=== PATIENT | female | born 1950 | race Caucasian/White ===

== ENCOUNTER 2017-03-13 20:10 | Inpatient (IN) | payer MEDICARE, MEDICAID ==
--- NOTE | 2017-03-13 21:19 | History and Physical ---
History of Present Illness - HPI Chief Complaint: transfered from [facility] icu HPI: trafered from [facility] Vital Signs: Last Vital Signs Temp Pulse 74 03/13/17 21:11 Resp BP Pulse Ox 96 03/13/17 21:11 Past Medical History Cardiovascular: Report: Hyperlipidemia Psych: Report: Anxiety, Addictions Musculoskeletal: Report: Osteoarthritis, Weakness, Other (s/pclavicular fx) Renal/: Report: Acute Renal Failure Endocrine: Report: Hypothyroidism Family Medical History - Family Member Mother History Unknown: Yes Social History Smoke: No Alcohol: Occassional Drugs: Crystal Meth Lives: Alone Domestic Violence: Negative - Medications Home Medications: Home Medication Medication Instructions Recorded Type Acetaminophen [Tylenol] 650 mg PO Q4HR PRN 03/13/17 History Albuterol Sulfate [Proair 90 mcg IH Q1H PRN 03/13/17 History Respiclick] Albuterol Sulfate [Proair 90 mcg IH Q4H 03/13/17 History Respiclick] Carvedilol [Coreg] 1 tab NG BID 03/13/17 History Epoetin John [Epogen] 10,000 units SUBQ MONFRI 03/13/17 History Ferrous Sulfate [Iron] 300 mg NG BID 03/13/17 History HYDROmorphone [Dilaudid] 1 mg IV Q3H PRN 03/13/17 History HYDROmorphone [Dilaudid] 2 mg IV Q3H PRN 03/13/17 History Heparin Sodium,Porcine [Heparin 5,000 unit SQ Q8HR 03/13/17 History Sodium] Hydralazine HCl 10 mg IV Q3H PRN 03/13/17 History Insulin Human Regular [NovoLIN R] 0 units SUBQ Q4H 03/13/17 History Ipratropium [place] [Atrovent Hfa] 6 puff INH QID 03/13/17 History Ondansetron HCl/Pf [Ondansetron 4 mg IVP Q6H PRN 03/13/17 History HCl 4 mg/2 ml Vial] Pantoprazole [Protonix] 40 mg IVP DAILY 03/13/17 History Phenytoin [Dilantin] 100 mg IV Q8H 03/13/17 History Hydralazine HCl 10 mg IVP Q3H PRN 03/14/17 History - Allergies Allergies/Adverse Reactions: Allergies Allergy/AdvReac Type Severity Reaction Status Date / Time No Known Allergies Allergy Verified 03/13/17 22:16 Review of Systems - Review of Systems Constitutional: Report: Chills Eyes: Report: No Significant Respiratory: Report: Other (intubated for resp failure) Cardiovascular: Report: No Significant Neurological: Report: Seizures (aloc) Physical Exam - Physical Exam HEENT: Report: Pharnyx within normal limits (pt intubated on ventiltor and sedated) Cardiovascular Systems: Report: Regular, Rate and Rhythm Respiratory: Report: Wheezing, Rhonchi Abdomen: Report: Non-tender to palpation Back: Report: Inspection of back is within normal limits. Extremities: Report: Non-tender to palpation. Skin: Report: Color of skin is within normal limits Other Systems Exam: on sedation - Lab Results All Lab Results last 24 hours: reviewed - Assessment Assessment: s/p intubation s/p resp failure s/p siezures on ventilator h/o drug depedence s/p prir rt clvilular fx obesity acute renal failure on hd drug withdrawal - Plan Plan: ventilatory support/wean when ready continue dialysis iv antibiotics pul/id/renal nuero /psych consults
[2017-03-13 22:16] VITALS: BP 105/70
[2017-03-13] MEDS ORDERED: INSULIN HUMAN REGULAR 100 UNITS/ML UNIT ONE (23:11)
[2017-03-14] MEDS ORDERED: Albuterol Nebulizer 2.5mg/3mL HHN PRN (00:21)
--- NOTE | 2017-03-14 00:21 | History & Physical ---
ADMIT DATE: 03/13/2017 HISTORY OF PRESENT ILLNESS: This is a 66-year-old female patient well known to me has a history of asthma, history of COPD, history of severe obesity, history of prior clavicular fractures, history of chronic drug dependence, on fentanyl patch, apparently went to [facility], was altered, patient was intubated, was in the ICU and I got a call from the ICU, a [facility] doctor saying that the patient is in a stable, able to be transferred to [facility] in the ICU. That is why I am seeing the patient now. The patient is intubated on a ventilator, unable to get much history. PHYSICAL EXAMINATION: HEAD: Normal. ENT: Normal. NECK: Supple, nontender. LUNGS: Clear. CARDIOVASCULAR SYSTEM: S1, S2 heard. ABDOMEN: Soft. Bowel sounds are heard. CENTRAL NERVOUS SYSTEM: Decreased sensorium. DIAGNOSES: Status post respiratory failure, status post intubation, ventilator-dependent respiratory failure, pneumonia, possible aspiration, history of prior clavicular fracture, history of obesity, history of depression, history of drug dependence. PLAN: The patient is going to be admitted and I will have Dr. Mike Alvarez, ID doctor see the patient and I will also have Dr. Trenton Alvarez, Pulmonary doctor see the patient and I will have Psych doctor, Dr. Mcnair see the patient and also I will have the Pain Management doctor, Dr. Monroy see the patient and I will follow the patient. JOB# [id number]
[2017-03-14] MEDS ORDERED: Dextrose 50% 50 mL Abboject IVP PRN (00:23)
[2017-03-14] MEDS ORDERED: GLUCAGON HCl 1 MG KIT IM PRN (00:23)
[2017-03-14] MEDS: HYDROmorphone 1 mg/mL 1mL Syr IVP PRN ×2 (04:25→16:14)
[2017-03-14] MEDS: Phenytoin 50 mg/mL 5 mL Vial IV SCH ×2 (04:45→13:00)
[2017-03-14 06:10] LABS: ANION GAP 8.8 (7.0-16.0); BUN/CREATININE RATIO 7.4; CALCIUM SERUM 8.5 mg/dL (8.6-10.3); CREATININE - SERUM 4.6 mg/dL (0.6-1.2); POTASSIUM SERUM 3.8 mEq/L (3.5-5.1)
[2017-03-14 06:11] LABS: ALB/GLOB RATIO 0.9 (1.0-1.8); HEMOGLOBIN 8.7 gm/dL (11.7-16.1); MEAN CELL VOLUME 81.9 fl (81-100); RED BLOOD COUNT 3.17 Mil/cmm (3.80-5.20); WHITE BLOOD COUNT 15.6 Th/cmm (4.8-10.8)
[2017-03-14 06:12] LABS: MEAN CORPUSCULAR HEMOGLOBIN 27.5 pg (27.0-31.0); MEAN CORPUSCULAR HGB CONC 33.6 pg (28.0-36.0); MEAN PLATELET VOLUME 8.1 fl; PLATELET COUNT 157 Th/cmm (150-400); RED CELL DISTRIBUTION WIDTH 16.2 % (11.5-20.0)
[2017-03-14] MEDS: INSULIN ASPART SLIDING SCALE 100 UNITS/ML UNIT SUBQ SCH ×3 (06:15→17:58)
[2017-03-14] MEDS: Chlorhexidine Gluconate 0.12% 15mL Mouthwash MM SCH (08:11)
--- NOTE | 2017-03-14 09:03 | Diagnostic Imaging Report ---
CHEST X-RAY: AP view INDICATION: Intubated COMPARISON: No priors available for comparison FINDINGS: Portable chest no priors available demonstrates ET tube with tip 2.6 cm above the sha. NG tube is visualized the stomach with distal tip not seen. Left-sided IJ central line is seen with tip in SVC. Right IJ central line is seen with tip in the cavoatrial junction. Patchy bilateral lower lung zone infiltrates are seen with minimal congestive changes. No significant effusion. Heart size normal. Right hip arthroplasty is noted. There is evidence of trauma to the left shoulder with deformity of the left humeral head. IMPRESSION: Support devices as detailed above. Bibasal infiltrates and mild congestive changes Evidence of trauma to the left shoulder with fracture deformity of left humeral head, correlate clinically.
[2017-03-14] MEDS: Ferrous Sulfate 300 MG/5 ML UDC NG SCH ×2 (09:48→17:30)
[2017-03-14 10:00] LABS: pH 7.49 (7.35-7.45)
[2017-03-14 10:02] LABS: ABG SOURCE Arterial; BE(B) 7.8 mEq/L (-3.0-3.0); HCO3 30.7 mEq/L (20.0-26.0)
[2017-03-14 10:03] LABS: ALLEN TEST Positive; CRITICAL VALUES REPORTED BY DM; FIO2 30; MECH RATE 16; MECH VT 450
[2017-03-14] MEDS ORDERED: Albuterol Nebulizer 2.5mg/3mL HHN SCH (11:00)
[2017-03-14] MEDS ORDERED: Ipratropium Neb 0.5 mg/2.5 mL UD HHN SCH (11:00)
--- NOTE | 2017-03-14 13:16 | Consultation ---
Consult Note - Consult Note Service Date: 03/14/17 Consult Note: PHYSICIAN Consultation Note: Date of Admission: 03/13/17 Purpose of Consultation: Chief Complaint: Patient REGINE FREGOSO was admitted to location Intensive Care Unit with ALOC. History of Present Illness: Patient is 66 year old female with history of morbid obesity, COPD, HTN, Cardiomyopathy, Polysubstance abuse, chronic pain syndrome, taken from home by EMS to the [facility] 03/09/2017 for altered mental status. She had fentanyl patces on the skin which were removed, Narcan was given by EMS. On initial evaluation, her temperature was not available, WBC Count 11,700. Patient was diagnosed with severe septic shock with multiorgan failure, involving respiratory failure, and renal failure and coagulase negative Staphylococcal sepsis. She had Right IJ and left HD catheter placed in and she is receiving HD on daily basis. She had intubation performed in the ER and put on ventilator support. She is still on ventilator support and HD on daily basis. Antibiotic whitaker, she had been receiving vancomycin IV and Zosyn. patient has worsening of the leukocytosis, and ID consult was called for antibiotic management. Crug screen was positive for Meth, codeine, methadone and fentanyl. Respiratory culture grew GNR and GPC. 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 She was transferred to this hospital for insurance purposes. Past Medical History: morbid obesity, COPD, HTN, Cardiomyopathy, Polysubstance abuse, chronic pain syndrome. Allergies Allergy/AdvReac Type Severity Reaction Status Date / Time No Known Allergies Allergy Verified 03/13/17 22:16 Vital Signs Temp 97.2 F 03/14/17 04:00 Pulse 75 03/14/17 11:00 Resp 20 03/14/17 11:00 BP 125/71 03/14/17 11:00 Pulse Ox 98 03/14/17 11:00 Intake & Output 03/13/17 03/14/17 03/14/17 18:59 06:59 18:59 Intake Total 100 Output Total 50 Balance 50 Weight (lbs) 120.202 kg Intake: Tube Feeding 50 Other 50 Output: Urine 50 Other: # Bowel Movements 1 Stool Characteristics Liquid Brown Laboratory Results - last 24 hr 03/13/17 03/14/17 03/14/17 22:07 04:40 04:40 WBC 15.6 H RBC 3.17 L Hgb 8.7 L Hct 26.0 L MCV 81.9 MCH 27.5 MCHC Differential 33.6 RDW 16.2 Plt Count 157 MPV 8.1 Specimen Source Sample Site pH pCO2 pO2 HCO3 Base Excess O2 Saturation Ruben Test Vent Rate Inspired O2 Tidal Volume PEEP Pressure (ins/psv/peep) Critical Value Sodium 135 L Potassium 3.8 Chloride 101 Carbon Dioxide 29.0 Anion Gap 8.8 BUN 34 H Creatinine 4.6 H* Est GFR ( Amer) 12.2 Est GFR (Non-Af Amer) 10.1 BUN/Creatinine Ratio 7.4 Glucose 134 H POC Glucose 120 H Calcium 8.5 L Total Bilirubin 1.0 AST 74 H ALT 66 H Alkaline Phosphatase 102 Total Protein 6.9 Albumin 3.2 L Globulin 3.7 Albumin/Globulin Ratio 0.9 L 03/14/17 03/14/17 06:13 09:48 WBC RBC Hgb Hct MCV MCH MCHC Differential RDW Plt Count MPV Specimen Source Arterial Sample Site Right Radial pH 7.49 H pCO2 42.0 pO2 47.0 L* HCO3 30.7 H Base Excess 7.8 H O2 Saturation 86.0 L Ruben Test Positive Vent Rate 16 Inspired O2 30 Tidal Volume 450 PEEP 5 Pressure (ins/psv/peep) N/A Critical Value DM Sodium Potassium Chloride Carbon Dioxide Anion Gap BUN Creatinine Est GFR ( Amer) Est GFR (Non-Af Amer) BUN/Creatinine Ratio Glucose POC Glucose 149 H Calcium Total Bilirubin AST ALT Alkaline Phosphatase Total Protein Albumin Globulin Albumin/Globulin Ratio Home Medication Medication Instructions Recorded Type Acetaminophen [Tylenol] 650 mg PO Q4HR PRN 03/13/17 History Albuterol Sulfate [Proair 90 mcg IH Q1H PRN 03/13/17 History Respiclick] Albuterol Sulfate [Proair 90 mcg IH Q4H 03/13/17 History Respiclick] Carvedilol [Coreg] 1 tab NG BID 03/13/17 History Epoetin John [Epogen] 10,000 units SUBQ MONFRI 03/13/17 History Ferrous Sulfate [Iron] 300 mg NG BID 03/13/17 History HYDROmorphone [Dilaudid] 1 mg IV Q3H PRN 03/13/17 History HYDROmorphone [Dilaudid] 2 mg IV Q3H PRN 03/13/17 History Heparin Sodium,Porcine [Heparin 5,000 unit SQ Q8HR 03/13/17 History Sodium] Hydralazine HCl 10 mg IV Q3H PRN 03/13/17 History Insulin Human Regular [NovoLIN R] 0 units SUBQ Q4H 03/13/17 History Ipratropium [place] [Atrovent Hfa] 6 puff INH QID 03/13/17 History Ondansetron HCl/Pf [Ondansetron 4 mg IVP Q6H PRN 03/13/17 History HCl 4 mg/2 ml Vial] Pantoprazole [Protonix] 40 mg IVP DAILY 03/13/17 History Phenytoin [Dilantin] 100 mg IV Q8H 03/13/17 History Hydralazine HCl 10 mg IVP Q3H PRN 03/14/17 History Current Medications Generic Name Dose Route Start Last Admin Trade Name Freq PRN Reason Stop Dose Admin Acetaminophen 650 mg 03/14/17 00:21 Tylenol PO 05/13/17 00:20 Q4HR PRN T 101F Albuterol Sulfate 2.5 mg 03/14/17 00:21 Albuterol 2.5mg/3ml Neb Ud HHN Q1H PRN Shortness of Breath or Wheeze Albuterol Sulfate 2.5 mg 03/14/17 11:00 Albuterol 2.5mg/3ml Neb Ud HHN 05/13/17 10:59 Q4HRT REPLACED BY [facility] Carvedilol 6.25 mg 03/14/17 09:00 03/14/17 09:48 Coreg NG 05/13/17 08:59 6.25 mg BID CELSA Administration Chlorhexidine Gluconate 15 ml 03/14/17 08:00 03/14/17 08:11 Peridex MM 05/13/17 07:59 15 ml 0800,1999 CELSA Administration Dextrose 50 ml 03/14/17 00:23 D50w IVP 05/13/17 00:22 PRN PRN Blood Glucose less than 70 Dextrose 18.75 gm 03/14/17 00:23 Glutose 40% PO 05/13/17 00:22 PRN PRN Blood Glucose less than 70 Epoetin John 10,000 units 03/14/17 15:00 Epogen SUBQ 05/13/17 14:59 MONFRI REPLACED BY [facility] Ferrous Sulfate 300 mg 03/14/17 09:00 03/14/17 09:48 Iron NG 05/13/17 08:59 300 mg BID CELSA Administration Glucagon 1 mg 03/14/17 00:23 Glucagen IM 05/13/17 00:22 PRN PRN Blood Glucose less than 70 Heparin Sodium (Porcine) 5,000 units 03/14/17 05:00 03/14/17 06:00 Heparin SUBQ 05/13/17 08:00 5,000 units Q8HR CELSA Administration Hydralazine HCl 10 mg 03/14/17 00:42 Apresoline 20 Mg/Ml IV 05/13/17 00:41 Q3H PRN FOR SBP ABOVE 150 Hydromorphone HCl 2 mg 03/14/17 00:47 Dilaudid IVP 05/13/17 00:46 Q3H PRN FOR MODERATE PAIN Hydromorphone HCl 1 mg 03/14/17 00:47 03/14/17 04:25 Dilaudid IVP 05/13/17 00:46 1 mg Q3H PRN Administration MILD PAIN Piperacillin Sod/Tazobactam 50 mls @ 100 mls/hr 03/14/17 09:00 03/14/17 08:07 Sod 2.25 gm/ Sodium Chloride IV 05/13/17 08:59 100 mls/hr Q8H CELSA Administration Insulin Aspart 0 units 03/14/17 06:00 03/14/17 06:15 Novolog Insulin Sliding Scale SUBQ 05/13/17 05:59 Not Given Q6HR REPLACED BY [facility] Protocol Ipratropium [place] 0.5 mg 03/14/17 11:00 Atrovent Neb 0.5mg/2.5ml HHN 05/13/17 10:59 QIDRT CELSA Ondansetron HCl 4 mg 03/14/17 00:47 Zofran IVP 05/13/17 00:46 Q6H PRN Nausea / Vomiting Pantoprazole Sodium 40 mg 03/14/17 09:00 03/14/17 09:48 Protonix IVP 05/13/17 08:59 40 mg DAILY CELSA Administration Phenytoin 100 mg 03/14/17 01:00 03/14/17 04:45 Dilantin IV 05/13/17 00:59 100 mg Q8H CELSA Administration Review of Systems: A 12 point ROS was reviewed with the pertinent positive and negatives noted in the HPI. Unable to provide any history. Social History Smoking Status Current every day smoker Drug Use Yes Family Medical History Unknown Physical Exam: General: Comfortable, obese, intubated orally, on the ventilator support. HEENT: Head is nromocephalic, atraumatic. Orall cavity is moist and pink tongue. Neck: Supple, no JVD, no carotid bruit. No use of accessory neck muscles. Cardio: S1 and S2 WNL. no murmur, no gallop. Respiratory: Vesicular breath sounds. No crackles. decreased sounds. Abdominal: Soft NT ND BS present. Genital/Urinary: deferred Extremities: NCCE. Neurological: Unresponsive. Assessment: 1. Sepsis with multiorgan failure. 2. Pneumonia ( CXR shoed bibasilar infiltrates). 3. Obesity. 4. Renal failure on HD. ? acute versus chronic, 5. acute on chronic respiratory failure versus acute respiratory failure on ventilator. 6. COPD. 7. HTN. Plan: Will change antibiotics to zyvox, rocephin and levaquin. Thank you, Dr Fried for involving me in taking care of this patient. Antonio Arango Devesh N., M.D. [id number]
[2017-03-14] MEDS ORDERED: Levofloxacin 500mg/100mL 500 MG/100 ML BAG IV ONE (13:37)
--- NOTE | 2017-03-14 14:32 | Diagnostic Imaging Report ---
Left shoulder 2 views Indication: Fall Comparison: Chest x-ray 03/14/2017 Findings: Exam is limited due to positioning. There is markedly displaced age-indeterminate fracture of the proximal left humerus. Additional subacute to chronic appearing of the mid to distal humeral shaft is also noted. There is deformity of the humeral head. Mild degenerative changes are noted. Partially visualized support devices are seen better seen on chest x-ray earlier the same day. Impression: Markedly displaced age indeterminate fracture of the proximal humerus possibly subacute to chronic. Please correlate with clinical findings. There is deformity of the left humeral head. The glenohumeral joint cannot be well evaluated on this exam. Subacute to chronic appearing left mid to distal humeral shaft fracture.. In the setting of trauma, if clinical symptoms persist and there is continued concern for an occult fracture, follow up exams in 5-7 days is suggested.
--- NOTE | 2017-03-14 14:36 | General Progress Note ---
Subjective - Review of Systems Events since last encounter: patient on ventilator Objective - Results Result Diagrams: 03/14/17 04:40 03/14/17 04:40 Recent Labs: Laboratory Last Values WBC 15.6 Th/cmm (4.8-10.8) H 03/14/17 04:40 RBC 3.17 Mil/cmm (3.80-5.20) L 03/14/17 04:40 Hgb 8.7 gm/dL (11.7-16.1) L 03/14/17 04:40 Hct 26.0 % (35.0-45.0) L 03/14/17 04:40 MCV 81.9 fl (81-100) 03/14/17 04:40 MCH 27.5 pg (27.0-31.0) 03/14/17 04:40 MCHC Differential 33.6 pg (28.0-36.0) 03/14/17 04:40 RDW 16.2 % (11.5-20.0) 03/14/17 04:40 Plt Count 157 Th/cmm (150-400) 03/14/17 04:40 MPV 8.1 fl 03/14/17 04:40 Specimen Source Arterial 03/14/17 09:48 Sample Site Right Radial 03/14/17 09:48 pH 7.49 (7.35-7.45) H 03/14/17 09:48 pCO2 42.0 mmHg (35.0-45.0) 03/14/17 09:48 pO2 47.0 mmHg (80.0-100.0) L* 03/14/17 09:48 HCO3 30.7 mEq/L (20.0-26.0) H 03/14/17 09:48 Base Excess 7.8 mEq/L (-3.0-3.0) H 03/14/17 09:48 O2 Saturation 86.0 % (92.0-100.0) L 03/14/17 09:48 Ruben Test Positive 03/14/17 09:48 Vent Rate 16 03/14/17 09:48 Inspired O2 30 03/14/17 09:48 Tidal Volume 450 03/14/17 09:48 PEEP 5 03/14/17 09:48 Pressure (ins/psv/peep) N/A 03/14/17 09:48 Critical Value DM 03/14/17 09:48 Sodium 135 mEq/L (136-145) L 03/14/17 04:40 Potassium 3.8 mEq/L (3.5-5.1) 03/14/17 04:40 Chloride 101 mEq/L (98-107) 03/14/17 04:40 Carbon Dioxide 29.0 mEq/L (21.0-31.0) 03/14/17 04:40 Anion Gap 8.8 (7.0-16.0) 03/14/17 04:40 BUN 34 mg/dL (7-25) H 03/14/17 04:40 Creatinine 4.6 mg/dL (0.6-1.2) H* 03/14/17 04:40 Est GFR ( Amer) 12.2 ml/min (>90) 03/14/17 04:40 Est GFR (Non-Af Amer) 10.1 ml/min 03/14/17 04:40 BUN/Creatinine Ratio 7.4 03/14/17 04:40 Glucose 134 mg/dL (70-105) H 03/14/17 04:40 POC Glucose 149 MG/DL (70 - 105) H 03/14/17 06:13 Calcium 8.5 mg/dL (8.6-10.3) L 03/14/17 04:40 Total Bilirubin 1.0 mg/dL (0.3-1.0) 03/14/17 04:40 AST 74 U/L (13-39) H 03/14/17 04:40 ALT 66 U/L (7-52) H 03/14/17 04:40 Alkaline Phosphatase 102 U/L (34-104) 03/14/17 04:40 Total Protein 6.9 gm/dL (6.0-8.3) 03/14/17 04:40 Albumin 3.2 gm/dL (3.7-5.3) L 03/14/17 04:40 Globulin 3.7 gm/dL 03/14/17 04:40 Albumin/Globulin Ratio 0.9 (1.0-1.8) L 03/14/17 04:40 - Physical Exam Vitals and I&O: Vital Signs Temp 97.2 F 03/14/17 04:00 Pulse 73 03/14/17 13:26 Resp 20 03/14/17 11:00 BP 125/71 03/14/17 11:00 Pulse Ox 99 03/14/17 13:26 Intake & Output 03/13/17 03/14/17 03/14/17 18:59 06:59 18:59 Intake Total 100 Output Total 50 Balance 50 Weight (lbs) 120.202 kg Intake: Tube Feeding 50 Other 50 Output: Urine 50 Other: # Bowel Movements 1 Stool Characteristics Liquid Brown Active Medications: Current Medications Acetaminophen (Tylenol) 650 mg PO Q4HR PRN PRN Reason: T 101F Stop: 05/13/17 00:20 Albuterol Sulfate (Albuterol 2.5mg/3ml Neb Ud) 2.5 mg HHN Q1H PRN PRN Reason: Shortness of Breath or Wheeze Albuterol Sulfate (Albuterol 2.5mg/3ml Neb Ud) 2.5 mg HHN Q4HRT [facility] Stop: 05/13/17 10:59 Carvedilol (Coreg) 6.25 mg NG BID [facility] Stop: 05/13/17 08:59 Last Admin: 03/14/17 09:48 Dose: 6.25 mg Chlorhexidine Gluconate (Peridex) 15 ml MM 08,1999 [facility] Stop: 05/13/17 07:59 Last Admin: 03/14/17 08:11 Dose: 15 ml Dextrose (D50w) 50 ml IVP PRN PRN PRN Reason: Blood Glucose less than 70 Stop: 05/13/17 00:22 Dextrose (Glutose 40%) 18.75 gm PO PRN PRN PRN Reason: Blood Glucose less than 70 Stop: 05/13/17 00:22 Epoetin John (Epogen) 10,000 units SUBQ MONFRI [facility]1983 Stop: 05/13/17 14:59 Ferrous Sulfate (Iron) 300 mg NG BID [facility] Stop: 05/13/17 08:59 Last Admin: 03/14/17 09:48 Dose: 300 mg Glucagon (Glucagen) 1 mg IM PRN PRN PRN Reason: Blood Glucose less than 70 Stop: 05/13/17 00:22 Heparin Sodium (Porcine) (Heparin) 5,000 units SUBQ Q8HR [facility] Stop: 05/13/17 08:00 Last Admin: 03/14/17 13:27 Dose: 5,000 units Hydralazine HCl (Apresoline 20 Mg/Ml) 10 mg IV Q3H PRN PRN Reason: FOR SBP ABOVE 150 Stop: 05/13/17 00:41 Hydromorphone HCl (Dilaudid) 2 mg IVP Q3H PRN PRN Reason: FOR MODERATE PAIN Stop: 05/13/17 00:46 Hydromorphone HCl (Dilaudid) 1 mg IVP Q3H PRN PRN Reason: MILD PAIN Stop: 05/13/17 00:46 Last Admin: 03/14/17 04:25 Dose: 1 mg Linezolid (Zyvox) 600 mg in 300 mls @ 300 mls/hr IV Q12H [facility] Stop: 05/13/17 15:59 Ceftriaxone Sodium 1 gm/ (Dextrose) 50 mls @ 100 mls/hr IV Q24H [facility] Stop: 05/13/17 13:59 Levofloxacin (Levaquin Pb) 500 mg in 100 mls @ 100 mls/hr IV ONCE ONE Stop: 03/14/17 14:36 Levofloxacin (Levaquin Pb) 250 mg in 50 mls @ 50 mls/hr IV Q48H [facility] Stop: 05/15/17 14:59 Insulin Aspart (Novolog Insulin Sliding Scale) 0 units SUBQ Q6HR CELSA PRN Reason: Protocol Stop: 05/13/17 05:59 Last Admin: 03/14/17 13:31 Dose: Not Given Ipratropium [place] (Atrovent Neb 0.5mg/2.5ml) 0.5 mg HHN QIDRT [facility] Stop: 05/13/17 10:59 Ondansetron HCl (Zofran) 4 mg IVP Q6H PRN PRN Reason: Nausea / Vomiting Stop: 05/13/17 00:46 Pantoprazole Sodium (Protonix) 40 mg IVP DAILY [facility] Stop: 05/13/17 08:59 Last Admin: 03/14/17 09:48 Dose: 40 mg Phenytoin (Dilantin) 100 mg IV Q8H [facility] Stop: 05/13/17 00:59 Last Admin: 03/14/17 04:45 Dose: 100 mg General: No acute distress Neck: Supple Cardiovascular: Regular rate, Normal S1, Normal S2 Abdomen: Bowel sounds Assessment/Plan - Problem List Patient Problems: All Active Problems H/O drug dependence (Acute) F19.21 H/O: depression (Acute) Z86.59 H/O: obesity (Acute) Z86.39 Respiratory failure (Acute) J96.90 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 h/o prior clavicular fracture (Acute) pneumonia (Acute) - Plan Plan: cpm
[2017-03-14] MEDS: Albuterol/Ipratropium Neb 3 ML AERS HHN SCH ×3 (15:50→23:07)
[2017-03-14] MEDS: methylPREDNISolone SS 40 mg Vial IVP SCH (16:14)
[2017-03-14] MEDS: Epoetin Alfa 20000 Units/mL Vial SUBQ SCH (16:15)
[2017-03-14] MEDS: Linezolid 600mg/300mL 600 MG/300 ML BAG IV SCH (16:26)
[2017-03-14] MEDS ORDERED: Probiotic Screen MC PRN (16:30)
[2017-03-14] MEDS: Budesonide 0.5 Mg/2 mL Ud HHN SCH (19:14)
--- NOTE | 2017-03-14 21:32 | Consultation ---
DATE OF CONSULTATION: 03/14/2017 NEUROLOGY CONSULT HISTORY OF PRESENT ILLNESS: The patient is a 66-year-old transferred from [place]. The patient admitted there with altered mentation and respiratory failure. The patient is intubated on the vent. She continues to be on the vent. She continues to be lethargic open eyes. PAST MEDICAL HISTORY: The patient with depression. The patient with chronic drug dependence. The patient with chronic pain syndrome. The patient with previous left ankle fracture. MEDICATIONS: As per reconciliation. Here, the patient is on Coreg, albuterol, hydralazine, hydromorphone, insulin, Dilantin 100 q.8 hours and piperacillin. REVIEW OF SYSTEMS: Not obtainable. The patient is intubated. PHYSICAL EXAMINATION: VITAL SIGNS: Temperature 98.6, blood pressure 150/60, and pulse is 76. NECK: Supple. No neck bruits. HEART: Sounds S1 and S2. LUNGS: Clear. NEUROLOGIC: The patient will open her eyes. She actually seems to follow some instructions. She cannot lift her arms. The patient's pupils are reactive to light. The patient's withdrawal of the lower extremity. She will move to instruction. Reflexes about -1 upper extremities, difficult to get the lower extremities . INVESTIGATIONS: [place] notes noted. CT scan abnormal with abnormalities in the basal ganglion. We will get an MRI done. Drug screen noted positive. ASSESSMENT: 1. Encephalopathy. 2. Respiratory failure. 3. Posterior drug screen. 4. History of seizure. 5. Depression. PLAN: We will get an MRI without contrast. The patient will continue present treatment. JOB# [id number]
--- NOTE | 2017-03-14 23:46 | Consultation ---
DATE OF CONSULTATION: 03/14/2017 ATTENDING: Dr. Loy Fried INSPECTOR TECHNICIAN: Praful Delgado M.D. REASON FOR CONSULTATION: Electrolyte imbalance and fluid management. HISTORY OF PRESENT ILLNESS: This is a 66-year-old female with past medical history of polysubstance abuse who was transferred from [place] to [facility] for further management. The patient was admitted at [place] last 03/09/2017 because of altered level of consciousness. She was found on the floor unresponsive by family and was brought to [place] [facility] Room. CT scan and MRI of the head revealed basal ganglia and thalamic CVA, more likely secondary to vasospasm. EEG showed metabolic encephalopathy. She did develop occasional seizure activities controlled by Ativan p.r.n. as well as Dilantin. Her blood culture grew coagulase negative staph and sputum showed gram-positive cocci and gram-negative rods. She was placed on vancomycin as well as Zosyn. The patient did develop impending respiratory failure and had required intubation with ventilator management. She gradually became more awake and started to follow simple commands. Urine output had started to decline and she became . Kidney function also worsened. Creatinine today initially was 6.3. Thus, she was initiated on dialysis because of her encephalopathy along with . She was on daily dialysis treatment. PAST MEDICAL HISTORY: 1. Obesity. 2. Chronic obstructive pulmonary disease. 3. Essential hypertension. 4. Cardiomyopathy. 5. Polysubstance abuse. 6. Chronic pain syndrome. CURRENT MEDICATIONS: She is currently on albuterol, carvedilol, Rocephin, ferrous sulfate, hydralazine, hydromorphone, ipratropium, levofloxacin, linezolid, Ondansetron, pantoprazole, Dilantin, and Zosyn. ALLERGIES: No known drug allergies. SOCIAL AND FAMILY HISTORY: I was not able to obtain directly from the patient because she is currently intubated. REVIEW OF SYSTEMS: Again, I was not able to decipher directly from the patient because of her current clinical status. PHYSICAL EXAMINATION: GENERAL: The patient is arousable on the ventilator, slightly agitated. VITAL SIGNS: Her blood pressure is 125/71, pulse 75, afebrile. SKIN: Poor turgor, warm. She has some ecchymosis, hematomas along the right lateral abdominal wall, also on the left antecubital area and left scapula/shoulder region. HEENT: Head is normocephalic and atraumatic. Eyes: Extraocular muscles intact. Pupils are equal, round, and reactive to light and accommodates. Anicteric sclerae. Pale conjunctivae. Nose: Midline nasal septum. Mouth: Moist mucosa with adequate dentition. NECK: Supple. No adenopathy. No thyromegaly. No bruits. Trachea palpated in the midline. CHEST AND CVS: Distant heart sounds, S1, S2. No rub, murmur, nor gallop appreciated. Point of maximal impulse, unable to assess due to the patient's size. LUNGS: Equal expansion. No use of accessory muscles. No supraclavicular retractions. Decreased breath sounds. A few rhonchi, but no rales nor wheezes appreciated. BREASTS: Pendulous. Symmetrical without any discharge. ABDOMEN: Obese. Soft. Positive for bowel sounds. No tenderness, no bruits either diastolic or systolic. RECTAL: Unable to perform due to the patient's current condition, size, and positioning. GENITOURINARY: Normal appearing female genitalia with indwelling Dick catheter. MUSCULOSKELETAL: No effusions present in her joints, but unable to assess her range of motion. EXTREMITIES: There is no evidence of edema, cyanosis, or clubbing with palpable femoral, but unable to fully appreciate popliteal and dorsalis pedis pulses. NEUROLOGIC: The patient opens eyes to name, however, unable to follow my neuro commands, so I was not able to pursue further my neuro exam. LABORATORY DATA: Did reveal white count of 10.6, hemoglobin 8.7, and hematocrit 26. Sodium 135, potassium 3.8, chloride 101, bicarb 29, BUN 34, and creatinine 4.6. Glucose is 149. Calcium is 8.5. AST is 74. ALT is 66. Albumin 3.2. IMPRESSION: 1. Acute kidney injury. The patient initially developed prerenal azotemia. She was found barely responsive on the floor. She probably was not able to eat nor drink and failed to replenish both sensible and insensible fluid losses. Her prerenal azotemia eventually progressed to acute tubular injury due to a decrease in effective circulating volume brought about by severe dehydration. She also has overwhelming sepsis which could eventually give rise to acute interstitial nephritis. 2. Altered level of consciousness secondary to polysubstance abuse, new onset cerebrovascular accident. 3. Acute respiratory failure, on the ventilator again, maybe possibly due to polysubstance abuse, possibly contributory factor from her chronic obstructive pulmonary disease. 4. Essential hypertension. 5. Morbid obesity. 6. Multiple ecchymosis secondary to trauma/fall. 7. Coagular negative staph septicemia. 8. Gram-positive cocci/gram-negative jyothi, community-acquired pneumonia. 9. Fracture of left humeral head secondary to fall/trauma. 10. Moderate malnutrition. 11. New seizure activities, possibly secondary to polysubstance abuse as well as her new onset cerebrovascular accident. 12. Chronic obstructive pulmonary disease. 13. Essential hypertension. 14. Cardiomyopathy. 15. Polysubstance abuse. 16. Chronic pain syndrome. 17. Anemia of chronic disease. PLAN: 1. Hemodialysis today. 2. Urinalysis. 3. Urine spot sodium, eosinophils, and creatinine. 4. Follow up electrolytes, CBC, ammonia level. 5. Followup renal ultrasound. Thank you Dr. Fried for this consult. I will follow the patient closely with you. JOB# [id number]
[2017-03-15] MEDS: methylPREDNISolone SS 40 mg Vial IVP SCH ×4 (01:39→12:44)
[2017-03-15] MEDS: Phenytoin 50 mg/mL 5 mL Vial IV SCH ×2 (01:40→09:21)
[2017-03-15] MEDS: Albuterol/Ipratropium Neb 3 ML AERS HHN SCH ×5 (02:31→22:21)
--- NOTE | 2017-03-15 03:26 | Progress Notes ---
DATE: 03/14/2017 REASON FOR CONSULTATION: Help the patient with respiratory failure. CONSULT NOTE: This is a 66-year-old female. [place], [place] [facility] [place]. Subsequently, the patient was intubated down there and subsequently the patient was stabilized, was transferred to [facility] because of PCP and insurance reason. The patient could not give me much of history, most of the information is obtained through reviewing the notes including Dr. Fried's notes. She has a history of chronic bronchial asthma, possibly CP. She has COPD as well as a history of possibly chronic pain syndrome and apparently one of the thoughts was that the patient may have overdosed pain medication though I am not too sure if it was intentional or unintentional. Unfortunately, meaningful detailed history from the patient is not available. PAST MEDICAL HISTORY: 1. History of hypertension. 2. History of chronic obstructive pulmonary disease and asthma. 3. History of chronic pain syndrome. 4. History of morbid obesity. 5. History, suspect of obstructive sleep apnea syndrome. Other history is very minimal to nil at this particular time. PHYSICAL EXAMINATION: GENERAL: This is an elderly looking female, opens eyes, not in any acute distress. Currently on a ventilator 50% of oxygen with assist control mode of ventilator. PHYSICAL EXAMINATION: VITAL SIGNS: Temperature is 97, heart rate is 70, blood pressure 125/80, saturation is 98% on 50% of oxygen. HEENT: Examination of the head is essentially unremarkable. Pupils appear to be equal and reactive to light. Conjunctivae are slightly pallor. Oral cavity appears to be intact teeth with endotracheal and orogastric tube. NECK: Very short. CHEST: Shows diminished air entry with occasional rhonchi. HEART: Regular. ABDOMEN: Quite distended. EXTREMITIES: Shows some chronic edematous changes. LABORATORY DATA: The patient's pertinent laboratory studies: White count is 15.6, hemoglobin 8.7, ABG initially on 30% of oxygen, pH of 7.0, ____with assist control of 16%. FIO2 is increased to 50%. The patient's chest x-ray shows ET tube in good position with right basilar infiltrate. There is some possibly airspace disease in the form of emphysematous changes. IMPRESSION: 1. Acute respiratory failure, exact precipitating factor is not clearcut, possibly drug overdose or it is possibly pneumonia. 2. Possibility of underlying severe obstructive sleep apnea syndrome complicating issue. PLANS AND SUGGESTIONS: We will go and get a garza culture, inhaled bronchodilator repeat chest x-ray including CT of the chest. Follow serial blood gases. Await until she gets more awake, alert before attempt to moving could be done and go from there. JOB# [id number]
[2017-03-15] MEDS: Linezolid 600mg/300mL 600 MG/300 ML BAG IV SCH ×2 (04:19→16:01)
[2017-03-15 05:24] LABS: HEMOGLOBIN 8.9 gm/dL (11.7-16.1); MEAN CELL VOLUME 83.4 fl (81-100); MEAN CORPUSCULAR HEMOGLOBIN 27.6 pg (27.0-31.0); MEAN PLATELET VOLUME 9.5 fl; PLATELET COUNT 268 Th/cmm (150-400); RED BLOOD COUNT 3.24 Mil/cmm (3.80-5.20); RED CELL DISTRIBUTION WIDTH 16.2 % (11.5-20.0)
[2017-03-15 05:39] LABS: WHITE BLOOD COUNT 19.1 Th/cmm (4.8-10.8)
[2017-03-15 06:03] LABS: EOSINOPHIL 2 % (0-5); NEUTROPHILS 85 % (40-80); TOTAL CELLS COUNTED 100
[2017-03-15] MEDS: HYDROmorphone 2 mg/mL 1mL Vial IVP PRN ×2 (06:25→16:05)
[2017-03-15 06:35] LABS: ALB/GLOB RATIO 0.9 (1.0-1.8); ANION GAP 11.2 (7.0-16.0); BILIRUBIN,TOTAL 0.7 mg/dL (0.3-1.0); BUN/CREATININE RATIO 7.5; CALCIUM SERUM 8.5 mg/dL (8.6-10.3); CARBON DIOXIDE 29.7 mEq/L (21.0-31.0); MAGNESIUM 2.1 mg/dL (1.9-2.7); POTASSIUM SERUM 3.9 mEq/L (3.5-5.1); URIC ACID 4.2 mg/dL (2.3-6.6)
[2017-03-15 06:39] LABS: CREATININE - SERUM 4.8 mg/dL (0.6-1.2)
[2017-03-15] MEDS: INSULIN ASPART SLIDING SCALE 100 UNITS/ML UNIT SUBQ SCH ×4 (07:40→18:01)
[2017-03-15] MEDS: Chlorhexidine Gluconate 0.12% 15mL Mouthwash MM SCH ×3 (07:47→21:28)
[2017-03-15] MEDS: Budesonide 0.5 Mg/2 mL Ud HHN SCH ×2 (07:47→18:55)
--- NOTE | 2017-03-15 08:32 | Diagnostic Imaging Report ---
CHEST X-RAY: AP view INDICATION: Pneumonia COMPARISON: 03/14/2017 FINDINGS: Support devices are stable. Resolving congestive changes are noted. Suboptimal lung volumes are seen with increased bibasilar markings. Mild cardiomegaly is noted. IMPRESSION: Suboptimal lung volumes with increased bibasilar lung markings which may be due to atelectasis. Underlying infiltrate is less likely Resolving congestive changes.
[2017-03-15] MEDS: Ferrous Sulfate 300 MG/5 ML UDC NG SCH ×2 (09:22→16:24)
[2017-03-15 09:52] LABS: ABG SOURCE Arterial; BE(B) 5.1 mEq/L (-3.0-3.0)
[2017-03-15 09:53] LABS: ALLEN TEST YES; FIO2 50; MECH RATE 16; MECH VT 450
--- NOTE | 2017-03-15 09:58 | General Progress Note ---
Subjective - Review of Systems Events since last encounter: patient on vent no acute distress Objective - Results Result Diagrams: 03/15/17 05:00 03/15/17 05:00 Recent Labs: Laboratory Last Values WBC 19.1 Th/cmm (4.8-10.8) H D 03/15/17 05:00 RBC 3.24 Mil/cmm (3.80-5.20) L 03/15/17 05:00 Hgb 8.9 gm/dL (11.7-16.1) L 03/15/17 05:00 Hct 27.0 % (35.0-45.0) L 03/15/17 05:00 MCV 83.4 fl (81-100) 03/15/17 05:00 MCH 27.6 pg (27.0-31.0) 03/15/17 05:00 MCHC Differential 33.0 pg (28.0-36.0) 03/15/17 05:00 RDW 16.2 % (11.5-20.0) 03/15/17 05:00 Plt Count 268 Th/cmm (150-400) D 03/15/17 05:00 MPV 9.5 fl 03/15/17 05:00 Neutrophils (Manual) 85 % (40-80) H 03/15/17 05:00 Lymphocytes 9 % (20-50) L 03/15/17 05:00 Monocytes 4 % (2-10) 03/15/17 05:00 Eosinophils 2 % (0-5) 03/15/17 05:00 Specimen Source Arterial 03/15/17 09:45 Sample Site Right Radial 03/15/17 09:45 pH 7.40 (7.35-7.45) 03/15/17 09:45 pCO2 50.0 mmHg (35.0-45.0) H 03/15/17 09:45 pO2 123.0 mmHg (80.0-100.0) H 03/15/17 09:45 HCO3 29.0 mEq/L (20.0-26.0) H 03/15/17 09:45 Base Excess 5.1 mEq/L (-3.0-3.0) H 03/15/17 09:45 O2 Saturation 99.0 % (92.0-100.0) 03/15/17 09:45 Ruben Test YES 03/15/17 09:45 Vent Rate 16 03/15/17 09:45 Inspired O2 50 03/15/17 09:45 Tidal Volume 450 03/15/17 09:45 PEEP 5 03/15/17 09:45 Pressure (ins/psv/peep) NA 03/15/17 09:45 Critical Value ISAKO 03/15/17 09:45 Sodium 139 mEq/L (136-145) 03/15/17 05:00 Potassium 3.9 mEq/L (3.5-5.1) 03/15/17 05:00 Chloride 102 mEq/L (98-107) 03/15/17 05:00 Carbon Dioxide 29.7 mEq/L (21.0-31.0) 03/15/17 05:00 Anion Gap 11.2 (7.0-16.0) 03/15/17 05:00 BUN 36 mg/dL (7-25) H 03/15/17 05:00 Creatinine 4.8 mg/dL (0.6-1.2) H* 03/15/17 05:00 Est GFR ( Amer) 11.6 ml/min (>90) 03/15/17 05:00 Est GFR (Non-Af Amer) 9.6 ml/min 03/15/17 05:00 BUN/Creatinine Ratio 7.5 03/15/17 05:00 Glucose 172 mg/dL (70-105) H 03/15/17 05:00 POC Glucose 149 MG/DL (70 - 105) H 03/14/17 06:13 Uric Acid 4.2 mg/dL (2.3-6.6) 03/15/17 05:00 Calcium 8.5 mg/dL (8.6-10.3) L 03/15/17 05:00 Phosphorus 3.0 mg/dL (2.5-5.0) 03/15/17 05:00 Magnesium 2.1 mg/dL (1.9-2.7) 03/15/17 05:00 Total Bilirubin 0.7 mg/dL (0.3-1.0) 03/15/17 05:00 AST 92 U/L (13-39) H 03/15/17 05:00 ALT 93 U/L (7-52) H 03/15/17 05:00 Alkaline Phosphatase 104 U/L (34-104) 03/15/17 05:00 Ammonia 59 umol/L (16-53) H 03/15/17 05:00 Creatine Kinase 64 U/L (30-223) 03/15/17 05:00 Total Protein 7.2 gm/dL (6.0-8.3) 03/15/17 05:00 Albumin 3.4 gm/dL (3.7-5.3) L 03/15/17 05:00 Globulin 3.8 gm/dL 03/15/17 05:00 Albumin/Globulin Ratio 0.9 (1.0-1.8) L 03/15/17 05:00 TSH 1.05 uIU/ml (0.34-5.60) 03/15/17 05:00 - Physical Exam Vitals and I&O: Vital Signs Temp 98.2 F 03/15/17 04:00 Pulse 93 03/15/17 09:22 Resp 18 03/15/17 06:00 BP 111/69 03/15/17 09:22 Pulse Ox 92 03/15/17 08:00 Intake & Output 03/14/17 03/15/17 03/15/17 18:59 06:59 18:59 Intake Total 540 680 80 Output Total 20 30 0 Balance 520 650 80 Weight (lbs) 120.202 kg 117.934 kg 117.843 kg Intake: Intake, IV Amount 300 300 50 Linezolid 600mg/300mL 600 300 300 mg In 300 ml @ 300 mls/ hr IV Q12H [facility] Rx#: [id number] cefTRIAXone 1 gm In 50 Dextrose 5% 50 ml @ 100 mls/hr IV Q24H [facility] Rx#: [id number] Oral 10 0 Tube Feeding 240 370 30 TPN/PPN 0 Blood Product 0 Lipid 0 Albumin 0 Other 0 Output: Gastric Drainage 0 Urine 20 30 0 Stool 0 Urine/Stool Mix 0 Emesis 0 Hemodialysis 0 Other 0 Other: # Voids 0 # Bowel Movements 2 0 Stool Characteristics Liquid Liquid Brown Brown Active Medications: Current Medications Acetaminophen (Tylenol) 650 mg PO Q4HR PRN PRN Reason: T 101F Stop: 05/13/17 00:20 Last Admin: 03/14/17 17:29 Dose: 650 mg Albuterol Sulfate (Albuterol 2.5mg/3ml Neb Ud) 2.5 mg HHN Q1H PRN PRN Reason: Shortness of Breath or Wheeze Albuterol/Ipratropium (Duoneb Neb) 3 ml HHN Q4HRT [facility] Stop: 05/13/17 14:59 Last Admin: 03/15/17 07:47 Dose: 3 ml Budesonide (Pulmicort) 0.5 mg HHN BIDRT [facility] Stop: 05/13/17 18:59 Last Admin: 03/15/17 07:47 Dose: 0.5 mg Carvedilol (Coreg) 6.25 mg NG BID [facility] Stop: 05/13/17 08:59 Last Admin: 03/15/17 09:22 Dose: 6.25 mg Chlorhexidine Gluconate (Peridex) 15 ml MM 08,1999 [facility] Stop: 05/13/17 07:59 Last Admin: 03/15/17 09:22 Dose: 15 ml Dextrose (D50w) 50 ml IVP PRN PRN PRN Reason: Blood Glucose less than 70 Stop: 05/13/17 00:22 Dextrose (Glutose 40%) 18.75 gm PO PRN PRN PRN Reason: Blood Glucose less than 70 Stop: 05/13/17 00:22 Epoetin John (Epogen) 10,000 units SUBQ MONFRI [facility] Stop: 05/13/17 14:59 Last Admin: 03/14/17 16:15 Dose: 10,000 units Ferrous Sulfate (Iron) 300 mg NG BID [facility] Stop: 05/13/17 08:59 Last Admin: 03/15/17 09:22 Dose: 300 mg Glucagon (Glucagen) 1 mg IM PRN PRN PRN Reason: Blood Glucose less than 70 Stop: 05/13/17 00:22 Heparin Sodium (Porcine) (Heparin) 5,000 units SUBQ Q8HR [facility] Stop: 05/13/17 08:00 Last Admin: 03/15/17 06:13 Dose: 5,000 units Hydralazine HCl (Apresoline 20 Mg/Ml) 10 mg IV Q3H PRN PRN Reason: FOR SBP ABOVE 150 Stop: 05/13/17 00:41 Hydromorphone HCl (Dilaudid) 2 mg IVP Q3H PRN PRN Reason: FOR MODERATE PAIN Stop: 05/13/17 00:46 Last Admin: 03/15/17 06:25 Dose: 2 mg Hydromorphone HCl (Dilaudid) 1 mg IVP Q3H PRN PRN Reason: MILD PAIN Stop: 05/13/17 00:46 Last Admin: 03/14/17 16:14 Dose: 1 mg Linezolid (Zyvox) 600 mg in 300 mls @ 300 mls/hr IV Q12H [facility] Stop: 05/13/17 15:59 Last Infusion: 03/15/17 05:19 Dose: Infused Ceftriaxone Sodium 1 gm/ (Dextrose) 50 mls @ 100 mls/hr IV Q24H [facility] Stop: 05/13/17 13:59 Last Infusion: 03/15/17 07:52 Dose: Infused Levofloxacin (Levaquin Pb) 250 mg in 50 mls @ 50 mls/hr IV Q48H [facility] Stop: 05/15/17 14:59 Insulin Aspart (Novolog Insulin Sliding Scale) 0 units SUBQ Q6HR [facility] PRN Reason: Protocol Stop: 05/13/17 05:59 Last Admin: 03/15/17 07:51 Dose: Not Given Lorazepam (Ativan) 2 mg IVP Q4H PRN; Protocol PRN Reason: Agitation Stop: 05/14/17 07:34 Last Admin: 03/15/17 07:46 Dose: 2 mg Methylprednisolone Sodium Succinate (Solu-Medrol) 40 mg IVP Q6HR [facility] Stop: 03/17/17 06:01 Last Admin: 03/15/17 07:42 Dose: 40 mg Miscellaneous (Probiotic Screen) 1 ea [facility] PRN PRN PRN Reason: PROTOCOL Stop: 05/13/17 16:29 Ondansetron HCl (Zofran) 4 mg IVP Q6H PRN PRN Reason: Nausea / Vomiting Stop: 05/13/17 00:46 Pantoprazole Sodium (Protonix) 40 mg IVP DAILY [facility] Stop: 05/13/17 08:59 Last Admin: 03/15/17 09:23 Dose: 40 mg Phenytoin (Dilantin) 100 mg IVP Q8H [facility] Stop: 05/14/17 16:59 General: No acute distress Neck: Supple Cardiovascular: Regular rate, Normal S1, Normal S2 Abdomen: Bowel sounds - Procedures Procedures: Procedures Procedure Code Date RESPIRATORY VENTILATION, 24-96 CONSECUTIVE HOURS [id number] 03/13/17 Assessment/Plan - Problem List Patient Problems: All Active Problems H/O drug dependence (Acute) F19.21 H/O: depression (Acute) Z86.59 H/O: obesity (Acute) Z86.39 Respiratory failure (Acute) J96.90 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 h/o prior clavicular fracture (Acute) pneumonia (Acute) - Plan Plan: cpm
[2017-03-15 11:15] LABS: HEP B CORE IGM Negative (Negative); HEP C ANTIBODY <0.1 s/co ratio (0.0-0.9)
--- NOTE | 2017-03-15 11:24 | Progress Notes ---
DATE: 03/15/2017 SUBJECTIVE: The patient is in ICU, intubated, vent, much more awake and alert. At times getting agitated, needed Ativan. Follows instructions. Will look to the right and left. Will squeeze with the right and left hand. OBJECTIVE: VITAL SIGNS: Temperature 98.9, blood pressure 140/68, pulse around about 80. NECK: Supple. NEUROLOGIC: The patient is awake, alert, now actually following instructions. She will move upper extremities. She still has abnormal movements for some occasional myoclonus. Lower extremity will withdraw. INVESTIGATIONS: CT scan from [place] noted. MRI from [place] noted. ASSESSMENT: 1. Encephalopathy. 2. Respiratory failure. 3. Positive drug screen. 4. History of seizures. 5. Depression. PLAN: Continue present treatment. Management of the vent. Continue seizure medications. JOB# [id number]
--- NOTE | 2017-03-15 15:35 | General Progress Note ---
Subjective - Review of Systems Service Date: 03/15/17 Subjective: awake, comfortable Objective - Results Result Diagrams: 03/15/17 05:00 03/15/17 05:00 Recent Labs: Laboratory Last Values WBC 19.1 Th/cmm (4.8-10.8) H D 03/15/17 05:00 RBC 3.24 Mil/cmm (3.80-5.20) L 03/15/17 05:00 Hgb 8.9 gm/dL (11.7-16.1) L 03/15/17 05:00 Hct 27.0 % (35.0-45.0) L 03/15/17 05:00 MCV 83.4 fl (81-100) 03/15/17 05:00 MCH 27.6 pg (27.0-31.0) 03/15/17 05:00 MCHC Differential 33.0 pg (28.0-36.0) 03/15/17 05:00 RDW 16.2 % (11.5-20.0) 03/15/17 05:00 Plt Count 268 Th/cmm (150-400) D 03/15/17 05:00 MPV 9.5 fl 03/15/17 05:00 Neutrophils (Manual) 85 % (40-80) H 03/15/17 05:00 Lymphocytes 9 % (20-50) L 03/15/17 05:00 Monocytes 4 % (2-10) 03/15/17 05:00 Eosinophils 2 % (0-5) 03/15/17 05:00 Specimen Source Arterial 03/15/17 09:45 Sample Site Right Radial 03/15/17 09:45 pH 7.40 (7.35-7.45) 03/15/17 09:45 pCO2 50.0 mmHg (35.0-45.0) H 03/15/17 09:45 pO2 123.0 mmHg (80.0-100.0) H 03/15/17 09:45 HCO3 29.0 mEq/L (20.0-26.0) H 03/15/17 09:45 Base Excess 5.1 mEq/L (-3.0-3.0) H 03/15/17 09:45 O2 Saturation 99.0 % (92.0-100.0) 03/15/17 09:45 Ruben Test YES 03/15/17 09:45 Vent Rate 16 03/15/17 09:45 Inspired O2 50 03/15/17 09:45 Tidal Volume 450 03/15/17 09:45 PEEP 5 03/15/17 09:45 Pressure (ins/psv/peep) NA 03/15/17 09:45 Critical Value E.DOTSON 03/15/17 09:45 Sodium 139 mEq/L (136-145) 03/15/17 05:00 Potassium 3.9 mEq/L (3.5-5.1) 03/15/17 05:00 Chloride 102 mEq/L (98-107) 03/15/17 05:00 Carbon Dioxide 29.7 mEq/L (21.0-31.0) 03/15/17 05:00 Anion Gap 11.2 (7.0-16.0) 03/15/17 05:00 BUN 36 mg/dL (7-25) H 03/15/17 05:00 Creatinine 4.8 mg/dL (0.6-1.2) H* 03/15/17 05:00 Est GFR ( Amer) 11.6 ml/min (>90) 03/15/17 05:00 Est GFR (Non-Af Amer) 9.6 ml/min 03/15/17 05:00 BUN/Creatinine Ratio 7.5 03/15/17 05:00 Glucose 172 mg/dL (70-105) H 03/15/17 05:00 POC Glucose 113 MG/DL (70 - 105) H 03/15/17 12:30 Uric Acid 4.2 mg/dL (2.3-6.6) 03/15/17 05:00 Calcium 8.5 mg/dL (8.6-10.3) L 03/15/17 05:00 Phosphorus 3.0 mg/dL (2.5-5.0) 03/15/17 05:00 Magnesium 2.1 mg/dL (1.9-2.7) 03/15/17 05:00 Total Bilirubin 0.7 mg/dL (0.3-1.0) 03/15/17 05:00 AST 92 U/L (13-39) H 03/15/17 05:00 ALT 93 U/L (7-52) H 03/15/17 05:00 Alkaline Phosphatase 104 U/L (34-104) 03/15/17 05:00 Ammonia 59 umol/L (16-53) H 03/15/17 05:00 Creatine Kinase 64 U/L (30-223) 03/15/17 05:00 Total Protein 7.2 gm/dL (6.0-8.3) 03/15/17 05:00 Albumin 3.4 gm/dL (3.7-5.3) L 03/15/17 05:00 Globulin 3.8 gm/dL 03/15/17 05:00 Albumin/Globulin Ratio 0.9 (1.0-1.8) L 03/15/17 05:00 TSH 1.05 uIU/ml (0.34-5.60) 03/15/17 05:00 Hepatitis A IgM Ab Negative (Negative) 03/14/17 21:23 Hep Bs Antigen Negative (Negative) 03/14/17 21:23 Hep B Core IgM Ab Negative (Negative) 03/14/17 21:23 Hepatitis C Antibody <0.1 s/co ratio (0.0-0.9) 03/14/17 21:23 - Physical Exam Vitals and I&O: Vital Signs Temp 98.5 F 03/15/17 12:00 Pulse 74 03/15/17 13:39 Resp 12 03/15/17 13:00 BP 102/69 03/15/17 13:00 Pulse Ox 98 03/15/17 13:39 Intake & Output 03/14/17 03/15/17 03/15/17 18:59 06:59 18:59 Intake Total 540 680 80 Output Total 20 30 0 Balance 520 650 80 Weight (lbs) 120.202 kg 117.934 kg 117.843 kg Intake: Intake, IV Amount 300 300 50 Linezolid 600mg/300mL 600 300 300 mg In 300 ml @ 300 mls/ hr IV Q12H [facility] Rx#: [id number] cefTRIAXone 1 gm In 50 Dextrose 5% 50 ml @ 100 mls/hr IV Q24H [facility] Rx#: [id number] Oral 10 0 Tube Feeding 240 370 30 TPN/PPN 0 Blood Product 0 Lipid 0 Albumin 0 Other 0 Output: Gastric Drainage 0 Urine 20 30 0 Stool 0 Urine/Stool Mix 0 Emesis 0 Hemodialysis 0 Other 0 Other: # Voids 0 # Bowel Movements 2 0 Stool Characteristics Liquid Liquid Brown Brown Active Medications: Current Medications Acetaminophen (Tylenol) 650 mg PO Q4HR PRN PRN Reason: T 101F Stop: 05/13/17 00:20 Last Admin: 03/14/17 17:29 Dose: 650 mg Albuterol Sulfate (Albuterol 2.5mg/3ml Neb Ud) 2.5 mg HHN Q1H PRN PRN Reason: Shortness of Breath or Wheeze Albuterol/Ipratropium (Duoneb Neb) 3 ml HHN Q4HRT [facility] Stop: 05/13/17 14:59 Last Admin: 03/15/17 13:39 Dose: 3 ml Budesonide (Pulmicort) 0.5 mg HHN BIDRT [facility] Stop: 05/13/17 18:59 Last Admin: 03/15/17 07:47 Dose: 0.5 mg Carvedilol (Coreg) 6.25 mg NG BID [facility] Stop: 05/13/17 08:59 Last Admin: 03/15/17 09:22 Dose: 6.25 mg Chlorhexidine Gluconate (Peridex) 15 ml MM 799,1999 [facility] Stop: 05/13/17 07:59 Last Admin: 03/15/17 09:22 Dose: 15 ml Dextrose (D50w) 50 ml IVP PRN PRN PRN Reason: Blood Glucose less than 70 Stop: 05/13/17 00:22 Dextrose (Glutose 40%) 18.75 gm PO PRN PRN PRN Reason: Blood Glucose less than 70 Stop: 05/13/17 00:22 Epoetin John (Epogen) 10,000 units SUBQ MONFRI [facility] Stop: 05/13/17 14:59 Last Admin: 03/14/17 16:15 Dose: 10,000 units Ferrous Sulfate (Iron) 300 mg NG BID [facility] Stop: 05/13/17 08:59 Last Admin: 03/15/17 09:22 Dose: 300 mg Glucagon (Glucagen) 1 mg IM PRN PRN PRN Reason: Blood Glucose less than 70 Stop: 05/13/17 00:22 Heparin Sodium (Porcine) (Heparin) 5,000 units SUBQ Q8HR [facility] Stop: 05/13/17 08:00 Last Admin: 03/15/17 12:42 Dose: 5,000 units Hydralazine HCl (Apresoline 20 Mg/Ml) 10 mg IV Q3H PRN PRN Reason: FOR SBP ABOVE 150 Stop: 05/13/17 00:41 Hydromorphone HCl (Dilaudid) 2 mg IVP Q3H PRN PRN Reason: FOR MODERATE PAIN Stop: 05/13/17 00:46 Last Admin: 03/15/17 06:25 Dose: 2 mg Hydromorphone HCl (Dilaudid) 1 mg IVP Q3H PRN PRN Reason: MILD PAIN Stop: 05/13/17 00:46 Last Admin: 03/14/17 16:14 Dose: 1 mg Linezolid (Zyvox) 600 mg in 300 mls @ 300 mls/hr IV Q12H [facility] Stop: 05/13/17 15:59 Last Infusion: 03/15/17 05:19 Dose: Infused Ceftriaxone Sodium 1 gm/ (Dextrose) 50 mls @ 100 mls/hr IV Q24H [facility] Stop: 05/13/17 13:59 Last Admin: 03/15/17 14:37 Dose: 100 mls/hr Levofloxacin (Levaquin Pb) 250 mg in 50 mls @ 50 mls/hr IV Q48H [facility] Stop: 05/15/17 14:59 Insulin Aspart (Novolog Insulin Sliding Scale) 0 units SUBQ Q6HR [facility] PRN Reason: Protocol Stop: 05/13/17 05:59 Last Admin: 03/15/17 12:32 Dose: Not Given Lorazepam (Ativan) 2 mg IVP Q4H PRN; Protocol PRN Reason: Agitation Stop: 05/14/17 07:34 Last Admin: 03/15/17 12:44 Dose: 2 mg Methylprednisolone Sodium Succinate (Solu-Medrol) 40 mg IVP Q6HR [facility] Stop: 03/17/17 06:01 Last Admin: 03/15/17 12:44 Dose: 40 mg Miscellaneous (Probiotic Screen) 1 ea MC PRN PRN PRN Reason: PROTOCOL Stop: 05/13/17 16:29 Ondansetron HCl (Zofran) 4 mg IVP Q6H PRN PRN Reason: Nausea / Vomiting Stop: 05/13/17 00:46 Pantoprazole Sodium (Protonix) 40 mg IVP DAILY [facility] Stop: 05/13/17 08:59 Last Admin: 03/15/17 09:23 Dose: 40 mg Phenytoin (Dilantin) 100 mg IVP Q8H [facility] Stop: 05/14/17 16:59 General: No acute distress HEENT: Atraumatic, EOMI Neck: Supple, +2 carotid pulse wo bruit Cardiovascular: Regular rate, Normal S1, Normal S2 Lungs: Other (few rhonchi) Abdomen: Bowel sounds, Soft Extremities: no Edema Neurological: Sensation intact Skin: no Rash Psych/Mental Status: Mood NL - Procedures Procedures: Procedures Procedure Code Date RESPIRATORY VENTILATION, 24-96 CONSECUTIVE HOURS [id number] 03/13/17 Assessment/Plan - Problem List Patient Problems: All Active Problems H/O drug dependence (Acute) F19.21 H/O: depression (Acute) Z86.59 H/O: obesity (Acute) Z86.39 Respiratory failure (Acute) J96.90 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 h/o prior clavicular fracture (Acute) pneumonia (Acute) - Assessment Assessment: ROSARIO on HD ALOC 2nd to sustance abuse Ess Htn Morbid Obesity CN Staph GPC/GNR CAP Left Femur head Fx 2nd to fall Polysubstance Abuse Resp Failure on Vent Chronic pain Sx - Plan Plan: Lab - Result Diagrams 03/15/17 05:00 03/15/17 05:00 Current Medications Acetaminophen (Tylenol) 650 mg PO Q4HR PRN PRN Reason: T 101F Stop: 05/13/17 00:20 Last Admin: 03/14/17 17:29 Dose: 650 mg Albuterol Sulfate (Albuterol 2.5mg/3ml Neb Ud) 2.5 mg HHN Q1H PRN PRN Reason: Shortness of Breath or Wheeze Albuterol/Ipratropium (Duoneb Neb) 3 ml HHN Q4HRT [facility] Stop: 05/13/17 14:59 Last Admin: 03/15/17 13:39 Dose: 3 ml Budesonide (Pulmicort) 0.5 mg HHN BIDRT [facility] Stop: 05/13/17 18:59 Last Admin: 03/15/17 07:47 Dose: 0.5 mg Carvedilol (Coreg) 6.25 mg NG BID [facility] Stop: 05/13/17 08:59 Last Admin: 03/15/17 09:22 Dose: 6.25 mg Chlorhexidine Gluconate (Peridex) 15 ml MM 08,1999 [facility] Stop: 05/13/17 07:59 Last Admin: 03/15/17 09:22 Dose: 15 ml Dextrose (D50w) 50 ml IVP PRN PRN PRN Reason: Blood Glucose less than 70 Stop: 05/13/17 00:22 Dextrose (Glutose 40%) 18.75 gm PO PRN PRN PRN Reason: Blood Glucose less than 70 Stop: 05/13/17 00:22 Epoetin John (Epogen) 10,000 units SUBQ MONFRI [facility] Stop: 05/13/17 14:59 Last Admin: 03/14/17 16:15 Dose: 10,000 units Ferrous Sulfate (Iron) 300 mg NG BID [facility] Stop: 05/13/17 08:59 Last Admin: 03/15/17 09:22 Dose: 300 mg Glucagon (Glucagen) 1 mg IM PRN PRN PRN Reason: Blood Glucose less than 70 Stop: 05/13/17 00:22 Heparin Sodium (Porcine) (Heparin) 5,000 units SUBQ Q8HR [facility] Stop: 05/13/17 08:00 Last Admin: 03/15/17 12:42 Dose: 5,000 units Hydralazine HCl (Apresoline 20 Mg/Ml) 10 mg IV Q3H PRN PRN Reason: FOR SBP ABOVE 150 Stop: 05/13/17 00:41 Hydromorphone HCl (Dilaudid) 2 mg IVP Q3H PRN PRN Reason: FOR MODERATE PAIN Stop: 05/13/17 00:46 Last Admin: 03/15/17 06:25 Dose: 2 mg Hydromorphone HCl (Dilaudid) 1 mg IVP Q3H PRN PRN Reason: MILD PAIN Stop: 05/13/17 00:46 Last Admin: 03/14/17 16:14 Dose: 1 mg Linezolid (Zyvox) 600 mg in 300 mls @ 300 mls/hr IV Q12H [facility] Stop: 05/13/17 15:59 Last Infusion: 03/15/17 05:19 Dose: Infused Ceftriaxone Sodium 1 gm/ (Dextrose) 50 mls @ 100 mls/hr IV Q24H [facility] Stop: 05/13/17 13:59 Last Admin: 03/15/17 14:37 Dose: 100 mls/hr Levofloxacin (Levaquin Pb) 250 mg in 50 mls @ 50 mls/hr IV Q48H [facility] Stop: 05/15/17 14:59 Insulin Aspart (Novolog Insulin Sliding Scale) 0 units SUBQ Q6HR [facility] PRN Reason: Protocol Stop: 05/13/17 05:59 Last Admin: 03/15/17 12:32 Dose: Not Given Lorazepam (Ativan) 2 mg IVP Q4H PRN; Protocol PRN Reason: Agitation Stop: 05/14/17 07:34 Last Admin: 03/15/17 12:44 Dose: 2 mg Methylprednisolone Sodium Succinate (Solu-Medrol) 40 mg IVP Q6HR [facility] Stop: 03/17/17 06:01 Last Admin: 03/15/17 12:44 Dose: 40 mg Miscellaneous (Probiotic Screen) 1 ea MC PRN PRN PRN Reason: PROTOCOL Stop: 05/13/17 16:29 Ondansetron HCl (Zofran) 4 mg IVP Q6H PRN PRN Reason: Nausea / Vomiting Stop: 05/13/17 00:46 Pantoprazole Sodium (Protonix) 40 mg IVP DAILY [facility] Stop: 05/13/17 08:59 Last Admin: 03/15/17 09:23 Dose: 40 mg Phenytoin (Dilantin) 100 mg IVP Q8H [facility] Stop: 05/14/17 16:59 schedule for HD in AM monitor electrolytes serial CXR Nutritional Asmnt/Malnutr-PDOC - Dietary Evaluation Malnutrition Findings (Please click <Entered> for more info): Nutritional Asmnt/Malnutrition Start: 03/15/17 12: 22 Text: Status: Complete Freq: Document 03/15/17 12:28 GSUN (Rec: 03/15/17 12:39 GSUN [email or web address]) Nutritional Asmnt/Malnutrition Patient General Information Nutritional Screening High Risk Screening Diagnosis ROSARIO, sepsis with multiorgan failure, intubated, penumonia, resp failure Pertinent Medical Hx/Surgical Hx Asthma, COPD, severe obesity, prior clavicular fractures, chronic drug dependence, depression, HTN, cardiomyopathy, chronic pain syndrome Subjective Information 66 year old female from home. Per MD reports, pt with hx polysubstance abuse, 03/09/17 severe septic shock with multiorgan failure, involving respiratory and renal failure, intubated on diaylisys. Observed pt on vent with tube feeding infusing at 30ml/hr during visit. Spoke to RN, RN stated BM yesterday, none today yet, no residuals, tolerating well. 03/14 HD. Current Diet Order/ Nutrition Support Novasource Renal 35ml/hr x 24hrs, providing 840ml, 1680kcal, 76g protein Pertinent Medications D50w, Glutose 40%, Epogen, Iron, Glucagen, Dilaudid, Novolog, Solu Medrol, Zofran, Protonix Pertinent Labs 03/15: BUN 36H, creatinine 4.8H , glucose 172H Nutritional Hx/Data Height 1.6 m Height (Calculated Centimeters) 160.0 Current Weight (lbs) 117.843 kg Weight (Calculated Kilograms) 117.8 Weight (Calculated Grams) 810608.3 [place] Body Weight 115 Weight Status Morbidly Obese GI Symptoms Skin Integrity/Comment: Jordon 10. Bruises. Estimated Nutritional Goals BEE in Kcals: Adj wt of IBW Calories/Kcals/Kg AdjBW 151.2lb/68.7kg Kcals Calculated 2061-2405kcal (30-35kcal/kg) Protein: Adj wt of IBW Protein Calculated 103-137g (1.5-2g/kg) Fluid: ml Per MD Nutritional Problem 2. Problem Problem Increased kcal and prot needs related to Etiology hypermetabolic state aeb Signs/Symptoms: sepsis with multiorgan failure , on HD, penumonia 1. Problem Problem Imapired nutrient utilization related to Etiology ROSARIO aeb Signs/Symptoms: 03/14 HD, BUN 36H radiology transporter 4.8H Intervention/Recommendation Comments 1. Recommend Novasource Renal at 50ml/hr x 24hrs, providing 1200ml, 2400kcal, 109g protein . Increase 10ml/hr q12hrs as tolerated until goal rate of 50ml/hr. Hypermetabolic state: sepsis multiorgan failure, HD, resp failure, pneumonia , with consideration of morbid obesity. 2. Unable to provide FDI education due to pt intubated on tube feeding. Expected Outcomes/Goals Expected Outcomes/Goals 1. Pt to meet 100% of estimated nutritional needs on tube feeding with tolerance.
[2017-03-15] MEDS: Epoetin Alfa 20000 Units/mL Vial SUBQ SCH (16:13)
[2017-03-15] MEDS: Phenytoin 50 mg/mL 2 mL Vial IVP SCH (16:25)
[2017-03-15] MEDS ORDERED: Levetiracetam 1000mg/100mL 1,000 MG/100 ML BAG IV ONE (21:20)
[2017-03-15] MEDS: Levetiracetam 1000mg/100mL 1,000 MG/100 ML BAG IV SCH (21:27)
[2017-03-16] MEDS: methylPREDNISolone SS 40 mg Vial IVP SCH ×5 (01:05→17:04)
[2017-03-16] MEDS: Phenytoin 50 mg/mL 2 mL Vial IVP SCH ×3 (01:05→17:00)
[2017-03-16] MEDS: INSULIN ASPART SLIDING SCALE 100 UNITS/ML UNIT SUBQ SCH ×5 (01:06→23:30)
[2017-03-16] MEDS: HYDROmorphone 2 mg/mL 1mL Vial IVP PRN ×2 (02:17→15:48)
[2017-03-16] MEDS: HYDROmorphone 1 mg/mL 1mL Syr IVP PRN (02:20)
[2017-03-16] MEDS: Albuterol/Ipratropium Neb 3 ML AERS HHN SCH ×6 (02:26→22:20)
--- NOTE | 2017-03-16 02:33 | Progress Notes ---
DATE: 03/15/2017 PROBLEM LIST: 1. Acute respiratory failure. 2. COPD/asthma. 3. Obstructive sleep apnea syndrome. 4. Chronic pain syndrome, required multiple medications. SYMPTOMS: The patient is arousable, but has lot of involuntary jugular movement of facial extremities. No respiratory distress. PHYSICAL EXAMINATION: VITAL SIGNS: The patient's temperature is 98.5, blood pressure 102/69, currently saturating okay on 40% of oxygen with assist of 16. LABORATORY DATA: White count is 19,000, hemoglobin 8.9. ABG, pO2 is 123 with pCO2 of 50 and that is well compensated. ASSESSMENT: The patient clinically status quo, not much changed. PLANS AND SUGGESTIONS: We will try to get a higher SMV mode with see how she does and we will follow through other studies tomorrow again and see how it is and go from there. JOB# [id number]
[2017-03-16] MEDS: Linezolid 600mg/300mL 600 MG/300 ML BAG IV SCH ×2 (04:15→16:10)
[2017-03-16 07:03] LABS: HEMATOCRIT 24.1 % (41.0-60); HEMOGLOBIN 8.2 gm/dL (12-16); MEAN CELL VOLUME 83.3 fl (81-100); MEAN CORPUSCULAR HEMOGLOBIN 28.5 pg (27.0-31.0); MEAN CORPUSCULAR HGB CONC 34.1 pg (28.0-36.0); MEAN PLATELET VOLUME 8.5 fl; PLATELET COUNT 378 Th/cmm (150-400); RED BLOOD COUNT 2.89 Mil/cmm (3.80-5.20)
[2017-03-16 07:12] LABS: WHITE BLOOD COUNT 16.4 Th/cmm (4.8-10.8)
[2017-03-16 07:19] LABS: ANION GAP 11.9 (7.0-16.0); BUN/CREATININE RATIO 7.8; CALCIUM SERUM 8.3 mg/dL (8.6-10.3); CARBON DIOXIDE 28.2 mEq/L (21.0-31.0); POTASSIUM SERUM 4.1 mEq/L (3.5-5.1)
[2017-03-16 07:50] LABS: NEUTROPHILS 86 % (40-80); TOTAL CELLS COUNTED 100
[2017-03-16] MEDS: Chlorhexidine Gluconate 0.12% 15mL Mouthwash MM SCH ×2 (08:03→20:28)
[2017-03-16] MEDS: Budesonide 0.5 Mg/2 mL Ud HHN SCH ×2 (08:08→19:00)
--- NOTE | 2017-03-16 08:16 | Diagnostic Imaging Report ---
Renal ultrasound HISTORY: Abnormal renal function test The right kidney measures 11.3 x 6.6 x 6.4 cm. A 4 mm echogenic density is seen in the mid cortical medullary junction region. This may be related to a calculus. No hydronephrosis. The left kidney is generous in size (12.5 x 6.2 x 5.9 cm). No focal lesions. No hydronephrosis. Urinary bladder cannot be well evaluated due to lack of distention and presence of a Dick catheter. IMPRESSION: 1. No hydronephrosis 2. 4 mm echogenic density within the midportion of the right kidney. This may represent a calculus. Again, no hydronephrosis 3. Somewhat generous size of the left kidney.
[2017-03-16] MEDS: Ferrous Sulfate 300 MG/5 ML UDC NG SCH ×2 (08:22→17:00)
[2017-03-16] MEDS: Levetiracetam 1000mg/100mL 1,000 MG/100 ML BAG IV SCH ×2 (08:42→20:28)
--- NOTE | 2017-03-16 08:46 | General Progress Note ---
Subjective - Review of Systems Events since last encounter: patient in no acute distress Objective - Results Result Diagrams: 03/16/17 06:52 03/16/17 06:52 Recent Labs: Laboratory Last Values WBC 16.4 Th/cmm (4.8-10.8) H 03/16/17 06:52 RBC 2.89 Mil/cmm (3.80-5.20) L 03/16/17 06:52 Hgb 8.2 gm/dL (12-16) L 03/16/17 06:52 Hct 24.1 % (41.0-60) L D 03/16/17 06:52 MCV 83.3 fl (81-100) 03/16/17 06:52 MCH 28.5 pg (27.0-31.0) 03/16/17 06:52 MCHC Differential 34.1 pg (28.0-36.0) 03/16/17 06:52 RDW 18.0 % (11.5-20.0) 03/16/17 06:52 Plt Count 378 Th/cmm (150-400) D 03/16/17 06:52 MPV 8.5 fl 03/16/17 06:52 Neutrophils (Manual) 86 % (40-80) H 03/16/17 06:52 Lymphocytes 10 % (20-50) L 03/16/17 06:52 Monocytes 4 % (2-10) 03/16/17 06:52 Eosinophils 2 % (0-5) 03/15/17 05:00 Specimen Source Arterial 03/15/17 09:45 Sample Site Right Radial 03/15/17 09:45 pH 7.40 (7.35-7.45) 03/15/17 09:45 pCO2 50.0 mmHg (35.0-45.0) H 03/15/17 09:45 pO2 123.0 mmHg (80.0-100.0) H 03/15/17 09:45 HCO3 29.0 mEq/L (20.0-26.0) H 03/15/17 09:45 Base Excess 5.1 mEq/L (-3.0-3.0) H 03/15/17 09:45 O2 Saturation 99.0 % (92.0-100.0) 03/15/17 09:45 Ruben Test YES 03/15/17 09:45 Vent Rate 16 03/15/17 09:45 Inspired O2 50 03/15/17 09:45 Tidal Volume 450 03/15/17 09:45 PEEP 5 03/15/17 09:45 Pressure (ins/psv/peep) NA 03/15/17 09:45 Critical Value E.DOTSON 03/15/17 09:45 Sodium 135 mEq/L (136-145) L 03/16/17 06:52 Potassium 4.1 mEq/L (3.5-5.1) 03/16/17 06:52 Chloride 99 mEq/L (98-107) 03/16/17 06:52 Carbon Dioxide 28.2 mEq/L (21.0-31.0) 03/16/17 06:52 Anion Gap 11.9 (7.0-16.0) 03/16/17 06:52 BUN 53 mg/dL (7-25) H 03/16/17 06:52 Creatinine 6.8 mg/dL (0.6-1.2) H* 03/16/17 06:52 Est GFR ( Amer) 7.8 ml/min (>90) 03/16/17 06:52 Est GFR (Non-Af Amer) 6.4 ml/min 03/16/17 06:52 BUN/Creatinine Ratio 7.8 03/16/17 06:52 Glucose 187 mg/dL (70-105) H 03/16/17 06:52 POC Glucose 113 MG/DL (70 - 105) H 03/15/17 12:30 Hemoglobin A1c % 5.5 % (4.0-6.0) 03/16/17 06:52 Uric Acid 4.2 mg/dL (2.3-6.6) 03/15/17 05:00 Calcium 8.3 mg/dL (8.6-10.3) L 03/16/17 06:52 Phosphorus 3.0 mg/dL (2.5-5.0) 03/15/17 05:00 Magnesium 2.1 mg/dL (1.9-2.7) 03/15/17 05:00 Total Bilirubin 0.7 mg/dL (0.3-1.0) 03/15/17 05:00 AST 92 U/L (13-39) H 03/15/17 05:00 ALT 93 U/L (7-52) H 03/15/17 05:00 Alkaline Phosphatase 104 U/L (34-104) 03/15/17 05:00 Ammonia 59 umol/L (16-53) H 03/15/17 05:00 Creatine Kinase 64 U/L (30-223) 03/15/17 05:00 Total Protein 7.2 gm/dL (6.0-8.3) 03/15/17 05:00 Albumin 3.4 gm/dL (3.7-5.3) L 03/15/17 05:00 Globulin 3.8 gm/dL 03/15/17 05:00 Albumin/Globulin Ratio 0.9 (1.0-1.8) L 03/15/17 05:00 TSH 1.05 uIU/ml (0.34-5.60) 03/15/17 05:00 Hepatitis A IgM Ab Negative (Negative) 03/14/17 21:23 Hep Bs Antigen Negative (Negative) 03/14/17 21:23 Hep B Core IgM Ab Negative (Negative) 03/14/17 21:23 Hepatitis C Antibody <0.1 s/co ratio (0.0-0.9) 03/14/17 21:23 - Physical Exam Vitals and I&O: Vital Signs Temp 98.9 F 03/16/17 04:00 Pulse 78 03/16/17 08:23 Resp 17 03/16/17 07:00 BP 124/64 03/16/17 08:23 Pulse Ox 97 03/16/17 08:15 Intake & Output 03/15/17 03/16/17 03/16/17 18:59 06:59 18:59 Intake Total 430 400 Output Total 0 Balance 430 400 Weight (lbs) 117.843 kg Intake: Intake, IV Amount 400 400 Levetiracetam 1000mg/ 100 100mL 1,000 mg In 100 ml @ 400 mls/hr IV Q12H [facility] Rx#:[id number] Linezolid 600mg/300mL 600 300 300 mg In 300 ml @ 300 mls/ hr IV Q12H [facility] Rx#: [id number] cefTRIAXone 1 gm In 100 Dextrose 5% 50 ml @ 100 mls/hr IV Q24H [facility] Rx#: [id number] Oral 0 Tube Feeding 30 TPN/PPN 0 Blood Product 0 Lipid 0 Albumin 0 Other 0 Output: Gastric Drainage 0 Urine 0 Stool 0 Urine/Stool Mix 0 Emesis 0 Hemodialysis 0 Other 0 Other: # Voids 0 # Bowel Movements 0 Active Medications: Current Medications Acetaminophen (Tylenol) 650 mg PO Q4HR PRN PRN Reason: T 101F Stop: 05/13/17 00:20 Last Admin: 03/14/17 17:29 Dose: 650 mg Albuterol Sulfate (Albuterol 2.5mg/3ml Neb Ud) 2.5 mg HHN Q1H PRN PRN Reason: Shortness of Breath or Wheeze Albuterol/Ipratropium (Duoneb Neb) 3 ml HHN Q4HRT [facility] Stop: 05/13/17 14:59 Last Admin: 03/16/17 08:08 Dose: 3 ml Budesonide (Pulmicort) 0.5 mg HHN BIDRT [facility] Stop: 05/13/17 18:59 Last Admin: 03/16/17 08:08 Dose: 0.5 mg Carvedilol (Coreg) 6.25 mg NG BID [facility] Stop: 05/13/17 08:59 Last Admin: 03/16/17 08:23 Dose: 6.25 mg Chlorhexidine Gluconate (Peridex) 15 ml MM 0800,1999 [facility] Stop: 05/13/17 07:59 Last Admin: 03/16/17 08:03 Dose: 15 ml Dextrose (D50w) 50 ml IVP PRN PRN PRN Reason: Blood Glucose less than 70 Stop: 05/13/17 00:22 Dextrose (Glutose 40%) 18.75 gm PO PRN PRN PRN Reason: Blood Glucose less than 70 Stop: 05/13/17 00:22 Epoetin John (Epogen) 10,000 units SUBQ MoFr@1500 [facility] Stop: 05/13/17 14:59 Ferrous Sulfate (Iron) 300 mg NG BID [facility] Stop: 05/13/17 08:59 Last Admin: 03/16/17 08:22 Dose: 300 mg Glucagon (Glucagen) 1 mg IM PRN PRN PRN Reason: Blood Glucose less than 70 Stop: 05/13/17 00:22 Heparin Sodium (Porcine) (Heparin) 5,000 units SUBQ Q8HR [facility] Stop: 05/13/17 08:00 Last Admin: 03/16/17 04:16 Dose: 5,000 units Hydralazine HCl (Apresoline 20 Mg/Ml) 10 mg IV Q3H PRN PRN Reason: FOR SBP ABOVE 150 Stop: 05/13/17 00:41 Hydromorphone HCl (Dilaudid) 2 mg IVP Q3H PRN PRN Reason: FOR MODERATE PAIN Stop: 05/13/17 00:46 Last Admin: 03/16/17 02:17 Dose: 2 mg Hydromorphone HCl (Dilaudid) 1 mg IVP Q3H PRN PRN Reason: MILD PAIN Stop: 05/13/17 00:46 Last Admin: 03/14/17 16:14 Dose: 1 mg Linezolid (Zyvox) 600 mg in 300 mls @ 300 mls/hr IV Q12H [facility] Stop: 05/13/17 15:59 Last Infusion: 03/16/17 06:53 Dose: Infused Ceftriaxone Sodium 1 gm/ (Dextrose) 50 mls @ 100 mls/hr IV Q24H [facility] Stop: 05/13/17 13:59 Last Infusion: 03/15/17 15:07 Dose: Infused Levofloxacin (Levaquin Pb) 250 mg in 50 mls @ 50 mls/hr IV Q48H [facility] Stop: 05/15/17 14:59 Levetiracetam (Keppra Pb) 1,000 mg in 100 mls @ 400 mls/hr IV Q12H [facility] Stop: 05/14/17 21:14 Last Admin: 03/16/17 08:42 Dose: 400 mls/hr Insulin Aspart (Novolog Insulin Sliding Scale) 0 units SUBQ Q6HR [facility] PRN Reason: Protocol Stop: 05/13/17 05:59 Last Admin: 03/16/17 06:25 Dose: Not Given Lorazepam (Ativan) 2 mg IVP Q4H PRN; Protocol PRN Reason: Agitation Stop: 05/14/17 07:34 Last Admin: 03/16/17 02:20 Dose: 2 mg Methylprednisolone Sodium Succinate (Solu-Medrol) 40 mg IVP Q6HR [facility] Stop: 03/17/17 06:01 Last Admin: 03/16/17 06:26 Dose: 40 mg Miscellaneous (Probiotic Screen) 1 ea MC PRN PRN PRN Reason: PROTOCOL Stop: 05/13/17 16:29 Ondansetron HCl (Zofran) 4 mg IVP Q6H PRN PRN Reason: Nausea / Vomiting Stop: 05/13/17 00:46 Pantoprazole Sodium (Protonix) 40 mg IVP DAILY [facility] Stop: 05/13/17 08:59 Last Admin: 03/16/17 08:22 Dose: 40 mg Phenytoin (Dilantin) 100 mg IVP Q8H [facility] Stop: 05/14/17 16:59 Last Admin: 03/16/17 08:45 Dose: 100 mg General: No acute distress HEENT: Atraumatic, EOMI Neck: Supple, +2 carotid pulse wo bruit Cardiovascular: Regular rate, Normal S1, Normal S2 Lungs: Other (few rhonchi) Abdomen: Bowel sounds, Soft Extremities: no Edema Neurological: Sensation intact Skin: no Rash Psych/Mental Status: Mood NL - Procedures Procedures: Procedures Procedure Code Date RESPIRATORY VENTILATION, 24-96 CONSECUTIVE HOURS [id number] 03/13/17 Assessment/Plan - Problem List Patient Problems: All Active Problems H/O drug dependence (Acute) F19.21 H/O: depression (Acute) Z86.59 H/O: obesity (Acute) Z86.39 Respiratory failure (Acute) J96.90 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 h/o prior clavicular fracture (Acute) pneumonia (Acute) - Plan Plan: cpm Nutritional Asmnt/Malnutr-PDOC - Dietary Evaluation Malnutrition Findings (Please click <Entered> for more info): Nutritional Asmnt/Malnutrition Start: 03/15/17 12: 22 Text: Status: Complete Freq: Document 03/15/17 12:28 GSUN (Rec: 03/15/17 12:39 GSUN [email or web address]) Nutritional Asmnt/Malnutrition Patient General Information Nutritional Screening High Risk Screening Diagnosis ROSARIO, sepsis with multiorgan failure, intubated, penumonia, resp failure Pertinent Medical Hx/Surgical Hx Asthma, COPD, severe obesity, prior clavicular fractures, chronic drug dependence, depression, HTN, cardiomyopathy, chronic pain syndrome Subjective Information 66 year old female from home. Per MD reports, pt with hx polysubstance abuse, 03/09/17 severe septic shock with multiorgan failure, involving respiratory and renal failure, intubated on diaylisys. Observed pt on vent with tube feeding infusing at 30ml/hr during visit. Spoke to RN, RN stated BM yesterday, none today yet, no residuals, tolerating well. 03/14 HD. Current Diet Order/ Nutrition Support Novasource Renal 35ml/hr x 24hrs, providing 840ml, 1680kcal, 76g protein Pertinent Medications D50w, Glutose 40%, Epogen, Iron, Glucagen, Dilaudid, Novolog, Solu Medrol, Zofran, Protonix Pertinent Labs 03/15: BUN 36H, creatinine 4.8H , glucose 172H Nutritional Hx/Data Height 1.6 m Height (Calculated Centimeters) 160.0 Current Weight (lbs) 117.843 kg Weight (Calculated Kilograms) 117.8 Weight (Calculated Grams) 542206.3 [place] Body Weight 115 Weight Status Morbidly Obese GI Symptoms Skin Integrity/Comment: Jordon 10. Bruises. Estimated Nutritional Goals BEE in Kcals: Adj wt of IBW Calories/Kcals/Kg AdjBW 151.2lb/68.7kg Kcals Calculated 2061-2405kcal (30-35kcal/kg) Protein: Adj wt of IBW Protein Calculated 103-137g (1.5-2g/kg) Fluid: ml Per MD Nutritional Problem 2. Problem Problem Increased kcal and prot needs related to Etiology hypermetabolic state aeb Signs/Symptoms: sepsis with multiorgan failure , on HD, penumonia 1. 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 Recommend Novasource Renal at 50ml/hr x 24hrs, providing 1200ml, 2400kcal, 109g protein . Increase 10ml/hr q12hrs as tolerated until goal rate of 50ml/hr. Hypermetabolic state: sepsis multiorgan failure, HD, resp failure, pneumonia , with consideration of morbid obesity. 2. Unable to provide FDI education due to pt intubated on tube feeding. Expected Outcomes/Goals Expected Outcomes/Goals 1. Pt to meet 100% of estimated nutritional needs on tube feeding with tolerance.
[2017-03-16 09:09] LABS: HCO3 28.3 mEq/L (20.0-26.0); pH 7.43 (7.35-7.45)
[2017-03-16 09:10] LABS: ABG SOURCE Arterial; ALLEN TEST Positive; FIO2 40; MECH RATE 10; MECH VT 450; PS 18
--- NOTE | 2017-03-16 11:41 | Infectious Disease Prog Note ---
Infectious Disease Subjective - Review of Systems Service Date: 03/16/17 Subjective: remains intubated orally, not in distress. Infectious Disease Objective - Results Result Diagrams: 03/16/17 06:52 03/16/17 06:52 Recent Labs: Laboratory Last Values WBC 16.4 Th/cmm (4.8-10.8) H 03/16/17 06:52 RBC 2.89 Mil/cmm (3.80-5.20) L 03/16/17 06:52 Hgb 8.2 gm/dL (12-16) L 03/16/17 06:52 Hct 24.1 % (41.0-60) L D 03/16/17 06:52 MCV 83.3 fl (81-100) 03/16/17 06:52 MCH 28.5 pg (27.0-31.0) 03/16/17 06:52 MCHC Differential 34.1 pg (28.0-36.0) 03/16/17 06:52 RDW 18.0 % (11.5-20.0) 03/16/17 06:52 Plt Count 378 Th/cmm (150-400) D 03/16/17 06:52 MPV 8.5 fl 03/16/17 06:52 Neutrophils (Manual) 86 % (40-80) H 03/16/17 06:52 Lymphocytes 10 % (20-50) L 03/16/17 06:52 Monocytes 4 % (2-10) 03/16/17 06:52 Eosinophils 2 % (0-5) 03/15/17 05:00 Specimen Source Arterial 03/16/17 08:55 Sample Site Right Radial 03/16/17 08:55 pH 7.43 (7.35-7.45) 03/16/17 08:55 pCO2 44.0 mmHg (35.0-45.0) 03/16/17 08:55 pO2 91.0 mmHg (80.0-100.0) 03/16/17 08:55 HCO3 28.3 mEq/L (20.0-26.0) H 03/16/17 08:55 Base Excess 4.3 mEq/L (-3.0-3.0) H 03/16/17 08:55 O2 Saturation 97.0 % (92.0-100.0) 03/16/17 08:55 Ruben Test Positive 03/16/17 08:55 Vent Rate 10 03/16/17 08:55 Inspired O2 40 03/16/17 08:55 Tidal Volume 450 03/16/17 08:55 PEEP 3 03/16/17 08:55 Pressure (ins/psv/peep) 18 03/16/17 08:55 Critical Value LZHANG 03/16/17 08:55 Sodium 135 mEq/L (136-145) L 03/16/17 06:52 Potassium 4.1 mEq/L (3.5-5.1) 03/16/17 06:52 Chloride 99 mEq/L (98-107) 03/16/17 06:52 Carbon Dioxide 28.2 mEq/L (21.0-31.0) 03/16/17 06:52 Anion Gap 11.9 (7.0-16.0) 03/16/17 06:52 BUN 53 mg/dL (7-25) H 03/16/17 06:52 Creatinine 6.8 mg/dL (0.6-1.2) H* 03/16/17 06:52 Est GFR ( Amer) 7.8 ml/min (>90) 03/16/17 06:52 Est GFR (Non-Af Amer) 6.4 ml/min 03/16/17 06:52 BUN/Creatinine Ratio 7.8 03/16/17 06:52 Glucose 187 mg/dL (70-105) H 03/16/17 06:52 POC Glucose 164 MG/DL (70 - 105) H 03/16/17 11:30 Hemoglobin A1c % 5.5 % (4.0-6.0) 03/16/17 06:52 Uric Acid 4.2 mg/dL (2.3-6.6) 03/15/17 05:00 Calcium 8.3 mg/dL (8.6-10.3) L 03/16/17 06:52 Phosphorus 3.0 mg/dL (2.5-5.0) 03/15/17 05:00 Magnesium 2.1 mg/dL (1.9-2.7) 03/15/17 05:00 Total Bilirubin 0.7 mg/dL (0.3-1.0) 03/15/17 05:00 AST 92 U/L (13-39) H 03/15/17 05:00 ALT 93 U/L (7-52) H 03/15/17 05:00 Alkaline Phosphatase 104 U/L (34-104) 03/15/17 05:00 Ammonia 59 umol/L (16-53) H 03/15/17 05:00 Creatine Kinase 64 U/L (30-223) 03/15/17 05:00 Total Protein 7.2 gm/dL (6.0-8.3) 03/15/17 05:00 Albumin 3.4 gm/dL (3.7-5.3) L 03/15/17 05:00 Globulin 3.8 gm/dL 03/15/17 05:00 Albumin/Globulin Ratio 0.9 (1.0-1.8) L 03/15/17 05:00 TSH 1.05 uIU/ml (0.34-5.60) 03/15/17 05:00 Hepatitis A IgM Ab Negative (Negative) 03/14/17 21:23 Hep Bs Antigen Negative (Negative) 03/14/17 21:23 Hep B Core IgM Ab Negative (Negative) 03/14/17 21:23 Hepatitis C Antibody <0.1 s/co ratio (0.0-0.9) 03/14/17 21:23 - Physical Exam Vitals and I&O: Vital Signs Temp 98.5 F 03/16/17 08:00 Pulse 75 03/16/17 11:00 Resp 16 03/16/17 11:00 BP 120/69 03/16/17 11:00 Pulse Ox 99 03/16/17 11:00 Intake & Output 03/15/17 03/16/17 03/16/17 18:59 06:59 18:59 Intake Total 430 400 100 Output Total 0 Balance 430 400 100 Weight (lbs) 117.843 kg Intake: Intake, IV Amount 400 400 100 Levetiracetam 1000mg/ 100 100 100mL 1,000 mg In 100 ml @ 400 mls/hr IV Q12H [facility] Rx#:[id number] Linezolid 600mg/300mL 600 300 300 mg In 300 ml @ 300 mls/ hr IV Q12H [facility] Rx#: [id number] cefTRIAXone 1 gm In 100 Dextrose 5% 50 ml @ 100 mls/hr IV Q24H [facility] Rx#: [id number] Oral 0 Tube Feeding 30 TPN/PPN 0 Blood Product 0 Lipid 0 Albumin 0 Other 0 Output: Gastric Drainage 0 Urine 0 Stool 0 Urine/Stool Mix 0 Emesis 0 Hemodialysis 0 Other 0 Other: # Voids 0 # Bowel Movements 0 Active Medications: Current Medications Acetaminophen (Tylenol) 650 mg PO Q4HR PRN PRN Reason: T 101F Stop: 05/13/17 00:20 Last Admin: 03/14/17 17:29 Dose: 650 mg Albuterol Sulfate (Albuterol 2.5mg/3ml Neb Ud) 2.5 mg HHN Q1H PRN PRN Reason: Shortness of Breath or Wheeze Albuterol/Ipratropium (Duoneb Neb) 3 ml HHN Q4HRT [facility] Stop: 05/13/17 14:59 Last Admin: 03/16/17 08:08 Dose: 3 ml Budesonide (Pulmicort) 0.5 mg HHN BIDRT [facility] Stop: 05/13/17 18:59 Last Admin: 03/16/17 08:08 Dose: 0.5 mg Carvedilol (Coreg) 6.25 mg NG BID [facility] Stop: 05/13/17 08:59 Last Admin: 03/16/17 08:23 Dose: 6.25 mg Chlorhexidine Gluconate (Peridex) 15 ml MM 08,1999 [facility] Stop: 05/13/17 07:59 Last Admin: 03/16/17 08:03 Dose: 15 ml Dextrose (D50w) 50 ml IVP PRN PRN PRN Reason: Blood Glucose less than 70 Stop: 05/13/17 00:22 Dextrose (Glutose 40%) 18.75 gm PO PRN PRN PRN Reason: Blood Glucose less than 70 Stop: 05/13/17 00:22 Epoetin John (Epogen) 10,000 units SUBQ MoFr@1500 [facility] Stop: 05/13/17 14:59 Ferrous Sulfate (Iron) 300 mg NG BID [facility] Stop: 05/13/17 08:59 Last Admin: 03/16/17 08:22 Dose: 300 mg Glucagon (Glucagen) 1 mg IM PRN PRN PRN Reason: Blood Glucose less than 70 Stop: 05/13/17 00:22 Heparin Sodium (Porcine) (Heparin) 5,000 units SUBQ Q8HR [facility] Stop: 05/13/17 08:00 Last Admin: 03/16/17 04:16 Dose: 5,000 units Hydralazine HCl (Apresoline 20 Mg/Ml) 10 mg IV Q3H PRN PRN Reason: FOR SBP ABOVE 150 Stop: 05/13/17 00:41 Hydromorphone HCl (Dilaudid) 2 mg IVP Q3H PRN PRN Reason: FOR MODERATE PAIN Stop: 05/13/17 00:46 Last Admin: 03/16/17 02:17 Dose: 2 mg Hydromorphone HCl (Dilaudid) 1 mg IVP Q3H PRN PRN Reason: MILD PAIN Stop: 05/13/17 00:46 Last Admin: 03/14/17 16:14 Dose: 1 mg Linezolid (Zyvox) 600 mg in 300 mls @ 300 mls/hr IV Q12H [facility] Stop: 05/13/17 15:59 Last Infusion: 03/16/17 06:53 Dose: Infused Ceftriaxone Sodium 1 gm/ (Dextrose) 50 mls @ 100 mls/hr IV Q24H [facility] Stop: 05/13/17 13:59 Last Infusion: 03/15/17 15:07 Dose: Infused Levofloxacin (Levaquin Pb) 250 mg in 50 mls @ 50 mls/hr IV Q48H [facility] Stop: 05/15/17 14:59 Levetiracetam (Keppra Pb) 1,000 mg in 100 mls @ 400 mls/hr IV Q12H [facility] Stop: 05/14/17 21:14 Last Infusion: 03/16/17 09:00 Dose: Infused Insulin Aspart (Novolog Insulin Sliding Scale) 0 units SUBQ Q6HR [facility] PRN Reason: Protocol Stop: 05/13/17 05:59 Last Admin: 03/16/17 06:25 Dose: Not Given Lorazepam (Ativan) 2 mg IVP Q4H PRN; Protocol PRN Reason: Agitation Stop: 05/14/17 07:34 Last Admin: 03/16/17 02:20 Dose: 2 mg Methylprednisolone Sodium Succinate (Solu-Medrol) 40 mg IVP Q6HR [facility] Stop: 03/17/17 06:01 Last Admin: 03/16/17 06:26 Dose: 40 mg Miscellaneous (Probiotic Screen) 1 ea MC PRN PRN PRN Reason: PROTOCOL Stop: 05/13/17 16:29 Ondansetron HCl (Zofran) 4 mg IVP Q6H PRN PRN Reason: Nausea / Vomiting Stop: 05/13/17 00:46 Pantoprazole Sodium (Protonix) 40 mg IVP DAILY [facility] Stop: 05/13/17 08:59 Last Admin: 03/16/17 08:22 Dose: 40 mg Phenytoin (Dilantin) 100 mg IVP Q8H [facility] Stop: 05/14/17 16:59 Last Admin: 03/16/17 08:45 Dose: 100 mg General: no acute distress, other (obese) HEENT: atraumatic, normocephalic, EOMI Neck: supple Cardiovascular: S1S2, regular Lungs: clear to auscultation bilaterally, clear to percussion Abdomen: soft, no tender, no distended Extremities: no cyanosis, no clubbing, no edema Neurological: other (sedated) Skin: intact - Procedures Procedures: Procedures Procedure Code Date RESPIRATORY VENTILATION, 24-96 CONSECUTIVE HOURS [id number] 03/13/17 Infectious Disease Assmt/Plan - Problem List Patient Problems: All Active Problems H/O drug dependence (Acute) F19.21 H/O: depression (Acute) Z86.59 H/O: obesity (Acute) Z86.39 Respiratory failure (Acute) J96.90 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 h/o prior clavicular fracture (Acute) pneumonia (Acute) - Assessment Assessment: 1. Sepsis with multiorgan failure. 2. Pneumonia ( CXR shoed bibasilar infiltrates). 3. Obesity. 4. Renal failure on HD. ? acute versus chronic, 5. acute on chronic respiratory failure versus acute respiratory failure on ventilator. 6. COPD. 7. HTN. - Plan Plan: Continue zyvox and rocephin, DC levaquin. Nutritional Asmnt/Malnutr-PDOC - Dietary Evaluation Malnutrition Findings (Please click <Entered> for more info): Nutritional Asmnt/Malnutrition Start: 03/15/17 12: 22 Text: Status: Complete Freq: Document 03/15/17 12:28 GSUN (Rec: 03/15/17 12:39 GSUN [email or web address]) Nutritional Asmnt/Malnutrition Patient General Information Nutritional Screening High Risk Screening Diagnosis ROSARIO, sepsis with multiorgan failure, intubated, penumonia, resp failure Pertinent Medical Hx/Surgical Hx Asthma, COPD, severe obesity, prior clavicular fractures, chronic drug dependence, depression, HTN, cardiomyopathy, chronic pain syndrome Subjective Information 66 year old female from home. Per MD reports, pt with hx polysubstance abuse, 03/09/17 severe septic shock with multiorgan failure, involving respiratory and renal failure, intubated on diaylisys. Observed pt on vent with tube feeding infusing at 30ml/hr during visit. Spoke to RN, RN stated BM yesterday, none today yet, no residuals, tolerating well. 03/14 HD. Current Diet Order/ Nutrition Support Novasource Renal 35ml/hr x 24hrs, providing 840ml, 1680kcal, 76g protein Pertinent Medications D50w, Glutose 40%, Epogen, Iron, Glucagen, Dilaudid, Novolog, Solu Medrol, Zofran, Protonix Pertinent Labs 03/15: BUN 36H, creatinine 4.8H , glucose 172H Nutritional Hx/Data Height 1.6 m Height (Calculated Centimeters) 160.0 Current Weight (lbs) 117.843 kg Weight (Calculated Kilograms) 117.8 Weight (Calculated Grams) 118341.3 [place] Body Weight 115 Weight Status Morbidly Obese GI Symptoms Skin Integrity/Comment: Jordon 10. Bruises. Estimated Nutritional Goals BEE in Kcals: Adj wt of IBW Calories/Kcals/Kg AdjBW 151.2lb/68.7kg Kcals Calculated 2061-2405kcal (30-35kcal/kg) Protein: Adj wt of IBW Protein Calculated 103-137g (1.5-2g/kg) Fluid: ml Per MD Nutritional Problem 2. Problem Problem Increased kcal and prot needs related to Etiology hypermetabolic state aeb Signs/Symptoms: sepsis with multiorgan failure , on HD, penumonia 1. 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 Recommend Novasource Renal at 50ml/hr x 24hrs, providing 1200ml, 2400kcal, 109g protein . Increase 10ml/hr q12hrs as tolerated until goal rate of 50ml/hr. Hypermetabolic state: sepsis multiorgan failure, HD, resp failure, pneumonia , with consideration of morbid obesity. 2. Unable to provide FDI education due to pt intubated on tube feeding. Expected Outcomes/Goals Expected Outcomes/Goals 1. Pt to meet 100% of estimated nutritional needs on tube feeding with tolerance.
[2017-03-16 13:16] LABS: T3 FREE 1.3 pg/mL (2.0-4.4); T4 FREE 0.77 ng/dL (0.82-1.77)
[2017-03-16] MEDS ORDERED: Levofloxacin 250mg/50mL 250 MG/50 ML BAG IV SCH (15:00)
[2017-03-16 16:45] LABS: BE(B) 4.3 mEq/L (-3.0-3.0)
--- NOTE | 2017-03-16 18:26 | General Progress Note ---
Subjective - Review of Systems Service Date: 03/16/17 Subjective: awake, comfortable, on vent Objective - Results Result Diagrams: 03/16/17 06:52 03/16/17 06:52 Recent Labs: Laboratory Last Values WBC 16.4 Th/cmm (4.8-10.8) H 03/16/17 06:52 RBC 2.89 Mil/cmm (3.80-5.20) L 03/16/17 06:52 Hgb 8.2 gm/dL (12-16) L 03/16/17 06:52 Hct 24.1 % (41.0-60) L D 03/16/17 06:52 MCV 83.3 fl (81-100) 03/16/17 06:52 MCH 28.5 pg (27.0-31.0) 03/16/17 06:52 MCHC Differential 34.1 pg (28.0-36.0) 03/16/17 06:52 RDW 18.0 % (11.5-20.0) 03/16/17 06:52 Plt Count 378 Th/cmm (150-400) D 03/16/17 06:52 MPV 8.5 fl 03/16/17 06:52 Neutrophils (Manual) 86 % (40-80) H 03/16/17 06:52 Lymphocytes 10 % (20-50) L 03/16/17 06:52 Monocytes 4 % (2-10) 03/16/17 06:52 Eosinophils 2 % (0-5) 03/15/17 05:00 Specimen Source Arterial 03/16/17 08:55 Sample Site Right Radial 03/16/17 08:55 pH 7.43 (7.35-7.45) 03/16/17 08:55 pCO2 44.0 mmHg (35.0-45.0) 03/16/17 08:55 pO2 91.0 mmHg (80.0-100.0) 03/16/17 08:55 HCO3 28.3 mEq/L (20.0-26.0) H 03/16/17 08:55 Base Excess 4.3 mEq/L (-3.0-3.0) H 03/16/17 08:55 O2 Saturation 97.0 % (92.0-100.0) 03/16/17 08:55 Ruben Test Positive 03/16/17 08:55 Vent Rate 10 03/16/17 08:55 Inspired O2 40 03/16/17 08:55 Tidal Volume 450 03/16/17 08:55 PEEP 3 03/16/17 08:55 Pressure (ins/psv/peep) 18 03/16/17 08:55 Critical Value LZHANG 03/16/17 08:55 Sodium 135 mEq/L (136-145) L 03/16/17 06:52 Potassium 4.1 mEq/L (3.5-5.1) 03/16/17 06:52 Chloride 99 mEq/L (98-107) 03/16/17 06:52 Carbon Dioxide 28.2 mEq/L (21.0-31.0) 03/16/17 06:52 Anion Gap 11.9 (7.0-16.0) 03/16/17 06:52 BUN 53 mg/dL (7-25) H 03/16/17 06:52 Creatinine 6.8 mg/dL (0.6-1.2) H* 03/16/17 06:52 Est GFR ( Amer) 7.8 ml/min (>90) 03/16/17 06:52 Est GFR (Non-Af Amer) 6.4 ml/min 03/16/17 06:52 BUN/Creatinine Ratio 7.8 03/16/17 06:52 Glucose 187 mg/dL (70-105) H 03/16/17 06:52 POC Glucose 210 MG/DL (70 - 105) H 03/16/17 17:11 Hemoglobin A1c % 5.5 % (4.0-6.0) 03/16/17 06:52 Uric Acid 4.2 mg/dL (2.3-6.6) 03/15/17 05:00 Calcium 8.3 mg/dL (8.6-10.3) L 03/16/17 06:52 Phosphorus 3.0 mg/dL (2.5-5.0) 03/15/17 05:00 Magnesium 2.1 mg/dL (1.9-2.7) 03/15/17 05:00 Total Bilirubin 0.7 mg/dL (0.3-1.0) 03/15/17 05:00 AST 92 U/L (13-39) H 03/15/17 05:00 ALT 93 U/L (7-52) H 03/15/17 05:00 Alkaline Phosphatase 104 U/L (34-104) 03/15/17 05:00 Ammonia 59 umol/L (16-53) H 03/15/17 05:00 Creatine Kinase 64 U/L (30-223) 03/15/17 05:00 Total Protein 7.2 gm/dL (6.0-8.3) 03/15/17 05:00 Albumin 3.4 gm/dL (3.7-5.3) L 03/15/17 05:00 Globulin 3.8 gm/dL 03/15/17 05:00 Albumin/Globulin Ratio 0.9 (1.0-1.8) L 03/15/17 05:00 Free T4 0.77 ng/dL (0.82-1.77) L 03/15/17 05:00 Thyroxine (T4) 6.46 ug/dl (6.09-12.23) 03/16/17 06:52 Free T3 1.3 pg/mL (2.0-4.4) L 03/15/17 05:00 TSH 1.05 uIU/ml (0.34-5.60) 03/15/17 05:00 Hepatitis A IgM Ab Negative (Negative) 03/14/17 21:23 Hep Bs Antigen Negative (Negative) 03/14/17 21:23 Hep B Core IgM Ab Negative (Negative) 03/14/17 21:23 Hepatitis C Antibody <0.1 s/co ratio (0.0-0.9) 03/14/17 21:23 - Physical Exam Vitals and I&O: Vital Signs Temp 98.9 F 03/16/17 16:00 Pulse 85 03/16/17 17:37 Resp 17 03/16/17 16:00 BP 122/84 03/16/17 17:00 Pulse Ox 97 03/16/17 18:00 Intake & Output 03/15/17 03/16/17 03/16/17 18:59 06:59 18:59 Intake Total 430 400 150 Output Total 0 Balance 430 400 150 Weight (lbs) 117.843 kg Intake: Intake, IV Amount 400 400 150 Levetiracetam 1000mg/ 100 100 100mL 1,000 mg In 100 ml @ 400 mls/hr IV Q12H [facility] Rx#:[id number] Linezolid 600mg/300mL 600 300 300 mg In 300 ml @ 300 mls/ hr IV Q12H [facility] Rx#: [id number] cefTRIAXone 1 gm In 100 50 Dextrose 5% 50 ml @ 100 mls/hr IV Q24H [facility] Rx#: [id number] Oral 0 Tube Feeding 30 TPN/PPN 0 Blood Product 0 Lipid 0 Albumin 0 Other 0 Output: Gastric Drainage 0 Urine 0 Stool 0 Urine/Stool Mix 0 Emesis 0 Hemodialysis 0 Other 0 Other: # Voids 0 # Bowel Movements 0 Active Medications: Current Medications Acetaminophen (Tylenol) 650 mg PO Q4HR PRN PRN Reason: T 101F Stop: 05/13/17 00:20 Last Admin: 03/14/17 17:29 Dose: 650 mg Albuterol Sulfate (Albuterol 2.5mg/3ml Neb Ud) 2.5 mg HHN Q1H PRN PRN Reason: Shortness of Breath or Wheeze Albuterol/Ipratropium (Duoneb Neb) 3 ml HHN Q4HRT [facility] Stop: 05/13/17 14:59 Last Admin: 03/16/17 16:01 Dose: 3 ml Budesonide (Pulmicort) 0.5 mg HHN BIDRT [facility] Stop: 05/13/17 18:59 Last Admin: 03/16/17 08:08 Dose: 0.5 mg Carvedilol (Coreg) 6.25 mg NG BID [facility] Stop: 05/13/17 08:59 Last Admin: 03/16/17 17:00 Dose: 6.25 mg Chlorhexidine Gluconate (Peridex) 15 ml MM 0800,1999 [facility] Stop: 05/13/17 07:59 Last Admin: 03/16/17 08:03 Dose: 15 ml Dextrose (D50w) 50 ml IVP PRN PRN PRN Reason: Blood Glucose less than 70 Stop: 05/13/17 00:22 Dextrose (Glutose 40%) 18.75 gm PO PRN PRN PRN Reason: Blood Glucose less than 70 Stop: 05/13/17 00:22 Epoetin John (Epogen) 10,000 units SUBQ MoFr@1500 [facility] Stop: 05/13/17 14:59 Ferrous Sulfate (Iron) 300 mg NG BID [facility] Stop: 05/13/17 08:59 Last Admin: 03/16/17 17:00 Dose: 300 mg Glucagon (Glucagen) 1 mg IM PRN PRN PRN Reason: Blood Glucose less than 70 Stop: 05/13/17 00:22 Heparin Sodium (Porcine) (Heparin) 5,000 units SUBQ Q8HR [facility] Stop: 05/13/17 08:00 Last Admin: 03/16/17 12:59 Dose: 5,000 units Hydralazine HCl (Apresoline 20 Mg/Ml) 10 mg IV Q3H PRN PRN Reason: FOR SBP ABOVE 150 Stop: 05/13/17 00:41 Hydromorphone HCl (Dilaudid) 2 mg IVP Q3H PRN PRN Reason: FOR MODERATE PAIN Stop: 05/13/17 00:46 Last Admin: 03/16/17 15:48 Dose: 2 mg Hydromorphone HCl (Dilaudid) 1 mg IVP Q3H PRN PRN Reason: MILD PAIN Stop: 05/13/17 00:46 Last Admin: 03/14/17 16:14 Dose: 1 mg Linezolid (Zyvox) 600 mg in 300 mls @ 300 mls/hr IV Q12H [facility] Stop: 05/13/17 15:59 Last Admin: 03/16/17 16:10 Dose: 300 mls/hr Ceftriaxone Sodium 1 gm/ (Dextrose) 50 mls @ 100 mls/hr IV Q24H [facility] Stop: 05/13/17 13:59 Last Infusion: 03/16/17 14:05 Dose: Infused Levetiracetam (Keppra Pb) 1,000 mg in 100 mls @ 400 mls/hr IV Q12H [facility] Stop: 05/14/17 21:14 Last Infusion: 03/16/17 09:00 Dose: Infused Insulin Aspart (Novolog Insulin Sliding Scale) 0 units SUBQ Q6HR CELSA PRN Reason: Protocol Stop: 05/13/17 05:59 Last Admin: 03/16/17 17:26 Dose: 2 units Lorazepam (Ativan) 2 mg IVP Q4H PRN; Protocol PRN Reason: Agitation Stop: 05/14/17 07:34 Last Admin: 03/16/17 15:06 Dose: 2 mg Methylprednisolone Sodium Succinate (Solu-Medrol) 40 mg IVP Q6HR [facility] Stop: 03/17/17 06:01 Last Admin: 03/16/17 17:04 Dose: 40 mg Miscellaneous (Probiotic Screen) 1 ea MC PRN PRN PRN Reason: PROTOCOL Stop: 05/13/17 16:29 Ondansetron HCl (Zofran) 4 mg IVP Q6H PRN PRN Reason: Nausea / Vomiting Stop: 05/13/17 00:46 Pantoprazole Sodium (Protonix) 40 mg IVP DAILY [facility] Stop: 05/13/17 08:59 Last Admin: 03/16/17 08:22 Dose: 40 mg Phenytoin (Dilantin) 100 mg IVP Q8H [facility] Stop: 05/14/17 16:59 Last Admin: 03/16/17 17:00 Dose: 100 mg General: No acute distress HEENT: Atraumatic, EOMI Neck: Supple, +2 carotid pulse wo bruit Cardiovascular: Regular rate, Normal S1, Normal S2 Lungs: Other (few rhonchi) Abdomen: Bowel sounds, Soft Extremities: no Edema Neurological: Sensation intact Skin: no Rash Psych/Mental Status: Mood NL - Procedures Procedures: Procedures Procedure Code Date RESPIRATORY VENTILATION, 24-96 CONSECUTIVE HOURS [id number] 03/13/17 Assessment/Plan - Problem List Patient Problems: All Active Problems H/O drug dependence (Acute) F19.21 H/O: depression (Acute) Z86.59 H/O: obesity (Acute) Z86.39 Respiratory failure (Acute) J96.90 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 h/o prior clavicular fracture (Acute) pneumonia (Acute) - Assessment Assessment: ROSARIO on HD ALOC 2nd to sustance abuse Ess Htn Morbid Obesity CN Staph GPC/GNR CAP Left Femur head Fx 2nd to fall Polysubstance Abuse Resp Failure on Vent Chronic pain Sx - Plan Plan: Lab - Result Diagrams 03/15/17 05:00 03/15/17 05:00 Current Medications Acetaminophen (Tylenol) 650 mg PO Q4HR PRN PRN Reason: T 101F Stop: 05/13/17 00:20 Last Admin: 03/14/17 17:29 Dose: 650 mg Albuterol Sulfate (Albuterol 2.5mg/3ml Neb Ud) 2.5 mg HHN Q1H PRN PRN Reason: Shortness of Breath or Wheeze Albuterol/Ipratropium (Duoneb Neb) 3 ml HHN Q4HRT [facility] Stop: 05/13/17 14:59 Last Admin: 03/15/17 13:39 Dose: 3 ml Budesonide (Pulmicort) 0.5 mg HHN BIDRT [facility] Stop: 05/13/17 18:59 Last Admin: 03/15/17 07:47 Dose: 0.5 mg Carvedilol (Coreg) 6.25 mg NG BID [facility] Stop: 05/13/17 08:59 Last Admin: 03/15/17 09:22 Dose: 6.25 mg Chlorhexidine Gluconate (Peridex) 15 ml MM 08,1999 [facility] Stop: 05/13/17 07:59 Last Admin: 03/15/17 09:22 Dose: 15 ml Dextrose (D50w) 50 ml IVP PRN PRN PRN Reason: Blood Glucose less than 70 Stop: 05/13/17 00:22 Dextrose (Glutose 40%) 18.75 gm PO PRN PRN PRN Reason: Blood Glucose less than 70 Stop: 05/13/17 00:22 Epoetin John (Epogen) 10,000 units SUBQ MONFRI [facility] Stop: 05/13/17 14:59 Last Admin: 03/14/17 16:15 Dose: 10,000 units Ferrous Sulfate (Iron) 300 mg NG BID [facility] Stop: 05/13/17 08:59 Last Admin: 03/15/17 09:22 Dose: 300 mg Glucagon (Glucagen) 1 mg IM PRN PRN PRN Reason: Blood Glucose less than 70 Stop: 05/13/17 00:22 Heparin Sodium (Porcine) (Heparin) 5,000 units SUBQ Q8HR [facility] Stop: 05/13/17 08:00 Last Admin: 03/15/17 12:42 Dose: 5,000 units Hydralazine HCl (Apresoline 20 Mg/Ml) 10 mg IV Q3H PRN PRN Reason: FOR SBP ABOVE 150 Stop: 05/13/17 00:41 Hydromorphone HCl (Dilaudid) 2 mg IVP Q3H PRN PRN Reason: FOR MODERATE PAIN Stop: 05/13/17 00:46 Last Admin: 03/15/17 06:25 Dose: 2 mg Hydromorphone HCl (Dilaudid) 1 mg IVP Q3H PRN PRN Reason: MILD PAIN Stop: 05/13/17 00:46 Last Admin: 03/14/17 16:14 Dose: 1 mg Linezolid (Zyvox) 600 mg in 300 mls @ 300 mls/hr IV Q12H [facility] Stop: 05/13/17 15:59 Last Infusion: 03/15/17 05:19 Dose: Infused Ceftriaxone Sodium 1 gm/ (Dextrose) 50 mls @ 100 mls/hr IV Q24H [facility] Stop: 05/13/17 13:59 Last Admin: 03/15/17 14:37 Dose: 100 mls/hr Levofloxacin (Levaquin Pb) 250 mg in 50 mls @ 50 mls/hr IV Q48H [facility] Stop: 05/15/17 14:59 Insulin Aspart (Novolog Insulin Sliding Scale) 0 units SUBQ Q6HR CELSA PRN Reason: Protocol Stop: 05/13/17 05:59 Last Admin: 03/15/17 12:32 Dose: Not Given Lorazepam (Ativan) 2 mg IVP Q4H PRN; Protocol PRN Reason: Agitation Stop: 05/14/17 07:34 Last Admin: 03/15/17 12:44 Dose: 2 mg Methylprednisolone Sodium Succinate (Solu-Medrol) 40 mg IVP Q6HR [facility] Stop: 03/17/17 06:01 Last Admin: 03/15/17 12:44 Dose: 40 mg Miscellaneous (Probiotic Screen) 1 ea MC PRN PRN PRN Reason: PROTOCOL Stop: 05/13/17 16:29 Ondansetron HCl (Zofran) 4 mg IVP Q6H PRN PRN Reason: Nausea / Vomiting Stop: 05/13/17 00:46 Pantoprazole Sodium (Protonix) 40 mg IVP DAILY [facility] Stop: 05/13/17 08:59 Last Admin: 03/15/17 09:23 Dose: 40 mg Phenytoin (Dilantin) 100 mg IVP Q8H [facility] Stop: 05/14/17 16:59 schedule for HD today monitor electrolytes serial CXR Nutritional Asmnt/Malnutr-PDOC - Dietary Evaluation Malnutrition Findings (Please click <Entered> for more info): Nutritional Asmnt/Malnutrition Start: 03/15/17 12: 22 Text: Status: Complete Freq: Document 03/15/17 12:28 GSUN (Rec: 03/15/17 12:39 GSUN [email or web address]) Nutritional Asmnt/Malnutrition Patient General Information Nutritional Screening High Risk Screening Diagnosis ROSARIO, sepsis with multiorgan failure, intubated, penumonia, resp failure Pertinent Medical Hx/Surgical Hx Asthma, COPD, severe obesity, prior clavicular fractures, chronic drug dependence, depression, HTN, cardiomyopathy, chronic pain syndrome Subjective Information 66 year old female from home. Per MD reports, pt with hx polysubstance abuse, 03/09/17 severe septic shock with multiorgan failure, involving respiratory and renal failure, intubated on diaylisys. Observed pt on vent with tube feeding infusing at 30ml/hr during visit. Spoke to RN, RN stated BM yesterday, none today yet, no residuals, tolerating well. 03/14 HD. Current Diet Order/ Nutrition Support Novasource Renal 35ml/hr x 24hrs, providing 840ml, 1680kcal, 76g protein Pertinent Medications D50w, Glutose 40%, Epogen, Iron, Glucagen, Dilaudid, Novolog, Solu Medrol, Zofran, Protonix Pertinent Labs 03/15: BUN 36H, creatinine 4.8H , glucose 172H Nutritional Hx/Data Height 1.6 m Height (Calculated Centimeters) 160.0 Current Weight (lbs) 117.843 kg Weight (Calculated Kilograms) 117.8 Weight (Calculated Grams) 893851.3 Dennis Body Weight 115 Weight Status Morbidly Obese GI Symptoms Skin Integrity/Comment: Jordon 10. Bruises. Estimated Nutritional Goals BEE in Kcals: Adj wt of IBW Calories/Kcals/Kg AdjBW 151.2lb/68.7kg Kcals Calculated 2061-2405kcal (30-35kcal/kg) Protein: Adj wt of IBW Protein Calculated 103-137g (1.5-2g/kg) Fluid: ml Per MD Nutritional Problem 2. Problem Problem Increased kcal and prot needs related to Etiology hypermetabolic state aeb Signs/Symptoms: sepsis with multiorgan failure , on HD, penumonia 1. Problem Problem Imapired nutrient utilization related to Etiology ROSARIO aeb Signs/Symptoms: 03/14 HD, BUN 36H belt turner 4.8H Intervention/Recommendation Comments 1. Recommend Novasource Renal at 50ml/hr x 24hrs, providing 1200ml, 2400kcal, 109g protein . Increase 10ml/hr q12hrs as tolerated until goal rate of 50ml/hr. Hypermetabolic state: sepsis multiorgan failure, HD, resp failure, pneumonia , with consideration of morbid obesity. 2. Unable to provide FDI education due to pt intubated on tube feeding. Expected Outcomes/Goals Expected Outcomes/Goals 1. Pt to meet 100% of estimated nutritional needs on tube feeding with tolerance.
[2017-03-17] MEDS: methylPREDNISolone SS 40 mg Vial IVP SCH ×2 (00:01→05:31)
[2017-03-17] MEDS: Phenytoin 50 mg/mL 2 mL Vial IVP SCH ×3 (00:01→17:06)
--- NOTE | 2017-03-17 00:08 | Progress Notes ---
DATE: 03/16/2017 PROBLEM LIST: 1. Acute respiratory failure. 2. Question pneumonia. 3. Chronic obstructive pulmonary disease with. 4. History of opioid dependency with pain issue related and problems. SYMPTOMS: The patient is awake, less tremulous, no respiratory distress, currently toileting SIMV 10. PHYSICAL EXAMINATION: VITAL SIGNS: Temperature is 99, blood pressure 106/70, saturation 97% on 40% of oxygen with SIMV mode. NECK: Veins not visualized. CHEST: Shows diminished air entry with occasional rhonchi. HEART: Regular. ABDOMEN: Soft, nontender. LABORATORY DATA: White count is trending down 16,000, hemoglobin 8.2. ABG: pO2 is 91 and electrolytes are okay with creatinine still on the higher side. ASSESSMENT: The patient is clinically tolerating and weaning okay as multisystem failure. PLANS AND SUGGESTIONS: We will go and try to taper down SIMV mode and hopefully neurologically and ____ appears to stable in next ____. Hopefully, we will be able to extubate her and go from there. JOB# [id number]
[2017-03-17] MEDS: HYDROmorphone 2 mg/mL 1mL Vial IVP PRN (01:59)
[2017-03-17] MEDS: Albuterol/Ipratropium Neb 3 ML AERS HHN SCH ×6 (02:55→23:24)
[2017-03-17] MEDS: Linezolid 600mg/300mL 600 MG/300 ML BAG IV SCH ×2 (04:43→15:51)
[2017-03-17] MEDS: INSULIN ASPART SLIDING SCALE 100 UNITS/ML UNIT SUBQ SCH ×4 (05:32→21:30)
[2017-03-17 07:04] LABS: MEAN CELL VOLUME 84.1 fl (81-100); MEAN CORPUSCULAR HEMOGLOBIN 28.7 pg (27.0-31.0); MEAN CORPUSCULAR HGB CONC 34.1 pg (28.0-36.0); MEAN PLATELET VOLUME 8.2 fl; PLATELET COUNT 479 Th/cmm (150-400); RED BLOOD COUNT 2.74 Mil/cmm (3.80-5.20); RED CELL DISTRIBUTION WIDTH 17.7 % (11.5-20.0)
[2017-03-17 07:12] LABS: HEMOGLOBIN 7.8 gm/dL (12-16); WHITE BLOOD COUNT 14.7 Th/cmm (4.8-10.8)
[2017-03-17] MEDS: Budesonide 0.5 Mg/2 mL Ud HHN SCH ×2 (07:16→19:11)
[2017-03-17 07:21] LABS: BAND NEUTROPHILE 1 % (0-10); NEUTROPHILS 77 % (40-80); TOTAL CELLS COUNTED 100
[2017-03-17 07:22] LABS: EOSINOPHIL 2 % (0-5)
[2017-03-17 07:28] LABS: ANION GAP 11.3 (7.0-16.0); BUN/CREATININE RATIO 7.7; CALCIUM SERUM 8.1 mg/dL (8.6-10.3); CARBON DIOXIDE 29.2 mEq/L (21.0-31.0); POTASSIUM SERUM 3.5 mEq/L (3.5-5.1)
[2017-03-17 07:48] LABS: CREATININE - SERUM 6.8 mg/dL (0.6-1.2)
[2017-03-17 08:02] LABS: CREATININE - SERUM 5.7 mg/dL (0.6-1.2)
[2017-03-17 08:10] LABS: T3 FREE 1.2 pg/mL (2.0-4.4); T4 FREE 0.73 ng/dL (0.82-1.77)
--- NOTE | 2017-03-17 08:28 | General Progress Note ---
Subjective - Review of Systems Service Date: 03/17/17 Events since last encounter: patient on vent no distress Objective - Results Result Diagrams: 03/17/17 06:40 03/17/17 06:40 Recent Labs: Laboratory Last Values WBC 14.7 Th/cmm (4.8-10.8) H 03/17/17 06:40 RBC 2.74 Mil/cmm (3.80-5.20) L 03/17/17 06:40 Hgb 7.8 gm/dL (12-16) L* 03/17/17 06:40 Hct 23.0 % (41.0-60) L 03/17/17 06:40 MCV 84.1 fl (81-100) 03/17/17 06:40 MCH 28.7 pg (27.0-31.0) 03/17/17 06:40 MCHC Differential 34.1 pg (28.0-36.0) 03/17/17 06:40 RDW 17.7 % (11.5-20.0) 03/17/17 06:40 Plt Count 479 Th/cmm (150-400) H D 03/17/17 06:40 MPV 8.2 fl 03/17/17 06:40 Band Neutrophils % 1 % (0-10) 03/17/17 06:40 Neutrophils (Manual) 77 % (40-80) 03/17/17 06:40 Lymphocytes 15 % (20-50) L 03/17/17 06:40 Monocytes 5 % (2-10) 03/17/17 06:40 Eosinophils 2 % (0-5) 03/17/17 06:40 Specimen Source Arterial 03/16/17 08:55 Sample Site Right Radial 03/16/17 08:55 pH 7.43 (7.35-7.45) 03/16/17 08:55 pCO2 44.0 mmHg (35.0-45.0) 03/16/17 08:55 pO2 91.0 mmHg (80.0-100.0) 03/16/17 08:55 HCO3 28.3 mEq/L (20.0-26.0) H 03/16/17 08:55 Base Excess 4.3 mEq/L (-3.0-3.0) H 03/16/17 08:55 O2 Saturation 97.0 % (92.0-100.0) 03/16/17 08:55 Ruben Test Positive 03/16/17 08:55 Vent Rate 10 03/16/17 08:55 Inspired O2 40 03/16/17 08:55 Tidal Volume 450 03/16/17 08:55 PEEP 3 03/16/17 08:55 Pressure (ins/psv/peep) 18 03/16/17 08:55 Critical Value LZHANG 03/16/17 08:55 Sodium 136 mEq/L (136-145) 03/17/17 06:40 Potassium 3.5 mEq/L (3.5-5.1) 03/17/17 06:40 Chloride 99 mEq/L (98-107) 03/17/17 06:40 Carbon Dioxide 29.2 mEq/L (21.0-31.0) 03/17/17 06:40 Anion Gap 11.3 (7.0-16.0) 03/17/17 06:40 BUN 44 mg/dL (7-25) H 03/17/17 06:40 Creatinine 5.7 mg/dL (0.6-1.2) H* 03/17/17 06:40 Est GFR ( Amer) 9.5 ml/min (>90) 03/17/17 06:40 Est GFR (Non-Af Amer) 7.9 ml/min 03/17/17 06:40 BUN/Creatinine Ratio 7.7 03/17/17 06:40 Glucose 224 mg/dL (70-105) H 03/17/17 06:40 POC Glucose 226 MG/DL (70 - 105) H 03/17/17 05:28 Hemoglobin A1c % 5.5 % (4.0-6.0) 03/16/17 06:52 Uric Acid 4.2 mg/dL (2.3-6.6) 03/15/17 05:00 Calcium 8.1 mg/dL (8.6-10.3) L 03/17/17 06:40 Phosphorus 3.0 mg/dL (2.5-5.0) 03/15/17 05:00 Magnesium 2.1 mg/dL (1.9-2.7) 03/15/17 05:00 Total Bilirubin 0.7 mg/dL (0.3-1.0) 03/15/17 05:00 AST 92 U/L (13-39) H 03/15/17 05:00 ALT 93 U/L (7-52) H 03/15/17 05:00 Alkaline Phosphatase 104 U/L (34-104) 03/15/17 05:00 Ammonia 59 umol/L (16-53) H 03/15/17 05:00 Creatine Kinase 64 U/L (30-223) 03/15/17 05:00 Total Protein 7.2 gm/dL (6.0-8.3) 03/15/17 05:00 Albumin 3.4 gm/dL (3.7-5.3) L 03/15/17 05:00 Globulin 3.8 gm/dL 03/15/17 05:00 Albumin/Globulin Ratio 0.9 (1.0-1.8) L 03/15/17 05:00 Free T4 0.73 ng/dL (0.82-1.77) L 03/16/17 06:52 Thyroxine (T4) 6.46 ug/dl (6.09-12.23) 03/16/17 06:52 Free T3 1.2 pg/mL (2.0-4.4) L 03/16/17 06:52 TSH 1.05 uIU/ml (0.34-5.60) 03/15/17 05:00 Hepatitis A IgM Ab Negative (Negative) 03/14/17 21:23 Hep Bs Antigen Negative (Negative) 03/14/17 21:23 Hep B Core IgM Ab Negative (Negative) 03/14/17 21:23 Hepatitis C Antibody <0.1 s/co ratio (0.0-0.9) 03/14/17 21:23 - Physical Exam Vitals and I&O: Vital Signs Temp 98.8 F 03/17/17 04:00 Pulse 85 03/17/17 07:34 Resp 14 03/17/17 06:00 BP 115/67 03/17/17 06:00 Pulse Ox 99 03/17/17 07:34 Intake & Output 03/16/17 03/17/17 03/17/17 18:59 06:59 18:59 Intake Total 1040 700 Output Total 2550 35 Balance -1510 665 Weight (lbs) 117.843 kg 117.027 kg Intake: Intake, IV Amount 450 100 Levetiracetam 1000mg/ 100 100 100mL 1,000 mg In 100 ml @ 400 mls/hr IV Q12H [facility] Rx#:[id number] Linezolid 600mg/300mL 600 300 mg In 300 ml @ 300 mls/ hr IV Q12H [facility] Rx#: [id number] cefTRIAXone 1 gm In 50 Dextrose 5% 50 ml @ 100 mls/hr IV Q24H [facility] Rx#: [id number] Tube Feeding 390 600 Other 200 Output: Urine 50 35 Hemodialysis 2500 Other: # Bowel Movements 0 Active Medications: Current Medications Acetaminophen (Tylenol) 650 mg PO Q4HR PRN PRN Reason: T 101F Stop: 05/13/17 00:20 Last Admin: 03/14/17 17:29 Dose: 650 mg Albuterol Sulfate (Albuterol 2.5mg/3ml Neb Ud) 2.5 mg HHN Q1H PRN PRN Reason: Shortness of Breath or Wheeze Albuterol/Ipratropium (Duoneb Neb) 3 ml HHN Q4HRT [facility] Stop: 05/13/17 14:59 Last Admin: 03/17/17 07:16 Dose: 3 ml Budesonide (Pulmicort) 0.5 mg HHN BIDRT [facility] Stop: 05/13/17 18:59 Last Admin: 03/17/17 07:16 Dose: 0.5 mg Carvedilol (Coreg) 6.25 mg NG BID [facility] Stop: 05/13/17 08:59 Last Admin: 03/16/17 17:00 Dose: 6.25 mg Chlorhexidine Gluconate (Peridex) 15 ml MM 0800,2000 [facility] Stop: 05/13/17 07:59 Last Admin: 03/16/17 20:28 Dose: 15 ml Dextrose (D50w) 50 ml IVP PRN PRN PRN Reason: Blood Glucose less than 70 Stop: 05/13/17 00:22 Dextrose (Glutose 40%) 18.75 gm PO PRN PRN PRN Reason: Blood Glucose less than 70 Stop: 05/13/17 00:22 Epoetin John (Epogen) 10,000 units SUBQ MoFr@1500 [facility] Stop: 05/13/17 14:59 Ferrous Sulfate (Iron) 300 mg NG BID [facility] Stop: 05/13/17 08:59 Last Admin: 03/16/17 17:00 Dose: 300 mg Glucagon (Glucagen) 1 mg IM PRN PRN PRN Reason: Blood Glucose less than 70 Stop: 05/13/17 00:22 Heparin Sodium (Porcine) (Heparin) 5,000 units SUBQ Q8HR [facility] Stop: 05/13/17 08:00 Last Admin: 03/17/17 05:31 Dose: 5,000 units Hydralazine HCl (Apresoline 20 Mg/Ml) 10 mg IV Q3H PRN PRN Reason: FOR SBP ABOVE 150 Stop: 05/13/17 00:41 Hydromorphone HCl (Dilaudid) 2 mg IVP Q3H PRN PRN Reason: FOR MODERATE PAIN Stop: 05/13/17 00:46 Last Admin: 03/17/17 01:59 Dose: 2 mg Hydromorphone HCl (Dilaudid) 1 mg IVP Q3H PRN PRN Reason: MILD PAIN Stop: 05/13/17 00:46 Last Admin: 03/14/17 16:14 Dose: 1 mg Linezolid (Zyvox) 600 mg in 300 mls @ 300 mls/hr IV Q12H [facility] Stop: 05/13/17 15:59 Last Admin: 03/17/17 04:43 Dose: 300 mls/hr Ceftriaxone Sodium 1 gm/ (Dextrose) 50 mls @ 100 mls/hr IV Q24H [facility] Stop: 05/13/17 13:59 Last Infusion: 03/16/17 14:05 Dose: Infused Levetiracetam (Keppra Pb) 1,000 mg in 100 mls @ 400 mls/hr IV Q12H [facility] Stop: 05/14/17 21:14 Last Infusion: 03/16/17 20:43 Dose: Infused Insulin Aspart (Novolog Insulin Sliding Scale) 0 units SUBQ Q6HR [facility] PRN Reason: Protocol Stop: 05/13/17 05:59 Last Admin: 03/17/17 05:32 Dose: 2 units Lorazepam (Ativan) 2 mg IVP Q4H PRN; Protocol PRN Reason: Agitation Stop: 05/14/17 07:34 Last Admin: 03/16/17 20:35 Dose: 2 mg Miscellaneous (Probiotic Screen) 1 ea MC PRN PRN PRN Reason: PROTOCOL Stop: 05/13/17 16:29 Ondansetron HCl (Zofran) 4 mg IVP Q6H PRN PRN Reason: Nausea / Vomiting Stop: 05/13/17 00:46 Pantoprazole Sodium (Protonix) 40 mg IVP DAILY [facility] Stop: 05/13/17 08:59 Last Admin: 03/16/17 08:22 Dose: 40 mg Phenytoin (Dilantin) 100 mg IVP Q8H [facility] Stop: 05/14/17 16:59 Last Admin: 03/17/17 00:01 Dose: 100 mg General: No acute distress HEENT: Atraumatic, EOMI Neck: Supple, +2 carotid pulse wo bruit Cardiovascular: Regular rate, Normal S1, Normal S2 Lungs: Other (few rhonchi) Abdomen: Bowel sounds, Soft Extremities: no Edema Neurological: Sensation intact Skin: no Rash Psych/Mental Status: Mood NL - Procedures Procedures: Procedures Procedure Code Date RESPIRATORY VENTILATION, 24-96 CONSECUTIVE HOURS [id number] 03/13/17 Assessment/Plan - Problem List Patient Problems: All Active Problems H/O drug dependence (Acute) F19.21 H/O: depression (Acute) Z86.59 H/O: obesity (Acute) Z86.39 Respiratory failure (Acute) J96.90 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 h/o prior clavicular fracture (Acute) pneumonia (Acute) - Plan Plan: cpm Nutritional Asmnt/Malnutr-PDOC - Dietary Evaluation Malnutrition Findings (Please click <Entered> for more info): Nutritional Asmnt/Malnutrition Start: 03/15/17 12: 22 Text: Status: Complete Freq: Document 03/15/17 12:28 GSUN (Rec: 03/15/17 12:39 GSUN [id number]) Nutritional Asmnt/Malnutrition Patient General Information Nutritional Screening High Risk Screening Diagnosis ROSARIO, sepsis with multiorgan failure, intubated, penumonia, resp failure Pertinent Medical Hx/Surgical Hx Asthma, COPD, severe obesity, prior clavicular fractures, chronic drug dependence, depression, HTN, cardiomyopathy, chronic pain syndrome Subjective Information 66 year old female from home. Per MD reports, pt with hx polysubstance abuse, 03/09/17 severe septic shock with multiorgan failure, involving respiratory and renal failure, intubated on diaylisys. Observed pt on vent with tube feeding infusing at 30ml/hr during visit. Spoke to RN, RN stated BM yesterday, none today yet, no residuals, tolerating well. 03/14 HD. Current Diet Order/ Nutrition Support Novasource Renal 35ml/hr x 24hrs, providing 840ml, 1680kcal, 76g protein Pertinent Medications D50w, Glutose 40%, Epogen, Iron, Glucagen, Dilaudid, Novolog, Solu Medrol, Zofran, Protonix Pertinent Labs 03/15: BUN 36H, creatinine 4.8H , glucose 172H Nutritional Hx/Data Height 1.6 m Height (Calculated Centimeters) 160.0 Current Weight (lbs) 117.843 kg Weight (Calculated Kilograms) 117.8 Weight (Calculated Grams) 742937.3 [place] Body Weight 115 Weight Status Morbidly Obese GI Symptoms Skin Integrity/Comment: Jordon 10. Bruises. Estimated Nutritional Goals BEE in Kcals: Adj wt of IBW Calories/Kcals/Kg AdjBW 151.2lb/68.7kg Kcals Calculated 2061-2405kcal (30-35kcal/kg) Protein: Adj wt of IBW Protein Calculated 103-137g (1.5-2g/kg) Fluid: ml Per MD Nutritional Problem 2. Problem Problem Increased kcal and prot needs related to Etiology hypermetabolic state aeb Signs/Symptoms: sepsis with multiorgan failure , on HD, penumonia 1. 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 Recommend Novasource Renal at 50ml/hr x 24hrs, providing 1200ml, 2400kcal, 109g protein . Increase 10ml/hr q12hrs as tolerated until goal rate of 50ml/hr. Hypermetabolic state: sepsis multiorgan failure, HD, resp failure, pneumonia , with consideration of morbid obesity. 2. Unable to provide FDI education due to pt intubated on tube feeding. Expected Outcomes/Goals Expected Outcomes/Goals 1. Pt to meet 100% of estimated nutritional needs on tube feeding with tolerance.
[2017-03-17] MEDS: Levetiracetam 1000mg/100mL 1,000 MG/100 ML BAG IV SCH ×2 (08:40→21:35)
[2017-03-17] MEDS: Chlorhexidine Gluconate 0.12% 15mL Mouthwash MM SCH (08:42)
[2017-03-17] MEDS: Ferrous Sulfate 300 MG/5 ML UDC NG SCH ×2 (08:42→16:32)
--- NOTE | 2017-03-17 08:48 | Diagnostic Imaging Report ---
Exam: Chest x-ray HISTORY: Shortness of breath. Findings: Upright examination of chest was reviewed. No prior studies available for comparison. The study demonstrates total right shoulder prosthesis. The endotracheal tube is at the sha should be pulled back at least 3 cm Left jugular catheter terminates in superior vena cava. Right jugular catheter terminates in superior vena cava. There is evidence for left basilar infiltrate with superimposed effusion. Mild congestion cannot be excluded. Mediastinal structures midline the heart is not enlarged. Bony thorax intact. IMPRESSION: 1. Endotracheal tube at the sha should be pulled back 3 cm. 2. Left basilar infiltrate superimposed small effusion. 3. Mild congestion cannot be excluded follow-up examination is recommended.
[2017-03-17 09:03] LABS: pH 7.45 (7.35-7.45)
[2017-03-17 09:04] LABS: ABG SOURCE Arterial; ALLEN TEST YES; FIO2 40; HCO3 30.4 mEq/L (20.0-26.0); MECH RATE 6; MECH VT 450; PS 15
--- NOTE | 2017-03-17 13:57 | General Progress Note ---
Subjective - Review of Systems Service Date: 03/17/17 Subjective: more alert, comfortable, on vent Objective - Results Result Diagrams: 03/17/17 06:40 03/17/17 06:40 Recent Labs: Laboratory Last Values WBC 14.7 Th/cmm (4.8-10.8) H 03/17/17 06:40 RBC 2.74 Mil/cmm (3.80-5.20) L 03/17/17 06:40 Hgb 7.8 gm/dL (12-16) L* 03/17/17 06:40 Hct 23.0 % (41.0-60) L 03/17/17 06:40 MCV 84.1 fl (81-100) 03/17/17 06:40 MCH 28.7 pg (27.0-31.0) 03/17/17 06:40 MCHC Differential 34.1 pg (28.0-36.0) 03/17/17 06:40 RDW 17.7 % (11.5-20.0) 03/17/17 06:40 Plt Count 479 Th/cmm (150-400) H D 03/17/17 06:40 MPV 8.2 fl 03/17/17 06:40 Band Neutrophils % 1 % (0-10) 03/17/17 06:40 Neutrophils (Manual) 77 % (40-80) 03/17/17 06:40 Lymphocytes 15 % (20-50) L 03/17/17 06:40 Monocytes 5 % (2-10) 03/17/17 06:40 Eosinophils 2 % (0-5) 03/17/17 06:40 Specimen Source Arterial 03/17/17 08:55 Sample Site Right Radial 03/17/17 08:55 pH 7.45 (7.35-7.45) 03/17/17 08:55 pCO2 46.0 mmHg (35.0-45.0) H 03/17/17 08:55 pO2 96.0 mmHg (80.0-100.0) 03/17/17 08:55 HCO3 30.4 mEq/L (20.0-26.0) H 03/17/17 08:55 Base Excess 7.0 mEq/L (-3.0-3.0) H 03/17/17 08:55 O2 Saturation 98.0 % (92.0-100.0) 03/17/17 08:55 Ruben Test YES 03/17/17 08:55 Vent Rate 6 03/17/17 08:55 Inspired O2 40 03/17/17 08:55 Tidal Volume 450 03/17/17 08:55 PEEP 3 03/17/17 08:55 Pressure (ins/psv/peep) 15 03/17/17 08:55 Critical Value E.DOTSON 03/17/17 08:55 Sodium 136 mEq/L (136-145) 03/17/17 06:40 Potassium 3.5 mEq/L (3.5-5.1) 03/17/17 06:40 Chloride 99 mEq/L (98-107) 03/17/17 06:40 Carbon Dioxide 29.2 mEq/L (21.0-31.0) 03/17/17 06:40 Anion Gap 11.3 (7.0-16.0) 03/17/17 06:40 BUN 44 mg/dL (7-25) H 03/17/17 06:40 Creatinine 5.7 mg/dL (0.6-1.2) H* 03/17/17 06:40 Est GFR ( Amer) 9.5 ml/min (>90) 03/17/17 06:40 Est GFR (Non-Af Amer) 7.9 ml/min 03/17/17 06:40 BUN/Creatinine Ratio 7.7 03/17/17 06:40 Glucose 224 mg/dL (70-105) H 03/17/17 06:40 POC Glucose 172 MG/DL (70 - 105) H 03/17/17 11:48 Hemoglobin A1c % 5.5 % (4.0-6.0) 03/16/17 06:52 Uric Acid 4.2 mg/dL (2.3-6.6) 03/15/17 05:00 Calcium 8.1 mg/dL (8.6-10.3) L 03/17/17 06:40 Phosphorus 3.0 mg/dL (2.5-5.0) 03/15/17 05:00 Magnesium 2.1 mg/dL (1.9-2.7) 03/15/17 05:00 Total Bilirubin 0.7 mg/dL (0.3-1.0) 03/15/17 05:00 AST 92 U/L (13-39) H 03/15/17 05:00 ALT 93 U/L (7-52) H 03/15/17 05:00 Alkaline Phosphatase 104 U/L (34-104) 03/15/17 05:00 Ammonia 59 umol/L (16-53) H 03/15/17 05:00 Creatine Kinase 64 U/L (30-223) 03/15/17 05:00 Total Protein 7.2 gm/dL (6.0-8.3) 03/15/17 05:00 Albumin 3.4 gm/dL (3.7-5.3) L 03/15/17 05:00 Globulin 3.8 gm/dL 03/15/17 05:00 Albumin/Globulin Ratio 0.9 (1.0-1.8) L 03/15/17 05:00 Free T4 0.73 ng/dL (0.82-1.77) L 03/16/17 06:52 Thyroxine (T4) 6.46 ug/dl (6.09-12.23) 03/16/17 06:52 Free T3 1.2 pg/mL (2.0-4.4) L 03/16/17 06:52 TSH 1.05 uIU/ml (0.34-5.60) 03/15/17 05:00 Hepatitis A IgM Ab Negative (Negative) 03/14/17 21:23 Hep Bs Antigen Negative (Negative) 03/14/17 21:23 Hep B Core IgM Ab Negative (Negative) 03/14/17 21:23 Hepatitis C Antibody <0.1 s/co ratio (0.0-0.9) 03/14/17 21:23 - Physical Exam Vitals and I&O: Vital Signs Temp 98.8 F 03/17/17 07:00 Pulse 82 03/17/17 11:15 Resp 17 03/17/17 10:00 BP 126/69 03/17/17 10:00 Pulse Ox 100 03/17/17 11:15 Intake & Output 03/16/17 03/17/17 03/17/17 18:59 06:59 18:59 Intake Total 1040 700 Output Total 2550 35 Balance -1510 665 Weight (lbs) 117.843 kg 117.027 kg Intake: Intake, IV Amount 450 100 Levetiracetam 1000mg/ 100 100 100mL 1,000 mg In 100 ml @ 400 mls/hr IV Q12H [facility] Rx#:[id number] Linezolid 600mg/300mL 600 300 mg In 300 ml @ 300 mls/ hr IV Q12H [facility] Rx#: [id number] cefTRIAXone 1 gm In 50 Dextrose 5% 50 ml @ 100 mls/hr IV Q24H [facility] Rx#: [id number] Tube Feeding 390 600 Other 200 Output: Urine 50 35 Hemodialysis 2500 Other: # Bowel Movements 0 Active Medications: Current Medications Acetaminophen (Tylenol) 650 mg PO Q4HR PRN PRN Reason: T 101F Stop: 05/13/17 00:20 Last Admin: 03/14/17 17:29 Dose: 650 mg Albuterol Sulfate (Albuterol 2.5mg/3ml Neb Ud) 2.5 mg HHN Q1H PRN PRN Reason: Shortness of Breath or Wheeze Albuterol/Ipratropium (Duoneb Neb) 3 ml HHN Q4HRT [facility] Stop: 05/13/17 14:59 Last Admin: 03/17/17 11:15 Dose: 3 ml Budesonide (Pulmicort) 0.5 mg HHN BIDRT [facility] Stop: 05/13/17 18:59 Last Admin: 03/17/17 07:16 Dose: 0.5 mg Carvedilol (Coreg) 6.25 mg NG BID [facility] Stop: 05/13/17 08:59 Last Admin: 03/17/17 08:41 Dose: 6.25 mg Chlorhexidine Gluconate (Peridex) 15 ml MM 0800,1999 [facility] Stop: 05/13/17 07:59 Last Admin: 03/17/17 08:42 Dose: 15 ml Dextrose (D50w) 50 ml IVP PRN PRN PRN Reason: Blood Glucose less than 70 Stop: 05/13/17 00:22 Dextrose (Glutose 40%) 18.75 gm PO PRN PRN PRN Reason: Blood Glucose less than 70 Stop: 05/13/17 00:22 Epoetin John (Epogen) 10,000 units SUBQ MoFr@1500 [facility] Stop: 05/13/17 14:59 Ferrous Sulfate (Iron) 300 mg NG BID [facility] Stop: 05/13/17 08:59 Last Admin: 03/17/17 08:42 Dose: 300 mg Glucagon (Glucagen) 1 mg IM PRN PRN PRN Reason: Blood Glucose less than 70 Stop: 05/13/17 00:22 Heparin Sodium (Porcine) (Heparin) 5,000 units SUBQ Q8HR [facility] Stop: 05/13/17 08:00 Last Admin: 03/17/17 12:51 Dose: 5,000 units Hydralazine HCl (Apresoline 20 Mg/Ml) 10 mg IV Q3H PRN PRN Reason: FOR SBP ABOVE 150 Stop: 05/13/17 00:41 Hydromorphone HCl (Dilaudid) 2 mg IVP Q3H PRN PRN Reason: FOR MODERATE PAIN Stop: 05/13/17 00:46 Last Admin: 03/17/17 01:59 Dose: 2 mg Hydromorphone HCl (Dilaudid) 1 mg IVP Q3H PRN PRN Reason: MILD PAIN Stop: 05/13/17 00:46 Last Admin: 03/14/17 16:14 Dose: 1 mg Linezolid (Zyvox) 600 mg in 300 mls @ 300 mls/hr IV Q12H [facility] Stop: 05/13/17 15:59 Last Admin: 03/17/17 04:43 Dose: 300 mls/hr Ceftriaxone Sodium 1 gm/ (Dextrose) 50 mls @ 100 mls/hr IV Q24H [facility] Stop: 05/13/17 13:59 Last Admin: 03/17/17 13:00 Dose: 100 mls/hr Levetiracetam (Keppra Pb) 1,000 mg in 100 mls @ 400 mls/hr IV Q12H [facility] Stop: 05/14/17 21:14 Last Admin: 03/17/17 08:40 Dose: 400 mls/hr Insulin Aspart (Novolog Insulin Sliding Scale) 0 units SUBQ Q6HR [facility] PRN Reason: Protocol Stop: 05/13/17 05:59 Last Admin: 03/17/17 12:51 Dose: Not Given Lorazepam (Ativan) 2 mg IVP Q4H PRN; Protocol PRN Reason: Agitation Stop: 05/14/17 07:34 Last Admin: 03/16/17 20:35 Dose: 2 mg Miscellaneous (Probiotic Screen) 1 ea MC PRN PRN PRN Reason: PROTOCOL Stop: 05/13/17 16:29 Ondansetron HCl (Zofran) 4 mg IVP Q6H PRN PRN Reason: Nausea / Vomiting Stop: 05/13/17 00:46 Pantoprazole Sodium (Protonix) 40 mg IVP DAILY [facility] Stop: 05/13/17 08:59 Last Admin: 03/17/17 08:41 Dose: 40 mg Phenytoin (Dilantin) 100 mg IVP Q8H [facility] Stop: 05/14/17 16:59 Last Admin: 03/17/17 08:42 Dose: 100 mg General: Alert, No acute distress HEENT: Atraumatic, EOMI Neck: Supple, +2 carotid pulse wo bruit Cardiovascular: Regular rate, Normal S1, Normal S2 Lungs: Other (few rhonchi) Abdomen: Bowel sounds, Soft Extremities: no Edema Neurological: Sensation intact Skin: no Rash Psych/Mental Status: Mood NL - Procedures Procedures: Procedures Procedure Code Date RESPIRATORY VENTILATION, 24-96 CONSECUTIVE HOURS [id number] 03/13/17 Assessment/Plan - Problem List Patient Problems: All Active Problems H/O drug dependence (Acute) F19.21 H/O: depression (Acute) Z86.59 H/O: obesity (Acute) Z86.39 Respiratory failure (Acute) J96.90 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 h/o prior clavicular fracture (Acute) pneumonia (Acute) - Assessment Assessment: ROSARIO on HD ALOC 2nd to sustance abuse Ess Htn Morbid Obesity CN Staph GPC/GNR CAP Left Femur head Fx 2nd to fall Polysubstance Abuse Resp Failure on Vent Chronic pain Sx - Plan Plan: Lab - Result Diagrams 03/15/17 05:00 03/15/17 05:00 Current Medications Acetaminophen (Tylenol) 650 mg PO Q4HR PRN PRN Reason: T 101F Stop: 05/13/17 00:20 Last Admin: 03/14/17 17:29 Dose: 650 mg Albuterol Sulfate (Albuterol 2.5mg/3ml Neb Ud) 2.5 mg HHN Q1H PRN PRN Reason: Shortness of Breath or Wheeze Albuterol/Ipratropium (Duoneb Neb) 3 ml HHN Q4HRT [facility] Stop: 05/13/17 14:59 Last Admin: 03/15/17 13:39 Dose: 3 ml Budesonide (Pulmicort) 0.5 mg HHN BIDRT [facility] Stop: 05/13/17 18:59 Last Admin: 03/15/17 07:47 Dose: 0.5 mg Carvedilol (Coreg) 6.25 mg NG BID [facility] Stop: 05/13/17 08:59 Last Admin: 03/15/17 09:22 Dose: 6.25 mg Chlorhexidine Gluconate (Peridex) 15 ml MM 08,1999 [facility] Stop: 05/13/17 07:59 Last Admin: 03/15/17 09:22 Dose: 15 ml Dextrose (D50w) 50 ml IVP PRN PRN PRN Reason: Blood Glucose less than 70 Stop: 05/13/17 00:22 Dextrose (Glutose 40%) 18.75 gm PO PRN PRN PRN Reason: Blood Glucose less than 70 Stop: 05/13/17 00:22 Epoetin John (Epogen) 10,000 units SUBQ MONFRI [facility] Stop: 05/13/17 14:59 Last Admin: 03/14/17 16:15 Dose: 10,000 units Ferrous Sulfate (Iron) 300 mg NG BID [facility] Stop: 05/13/17 08:59 Last Admin: 03/15/17 09:22 Dose: 300 mg Glucagon (Glucagen) 1 mg IM PRN PRN PRN Reason: Blood Glucose less than 70 Stop: 05/13/17 00:22 Heparin Sodium (Porcine) (Heparin) 5,000 units SUBQ Q8HR [facility] Stop: 05/13/17 08:00 Last Admin: 03/15/17 12:42 Dose: 5,000 units Hydralazine HCl (Apresoline 20 Mg/Ml) 10 mg IV Q3H PRN PRN Reason: FOR SBP ABOVE 150 Stop: 05/13/17 00:41 Hydromorphone HCl (Dilaudid) 2 mg IVP Q3H PRN PRN Reason: FOR MODERATE PAIN Stop: 05/13/17 00:46 Last Admin: 03/15/17 06:25 Dose: 2 mg Hydromorphone HCl (Dilaudid) 1 mg IVP Q3H PRN PRN Reason: MILD PAIN Stop: 05/13/17 00:46 Last Admin: 03/14/17 16:14 Dose: 1 mg Linezolid (Zyvox) 600 mg in 300 mls @ 300 mls/hr IV Q12H [facility] Stop: 05/13/17 15:59 Last Infusion: 03/15/17 05:19 Dose: Infused Ceftriaxone Sodium 1 gm/ (Dextrose) 50 mls @ 100 mls/hr IV Q24H [facility] Stop: 05/13/17 13:59 Last Admin: 03/15/17 14:37 Dose: 100 mls/hr Levofloxacin (Levaquin Pb) 250 mg in 50 mls @ 50 mls/hr IV Q48H [facility] Stop: 05/15/17 14:59 Insulin Aspart (Novolog Insulin Sliding Scale) 0 units SUBQ Q6HR [facility] PRN Reason: Protocol Stop: 05/13/17 05:59 Last Admin: 03/15/17 12:32 Dose: Not Given Lorazepam (Ativan) 2 mg IVP Q4H PRN; Protocol PRN Reason: Agitation Stop: 05/14/17 07:34 Last Admin: 03/15/17 12:44 Dose: 2 mg Methylprednisolone Sodium Succinate (Solu-Medrol) 40 mg IVP Q6HR [facility] Stop: 03/17/17 06:01 Last Admin: 03/15/17 12:44 Dose: 40 mg Miscellaneous (Probiotic Screen) 1 ea MC PRN PRN PRN Reason: PROTOCOL Stop: 05/13/17 16:29 Ondansetron HCl (Zofran) 4 mg IVP Q6H PRN PRN Reason: Nausea / Vomiting Stop: 05/13/17 00:46 Pantoprazole Sodium (Protonix) 40 mg IVP DAILY [facility] Stop: 05/13/17 08:59 Last Admin: 03/15/17 09:23 Dose: 40 mg Phenytoin (Dilantin) 100 mg IVP Q8H [facility] Stop: 05/14/17 16:59 schedule for HD tomorrow monitor electrolytes serial CXR Lab - Result Diagrams 03/17/17 06:40 03/17/17 06:40 Nutritional Asmnt/Malnutr-PDOC - Dietary Evaluation Malnutrition Findings (Please click <Entered> for more info): Nutritional Asmnt/Malnutrition Start: 03/15/17 12: 22 Text: Status: Complete Freq: Document 03/15/17 12:28 GSUN (Rec: 03/15/17 12:39 GSUN [email or web address]) Nutritional Asmnt/Malnutrition Patient General Information Nutritional Screening High Risk Screening Diagnosis ROSARIO, sepsis with multiorgan failure, intubated, penumonia, resp failure Pertinent Medical Hx/Surgical Hx Asthma, COPD, severe obesity, prior clavicular fractures, chronic drug dependence, depression, HTN, cardiomyopathy, chronic pain syndrome Subjective Information 66 year old female from home. Per MD reports, pt with hx polysubstance abuse, 03/09/17 severe septic shock with multiorgan failure, involving respiratory and renal failure, intubated on diaylisys. Observed pt on vent with tube feeding infusing at 30ml/hr during visit. Spoke to RN, RN stated BM yesterday, none today yet, no residuals, tolerating well. 03/14 HD. Current Diet Order/ Nutrition Support Novasource Renal 35ml/hr x 24hrs, providing 840ml, 1680kcal, 76g protein Pertinent Medications D50w, Glutose 40%, Epogen, Iron, Glucagen, Dilaudid, Novolog, Solu Medrol, Zofran, Protonix Pertinent Labs 03/15: BUN 36H, creatinine 4.8H , glucose 172H Nutritional Hx/Data Height 1.6 m Height (Calculated Centimeters) 160.0 Current Weight (lbs) 117.843 kg Weight (Calculated Kilograms) 117.8 Weight (Calculated Grams) 401469.3 Louise Body Weight 115 Weight Status Morbidly Obese GI Symptoms Skin Integrity/Comment: Jordon 10. Bruises. Estimated Nutritional Goals BEE in Kcals: Adj wt of IBW Calories/Kcals/Kg AdjBW 151.2lb/68.7kg Kcals Calculated 2061-2405kcal (30-35kcal/kg) Protein: Adj wt of IBW Protein Calculated 103-137g (1.5-2g/kg) Fluid: ml Per MD Nutritional Problem 2. Problem Problem Increased kcal and prot needs related to Etiology hypermetabolic state aeb Signs/Symptoms: sepsis with multiorgan failure , on HD, penumonia 1. 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 Recommend Novasource Renal at 50ml/hr x 24hrs, providing 1200ml, 2400kcal, 109g protein . Increase 10ml/hr q12hrs as tolerated until goal rate of 50ml/hr. Hypermetabolic state: sepsis multiorgan failure, HD, resp failure, pneumonia , with consideration of morbid obesity. 2. Unable to provide FDI education due to pt intubated on tube feeding. Expected Outcomes/Goals Expected Outcomes/Goals 1. Pt to meet 100% of estimated nutritional needs on tube feeding with tolerance.
[2017-03-17 14:02] LABS: URINE BILIRUBIN NEGATIVE (NEGATIVE); URINE BLOOD LARGE (NEGATIVE); URINE GLUCOSE (UA) NEGATIVE (NEGATIVE); URINE KETONE NEGATIVE (NEGATIVE); URINE PROTEIN >=300 mg/dL (NEGATIVE); URINE UROBILINOGEN 0.2 E.U./dL (0.2 - 1.0)
[2017-03-17 14:07] LABS: URINE COLOR YELLOW
[2017-03-17 14:10] LABS: URINE BACTERIA FEW /hpf (NONE SEEN); URINE EPITHELIAL CELLS FEW /lpf (FEW); URINE RBC 25-50 /hpf (0-5)
[2017-03-17] MEDS: Epoetin Alfa 20000 Units/mL Vial SUBQ SCH (15:39)
[2017-03-17 21:47] LABS: AMPHETAMINE URINE NEGATIVE (NEGATIVE); BARBITURATES URINE POSITIVE (NEGATIVE); METHADONE URINE NEGATIVE (NEGATIVE)
[2017-03-18] MEDS: Chlorhexidine Gluconate 0.12% 15mL Mouthwash MM SCH ×3 (00:30→21:37)
--- NOTE | 2017-03-18 01:28 | Progress Notes ---
DATE: 03/17/2017 PROBLEM LIST: 1. Respiratory failure. 2. Opioid dependency with chronic pain syndrome. 3. Renal failure. 4. Morbid obesity with obesity hypoventilation syndrome, suspect obstructive sleep apnea syndrome. SYMPTOMS: Nil, some blinking of the eyes periodically, but is awake, following simple, no respiratory distress and CPAP with pressure support. PHYSICAL EXAMINATION: VITAL SIGNS: Temperature is 97, heart rate is in 80s, blood pressure 126/69, saturation 97%-100%. NECK: Veins not visualized. CHEST: Shows diminished air entry with occasional rhonchi. HEART: Regular. ABDOMEN: Soft, nontender. EXTREMITIES: Shows no peripheral edema. LABORATORY DATA: White count is 14,000, hemoglobin 9.8, ABG shows pO2 of 96 on vasopressors support on pressure support. The patient's creatinine is 5.7. ASSESSMENT: The patient clinically appears to be stable. PLANS AND SUGGESTIONS: We will go ahead and continue current treatment. We will go ahead and attempt to extubation pending wheezing parameters, etc. and go from there. JOB# [id number]
[2017-03-18] MEDS: Phenytoin 50 mg/mL 2 mL Vial IVP SCH ×3 (01:46→18:14)
[2017-03-18] MEDS: HYDROmorphone 2 mg/mL 1mL Vial IVP PRN ×3 (01:47→21:37)
[2017-03-18] MEDS: Albuterol/Ipratropium Neb 3 ML AERS HHN SCH ×6 (03:13→22:30)
[2017-03-18] MEDS: Linezolid 600mg/300mL 600 MG/300 ML BAG IV SCH ×2 (04:18→19:24)
[2017-03-18] MEDS: Budesonide 0.5 Mg/2 mL Ud HHN SCH ×2 (06:58→18:42)
[2017-03-18 07:25] LABS: HEMATOCRIT 23.6 % (41.0-60); MEAN CELL VOLUME 84.9 fl (81-100); MEAN CORPUSCULAR HEMOGLOBIN 28.5 pg (27.0-31.0); MEAN CORPUSCULAR HGB CONC 33.6 pg (28.0-36.0); MEAN PLATELET VOLUME 7.6 fl; PLATELET COUNT 568 Th/cmm (150-400); RED BLOOD COUNT 2.78 Mil/cmm (3.80-5.20); RED CELL DISTRIBUTION WIDTH 19.3 % (11.5-20.0); WHITE BLOOD COUNT 12.6 Th/cmm (4.8-10.8)
[2017-03-18 07:30] LABS: BUN/CREATININE RATIO 8.4; CARBON DIOXIDE 27.4 mEq/L (21.0-31.0); POTASSIUM SERUM 3.4 mEq/L (3.5-5.1)
[2017-03-18 07:50] LABS: CREATININE - SERUM 6.9 mg/dL (0.6-1.2); HEMOGLOBIN 7.9 gm/dL (12-16)
[2017-03-18 08:25] LABS: EOSINOPHIL 5 % (0-5); NEUTROPHILS 82 % (40-80)
[2017-03-18 08:26] LABS: ANISOCYTOSIS 1+; PLATELET ESTIMATE INCREASED PLATELETS (NORMAL); PLATELET MORPHOLOGY NORMAL (NORMAL)
[2017-03-18 08:29] LABS: TOTAL CELLS COUNTED 100
[2017-03-18 08:54] LABS: ABG SOURCE Arterial; ALLEN TEST YES; BE(B) 5.3 mEq/L (-3.0-3.0); CRITICAL VALUES REPORTED BY SH; FIO2 32; pH 7.43 (7.35-7.45)
[2017-03-18] MEDS: Ferrous Sulfate 300 MG/5 ML UDC NG SCH ×2 (09:00→18:22)
[2017-03-18] MEDS: Levetiracetam 1000mg/100mL 1,000 MG/100 ML BAG IV SCH ×2 (12:10→21:29)
--- NOTE | 2017-03-18 12:16 | General Progress Note ---
Subjective - Review of Systems Service Date: 03/18/17 Subjective: more alert, comfortable, extubated Objective - Results Result Diagrams: 03/18/17 07:00 03/18/17 07:00 Recent Labs: Laboratory Last Values WBC 12.6 Th/cmm (4.8-10.8) H 03/18/17 07:00 RBC 2.78 Mil/cmm (3.80-5.20) L 03/18/17 07:00 Hgb 7.9 gm/dL (12-16) L* 03/18/17 07:00 Hct 23.6 % (41.0-60) L 03/18/17 07:00 MCV 84.9 fl (81-100) 03/18/17 07:00 MCH 28.5 pg (27.0-31.0) 03/18/17 07:00 MCHC Differential 33.6 pg (28.0-36.0) 03/18/17 07:00 RDW 19.3 % (11.5-20.0) 03/18/17 07:00 Plt Count 568 Th/cmm (150-400) H 03/18/17 07:00 MPV 7.6 fl 03/18/17 07:00 Band Neutrophils % 1 % (0-10) 03/17/17 06:40 Neutrophils (Manual) 82 % (40-80) H 03/18/17 07:00 Lymphocytes 10 % (20-50) L 03/18/17 07:00 Monocytes 3 % (2-10) 03/18/17 07:00 Eosinophils 5 % (0-5) 03/18/17 07:00 Platelet Estimate INCREASED PLATELETS (NORMAL) 03/18/17 07:00 Platelet Morphology NORMAL (NORMAL) 03/18/17 07:00 Anisocytosis 1+ 03/18/17 07:00 Specimen Source Arterial 03/18/17 08:30 Sample Site Right Radial 03/18/17 08:30 pH 7.43 (7.35-7.45) 03/18/17 08:30 pCO2 46.0 mmHg (35.0-45.0) H 03/18/17 08:30 pO2 80.0 mmHg (80.0-100.0) 03/18/17 08:30 HCO3 29.0 mEq/L (20.0-26.0) H 03/18/17 08:30 Base Excess 5.3 mEq/L (-3.0-3.0) H 03/18/17 08:30 O2 Saturation 96.0 % (92.0-100.0) 03/18/17 08:30 Ruben Test YES 03/18/17 08:30 Vent Rate NA 03/18/17 08:30 Inspired O2 32 03/18/17 08:30 Tidal Volume NA 03/18/17 08:30 PEEP NA 03/18/17 08:30 Pressure (ins/psv/peep) NA 03/18/17 08:30 Critical Value SH 03/18/17 08:30 Sodium 137 mEq/L (136-145) 03/18/17 07:00 Potassium 3.4 mEq/L (3.5-5.1) L 03/18/17 07:00 Chloride 100 mEq/L (98-107) 03/18/17 07:00 Carbon Dioxide 27.4 mEq/L (21.0-31.0) 03/18/17 07:00 Anion Gap 13.0 (7.0-16.0) 03/18/17 07:00 BUN 58 mg/dL (7-25) H 03/18/17 07:00 Creatinine 6.9 mg/dL (0.6-1.2) H* 03/18/17 07:00 Est GFR ( Amer) 7.6 ml/min (>90) 03/18/17 07:00 Est GFR (Non-Af Amer) 6.3 ml/min 03/18/17 07:00 BUN/Creatinine Ratio 8.4 03/18/17 07:00 Glucose 169 mg/dL (70-105) H 03/18/17 07:00 POC Glucose 164 MG/DL (70 - 105) H 03/17/17 17:24 Hemoglobin A1c % 5.5 % (4.0-6.0) 03/16/17 06:52 Uric Acid 4.2 mg/dL (2.3-6.6) 03/15/17 05:00 Calcium 8.0 mg/dL (8.6-10.3) L 03/18/17 07:00 Phosphorus 3.0 mg/dL (2.5-5.0) 03/15/17 05:00 Magnesium 2.1 mg/dL (1.9-2.7) 03/15/17 05:00 Total Bilirubin 0.7 mg/dL (0.3-1.0) 03/15/17 05:00 AST 92 U/L (13-39) H 03/15/17 05:00 ALT 93 U/L (7-52) H 03/15/17 05:00 Alkaline Phosphatase 104 U/L (34-104) 03/15/17 05:00 Ammonia 59 umol/L (16-53) H 03/15/17 05:00 Creatine Kinase 64 U/L (30-223) 03/15/17 05:00 Total Protein 7.2 gm/dL (6.0-8.3) 03/15/17 05:00 Albumin 3.4 gm/dL (3.7-5.3) L 03/15/17 05:00 Globulin 3.8 gm/dL 03/15/17 05:00 Albumin/Globulin Ratio 0.9 (1.0-1.8) L 03/15/17 05:00 Free T4 0.73 ng/dL (0.82-1.77) L 03/16/17 06:52 Thyroxine (T4) 6.46 ug/dl (6.09-12.23) 03/16/17 06:52 Free T3 1.2 pg/mL (2.0-4.4) L 03/16/17 06:52 TSH 1.05 uIU/ml (0.34-5.60) 03/15/17 05:00 Urine Source MODI PORT 03/17/17 12:45 Urine Color YELLOW 03/17/17 12:45 Urine Clarity HAZY (CLEAR) 03/17/17 12:45 Urine pH 6.0 (4.6 - 8.0) 03/17/17 12:45 Ur Specific Pitcher 1.015 (1.005-1.030) 03/17/17 12:45 Urine Protein >=300 mg/dL (NEGATIVE) 03/17/17 12:45 Urine Glucose (UA) NEGATIVE mg/dL (NEGATIVE) 03/17/17 12:45 Urine Ketones NEGATIVE mg/dL (NEGATIVE) 03/17/17 12:45 Urine Blood LARGE (NEGATIVE) H 03/17/17 12:45 Urine Nitrate NEGATIVE (NEGATIVE) 03/17/17 12:45 Urine Bilirubin NEGATIVE (NEGATIVE) 03/17/17 12:45 Urine Urobilinogen 0.2 E.U./dL (0.2 - 1.0) 03/17/17 12:45 Ur Leukocyte Esterase SMALL (NEGATIVE) H 03/17/17 12:45 Urine RBC 25-50 /hpf (0-5) H 03/17/17 12:45 Urine WBC 6-10 /hpf (0-5) H 03/17/17 12:45 Ur Epithelial Cells FEW /lpf (FEW) 03/17/17 12:45 Urine Bacteria FEW /hpf (NONE SEEN) 03/17/17 12:45 Urine Yeast MODERATE /hpf (NONE SEEN) H 03/17/17 12:45 Urine Opiates Screen POSITIVE (NEGATIVE) H 03/17/17 12:45 Urine Methadone Screen NEGATIVE (NEGATIVE) 03/17/17 12:45 Ur Barbiturates Screen POSITIVE (NEGATIVE) H 03/17/17 12:45 Ur Tricyclics Screen NEGATIVE (NEGATIVE) 03/17/17 12:45 Ur Phencyclidine Scrn NEGATIVE (NEGATIVE) 03/17/17 12:45 Amphetamines Screen NEGATIVE (NEGATIVE) 03/17/17 12:45 U Methamphetamines Scrn POSITIVE (NEGATIVE) H 03/17/17 12:45 U Benzodiazepines Scrn POSITIVE (NEGATIVE) H 03/17/17 12:45 U Cocaine Metab Screen NEGATIVE (NEGATIVE) 03/17/17 12:45 U Cannabinoids Screen NEGATIVE (NEGATIVE) 03/17/17 12:45 Hepatitis A IgM Ab Negative (Negative) 03/14/17 21:23 Hep Bs Antigen Negative (Negative) 03/14/17 21:23 Hep B Core IgM Ab Negative (Negative) 03/14/17 21:23 Hepatitis C Antibody <0.1 s/co ratio (0.0-0.9) 03/14/17 21:23 - Physical Exam Vitals and I&O: Vital Signs Temp 98.4 F 03/18/17 08:00 Pulse 93 03/18/17 11:14 Resp 21 03/18/17 11:14 BP 125/65 03/18/17 08:00 Pulse Ox 95 03/18/17 11:14 Intake & Output 03/17/17 03/18/17 03/18/17 18:59 06:59 18:59 Intake Total 450 600 Output Total 335 Balance 450 265 Weight (lbs) 118.388 kg Intake: Intake, IV Amount 450 100 Levetiracetam 1000mg/ 100 100 100mL 1,000 mg In 100 ml @ 400 mls/hr IV Q12H [facility] Rx#:[id number] Linezolid 600mg/300mL 600 300 mg In 300 ml @ 300 mls/ hr IV Q12H [facility] Rx#: [id number] cefTRIAXone 1 gm In 50 Dextrose 5% 50 ml @ 100 mls/hr IV Q24H [facility] Rx#: [id number] Oral 0 Tube Feeding 350 Other 150 Output: Urine 335 Other: # Bowel Movements 1 Stool Characteristics Liquid Liquid Brown Brown Active Medications: Current Medications Acetaminophen (Tylenol) 650 mg PO Q4HR PRN PRN Reason: T 101F Stop: 05/13/17 00:20 Last Admin: 03/14/17 17:29 Dose: 650 mg Albuterol Sulfate (Albuterol 2.5mg/3ml Neb Ud) 2.5 mg HHN Q1H PRN PRN Reason: Shortness of Breath or Wheeze Albuterol/Ipratropium (Duoneb Neb) 3 ml HHN Q4HRT [facility] Stop: 05/13/17 14:59 Last Admin: 03/18/17 11:09 Dose: 3 ml Budesonide (Pulmicort) 0.5 mg HHN BIDRT [facility] Stop: 05/13/17 18:59 Last Admin: 03/18/17 06:58 Dose: 0.5 mg Carvedilol (Coreg) 6.25 mg NG BID [facility] Stop: 05/13/17 08:59 Last Admin: 03/17/17 16:32 Dose: Not Given Chlorhexidine Gluconate (Peridex) 15 ml MM 0800,1999 [facility] Stop: 05/13/17 07:59 Last Admin: 03/18/17 00:30 Dose: Not Given Dextrose (D50w) 50 ml IVP PRN PRN PRN Reason: Blood Glucose less than 70 Stop: 05/13/17 00:22 Dextrose (Glutose 40%) 18.75 gm PO PRN PRN PRN Reason: Blood Glucose less than 70 Stop: 05/13/17 00:22 Epoetin John (Epogen) 10,000 units SUBQ MoFr@1500 [facility] Stop: 05/13/17 14:59 Last Admin: 03/17/17 15:39 Dose: 10,000 units Ferrous Sulfate (Iron) 300 mg NG BID [facility] Stop: 05/13/17 08:59 Last Admin: 03/17/17 16:32 Dose: Not Given Glucagon (Glucagen) 1 mg IM PRN PRN PRN Reason: Blood Glucose less than 70 Stop: 05/13/17 00:22 Heparin Sodium (Porcine) (Heparin) 5,000 units SUBQ Q8HR [facility] Stop: 05/13/17 08:00 Last Admin: 03/18/17 12:07 Dose: 5,000 units Hydralazine HCl (Apresoline 20 Mg/Ml) 10 mg IV Q3H PRN PRN Reason: FOR SBP ABOVE 150 Stop: 05/13/17 00:41 Hydromorphone HCl (Dilaudid) 2 mg IVP Q3H PRN PRN Reason: FOR MODERATE PAIN Stop: 05/13/17 00:46 Last Admin: 03/18/17 01:47 Dose: 2 mg Hydromorphone HCl (Dilaudid) 1 mg IVP Q3H PRN PRN Reason: MILD PAIN Stop: 05/13/17 00:46 Last Admin: 03/14/17 16:14 Dose: 1 mg Linezolid (Zyvox) 600 mg in 300 mls @ 300 mls/hr IV Q12H [facility] Stop: 05/13/17 15:59 Last Admin: 03/18/17 04:18 Dose: 300 mls/hr Ceftriaxone Sodium 1 gm/ (Dextrose) 50 mls @ 100 mls/hr IV Q24H [facility] Stop: 05/13/17 13:59 Last Infusion: 03/17/17 13:30 Dose: Infused Levetiracetam (Keppra Pb) 1,000 mg in 100 mls @ 400 mls/hr IV Q12H [facility] Stop: 05/14/17 21:14 Last Admin: 03/18/17 12:10 Dose: 400 mls/hr Insulin Aspart (Novolog Insulin Sliding Scale) 1 units SUBQ ACHS [facility] PRN Reason: Protocol Stop: 05/16/17 20:59 Last Admin: 03/17/17 21:30 Dose: Not Given Lorazepam (Ativan) 2 mg IVP Q4H PRN; Protocol PRN Reason: Agitation Stop: 05/14/17 07:34 Last Admin: 03/16/17 20:35 Dose: 2 mg Miscellaneous (Probiotic Screen) 1 ea MC PRN PRN PRN Reason: PROTOCOL Stop: 05/13/17 16:29 Miscellaneous (Clinical Monitoring) 1 ea MC DAILY PRN PRN Reason: RENAL Stop: 05/17/17 11:13 Ondansetron HCl (Zofran) 4 mg IVP Q6H PRN PRN Reason: Nausea / Vomiting Stop: 05/13/17 00:46 Pantoprazole Sodium (Protonix) 40 mg IVP DAILY [facility] Stop: 05/13/17 08:59 Last Admin: 03/18/17 12:10 Dose: 40 mg Phenytoin (Dilantin) 100 mg IVP Q8H [facility] Stop: 05/14/17 16:59 Last Admin: 03/18/17 12:10 Dose: 100 mg General: Alert, No acute distress HEENT: Atraumatic, EOMI Neck: Supple, +2 carotid pulse wo bruit Cardiovascular: Regular rate, Normal S1, Normal S2 Lungs: Other (few rhonchi) Abdomen: Bowel sounds, Soft Extremities: no Edema Neurological: Sensation intact Skin: no Rash Psych/Mental Status: Mood NL - Procedures Procedures: Procedures Procedure Code Date RESPIRATORY VENTILATION, 24-96 CONSECUTIVE HOURS [id number] 03/13/17 Assessment/Plan - Problem List Patient Problems: All Active Problems H/O drug dependence (Acute) F19.21 H/O: depression (Acute) Z86.59 H/O: obesity (Acute) Z86.39 Respiratory failure (Acute) J96.90 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 h/o prior clavicular fracture (Acute) pneumonia (Acute) - Assessment Assessment: ROSARIO on HD ALOC 2nd to sustance abuse Ess Htn Morbid Obesity CN Staph GPC/GNR CAP Left Femur head Fx 2nd to fall Polysubstance Abuse Resp Failure Chronic pain Sx - Plan Plan: Lab - Result Diagrams 03/15/17 05:00 03/15/17 05:00 Current Medications Acetaminophen (Tylenol) 650 mg PO Q4HR PRN PRN Reason: T 101F Stop: 05/13/17 00:20 Last Admin: 03/14/17 17:29 Dose: 650 mg Albuterol Sulfate (Albuterol 2.5mg/3ml Neb Ud) 2.5 mg HHN Q1H PRN PRN Reason: Shortness of Breath or Wheeze Albuterol/Ipratropium (Duoneb Neb) 3 ml HHN Q4HRT [facility] Stop: 05/13/17 14:59 Last Admin: 03/15/17 13:39 Dose: 3 ml Budesonide (Pulmicort) 0.5 mg HHN BIDRT [facility] Stop: 05/13/17 18:59 Last Admin: 03/15/17 07:47 Dose: 0.5 mg Carvedilol (Coreg) 6.25 mg NG BID [facility] Stop: 05/13/17 08:59 Last Admin: 03/15/17 09:22 Dose: 6.25 mg Chlorhexidine Gluconate (Peridex) 15 ml MM 08,1999 [facility] Stop: 05/13/17 07:59 Last Admin: 03/15/17 09:22 Dose: 15 ml Dextrose (D50w) 50 ml IVP PRN PRN PRN Reason: Blood Glucose less than 70 Stop: 05/13/17 00:22 Dextrose (Glutose 40%) 18.75 gm PO PRN PRN PRN Reason: Blood Glucose less than 70 Stop: 05/13/17 00:22 Epoetin John (Epogen) 10,000 units SUBQ MONFRI [facility] Stop: 05/13/17 14:59 Last Admin: 03/14/17 16:15 Dose: 10,000 units Ferrous Sulfate (Iron) 300 mg NG BID [facility] Stop: 05/13/17 08:59 Last Admin: 03/15/17 09:22 Dose: 300 mg Glucagon (Glucagen) 1 mg IM PRN PRN PRN Reason: Blood Glucose less than 70 Stop: 05/13/17 00:22 Heparin Sodium (Porcine) (Heparin) 5,000 units SUBQ Q8HR [facility] Stop: 05/13/17 08:00 Last Admin: 03/15/17 12:42 Dose: 5,000 units Hydralazine HCl (Apresoline 20 Mg/Ml) 10 mg IV Q3H PRN PRN Reason: FOR SBP ABOVE 150 Stop: 05/13/17 00:41 Hydromorphone HCl (Dilaudid) 2 mg IVP Q3H PRN PRN Reason: FOR MODERATE PAIN Stop: 05/13/17 00:46 Last Admin: 03/15/17 06:25 Dose: 2 mg Hydromorphone HCl (Dilaudid) 1 mg IVP Q3H PRN PRN Reason: MILD PAIN Stop: 05/13/17 00:46 Last Admin: 03/14/17 16:14 Dose: 1 mg Linezolid (Zyvox) 600 mg in 300 mls @ 300 mls/hr IV Q12H [facility] Stop: 05/13/17 15:59 Last Infusion: 03/15/17 05:19 Dose: Infused Ceftriaxone Sodium 1 gm/ (Dextrose) 50 mls @ 100 mls/hr IV Q24H [facility] Stop: 05/13/17 13:59 Last Admin: 03/15/17 14:37 Dose: 100 mls/hr Levofloxacin (Levaquin Pb) 250 mg in 50 mls @ 50 mls/hr IV Q48H [facility] Stop: 05/15/17 14:59 Insulin Aspart (Novolog Insulin Sliding Scale) 0 units SUBQ Q6HR [facility] PRN Reason: Protocol Stop: 05/13/17 05:59 Last Admin: 03/15/17 12:32 Dose: Not Given Lorazepam (Ativan) 2 mg IVP Q4H PRN; Protocol PRN Reason: Agitation Stop: 05/14/17 07:34 Last Admin: 03/15/17 12:44 Dose: 2 mg Methylprednisolone Sodium Succinate (Solu-Medrol) 40 mg IVP Q6HR [facility] Stop: 03/17/17 06:01 Last Admin: 03/15/17 12:44 Dose: 40 mg Miscellaneous (Probiotic Screen) 1 ea MC PRN PRN PRN Reason: PROTOCOL Stop: 05/13/17 16:29 Ondansetron HCl (Zofran) 4 mg IVP Q6H PRN PRN Reason: Nausea / Vomiting Stop: 05/13/17 00:46 Pantoprazole Sodium (Protonix) 40 mg IVP DAILY [facility] Stop: 05/13/17 08:59 Last Admin: 03/15/17 09:23 Dose: 40 mg Phenytoin (Dilantin) 100 mg IVP Q8H [facility] Stop: 05/14/17 16:59 schedule for HD today replace K serial CXR Lab - Result Diagrams 03/18/17 07:00 03/18/17 07:00 Nutritional Asmnt/Malnutr-PDOC - Dietary Evaluation Malnutrition Findings (Please click <Entered> for more info): Nutritional Asmnt/Malnutrition Start: 03/15/17 12: 22 Text: Status: Complete Freq: Document 03/15/17 12:28 GSUN (Rec: 03/15/17 12:39 GSUN [id number]) Nutritional Asmnt/Malnutrition Patient General Information Nutritional Screening High Risk Screening Diagnosis ROSARIO, sepsis with multiorgan failure, intubated, penumonia, resp failure Pertinent Medical Hx/Surgical Hx Asthma, COPD, severe obesity, prior clavicular fractures, chronic drug dependence, depression, HTN, cardiomyopathy, chronic pain syndrome Subjective Information 66 year old female from home. Per MD reports, pt with hx polysubstance abuse, 03/09/17 severe septic shock with multiorgan failure, involving respiratory and renal failure, intubated on diaylisys. Observed pt on vent with tube feeding infusing at 30ml/hr during visit. Spoke to RN, RN stated BM yesterday, none today yet, no residuals, tolerating well. 03/14 HD. Current Diet Order/ Nutrition [facility] Ren[facility] 35ml/hr x 24hrs, providing 840ml, 1680kcal, 76g protein Pertinent Medications D50w, Glutose 40%, Epogen, Iron, Glucagen, Dilaudid, Novolog, Solu Medrol, Zofran, Protonix Pertinent Labs 03/15: BUN 36H, creatinine 4.8H , glucose 172H Nutritional Hx/Data Height 1.6 m Height (Calculated Centimeters) 160.0 Current Weight (lbs) 117.843 kg Weight (Calculated Kilograms) 117.8 Weight (Calculated Grams) 286694.3 [place] Body Weight 115 Weight Status Morbidly Obese GI Symptoms Skin Integrity/Comment: Jordon 10. Bruises. Estimated Nutritional Goals BEE in Kcals: Adj wt of IBW Calories/Kcals/Kg AdjBW 151.2lb/68.7kg Kcals Calculated 2061-2405kcal (30-35kcal/kg) Protein: Adj wt of IBW Protein Calculated 103-137g (1.5-2g/kg) Fluid: ml Per MD Nutritional Problem 2. Problem Problem Increased kcal and prot needs related to Etiology hypermetabolic state aeb Signs/Symptoms: sepsis with multiorgan failure , on HD, penumonia 1. Problem Problem Imapired nutrient utilization related to Etiology ROSARIO aeb Signs/Symptoms: 03/14 HD, BUN 36H cardiac cath tech 4.8H Intervention/Recommendation Comments 1. Recommend Novasource Renal at 50ml/hr x 24hrs, providing 1200ml, 2400kcal, 109g protein . Increase 10ml/hr q12hrs as tolerated until goal rate of 50ml/hr. Hypermetabolic state: sepsis multiorgan failure, HD, resp failure, pneumonia , with consideration of morbid obesity. 2. Unable to provide FDI education due to pt intubated on tube feeding. Expected Outcomes/Goals Expected Outcomes/Goals 1. Pt to meet 100% of estimated nutritional needs on tube feeding with tolerance.
[2017-03-18] MEDS ORDERED: Potassium Chloride 20 mEq ER Tab PO ONE (13:15)
--- NOTE | 2017-03-18 13:34 | Progress Notes ---
DATE: 03/18/2017 SUBJECTIVE: The patient was seen in her room, lying in the bed. The patient is awake, alert, oriented x 2 with episodes of confusion. The patient is able to respond to painful stimuli, otherwise, patient appears to be in no acute distress. OBJECTIVE: HEENT: Head is atraumatic and normocephalic. Eyes: Bilateral conjunctivae are clear. Bilateral pupils are equally round and reactive. NECK: Supple. No JVD. CARDIOVASCULAR: S1 and S2, without murmur. PULMONARY: Mild inspiratory wheezing noted. GASTROINTESTINAL: Soft and nontender without guarding. Positive bowel sounds. MUSCULOSKELETAL: No edema. No clubbing or cyanosis noted. ASSESSMENT: 1. Sepsis. 2. Anemia. 3. Respiratory failure. 4. Hypertension. 5. End-stage renal disease. 6. Obesity. PLAN: We will continue IV antibiotics per ID doctor. We will continue to monitor the patient's condition. Treatment plans were discussed with the patient's nurse. Treatment plans were discussed with Dr. Fried. JOB# [id number]
[2017-03-18] MEDS: HYDROmorphone 1 mg/mL 1mL Syr IVP PRN (14:00)
[2017-03-18] MEDS: INSULIN ASPART SLIDING SCALE 100 UNITS/ML UNIT SUBQ SCH ×3 (16:19→21:30)
[2017-03-18] MEDS ORDERED: Alteplase, Recombinant 100 mg Kit IV ONE (17:00)
--- NOTE | 2017-03-18 17:45 | Infectious Disease Prog Note ---
Infectious Disease Subjective - Review of Systems Service Date: 03/18/17 Subjective: extubated on the bipap, not in distress. Infectious Disease Objective - Results Result Diagrams: 03/19/17 05:15 03/19/17 05:15 Recent Labs: Laboratory Last Values WBC 12.6 Th/cmm (4.8-10.8) H 03/18/17 07:00 RBC 2.78 Mil/cmm (3.80-5.20) L 03/18/17 07:00 Hgb 7.9 gm/dL (12-16) L* 03/18/17 07:00 Hct 23.6 % (41.0-60) L 03/18/17 07:00 MCV 84.9 fl (81-100) 03/18/17 07:00 MCH 28.5 pg (27.0-31.0) 03/18/17 07:00 MCHC Differential 33.6 pg (28.0-36.0) 03/18/17 07:00 RDW 19.3 % (11.5-20.0) 03/18/17 07:00 Plt Count 568 Th/cmm (150-400) H 03/18/17 07:00 MPV 7.6 fl 03/18/17 07:00 Band Neutrophils % 1 % (0-10) 03/17/17 06:40 Neutrophils (Manual) 82 % (40-80) H 03/18/17 07:00 Lymphocytes 10 % (20-50) L 03/18/17 07:00 Monocytes 3 % (2-10) 03/18/17 07:00 Eosinophils 5 % (0-5) 03/18/17 07:00 Platelet Estimate INCREASED PLATELETS (NORMAL) 03/18/17 07:00 Platelet Morphology NORMAL (NORMAL) 03/18/17 07:00 Anisocytosis 1+ 03/18/17 07:00 Specimen Source Arterial 03/18/17 08:30 Sample Site Right Radial 03/18/17 08:30 pH 7.43 (7.35-7.45) 03/18/17 08:30 pCO2 46.0 mmHg (35.0-45.0) H 03/18/17 08:30 pO2 80.0 mmHg (80.0-100.0) 03/18/17 08:30 HCO3 29.0 mEq/L (20.0-26.0) H 03/18/17 08:30 Base Excess 5.3 mEq/L (-3.0-3.0) H 03/18/17 08:30 O2 Saturation 96.0 % (92.0-100.0) 03/18/17 08:30 Ruben Test YES 03/18/17 08:30 Vent Rate NA 03/18/17 08:30 Inspired O2 32 03/18/17 08:30 Tidal Volume NA 03/18/17 08:30 PEEP NA 03/18/17 08:30 Pressure (ins/psv/peep) NA 03/18/17 08:30 Critical Value SH 03/18/17 08:30 Sodium 137 mEq/L (136-145) 03/18/17 07:00 Potassium 3.4 mEq/L (3.5-5.1) L 03/18/17 07:00 Chloride 100 mEq/L (98-107) 03/18/17 07:00 Carbon Dioxide 27.4 mEq/L (21.0-31.0) 03/18/17 07:00 Anion Gap 13.0 (7.0-16.0) 03/18/17 07:00 BUN 58 mg/dL (7-25) H 03/18/17 07:00 Creatinine 6.9 mg/dL (0.6-1.2) H* 03/18/17 07:00 Est GFR ( Amer) 7.6 ml/min (>90) 03/18/17 07:00 Est GFR (Non-Af Amer) 6.3 ml/min 03/18/17 07:00 BUN/Creatinine Ratio 8.4 03/18/17 07:00 Glucose 169 mg/dL (70-105) H 03/18/17 07:00 POC Glucose 144 MG/DL (70 - 105) H 03/18/17 13:49 Hemoglobin A1c % 5.5 % (4.0-6.0) 03/16/17 06:52 Uric Acid 4.2 mg/dL (2.3-6.6) 03/15/17 05:00 Calcium 8.0 mg/dL (8.6-10.3) L 03/18/17 07:00 Phosphorus 3.0 mg/dL (2.5-5.0) 03/15/17 05:00 Magnesium 2.1 mg/dL (1.9-2.7) 03/15/17 05:00 Total Bilirubin 0.7 mg/dL (0.3-1.0) 03/15/17 05:00 AST 92 U/L (13-39) H 03/15/17 05:00 ALT 93 U/L (7-52) H 03/15/17 05:00 Alkaline Phosphatase 104 U/L (34-104) 03/15/17 05:00 Ammonia 59 umol/L (16-53) H 03/15/17 05:00 Creatine Kinase 64 U/L (30-223) 03/15/17 05:00 Total Protein 7.2 gm/dL (6.0-8.3) 03/15/17 05:00 Albumin 3.4 gm/dL (3.7-5.3) L 03/15/17 05:00 Globulin 3.8 gm/dL 03/15/17 05:00 Albumin/Globulin Ratio 0.9 (1.0-1.8) L 03/15/17 05:00 Free T4 0.73 ng/dL (0.82-1.77) L 03/16/17 06:52 Thyroxine (T4) 6.46 ug/dl (6.09-12.23) 03/16/17 06:52 Free T3 1.2 pg/mL (2.0-4.4) L 03/16/17 06:52 TSH 1.05 uIU/ml (0.34-5.60) 03/15/17 05:00 Urine Source MODI PORT 03/17/17 12:45 Urine Color YELLOW 03/17/17 12:45 Urine Clarity HAZY (CLEAR) 03/17/17 12:45 Urine pH 6.0 (4.6 - 8.0) 03/17/17 12:45 Ur Specific [place] 1.015 (1.005-1.030) 03/17/17 12:45 Urine Protein >=300 mg/dL (NEGATIVE) 03/17/17 12:45 Urine Glucose (UA) NEGATIVE mg/dL (NEGATIVE) 03/17/17 12:45 Urine Ketones NEGATIVE mg/dL (NEGATIVE) 03/17/17 12:45 Urine Blood LARGE (NEGATIVE) H 03/17/17 12:45 Urine Nitrate NEGATIVE (NEGATIVE) 03/17/17 12:45 Urine Bilirubin NEGATIVE (NEGATIVE) 03/17/17 12:45 Urine Urobilinogen 0.2 E.U./dL (0.2 - 1.0) 03/17/17 12:45 Ur Leukocyte Esterase SMALL (NEGATIVE) H 03/17/17 12:45 Urine RBC 25-50 /hpf (0-5) H 03/17/17 12:45 Urine WBC 6-10 /hpf (0-5) H 03/17/17 12:45 Ur Epithelial Cells FEW /lpf (FEW) 03/17/17 12:45 Urine Bacteria FEW /hpf (NONE SEEN) 03/17/17 12:45 Urine Yeast MODERATE /hpf (NONE SEEN) H 03/17/17 12:45 Urine Opiates Screen POSITIVE (NEGATIVE) H 03/17/17 12:45 Urine Methadone Screen NEGATIVE (NEGATIVE) 03/17/17 12:45 Ur Barbiturates Screen POSITIVE (NEGATIVE) H 03/17/17 12:45 Ur Tricyclics Screen NEGATIVE (NEGATIVE) 03/17/17 12:45 Ur Phencyclidine Scrn NEGATIVE (NEGATIVE) 03/17/17 12:45 Amphetamines Screen NEGATIVE (NEGATIVE) 03/17/17 12:45 U Methamphetamines Scrn POSITIVE (NEGATIVE) H 03/17/17 12:45 U Benzodiazepines Scrn POSITIVE (NEGATIVE) H 03/17/17 12:45 U Cocaine Metab Screen NEGATIVE (NEGATIVE) 03/17/17 12:45 U Cannabinoids Screen NEGATIVE (NEGATIVE) 03/17/17 12:45 Hepatitis A IgM Ab Negative (Negative) 03/14/17 21:23 Hep Bs Antigen Negative (Negative) 03/14/17 21:23 Hep B Core IgM Ab Negative (Negative) 03/14/17 21:23 Hepatitis C Antibody <0.1 s/co ratio (0.0-0.9) 03/14/17 21:23 - Physical Exam Vitals and I&O: Vital Signs Temp 98.9 F 03/18/17 16:00 Pulse 91 03/18/17 16:00 Resp 17 03/18/17 16:00 BP 117/67 03/18/17 16:00 Pulse Ox 100 03/18/17 16:00 Intake & Output 03/17/17 03/18/17 03/18/17 18:59 06:59 18:59 Intake Total 450 600 100 Output Total 335 Balance 450 265 100 Weight (lbs) 118.388 kg Intake: Intake, IV Amount 450 100 100 Levetiracetam 1000mg/ 100 100 100 100mL 1,000 mg In 100 ml @ 400 mls/hr IV Q12H [facility] Rx#:[id number] Linezolid 600mg/300mL 600 300 mg In 300 ml @ 300 mls/ hr IV Q12H [facility] Rx#: [id number] cefTRIAXone 1 gm In 50 Dextrose 5% 50 ml @ 100 mls/hr IV Q24H [facility] Rx#: [id number] Oral 0 Tube Feeding 350 Other 150 Output: Urine 335 Other: # Bowel Movements 1 Stool Characteristics Liquid Liquid Brown Brown Active Medications: Current Medications Acetaminophen (Tylenol) 650 mg PO Q4HR PRN PRN Reason: T 101F Stop: 05/13/17 00:20 Last Admin: 03/14/17 17:29 Dose: 650 mg Albuterol Sulfate (Albuterol 2.5mg/3ml Neb Ud) 2.5 mg HHN Q1H PRN PRN Reason: Shortness of Breath or Wheeze Albuterol/Ipratropium (Duoneb Neb) 3 ml HHN Q4HRT [facility] Stop: 05/13/17 14:59 Last Admin: 03/18/17 15:09 Dose: 3 ml Budesonide (Pulmicort) 0.5 mg HHN BIDRT [facility] Stop: 05/13/17 18:59 Last Admin: 03/18/17 06:58 Dose: 0.5 mg Carvedilol (Coreg) 6.25 mg NG BID [facility] Stop: 05/13/17 08:59 Last Admin: 03/17/17 16:32 Dose: Not Given Chlorhexidine Gluconate (Peridex) 15 ml MM 0800,2000 [facility] Stop: 05/13/17 07:59 Last Admin: 03/18/17 00:30 Dose: Not Given Dextrose (D50w) 50 ml IVP PRN PRN PRN Reason: Blood Glucose less than 70 Stop: 05/13/17 00:22 Dextrose (Glutose 40%) 18.75 gm PO PRN PRN PRN Reason: Blood Glucose less than 70 Stop: 05/13/17 00:22 Epoetin John (Epogen) 10,000 units SUBQ MoFr@1500 [facility] Stop: 05/13/17 14:59 Last Admin: 03/17/17 15:39 Dose: 10,000 units Ferrous Sulfate (Iron) 300 mg NG BID [facility] Stop: 05/13/17 08:59 Last Admin: 03/17/17 16:32 Dose: Not Given Glucagon (Glucagen) 1 mg IM PRN PRN PRN Reason: Blood Glucose less than 70 Stop: 05/13/17 00:22 Heparin Sodium (Porcine) (Heparin) 5,000 units SUBQ Q8HR [facility] Stop: 05/13/17 08:00 Last Admin: 03/18/17 12:07 Dose: 5,000 units Hydralazine HCl (Apresoline 20 Mg/Ml) 10 mg IV Q3H PRN PRN Reason: FOR SBP ABOVE 150 Stop: 05/13/17 00:41 Hydromorphone HCl (Dilaudid) 2 mg IVP Q3H PRN PRN Reason: FOR MODERATE PAIN Stop: 05/13/17 00:46 Last Admin: 03/18/17 01:47 Dose: 2 mg Hydromorphone HCl (Dilaudid) 1 mg IVP Q3H PRN PRN Reason: MILD PAIN Stop: 05/13/17 00:46 Last Admin: 03/18/17 14:00 Dose: 1 mg Linezolid (Zyvox) 600 mg in 300 mls @ 300 mls/hr IV Q12H [facility] Stop: 05/13/17 15:59 Last Admin: 03/18/17 04:18 Dose: 300 mls/hr Ceftriaxone Sodium 1 gm/ (Dextrose) 50 mls @ 100 mls/hr IV Q24H [facility] Stop: 05/13/17 13:59 Last Infusion: 03/17/17 13:30 Dose: Infused Levetiracetam (Keppra Pb) 1,000 mg in 100 mls @ 400 mls/hr IV Q12H [facility] Stop: 05/14/17 21:14 Last Infusion: 03/18/17 16:20 Dose: Infused Insulin Aspart (Novolog Insulin Sliding Scale) 1 units SUBQ ACHS [facility] PRN Reason: Protocol Stop: 05/16/17 20:59 Last Admin: 03/18/17 16:19 Dose: Not Given Lorazepam (Ativan) 2 mg IVP Q4H PRN; Protocol PRN Reason: Agitation Stop: 05/14/17 07:34 Last Admin: 03/16/17 20:35 Dose: 2 mg Miscellaneous (Probiotic Screen) 1 ea MC PRN PRN PRN Reason: PROTOCOL Stop: 05/13/17 16:29 Miscellaneous (Clinical Monitoring) 1 ea MC DAILY PRN PRN Reason: RENAL Stop: 05/17/17 11:13 Ondansetron HCl (Zofran) 4 mg IVP Q6H PRN PRN Reason: Nausea / Vomiting Stop: 05/13/17 00:46 Pantoprazole Sodium (Protonix) 40 mg IVP DAILY [facility] Stop: 05/13/17 08:59 Last Admin: 03/18/17 12:10 Dose: 40 mg Phenytoin (Dilantin) 100 mg IVP Q8H [facility] Stop: 05/14/17 16:59 Last Admin: 03/18/17 12:10 Dose: 100 mg General: no acute distress HEENT: atraumatic, normocephalic Neck: supple, no thyromegaly, no lymphadenopathy Cardiovascular: S1S2, regular Lungs: clear to auscultation bilaterally, rhonchi Abdomen: soft, no tender, no distended Extremities: no cyanosis, no clubbing, no edema Neurological: awake, alert Skin: intact - Procedures Procedures: Procedures Procedure Code Date RESPIRATORY VENTILATION, 24-96 CONSECUTIVE HOURS [id number] 03/13/17 Infectious Disease Assmt/Plan - Problem List Patient Problems: All Active Problems H/O drug dependence (Acute) F19.21 H/O: depression (Acute) Z86.59 H/O: obesity (Acute) Z86.39 Respiratory failure (Acute) J96.90 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 h/o prior clavicular fracture (Acute) pneumonia (Acute) - Assessment Assessment: 1. Sepsis with multiorgan failure. 2. Pneumonia ( CXR shoed bibasilar infiltrates). 3. Obesity. 4. Renal failure on HD. ? acute versus chronic, 5. acute on chronic respiratory failure versus acute respiratory failure on ventilator. 6. COPD. 7. HTN. - Plan Plan: Continue zyvox and rocephin, Nutritional Asmnt/Malnutr-PDOC - Dietary Evaluation Malnutrition Findings (Please click <Entered> for more info): Nutritional Asmnt/Malnutrition Start: 03/15/17 12: 22 Text: Status: Complete Freq: Document 03/15/17 12:28 ARCHIE (Rec: 03/15/17 12:39 [id number]) Nutritional Asmnt/Malnutrition Patient General Information Nutritional Screening High Risk Screening Diagnosis ROSARIO, sepsis with multiorgan failure, intubated, penumonia, resp failure Pertinent Medical Hx/Surgical Hx Asthma, COPD, severe obesity, prior clavicular fractures, chronic drug dependence, depression, HTN, cardiomyopathy, chronic pain syndrome Subjective Information 66 year old female from home. Per MD reports, pt with hx polysubstance abuse, 03/09/17 severe septic shock with multiorgan failure, involving respiratory and renal failure, intubated on diaylisys. Observed pt on vent with tube feeding infusing at 30ml/hr during visit. Spoke to RN, RN stated BM yesterday, none today yet, no residuals, tolerating well. 03/14 HD. Current Diet Order/ Nutrition Support Novasource Renal 35ml/hr x 24hrs, providing 840ml, 1680kcal, 76g protein Pertinent Medications D50w, Glutose 40%, Epogen, Iron, Glucagen, Dilaudid, Novolog, Solu Medrol, Zofran, Protonix Pertinent Labs 03/15: BUN 36H, creatinine 4.8H , glucose 172H Nutritional Hx/Data Height 1.6 m Height (Calculated Centimeters) 160.0 Current Weight (lbs) 117.843 kg Weight (Calculated Kilograms) 117.8 Weight (Calculated Grams) 749030.3 Gamaliel Body Weight 115 Weight Status Morbidly Obese GI Symptoms Skin Integrity/Comment: Jordon 10. Bruises. Estimated Nutritional Goals BEE in Kcals: Adj wt of IBW Calories/Kcals/Kg AdjBW 151.2lb/68.7kg Kcals Calculated 2061-2405kcal (30-35kcal/kg) Protein: Adj wt of IBW Protein Calculated 103-137g (1.5-2g/kg) Fluid: ml Per MD Nutritional Problem 2. Problem Problem Increased kcal and prot needs related to Etiology hypermetabolic state aeb Signs/Symptoms: sepsis with multiorgan failure , on HD, penumonia 1. 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 Recommend Novasource Renal at 50ml/hr x 24hrs, providing 1200ml, 2400kcal, 109g protein . Increase 10ml/hr q12hrs as tolerated until goal rate of 50ml/hr. Hypermetabolic state: sepsis multiorgan failure, HD, resp failure, pneumonia , with consideration of morbid obesity. 2. Unable to provide FDI education due to pt intubated on tube feeding. Expected Outcomes/Goals Expected Outcomes/Goals 1. Pt to meet 100% of estimated nutritional needs on tube feeding with tolerance.
[2017-03-19] MEDS: Phenytoin 50 mg/mL 2 mL Vial IVP SCH ×3 (02:10→17:14)
[2017-03-19] MEDS: Albuterol/Ipratropium Neb 3 ML AERS HHN SCH ×6 (02:39→22:02)
[2017-03-19] MEDS: Linezolid 600mg/300mL 600 MG/300 ML BAG IV SCH ×2 (03:52→16:10)
[2017-03-19 05:38] LABS: HEMATOCRIT 23.6 % (41.0-60); MEAN CORPUSCULAR HEMOGLOBIN 28.9 pg (27.0-31.0); MEAN CORPUSCULAR HGB CONC 33.5 pg (28.0-36.0); RED BLOOD COUNT 2.73 Mil/cmm (3.80-5.20)
[2017-03-19 05:45] LABS: MEAN CELL VOLUME 86.3 fl (81-100); MEAN PLATELET VOLUME 7.4 fl; PLATELET COUNT 534 Th/cmm (150-400); WHITE BLOOD COUNT 13.2 Th/cmm (4.8-10.8)
[2017-03-19 05:50] LABS: ANION GAP 12.4 (7.0-16.0); BUN/CREATININE RATIO 7.1; CALCIUM SERUM 8.1 mg/dL (8.6-10.3); CARBON DIOXIDE 28.2 mEq/L (21.0-31.0); MAGNESIUM 1.9 mg/dL (1.9-2.7); POTASSIUM SERUM 3.6 mEq/L (3.5-5.1)
[2017-03-19 05:55] LABS: CREATININE - SERUM 6.3 mg/dL (0.6-1.2)
[2017-03-19 06:01] LABS: HEMOGLOBIN 7.9 gm/dL (12-16)
[2017-03-19] MEDS: HYDROmorphone 2 mg/mL 1mL Vial IVP PRN ×2 (06:08→11:54)
[2017-03-19 06:52] LABS: TOTAL CELLS COUNTED 100
[2017-03-19 06:56] LABS: NEUTROPHILS 70 % (40-80)
[2017-03-19 06:57] LABS: EOSINOPHIL 9 % (0-5)
[2017-03-19 06:58] LABS: PLATELET ESTIMATE INCREASED PLATELETS (NORMAL)
[2017-03-19] MEDS: Budesonide 0.5 Mg/2 mL Ud HHN SCH ×2 (06:58→19:01)
[2017-03-19 06:59] LABS: PLATELET MORPHOLOGY NORMAL (NORMAL)
[2017-03-19 07:00] LABS: ANISOCYTOSIS 1+
[2017-03-19] MEDS: INSULIN ASPART SLIDING SCALE 100 UNITS/ML UNIT SUBQ SCH ×2 (07:55→13:21)
[2017-03-19] MEDS: Ferrous Sulfate 300 MG/5 ML UDC NG SCH ×2 (09:21→17:12)
[2017-03-19] MEDS: Levetiracetam 1000mg/100mL 1,000 MG/100 ML BAG IV SCH ×2 (09:22→21:28)
[2017-03-19] MEDS ORDERED: Heparin Sodium 1,000 Units/mL Vial ONE (11:18)
--- NOTE | 2017-03-19 11:26 | General Progress Note ---
Subjective - Review of Systems Events since last encounter: remains intubated in no acute distress Objective - Results Result Diagrams: 03/19/17 05:15 03/19/17 05:15 Recent Labs: Laboratory Last Values WBC 13.2 Th/cmm (4.8-10.8) H 03/19/17 05:15 RBC 2.73 Mil/cmm (3.80-5.20) L 03/19/17 05:15 Hgb 7.9 gm/dL (12-16) L* 03/19/17 05:15 Hct 23.6 % (41.0-60) L 03/19/17 05:15 MCV 86.3 fl (81-100) 03/19/17 05:15 MCH 28.9 pg (27.0-31.0) 03/19/17 05:15 MCHC Differential 33.5 pg (28.0-36.0) 03/19/17 05:15 RDW 20.0 % (11.5-20.0) 03/19/17 05:15 Plt Count 534 Th/cmm (150-400) H 03/19/17 05:15 MPV 7.4 fl 03/19/17 05:15 Band Neutrophils % 1 % (0-10) 03/17/17 06:40 Neutrophils (Manual) 70 % (40-80) 03/19/17 05:15 Lymphocytes 12 % (20-50) L 03/19/17 05:15 Monocytes 9 % (2-10) 03/19/17 05:15 Eosinophils 9 % (0-5) H 03/19/17 05:15 Platelet Estimate INCREASED PLATELETS (NORMAL) 03/19/17 05:15 Platelet Morphology NORMAL (NORMAL) 03/19/17 05:15 Anisocytosis 1+ 03/19/17 05:15 Specimen Source Arterial 03/18/17 08:30 Sample Site Right Radial 03/18/17 08:30 pH 7.43 (7.35-7.45) 03/18/17 08:30 pCO2 46.0 mmHg (35.0-45.0) H 03/18/17 08:30 pO2 80.0 mmHg (80.0-100.0) 03/18/17 08:30 HCO3 29.0 mEq/L (20.0-26.0) H 03/18/17 08:30 Base Excess 5.3 mEq/L (-3.0-3.0) H 03/18/17 08:30 O2 Saturation 96.0 % (92.0-100.0) 03/18/17 08:30 Ruben Test YES 03/18/17 08:30 Vent Rate NA 03/18/17 08:30 Inspired O2 32 03/18/17 08:30 Tidal Volume NA 03/18/17 08:30 PEEP NA 03/18/17 08:30 Pressure (ins/psv/peep) NA 03/18/17 08:30 Critical Value SH 03/18/17 08:30 Sodium 138 mEq/L (136-145) 03/19/17 05:15 Potassium 3.6 mEq/L (3.5-5.1) 03/19/17 05:15 Chloride 101 mEq/L (98-107) 03/19/17 05:15 Carbon Dioxide 28.2 mEq/L (21.0-31.0) 03/19/17 05:15 Anion Gap 12.4 (7.0-16.0) 03/19/17 05:15 BUN 45 mg/dL (7-25) H 03/19/17 05:15 Creatinine 6.3 mg/dL (0.6-1.2) H* 03/19/17 05:15 Est GFR ( Amer) 8.5 ml/min (>90) 03/19/17 05:15 Est GFR (Non-Af Amer) 7.0 ml/min 03/19/17 05:15 BUN/Creatinine Ratio 7.1 03/19/17 05:15 Glucose 162 mg/dL (70-105) H 03/19/17 05:15 POC Glucose 142 MG/DL (70 - 105) H 03/19/17 08:32 Hemoglobin A1c % 5.5 % (4.0-6.0) 03/16/17 06:52 Uric Acid 4.2 mg/dL (2.3-6.6) 03/15/17 05:00 Calcium 8.1 mg/dL (8.6-10.3) L 03/19/17 05:15 Phosphorus 3.0 mg/dL (2.5-5.0) 03/15/17 05:00 Magnesium 1.9 mg/dL (1.9-2.7) 03/19/17 05:15 Total Bilirubin 0.7 mg/dL (0.3-1.0) 03/15/17 05:00 AST 92 U/L (13-39) H 03/15/17 05:00 ALT 93 U/L (7-52) H 03/15/17 05:00 Alkaline Phosphatase 104 U/L (34-104) 03/15/17 05:00 Ammonia 59 umol/L (16-53) H 03/15/17 05:00 Creatine Kinase 64 U/L (30-223) 03/15/17 05:00 Total Protein 7.2 gm/dL (6.0-8.3) 03/15/17 05:00 Albumin 3.4 gm/dL (3.7-5.3) L 03/15/17 05:00 Globulin 3.8 gm/dL 03/15/17 05:00 Albumin/Globulin Ratio 0.9 (1.0-1.8) L 03/15/17 05:00 Free T4 0.73 ng/dL (0.82-1.77) L 03/16/17 06:52 Thyroxine (T4) 6.46 ug/dl (6.09-12.23) 03/16/17 06:52 Free T3 1.2 pg/mL (2.0-4.4) L 03/16/17 06:52 TSH 1.05 uIU/ml (0.34-5.60) 03/15/17 05:00 Urine Source MODI PORT 03/17/17 12:45 Urine Color YELLOW 03/17/17 12:45 Urine Clarity HAZY (CLEAR) 03/17/17 12:45 Urine pH 6.0 (4.6 - 8.0) 03/17/17 12:45 Ur Specific [place] 1.015 (1.005-1.030) 03/17/17 12:45 Urine Protein >=300 mg/dL (NEGATIVE) 03/17/17 12:45 Urine Glucose (UA) NEGATIVE mg/dL (NEGATIVE) 03/17/17 12:45 Urine Ketones NEGATIVE mg/dL (NEGATIVE) 03/17/17 12:45 Urine Blood LARGE (NEGATIVE) H 03/17/17 12:45 Urine Nitrate NEGATIVE (NEGATIVE) 03/17/17 12:45 Urine Bilirubin NEGATIVE (NEGATIVE) 03/17/17 12:45 Urine Urobilinogen 0.2 E.U./dL (0.2 - 1.0) 03/17/17 12:45 Ur Leukocyte Esterase SMALL (NEGATIVE) H 03/17/17 12:45 Urine RBC 25-50 /hpf (0-5) H 03/17/17 12:45 Urine WBC 6-10 /hpf (0-5) H 03/17/17 12:45 Ur Epithelial Cells FEW /lpf (FEW) 03/17/17 12:45 Urine Bacteria FEW /hpf (NONE SEEN) 03/17/17 12:45 Urine Yeast MODERATE /hpf (NONE SEEN) H 03/17/17 12:45 Urine Opiates Screen POSITIVE (NEGATIVE) H 03/17/17 12:45 Urine Methadone Screen NEGATIVE (NEGATIVE) 03/17/17 12:45 Ur Barbiturates Screen POSITIVE (NEGATIVE) H 03/17/17 12:45 Ur Tricyclics Screen NEGATIVE (NEGATIVE) 03/17/17 12:45 Ur Phencyclidine Scrn NEGATIVE (NEGATIVE) 03/17/17 12:45 Amphetamines Screen NEGATIVE (NEGATIVE) 03/17/17 12:45 U Methamphetamines Scrn POSITIVE (NEGATIVE) H 03/17/17 12:45 U Benzodiazepines Scrn POSITIVE (NEGATIVE) H 03/17/17 12:45 U Cocaine Metab Screen NEGATIVE (NEGATIVE) 03/17/17 12:45 U Cannabinoids Screen NEGATIVE (NEGATIVE) 03/17/17 12:45 Hepatitis A IgM Ab Negative (Negative) 03/14/17 21:23 Hep Bs Antigen Negative (Negative) 03/14/17 21:23 Hep B Core IgM Ab Negative (Negative) 03/14/17 21:23 Hepatitis C Antibody <0.1 s/co ratio (0.0-0.9) 03/14/17 21:23 - Physical Exam Vitals and I&O: Vital Signs Temp 98.6 F 03/19/17 08:00 Pulse 83 03/19/17 11:20 Resp 12 03/19/17 11:20 BP 146/50 03/19/17 11:00 Pulse Ox 100 03/19/17 11:20 Intake & Output 03/18/17 03/19/17 03/19/17 18:59 06:59 18:59 Intake Total 450 550 Output Total 300 150 Balance 150 400 Weight (lbs) 118.388 kg 74.072 kg Intake: Intake, IV Amount 100 400 Levetiracetam 1000mg/ 100 100 100mL 1,000 mg In 100 ml @ 400 mls/hr IV Q12H [facility] Rx#:[id number] Linezolid 600mg/300mL 600 300 mg In 300 ml @ 300 mls/ hr IV Q12H [facility] Rx#: [id number] Oral 350 150 Output: Urine 200 150 Hemodialysis 100 Other: # Bowel Movements 1 Stool Characteristics Liquid Liquid Brown Brown Active Medications: Current Medications Acetaminophen (Tylenol) 650 mg PO Q4HR PRN PRN Reason: T 101F Stop: 05/13/17 00:20 Last Admin: 03/14/17 17:29 Dose: 650 mg Albuterol Sulfate (Albuterol 2.5mg/3ml Neb Ud) 2.5 mg HHN Q1H PRN PRN Reason: Shortness of Breath or Wheeze Albuterol/Ipratropium (Duoneb Neb) 3 ml HHN Q4HRT [facility] Stop: 05/13/17 14:59 Last Admin: 03/19/17 11:20 Dose: 3 ml Budesonide (Pulmicort) 0.5 mg HHN BIDRT [facility] Stop: 05/13/17 18:59 Last Admin: 03/19/17 06:58 Dose: 0.5 mg Carvedilol (Coreg) 6.25 mg NG BID [facility] Stop: 05/13/17 08:59 Last Admin: 03/19/17 09:20 Dose: Not Given Chlorhexidine Gluconate (Peridex) 15 ml MM 0800,2000 [facility] Stop: 05/13/17 07:59 Last Admin: 03/18/17 21:37 Dose: Not Given Dextrose (D50w) 50 ml IVP PRN PRN PRN Reason: Blood Glucose less than 70 Stop: 05/13/17 00:22 Dextrose (Glutose 40%) 18.75 gm PO PRN PRN PRN Reason: Blood Glucose less than 70 Stop: 05/13/17 00:22 Epoetin John (Epogen) 10,000 units SUBQ MoFr@1500 [facility] Stop: 05/13/17 14:59 Last Admin: 03/17/17 15:39 Dose: 10,000 units Ferrous Sulfate (Iron) 300 mg NG BID [facility] Stop: 05/13/17 08:59 Last Admin: 03/19/17 09:21 Dose: 300 mg Glucagon (Glucagen) 1 mg IM PRN PRN PRN Reason: Blood Glucose less than 70 Stop: 05/13/17 00:22 Heparin Sodium (Porcine) (Heparin) 5,000 units SUBQ Q8HR [facility] Stop: 05/13/17 08:00 Last Admin: 03/19/17 04:17 Dose: 5,000 units Hydralazine HCl (Apresoline 20 Mg/Ml) 10 mg IV Q3H PRN PRN Reason: FOR SBP ABOVE 150 Stop: 05/13/17 00:41 Hydromorphone HCl (Dilaudid) 2 mg IVP Q3H PRN PRN Reason: FOR MODERATE PAIN Stop: 05/13/17 00:46 Last Admin: 03/19/17 06:08 Dose: 2 mg Hydromorphone HCl (Dilaudid) 1 mg IVP Q3H PRN PRN Reason: MILD PAIN Stop: 05/13/17 00:46 Last Admin: 03/18/17 14:00 Dose: 1 mg Linezolid (Zyvox) 600 mg in 300 mls @ 300 mls/hr IV Q12H [facility] Stop: 05/13/17 15:59 Last Admin: 03/19/17 03:52 Dose: 300 mls/hr Ceftriaxone Sodium 1 gm/ (Dextrose) 50 mls @ 100 mls/hr IV Q24H [facility] Stop: 05/13/17 13:59 Last Admin: 03/18/17 18:23 Dose: 100 mls/hr Levetiracetam (Keppra Pb) 1,000 mg in 100 mls @ 400 mls/hr IV Q12H [facility] Stop: 05/14/17 21:14 Last Admin: 03/19/17 09:22 Dose: 400 mls/hr Insulin Aspart (Novolog Insulin Sliding Scale) 1 units SUBQ ACHS CELSA PRN Reason: Protocol Stop: 05/16/17 20:59 Last Admin: 03/19/17 07:55 Dose: Not Given Lorazepam (Ativan) 2 mg IVP Q4H PRN; Protocol PRN Reason: Agitation Stop: 05/14/17 07:34 Last Admin: 03/19/17 04:17 Dose: 2 mg Miscellaneous (Probiotic Screen) 1 ea MC PRN PRN PRN Reason: PROTOCOL Stop: 05/13/17 16:29 Miscellaneous (Clinical Monitoring) 1 ea MC DAILY PRN PRN Reason: RENAL Stop: 05/17/17 11:13 Ondansetron HCl (Zofran) 4 mg IVP Q6H PRN PRN Reason: Nausea / Vomiting Stop: 05/13/17 00:46 Pantoprazole Sodium (Protonix) 40 mg IVP DAILY [facility] Stop: 05/13/17 08:59 Last Admin: 03/19/17 09:21 Dose: 40 mg Phenytoin (Dilantin) 100 mg IVP Q8H [facility] Stop: 05/14/17 16:59 Last Admin: 03/19/17 09:21 Dose: 100 mg General: Alert, No acute distress HEENT: Atraumatic, EOMI Neck: Supple, +2 carotid pulse wo bruit Cardiovascular: Regular rate, Normal S1, Normal S2 Lungs: Other (few rhonchi) Abdomen: Bowel sounds, Soft Extremities: no Edema Neurological: Sensation intact Skin: no Rash Psych/Mental Status: Mood NL - Procedures Procedures: Procedures Procedure Code Date RESPIRATORY VENTILATION, 24-96 CONSECUTIVE HOURS [id number] 03/13/17 Assessment/Plan - Problem List Patient Problems: All Active Problems H/O drug dependence (Acute) F19.21 H/O: depression (Acute) Z86.59 H/O: obesity (Acute) Z86.39 Respiratory failure (Acute) J96.90 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 h/o prior clavicular fracture (Acute) pneumonia (Acute) - Plan Plan: [facility] Nutritional Asmnt/Malnutr-PDOC - Dietary Evaluation Malnutrition Findings (Please click <Entered> for more info): Nutritional Asmnt/Malnutrition Start: 03/15/17 12: 22 Text: Status: Complete Freq: Document 03/15/17 12:28 GSUN (Rec: 03/15/17 12:39 [id number] [email or web address]) Nutritional Asmnt/Malnutrition Patient General Information Nutritional Screening High Risk Screening Diagnosis ROSARIO, sepsis with multiorgan failure, intubated, penumonia, resp failure Pertinent Medical Hx/Surgical Hx Asthma, COPD, severe obesity, prior clavicular fractures, chronic drug dependence, depression, HTN, cardiomyopathy, chronic pain syndrome Subjective Information 66 year old female from home. Per MD reports, pt with hx polysubstance abuse, 03/09/17 severe septic shock with multiorgan failure, involving respiratory and renal failure, intubated on diaylisys. Observed pt on vent with tube feeding infusing at 30ml/hr during visit. Spoke to RN, RN stated BM yesterday, none today yet, no residuals, tolerating well. 03/14 HD. Current Diet Order/ Nutrition Support Novasource Renal 35ml/hr x 24hrs, providing 840ml, 1680kcal, 76g protein Pertinent Medications D50w, Glutose 40%, Epogen, Iron, Glucagen, Dilaudid, Novolog, Solu Medrol, Zofran, Protonix Pertinent Labs 03/15: BUN 36H, creatinine 4.8H , glucose 172H Nutritional Hx/Data Height 1.6 m Height (Calculated Centimeters) 160.0 Current Weight (lbs) 117.843 kg Weight (Calculated Kilograms) 117.8 Weight (Calculated Grams) 149454.3 [place] Body Weight 115 Weight Status Morbidly Obese GI Symptoms Skin Integrity/Comment: Jordon 10. Bruises. Estimated Nutritional Goals BEE in Kcals: Adj wt of IBW Calories/Kcals/Kg AdjBW 151.2lb/68.7kg Kcals Calculated 2061-2405kcal (30-35kcal/kg) Protein: Adj wt of IBW Protein Calculated 103-137g (1.5-2g/kg) Fluid: ml Per MD Nutritional Problem 2. Problem Problem Increased kcal and prot needs related to Etiology hypermetabolic state aeb Signs/Symptoms: sepsis with multiorgan failure , on HD, penumonia 1. Problem Problem Imapired nutrient utilization related to Etiology ROSARIO aeb Signs/Symptoms: 03/14 HD, BUN 36H tail trimmer 4.8H Intervention/Recommendation Comments 1. Recommend Novasource Renal at 50ml/hr x 24hrs, providing 1200ml, 2400kcal, 109g protein . Increase 10ml/hr q12hrs as tolerated until goal rate of 50ml/hr. Hypermetabolic state: sepsis multiorgan failure, HD, resp failure, pneumonia , with consideration of morbid obesity. 2. Unable to provide FDI education due to pt intubated on tube feeding. Expected Outcomes/Goals Expected Outcomes/Goals 1. Pt to meet 100% of estimated nutritional needs on tube feeding with tolerance.
[2017-03-19] MEDS: Chlorhexidine Gluconate 0.12% 15mL Mouthwash MM SCH (11:47)
--- NOTE | 2017-03-19 13:26 | General Progress Note ---
Subjective - Review of Systems Service Date: 03/19/17 Subjective: more alert, comfortable Objective - Results Result Diagrams: 03/19/17 05:15 03/19/17 05:15 Recent Labs: Laboratory Last Values WBC 13.2 Th/cmm (4.8-10.8) H 03/19/17 05:15 RBC 2.73 Mil/cmm (3.80-5.20) L 03/19/17 05:15 Hgb 7.9 gm/dL (12-16) L* 03/19/17 05:15 Hct 23.6 % (41.0-60) L 03/19/17 05:15 MCV 86.3 fl (81-100) 03/19/17 05:15 MCH 28.9 pg (27.0-31.0) 03/19/17 05:15 MCHC Differential 33.5 pg (28.0-36.0) 03/19/17 05:15 RDW 20.0 % (11.5-20.0) 03/19/17 05:15 Plt Count 534 Th/cmm (150-400) H 03/19/17 05:15 MPV 7.4 fl 03/19/17 05:15 Band Neutrophils % 1 % (0-10) 03/17/17 06:40 Neutrophils (Manual) 70 % (40-80) 03/19/17 05:15 Lymphocytes 12 % (20-50) L 03/19/17 05:15 Monocytes 9 % (2-10) 03/19/17 05:15 Eosinophils 9 % (0-5) H 03/19/17 05:15 Platelet Estimate INCREASED PLATELETS (NORMAL) 03/19/17 05:15 Platelet Morphology NORMAL (NORMAL) 03/19/17 05:15 Anisocytosis 1+ 03/19/17 05:15 Specimen Source Arterial 03/18/17 08:30 Sample Site Right Radial 03/18/17 08:30 pH 7.43 (7.35-7.45) 03/18/17 08:30 pCO2 46.0 mmHg (35.0-45.0) H 03/18/17 08:30 pO2 80.0 mmHg (80.0-100.0) 03/18/17 08:30 HCO3 29.0 mEq/L (20.0-26.0) H 03/18/17 08:30 Base Excess 5.3 mEq/L (-3.0-3.0) H 03/18/17 08:30 O2 Saturation 96.0 % (92.0-100.0) 03/18/17 08:30 Ruben Test YES 03/18/17 08:30 Vent Rate NA 03/18/17 08:30 Inspired O2 32 03/18/17 08:30 Tidal Volume NA 03/18/17 08:30 PEEP NA 03/18/17 08:30 Pressure (ins/psv/peep) NA 03/18/17 08:30 Critical Value SH 03/18/17 08:30 Sodium 138 mEq/L (136-145) 03/19/17 05:15 Potassium 3.6 mEq/L (3.5-5.1) 03/19/17 05:15 Chloride 101 mEq/L (98-107) 03/19/17 05:15 Carbon Dioxide 28.2 mEq/L (21.0-31.0) 03/19/17 05:15 Anion Gap 12.4 (7.0-16.0) 03/19/17 05:15 BUN 45 mg/dL (7-25) H 03/19/17 05:15 Creatinine 6.3 mg/dL (0.6-1.2) H* 03/19/17 05:15 Est GFR ( Amer) 8.5 ml/min (>90) 03/19/17 05:15 Est GFR (Non-Af Amer) 7.0 ml/min 03/19/17 05:15 BUN/Creatinine Ratio 7.1 03/19/17 05:15 Glucose 162 mg/dL (70-105) H 03/19/17 05:15 POC Glucose 142 MG/DL (70 - 105) H 03/19/17 08:32 Hemoglobin A1c % 5.5 % (4.0-6.0) 03/16/17 06:52 Uric Acid 4.2 mg/dL (2.3-6.6) 03/15/17 05:00 Calcium 8.1 mg/dL (8.6-10.3) L 03/19/17 05:15 Phosphorus 3.0 mg/dL (2.5-5.0) 03/15/17 05:00 Magnesium 1.9 mg/dL (1.9-2.7) 03/19/17 05:15 Total Bilirubin 0.7 mg/dL (0.3-1.0) 03/15/17 05:00 AST 92 U/L (13-39) H 03/15/17 05:00 ALT 93 U/L (7-52) H 03/15/17 05:00 Alkaline Phosphatase 104 U/L (34-104) 03/15/17 05:00 Ammonia 59 umol/L (16-53) H 03/15/17 05:00 Creatine Kinase 64 U/L (30-223) 03/15/17 05:00 Total Protein 7.2 gm/dL (6.0-8.3) 03/15/17 05:00 Albumin 3.4 gm/dL (3.7-5.3) L 03/15/17 05:00 Globulin 3.8 gm/dL 03/15/17 05:00 Albumin/Globulin Ratio 0.9 (1.0-1.8) L 03/15/17 05:00 Free T4 0.73 ng/dL (0.82-1.77) L 03/16/17 06:52 Thyroxine (T4) 6.46 ug/dl (6.09-12.23) 03/16/17 06:52 Free T3 1.2 pg/mL (2.0-4.4) L 03/16/17 06:52 TSH 1.05 uIU/ml (0.34-5.60) 03/15/17 05:00 Urine Source MODI PORT 03/17/17 12:45 Urine Color YELLOW 03/17/17 12:45 Urine Clarity HAZY (CLEAR) 03/17/17 12:45 Urine pH 6.0 (4.6 - 8.0) 03/17/17 12:45 Ur Specific [place] 1.015 (1.005-1.030) 03/17/17 12:45 Urine Protein >=300 mg/dL (NEGATIVE) 03/17/17 12:45 Urine Glucose (UA) NEGATIVE mg/dL (NEGATIVE) 03/17/17 12:45 Urine Ketones NEGATIVE mg/dL (NEGATIVE) 03/17/17 12:45 Urine Blood LARGE (NEGATIVE) H 03/17/17 12:45 Urine Nitrate NEGATIVE (NEGATIVE) 03/17/17 12:45 Urine Bilirubin NEGATIVE (NEGATIVE) 03/17/17 12:45 Urine Urobilinogen 0.2 E.U./dL (0.2 - 1.0) 03/17/17 12:45 Ur Leukocyte Esterase SMALL (NEGATIVE) H 03/17/17 12:45 Urine RBC 25-50 /hpf (0-5) H 03/17/17 12:45 Urine WBC 6-10 /hpf (0-5) H 03/17/17 12:45 Ur Epithelial Cells FEW /lpf (FEW) 03/17/17 12:45 Urine Bacteria FEW /hpf (NONE SEEN) 03/17/17 12:45 Urine Yeast MODERATE /hpf (NONE SEEN) H 03/17/17 12:45 Urine Opiates Screen POSITIVE (NEGATIVE) H 03/17/17 12:45 Urine Methadone Screen NEGATIVE (NEGATIVE) 03/17/17 12:45 Ur Barbiturates Screen POSITIVE (NEGATIVE) H 03/17/17 12:45 Ur Tricyclics Screen NEGATIVE (NEGATIVE) 03/17/17 12:45 Ur Phencyclidine Scrn NEGATIVE (NEGATIVE) 03/17/17 12:45 Amphetamines Screen NEGATIVE (NEGATIVE) 03/17/17 12:45 U Methamphetamines Scrn POSITIVE (NEGATIVE) H 03/17/17 12:45 U Benzodiazepines Scrn POSITIVE (NEGATIVE) H 03/17/17 12:45 U Cocaine Metab Screen NEGATIVE (NEGATIVE) 03/17/17 12:45 U Cannabinoids Screen NEGATIVE (NEGATIVE) 03/17/17 12:45 Hepatitis A IgM Ab Negative (Negative) 03/14/17 21:23 Hep Bs Antigen Negative (Negative) 03/14/17 21:23 Hep B Core IgM Ab Negative (Negative) 03/14/17 21:23 Hepatitis C Antibody <0.1 s/co ratio (0.0-0.9) 03/14/17 21:23 - Physical Exam Vitals and I&O: Vital Signs Temp 98.6 F 03/19/17 08:00 Pulse 82 03/19/17 12:00 Resp 16 03/19/17 12:00 BP 142/60 03/19/17 12:00 Pulse Ox 99 03/19/17 12:00 Intake & Output 03/18/17 03/19/17 03/19/17 18:59 06:59 18:59 Intake Total 450 550 Output Total 300 150 Balance 150 400 Weight (lbs) 118.388 kg 74.072 kg Intake: Intake, IV Amount 100 400 Levetiracetam 1000mg/ 100 100 100mL 1,000 mg In 100 ml @ 400 mls/hr IV Q12H [facility] Rx#:[id number] Linezolid 600mg/300mL 600 300 mg In 300 ml @ 300 mls/ hr IV Q12H [facility] Rx#: [id number] Oral 350 150 Output: Urine 200 150 Hemodialysis 100 Other: # Bowel Movements 1 Stool Characteristics Liquid Liquid Soft Brown Brown Brown Active Medications: Current Medications Acetaminophen (Tylenol) 650 mg PO Q4HR PRN PRN Reason: T 101F Stop: 05/13/17 00:20 Last Admin: 03/14/17 17:29 Dose: 650 mg Albuterol Sulfate (Albuterol 2.5mg/3ml Neb Ud) 2.5 mg HHN Q1H PRN PRN Reason: Shortness of Breath or Wheeze Albuterol/Ipratropium (Duoneb Neb) 3 ml HHN Q4HRT [facility] Stop: 05/13/17 14:59 Last Admin: 03/19/17 11:20 Dose: 3 ml Budesonide (Pulmicort) 0.5 mg HHN BIDRT [facility] Stop: 05/13/17 18:59 Last Admin: 03/19/17 06:58 Dose: 0.5 mg Carvedilol (Coreg) 6.25 mg NG BID [facility] Stop: 05/13/17 08:59 Last Admin: 03/19/17 09:20 Dose: Not Given Dextrose (D50w) 50 ml IVP PRN PRN PRN Reason: Blood Glucose less than 70 Stop: 05/13/17 00:22 Dextrose (Glutose 40%) 18.75 gm PO PRN PRN PRN Reason: Blood Glucose less than 70 Stop: 05/13/17 00:22 Epoetin John (Epogen) 10,000 units SUBQ MoFr@1500 [facility] Stop: 05/13/17 14:59 Last Admin: 03/17/17 15:39 Dose: 10,000 units Ferrous Sulfate (Iron) 300 mg NG BID [facility] Stop: 05/13/17 08:59 Last Admin: 03/19/17 09:21 Dose: 300 mg Glucagon (Glucagen) 1 mg IM PRN PRN PRN Reason: Blood Glucose less than 70 Stop: 05/13/17 00:22 Heparin Sodium (Porcine) (Heparin) 5,000 units SUBQ Q8HR [facility] Stop: 05/13/17 08:00 Last Admin: 03/19/17 13:21 Dose: 5,000 units Hydralazine HCl (Apresoline 20 Mg/Ml) 10 mg IV Q3H PRN PRN Reason: FOR SBP ABOVE 150 Stop: 05/13/17 00:41 Hydromorphone HCl (Dilaudid) 2 mg IVP Q3H PRN PRN Reason: FOR MODERATE PAIN Stop: 05/13/17 00:46 Last Admin: 03/19/17 11:54 Dose: 2 mg Hydromorphone HCl (Dilaudid) 1 mg IVP Q3H PRN PRN Reason: MILD PAIN Stop: 05/13/17 00:46 Last Admin: 03/18/17 14:00 Dose: 1 mg Linezolid (Zyvox) 600 mg in 300 mls @ 300 mls/hr IV Q12H [facility] Stop: 05/13/17 15:59 Last Admin: 03/19/17 03:52 Dose: 300 mls/hr Ceftriaxone Sodium 1 gm/ (Dextrose) 50 mls @ 100 mls/hr IV Q24H [facility] Stop: 05/13/17 13:59 Last Admin: 03/18/17 18:23 Dose: 100 mls/hr Levetiracetam (Keppra Pb) 1,000 mg in 100 mls @ 400 mls/hr IV Q12H [facility] Stop: 05/14/17 21:14 Last Admin: 03/19/17 09:22 Dose: 400 mls/hr Insulin Aspart (Novolog Insulin Sliding Scale) 1 units SUBQ ACHS [facility] PRN Reason: Protocol Stop: 05/16/17 20:59 Last Admin: 03/19/17 13:21 Dose: Not Given Lorazepam (Ativan) 2 mg IVP Q4H PRN; Protocol PRN Reason: Agitation Stop: 05/14/17 07:34 Last Admin: 03/19/17 04:17 Dose: 2 mg Miscellaneous (Probiotic Screen) 1 ea PRN PRN PRN Reason: PROTOCOL Stop: 05/13/17 16:29 Miscellaneous (Clinical Monitoring) 1 ea MC DAILY PRN PRN Reason: RENAL Stop: 05/17/17 11:13 Ondansetron HCl (Zofran) 4 mg IVP Q6H PRN PRN Reason: Nausea / Vomiting Stop: 05/13/17 00:46 Pantoprazole Sodium (Protonix) 40 mg IVP DAILY [facility] Stop: 05/13/17 08:59 Last Admin: 03/19/17 09:21 Dose: 40 mg Phenytoin (Dilantin) 100 mg IVP Q8H [facility] Stop: 05/14/17 16:59 Last Admin: 03/19/17 09:21 Dose: 100 mg General: Alert, No acute distress HEENT: Atraumatic, EOMI Neck: Supple, +2 carotid pulse wo bruit Cardiovascular: Regular rate, Normal S1, Normal S2 Lungs: Other (few rhonchi) Abdomen: Bowel sounds, Soft Extremities: no Edema Neurological: Sensation intact Skin: no Rash Psych/Mental Status: Mood NL - Procedures Procedures: Procedures Procedure Code Date RESPIRATORY VENTILATION, 24-96 CONSECUTIVE HOURS [id number] 03/13/17 Assessment/Plan - Problem List Patient Problems: All Active Problems H/O drug dependence (Acute) F19.21 H/O: depression (Acute) Z86.59 H/O: obesity (Acute) Z86.39 Respiratory failure (Acute) J96.90 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 h/o prior clavicular fracture (Acute) pneumonia (Acute) - Assessment Assessment: ROSARIO on HD ALOC 2nd to sustance abuse Ess Htn Morbid Obesity CN Staph GPC/GNR CAP Left Femur head Fx 2nd to fall Polysubstance Abuse Resp Failure Chronic pain Sx - Plan Plan: Lab - Result Diagrams 03/15/17 05:00 03/15/17 05:00 Current Medications Acetaminophen (Tylenol) 650 mg PO Q4HR PRN PRN Reason: T 101F Stop: 05/13/17 00:20 Last Admin: 03/14/17 17:29 Dose: 650 mg Albuterol Sulfate (Albuterol 2.5mg/3ml Neb Ud) 2.5 mg HHN Q1H PRN PRN Reason: Shortness of Breath or Wheeze Albuterol/Ipratropium (Duoneb Neb) 3 ml HHN Q4HRT [facility] Stop: 05/13/17 14:59 Last Admin: 03/15/17 13:39 Dose: 3 ml Budesonide (Pulmicort) 0.5 mg HHN BIDRT [facility] Stop: 05/13/17 18:59 Last Admin: 03/15/17 07:47 Dose: 0.5 mg Carvedilol (Coreg) 6.25 mg NG BID [facility] Stop: 05/13/17 08:59 Last Admin: 03/15/17 09:22 Dose: 6.25 mg Chlorhexidine Gluconate (Peridex) 15 ml MM 08,1999 [facility] Stop: 05/13/17 07:59 Last Admin: 03/15/17 09:22 Dose: 15 ml Dextrose (D50w) 50 ml IVP PRN PRN PRN Reason: Blood Glucose less than 70 Stop: 05/13/17 00:22 Dextrose (Glutose 40%) 18.75 gm PO PRN PRN PRN Reason: Blood Glucose less than 70 Stop: 05/13/17 00:22 Epoetin John (Epogen) 10,000 units SUBQ MONFRI [facility] Stop: 05/13/17 14:59 Last Admin: 03/14/17 16:15 Dose: 10,000 units Ferrous Sulfate (Iron) 300 mg NG BID [facility] Stop: 05/13/17 08:59 Last Admin: 03/15/17 09:22 Dose: 300 mg Glucagon (Glucagen) 1 mg IM PRN PRN PRN Reason: Blood Glucose less than 70 Stop: 05/13/17 00:22 Heparin Sodium (Porcine) (Heparin) 5,000 units SUBQ Q8HR [facility] Stop: 05/13/17 08:00 Last Admin: 03/15/17 12:42 Dose: 5,000 units Hydralazine HCl (Apresoline 20 Mg/Ml) 10 mg IV Q3H PRN PRN Reason: FOR SBP ABOVE 150 Stop: 05/13/17 00:41 Hydromorphone HCl (Dilaudid) 2 mg IVP Q3H PRN PRN Reason: FOR MODERATE PAIN Stop: 05/13/17 00:46 Last Admin: 03/15/17 06:25 Dose: 2 mg Hydromorphone HCl (Dilaudid) 1 mg IVP Q3H PRN PRN Reason: MILD PAIN Stop: 05/13/17 00:46 Last Admin: 03/14/17 16:14 Dose: 1 mg Linezolid (Zyvox) 600 mg in 300 mls @ 300 mls/hr IV Q12H [facility] Stop: 05/13/17 15:59 Last Infusion: 03/15/17 05:19 Dose: Infused Ceftriaxone Sodium 1 gm/ (Dextrose) 50 mls @ 100 mls/hr IV Q24H [facility] Stop: 05/13/17 13:59 Last Admin: 03/15/17 14:37 Dose: 100 mls/hr Levofloxacin (Levaquin Pb) 250 mg in 50 mls @ 50 mls/hr IV Q48H [facility] Stop: 05/15/17 14:59 Insulin Aspart (Novolog Insulin Sliding Scale) 0 units SUBQ Q6HR [facility] PRN Reason: Protocol Stop: 05/13/17 05:59 Last Admin: 03/15/17 12:32 Dose: Not Given Lorazepam (Ativan) 2 mg IVP Q4H PRN; Protocol PRN Reason: Agitation Stop: 05/14/17 07:34 Last Admin: 03/15/17 12:44 Dose: 2 mg Methylprednisolone Sodium Succinate (Solu-Medrol) 40 mg IVP Q6HR [facility] Stop: 03/17/17 06:01 Last Admin: 03/15/17 12:44 Dose: 40 mg Miscellaneous (Probiotic Screen) 1 ea MC PRN PRN PRN Reason: PROTOCOL Stop: 05/13/17 16:29 Ondansetron HCl (Zofran) 4 mg IVP Q6H PRN PRN Reason: Nausea / Vomiting Stop: 05/13/17 00:46 Pantoprazole Sodium (Protonix) 40 mg IVP DAILY [facility] Stop: 05/13/17 08:59 Last Admin: 03/15/17 09:23 Dose: 40 mg Phenytoin (Dilantin) 100 mg IVP Q8H [facility] Stop: 05/14/17 16:59 currently being dialyzed replace K serial 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 - Result Diagrams 03/19/17 05:15 03/19/17 05:15 Nutritional Asmnt/Malnutr-PDOC - Dietary Evaluation Malnutrition Findings (Please click <Entered> for more info): Nutritional Asmnt/Malnutrition Start: 03/15/17 12: 22 Text: Status: Complete Freq: Document 03/15/17 12:28 GSUN (Rec: 03/15/17 12:39 [email or web address]) Nutritional Asmnt/Malnutrition Patient General Information Nutritional Screening High Risk Screening Diagnosis ROSARIO, sepsis with multiorgan failure, intubated, penumonia, resp failure Pertinent Medical Hx/Surgical Hx Asthma, COPD, severe obesity, prior clavicular fractures, chronic drug dependence, depression, HTN, cardiomyopathy, chronic pain syndrome Subjective Information 66 year old female from home. Per MD reports, pt with hx polysubstance abuse, 03/09/17 severe septic shock with multiorgan failure, involving respiratory and renal failure, intubated on diaylisys. Observed pt on vent with tube feeding infusing at 30ml/hr during visit. Spoke to RN, RN stated BM yesterday, none today yet, no residuals, tolerating well. 03/14 HD. Current Diet Order/ Nutrition Support Novasource Renal 35ml/hr x 24hrs, providing 840ml, 1680kcal, 76g protein Pertinent Medications D50w, Glutose 40%, Epogen, Iron, Glucagen, Dilaudid, Novolog, Solu Medrol, Zofran, Protonix Pertinent Labs 03/15: BUN 36H, creatinine 4.8H , glucose 172H Nutritional Hx/Data Height 1.6 m Height (Calculated Centimeters) 160.0 Current Weight (lbs) 117.843 kg Weight (Calculated Kilograms) 117.8 Weight (Calculated Grams) 354414.3 [place] Body Weight 115 Weight Status Morbidly Obese GI Symptoms Skin Integrity/Comment: Jordon 10. Bruises. Estimated Nutritional Goals BEE in Kcals: Adj wt of IBW Calories/Kcals/Kg AdjBW 151.2lb/68.7kg Kcals Calculated 2061-2405kcal (30-35kcal/kg) Protein: Adj wt of IBW Protein Calculated 103-137g (1.5-2g/kg) Fluid: ml Per MD Nutritional Problem 2. Problem Problem Increased kcal and prot needs related to Etiology hypermetabolic state aeb Signs/Symptoms: sepsis with multiorgan failure , on HD, penumonia 1. 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 Recommend Novasource Renal at 50ml/hr x 24hrs, providing 1200ml, 2400kcal, 109g protein . Increase 10ml/hr q12hrs as tolerated until goal rate of 50ml/hr. Hypermetabolic state: sepsis multiorgan failure, HD, resp failure, pneumonia , with consideration of morbid obesity. 2. Unable to provide FDI education due to pt intubated on tube feeding. Expected Outcomes/Goals Expected Outcomes/Goals 1. Pt to meet 100% of estimated nutritional needs on tube feeding with tolerance.
[2017-03-20] MEDS: Albuterol/Ipratropium Neb 3 ML AERS HHN SCH ×6 (02:04→22:59)
--- NOTE | 2017-03-20 02:21 | Infectious Disease Prog Note ---
Infectious Disease Subjective - Review of Systems Service Date: 03/19/17 Subjective: on bipap, not in distress. Infectious Disease Objective - Results Result Diagrams: 03/19/17 05:15 03/19/17 05:15 Recent Labs: Laboratory Last Values WBC 13.2 Th/cmm (4.8-10.8) H 03/19/17 05:15 RBC 2.73 Mil/cmm (3.80-5.20) L 03/19/17 05:15 Hgb 7.9 gm/dL (12-16) L* 03/19/17 05:15 Hct 23.6 % (41.0-60) L 03/19/17 05:15 MCV 86.3 fl (81-100) 03/19/17 05:15 MCH 28.9 pg (27.0-31.0) 03/19/17 05:15 MCHC Differential 33.5 pg (28.0-36.0) 03/19/17 05:15 RDW 20.0 % (11.5-20.0) 03/19/17 05:15 Plt Count 534 Th/cmm (150-400) H 03/19/17 05:15 MPV 7.4 fl 03/19/17 05:15 Band Neutrophils % 1 % (0-10) 03/17/17 06:40 Neutrophils (Manual) 70 % (40-80) 03/19/17 05:15 Lymphocytes 12 % (20-50) L 03/19/17 05:15 Monocytes 9 % (2-10) 03/19/17 05:15 Eosinophils 9 % (0-5) H 03/19/17 05:15 Platelet Estimate INCREASED PLATELETS (NORMAL) 03/19/17 05:15 Platelet Morphology NORMAL (NORMAL) 03/19/17 05:15 Anisocytosis 1+ 03/19/17 05:15 Specimen Source Arterial 03/18/17 08:30 Sample Site Right Radial 03/18/17 08:30 pH 7.43 (7.35-7.45) 03/18/17 08:30 pCO2 46.0 mmHg (35.0-45.0) H 03/18/17 08:30 pO2 80.0 mmHg (80.0-100.0) 03/18/17 08:30 HCO3 29.0 mEq/L (20.0-26.0) H 03/18/17 08:30 Base Excess 5.3 mEq/L (-3.0-3.0) H 03/18/17 08:30 O2 Saturation 96.0 % (92.0-100.0) 03/18/17 08:30 Ruben Test YES 03/18/17 08:30 Vent Rate NA 03/18/17 08:30 Inspired O2 32 03/18/17 08:30 Tidal Volume NA 03/18/17 08:30 PEEP NA 03/18/17 08:30 Pressure (ins/psv/peep) NA 03/18/17 08:30 Critical Value SH 03/18/17 08:30 Sodium 138 mEq/L (136-145) 03/19/17 05:15 Potassium 3.6 mEq/L (3.5-5.1) 03/19/17 05:15 Chloride 101 mEq/L (98-107) 03/19/17 05:15 Carbon Dioxide 28.2 mEq/L (21.0-31.0) 03/19/17 05:15 Anion Gap 12.4 (7.0-16.0) 03/19/17 05:15 BUN 45 mg/dL (7-25) H 03/19/17 05:15 Creatinine 6.3 mg/dL (0.6-1.2) H* 03/19/17 05:15 Est GFR ( Amer) 8.5 ml/min (>90) 03/19/17 05:15 Est GFR (Non-Af Amer) 7.0 ml/min 03/19/17 05:15 BUN/Creatinine Ratio 7.1 03/19/17 05:15 Glucose 162 mg/dL (70-105) H 03/19/17 05:15 POC Glucose 131 MG/DL (70 - 105) H 03/19/17 13:19 Hemoglobin A1c % 5.5 % (4.0-6.0) 03/16/17 06:52 Uric Acid 4.2 mg/dL (2.3-6.6) 03/15/17 05:00 Calcium 8.1 mg/dL (8.6-10.3) L 03/19/17 05:15 Phosphorus 3.0 mg/dL (2.5-5.0) 03/15/17 05:00 Magnesium 1.9 mg/dL (1.9-2.7) 03/19/17 05:15 Total Bilirubin 0.7 mg/dL (0.3-1.0) 03/15/17 05:00 AST 92 U/L (13-39) H 03/15/17 05:00 ALT 93 U/L (7-52) H 03/15/17 05:00 Alkaline Phosphatase 104 U/L (34-104) 03/15/17 05:00 Ammonia 59 umol/L (16-53) H 03/15/17 05:00 Creatine Kinase 64 U/L (30-223) 03/15/17 05:00 Total Protein 7.2 gm/dL (6.0-8.3) 03/15/17 05:00 Albumin 3.4 gm/dL (3.7-5.3) L 03/15/17 05:00 Globulin 3.8 gm/dL 03/15/17 05:00 Albumin/Globulin Ratio 0.9 (1.0-1.8) L 03/15/17 05:00 Free T4 0.73 ng/dL (0.82-1.77) L 03/16/17 06:52 Thyroxine (T4) 6.46 ug/dl (6.09-12.23) 03/16/17 06:52 Free T3 1.2 pg/mL (2.0-4.4) L 03/16/17 06:52 TSH 1.05 uIU/ml (0.34-5.60) 03/15/17 05:00 Urine Source MODI PORT 03/17/17 12:45 Urine Color YELLOW 03/17/17 12:45 Urine Clarity HAZY (CLEAR) 03/17/17 12:45 Urine pH 6.0 (4.6 - 8.0) 03/17/17 12:45 Ur Specific Gilbert 1.015 (1.005-1.030) 03/17/17 12:45 Urine Protein >=300 mg/dL (NEGATIVE) 03/17/17 12:45 Urine Glucose (UA) NEGATIVE mg/dL (NEGATIVE) 03/17/17 12:45 Urine Ketones NEGATIVE mg/dL (NEGATIVE) 03/17/17 12:45 Urine Blood LARGE (NEGATIVE) H 03/17/17 12:45 Urine Nitrate NEGATIVE (NEGATIVE) 03/17/17 12:45 Urine Bilirubin NEGATIVE (NEGATIVE) 03/17/17 12:45 Urine Urobilinogen 0.2 E.U./dL (0.2 - 1.0) 03/17/17 12:45 Ur Leukocyte Esterase SMALL (NEGATIVE) H 03/17/17 12:45 Urine RBC 25-50 /hpf (0-5) H 03/17/17 12:45 Urine WBC 6-10 /hpf (0-5) H 03/17/17 12:45 Ur Epithelial Cells FEW /lpf (FEW) 03/17/17 12:45 Urine Bacteria FEW /hpf (NONE SEEN) 03/17/17 12:45 Urine Yeast MODERATE /hpf (NONE SEEN) H 03/17/17 12:45 Urine Opiates Screen POSITIVE (NEGATIVE) H 03/17/17 12:45 Urine Methadone Screen NEGATIVE (NEGATIVE) 03/17/17 12:45 Ur Barbiturates Screen POSITIVE (NEGATIVE) H 03/17/17 12:45 Ur Tricyclics Screen NEGATIVE (NEGATIVE) 03/17/17 12:45 Ur Phencyclidine Scrn NEGATIVE (NEGATIVE) 03/17/17 12:45 Amphetamines Screen NEGATIVE (NEGATIVE) 03/17/17 12:45 U Methamphetamines Scrn POSITIVE (NEGATIVE) H 03/17/17 12:45 U Benzodiazepines Scrn POSITIVE (NEGATIVE) H 03/17/17 12:45 U Cocaine Metab Screen NEGATIVE (NEGATIVE) 03/17/17 12:45 U Cannabinoids Screen NEGATIVE (NEGATIVE) 03/17/17 12:45 Hepatitis A IgM Ab Negative (Negative) 03/14/17 21:23 Hep Bs Antigen Negative (Negative) 03/14/17 21:23 Hep B Core IgM Ab Negative (Negative) 03/14/17 21:23 Hepatitis C Antibody <0.1 s/co ratio (0.0-0.9) 03/14/17 21:23 - Physical Exam Vitals and I&O: Vital Signs Temp 99.9 F 03/19/17 20:24 Pulse 80 03/20/17 02:08 Resp 26 03/20/17 02:08 BP 117/74 03/19/17 20:24 Pulse Ox 100 03/20/17 02:08 Intake & Output 03/19/17 03/19/17 03/20/17 06:59 18:59 06:59 Intake Total 850 250 Output Total 150 700 Balance 700 -450 Weight (lbs) 74.072 kg 74.072 kg 112.4 kg Intake: Intake, IV Amount 700 150 Levetiracetam 1000mg/ 100 100 100mL 1,000 mg In 100 ml @ 400 mls/hr IV Q12H [facility] Rx#:[id number] Linezolid 600mg/300mL 600 600 mg In 300 ml @ 300 mls/ hr IV Q12H [facility] Rx#: [id number] cefTRIAXone 1 gm In 50 Dextrose 5% 50 ml @ 100 mls/hr IV Q24H [facility] Rx#: [id number] Oral 150 100 Output: Urine 150 200 Hemodialysis 500 Other: # Bowel Movements 1 1 Stool Characteristics Liquid Soft Soft Brown Brown Active Medications: Current Medications Acetaminophen (Tylenol) 650 mg PO Q4HR PRN PRN Reason: T 101F Stop: 05/13/17 00:20 Last Admin: 03/14/17 17:29 Dose: 650 mg Albuterol Sulfate (Albuterol 2.5mg/3ml Neb Ud) 2.5 mg HHN Q1H PRN PRN Reason: Shortness of Breath or Wheeze Albuterol/Ipratropium (Duoneb Neb) 3 ml HHN Q4HRT [facility] Stop: 05/13/17 14:59 Last Admin: 03/20/17 02:04 Dose: 3 ml Budesonide (Pulmicort) 0.5 mg HHN BIDRT [facility] Stop: 05/13/17 18:59 Last Admin: 03/19/17 19:01 Dose: 0.5 mg Carvedilol (Coreg) 6.25 mg NG BID [facility] Stop: 05/13/17 08:59 Last Admin: 03/19/17 17:11 Dose: 6.25 mg Dextrose (D50w) 50 ml IVP PRN PRN PRN Reason: Blood Glucose less than 70 Stop: 05/13/17 00:22 Dextrose (Glutose 40%) 18.75 gm PO PRN PRN PRN Reason: Blood Glucose less than 70 Stop: 05/13/17 00:22 Epoetin John (Epogen) 10,000 units SUBQ MoFr@1500 [facility] Stop: 05/13/17 14:59 Last Admin: 03/17/17 15:39 Dose: 10,000 units Ferrous Sulfate (Iron) 300 mg NG BID [facility] Stop: 05/13/17 08:59 Last Admin: 03/19/17 17:12 Dose: 300 mg Glucagon (Glucagen) 1 mg IM PRN PRN PRN Reason: Blood Glucose less than 70 Stop: 05/13/17 00:22 Heparin Sodium (Porcine) (Heparin) 5,000 units SUBQ Q8HR CELSA Stop: 05/13/17 08:00 Last Admin: 03/19/17 21:27 Dose: 5,000 units Hydralazine HCl (Apresoline 20 Mg/Ml) 10 mg IV Q3H PRN PRN Reason: FOR SBP ABOVE 150 Stop: 05/13/17 00:41 Hydromorphone HCl (Dilaudid) 2 mg IVP Q3H PRN PRN Reason: FOR MODERATE PAIN Stop: 05/13/17 00:46 Last Admin: 03/19/17 11:54 Dose: 2 mg Hydromorphone HCl (Dilaudid) 1 mg IVP Q3H PRN PRN Reason: MILD PAIN Stop: 05/13/17 00:46 Last Admin: 03/18/17 14:00 Dose: 1 mg Linezolid (Zyvox) 600 mg in 300 mls @ 300 mls/hr IV Q12H [facility] Stop: 05/13/17 15:59 Last Admin: 03/19/17 16:10 Dose: 300 mls/hr Ceftriaxone Sodium 1 gm/ (Dextrose) 50 mls @ 100 mls/hr IV Q24H [facility] Stop: 05/13/17 13:59 Last Infusion: 03/19/17 14:25 Dose: Infused Levetiracetam (Keppra Pb) 1,000 mg in 100 mls @ 400 mls/hr IV Q12H [facility] Stop: 05/14/17 21:14 Last Admin: 03/19/17 21:28 Dose: 100 mls/hr Lorazepam (Ativan) 2 mg IVP Q4H PRN; Protocol PRN Reason: Agitation Stop: 05/14/17 07:34 Last Admin: 03/19/17 04:17 Dose: 2 mg Miscellaneous (Probiotic Screen) 1 ea MC PRN PRN PRN Reason: PROTOCOL Stop: 05/13/17 16:29 Miscellaneous (Clinical Monitoring) 1 ea MC DAILY PRN PRN Reason: RENAL Stop: 05/17/17 11:13 Mupirocin (Bactroban Oint) 1 appl NS BID [facility] Stop: 03/24/17 17:01 Ondansetron HCl (Zofran) 4 mg IVP Q6H PRN PRN Reason: Nausea / Vomiting Stop: 05/13/17 00:46 Pantoprazole Sodium (Protonix) 40 mg IVP DAILY [facility] Stop: 05/13/17 08:59 Last Admin: 03/19/17 09:21 Dose: 40 mg Phenytoin (Dilantin) 100 mg IVP Q8H [facility] Stop: 05/14/17 16:59 Last Admin: 03/19/17 17:14 Dose: 100 mg General: no acute distress, well developed, well nourished HEENT: atraumatic, normocephalic, PERRLA, EOMI Neck: supple, no thyromegaly Cardiovascular: S1S2, regular Lungs: clear to percussion, rhonchi Abdomen: soft, bowel sounds, obese, no tender, no distended Extremities: no cyanosis, no clubbing, no edema Neurological: awake, alert, oriented Skin: intact - Procedures Procedures: Procedures Procedure Code Date RESPIRATORY VENTILATION, 24-96 CONSECUTIVE HOURS [id number] 03/13/17 Infectious Disease Assmt/Plan - Problem List Patient Problems: All Active Problems H/O drug dependence (Acute) F19.21 H/O: depression (Acute) Z86.59 H/O: obesity (Acute) Z86.39 Respiratory failure (Acute) J96.90 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 h/o prior clavicular fracture (Acute) pneumonia (Acute) - Assessment Assessment: 1. Sepsis with multiorgan failure. 2. Pneumonia ( CXR showed bibasilar infiltrates). 3. Obesity. 4. Renal failure on HD. ? acute versus chronic, 5. acute on chronic respiratory failure versus acute respiratory failure on ventilator. 6. COPD. 7. HTN. - Plan Plan: Continue zyvox and rocephin, Nutritional Asmnt/Malnutr-PDOC - Dietary Evaluation Malnutrition Findings (Please click <Entered> for more info): Nutritional Asmnt/Malnutrition Start: 03/15/17 12: 22 Text: Status: Complete Freq: Document 03/15/17 12:28 GSUN (Rec: 03/15/17 12:39 GSUN [id number]) Nutritional Asmnt/Malnutrition Patient General Information Nutritional Screening High Risk Screening Diagnosis ROSARIO, sepsis with multiorgan failure, intubated, penumonia, resp failure Pertinent Medical Hx/Surgical Hx Asthma, COPD, severe obesity, prior clavicular fractures, chronic drug dependence, depression, HTN, cardiomyopathy, chronic pain syndrome Subjective Information 66 year old female from home. Per MD reports, pt with hx polysubstance abuse, 03/09/17 severe septic shock with multiorgan failure, involving respiratory and renal failure, intubated on diaylisys. Observed pt on vent with tube feeding infusing at 30ml/hr during visit. Spoke to RN, RN stated BM yesterday, none today yet, no residuals, tolerating well. 03/14 HD. Current Diet Order/ Nutrition Support Novasource Renal 35ml/hr x 24hrs, providing 840ml, 1680kcal, 76g protein Pertinent Medications D50w, Glutose 40%, Epogen, Iron, Glucagen, Dilaudid, Novolog, Solu Medrol, Zofran, Protonix Pertinent Labs 03/15: BUN 36H, creatinine 4.8H , glucose 172H Nutritional Hx/Data Height 1.6 m Height (Calculated Centimeters) 160.0 Current Weight (lbs) 117.843 kg Weight (Calculated Kilograms) 117.8 Weight (Calculated Grams) 777658.3 Leland Body Weight 115 Weight Status Morbidly Obese GI Symptoms Skin Integrity/Comment: Jordon 10. Bruises. Estimated Nutritional Goals BEE in Kcals: Adj wt of IBW Calories/Kcals/Kg AdjBW 151.2lb/68.7kg Kcals Calculated 2061-2405kcal (30-35kcal/kg) Protein: Adj wt of IBW Protein Calculated 103-137g (1.5-2g/kg) Fluid: ml Per MD Nutritional Problem 2. Problem Problem Increased kcal and prot needs related to Etiology hypermetabolic state aeb Signs/Symptoms: sepsis with multiorgan failure , on HD, penumonia 1. 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 Recommend Novasource Renal at 50ml/hr x 24hrs, providing 1200ml, 2400kcal, 109g protein . Increase 10ml/hr q12hrs as tolerated until goal rate of 50ml/hr. Hypermetabolic state: sepsis multiorgan failure, HD, resp failure, pneumonia , with consideration of morbid obesity. 2. Unable to provide FDI education due to pt intubated on tube feeding. Expected Outcomes/Goals Expected Outcomes/Goals 1. Pt to meet 100% of estimated nutritional needs on tube feeding with tolerance.
[2017-03-20] MEDS: Phenytoin 50 mg/mL 2 mL Vial IVP SCH ×2 (02:45→08:51)
--- NOTE | 2017-03-20 04:53 | Progress Notes ---
DATE: 03/18/2017 PROBLEM LIST: 1. Acute respiratory failure. 2. Right lobe pneumonia. 3. Suspect obstructive sleep apnea syndrome. 4. History of opioid dependence. 5. Chronic renal failure. SYMPTOMS: Nil. Feeling okay so far tolerating, extubating reasonably well. He has tremulous of the hands and the face, but currently okay on nasal cannula and according to nursing staff he is able to eat okay. No specific new symptoms. PHYSICAL EXAMINATION: VITAL SIGNS: The patient is afebrile, heart rate is in 80s, blood pressure 121/62, and saturation is 100% on nasal O2. NECK: Neck veins not visualized. CHEST: Shows diminished air entry with occasional rhonchi. HEART: Regular. ABDOMEN: Soft, nontender. LABORATORY DATA: White count is 12.6, hemoglobin 7.9. ABG this morning on 32% of oxygen shows mild retention of pCO2 and pO2 of 80. Electrolytes are okay except for creatinine is 6.9 and potassium is 3.4. ASSESSMENT: The patient is clinically stable, improving, tolerating extubation so far PLANS AND SUGGESTIONS: We will continue aggressive inhalation treatment, nocturnal BiPAP, IV antibiotics per ID and go from there. JOB# [id number]
[2017-03-20] MEDS: Linezolid 600mg/300mL 600 MG/300 ML BAG IV SCH ×2 (04:59→15:52)
[2017-03-20 05:33] LABS: INR 1.11 (0.5-1.4); PROTHROMBIN TIME (TEST) 11.6 SECONDS (9.5-11.5)
[2017-03-20 06:16] LABS: RED BLOOD COUNT 2.71 Mil/cmm (3.80-5.20); WHITE BLOOD COUNT 12.2 Th/cmm (4.8-10.8)
[2017-03-20 06:17] LABS: HEMATOCRIT 23.2 % (41.0-60); HEMOGLOBIN 7.8 gm/dL (12-16); MEAN CELL VOLUME 85.7 fl (81-100); MEAN CORPUSCULAR HEMOGLOBIN 28.9 pg (27.0-31.0); MEAN CORPUSCULAR HGB CONC 33.8 pg (28.0-36.0); RED CELL DISTRIBUTION WIDTH 22.2 % (11.5-20.0)
[2017-03-20 06:18] LABS: MEAN PLATELET VOLUME 7.1 fl; PLATELET COUNT 497 Th/cmm (150-400)
[2017-03-20 06:19] LABS: BAND NEUTROPHILE 1 % (0-10); NEUTROPHILS 79 % (40-80); TOTAL CELLS COUNTED 100
[2017-03-20 06:20] LABS: EOSINOPHIL 3 % (0-5)
[2017-03-20] MEDS: Budesonide 0.5 Mg/2 mL Ud HHN SCH ×2 (07:45→19:06)
--- NOTE | 2017-03-20 08:39 | General Progress Note ---
Subjective - Review of Systems Events since last encounter: awake, alert, nad Objective - Results Result Diagrams: 03/20/17 05:00 03/19/17 05:15 Recent Labs: Laboratory Last Values WBC 12.2 Th/cmm (4.8-10.8) H 03/20/17 05:00 RBC 2.71 Mil/cmm (3.80-5.20) L 03/20/17 05:00 Hgb 7.8 gm/dL (12-16) L* 03/20/17 05:00 Hct 23.2 % (41.0-60) L 03/20/17 05:00 MCV 85.7 fl (81-100) 03/20/17 05:00 MCH 28.9 pg (27.0-31.0) 03/20/17 05:00 MCHC Differential 33.8 pg (28.0-36.0) 03/20/17 05:00 RDW 22.2 % (11.5-20.0) H 03/20/17 05:00 Plt Count 497 Th/cmm (150-400) H 03/20/17 05:00 MPV 7.1 fl 03/20/17 05:00 Band Neutrophils % 1 % (0-10) 03/20/17 05:00 Neutrophils (Manual) 79 % (40-80) 03/20/17 05:00 Lymphocytes 15 % (20-50) L 03/20/17 05:00 Monocytes 2 % (2-10) 03/20/17 05:00 Eosinophils 3 % (0-5) 03/20/17 05:00 Platelet Estimate INCREASED PLATELETS (NORMAL) 03/19/17 05:15 Platelet Morphology NORMAL (NORMAL) 03/19/17 05:15 Anisocytosis 1+ 03/19/17 05:15 PT 11.6 SECONDS (9.5-11.5) H 03/20/17 05:00 INR 1.11 (0.5-1.4) 03/20/17 05:00 Specimen Source Arterial 03/18/17 08:30 Sample Site Right Radial 03/18/17 08:30 pH 7.43 (7.35-7.45) 03/18/17 08:30 pCO2 46.0 mmHg (35.0-45.0) H 03/18/17 08:30 pO2 80.0 mmHg (80.0-100.0) 03/18/17 08:30 HCO3 29.0 mEq/L (20.0-26.0) H 03/18/17 08:30 Base Excess 5.3 mEq/L (-3.0-3.0) H 03/18/17 08:30 O2 Saturation 96.0 % (92.0-100.0) 03/18/17 08:30 Ruben Test YES 03/18/17 08:30 Vent Rate NA 03/18/17 08:30 Inspired O2 32 03/18/17 08:30 Tidal Volume NA 03/18/17 08:30 PEEP NA 03/18/17 08:30 Pressure (ins/psv/peep) NA 03/18/17 08:30 Critical Value SH 03/18/17 08:30 Sodium 138 mEq/L (136-145) 03/19/17 05:15 Potassium 3.6 mEq/L (3.5-5.1) 03/19/17 05:15 Chloride 101 mEq/L (98-107) 03/19/17 05:15 Carbon Dioxide 28.2 mEq/L (21.0-31.0) 03/19/17 05:15 Anion Gap 12.4 (7.0-16.0) 03/19/17 05:15 BUN 45 mg/dL (7-25) H 03/19/17 05:15 Creatinine 6.3 mg/dL (0.6-1.2) H* 03/19/17 05:15 Est GFR ( Amer) 8.5 ml/min (>90) 03/19/17 05:15 Est GFR (Non-Af Amer) 7.0 ml/min 03/19/17 05:15 BUN/Creatinine Ratio 7.1 03/19/17 05:15 Glucose 162 mg/dL (70-105) H 03/19/17 05:15 POC Glucose 131 MG/DL (70 - 105) H 03/19/17 13:19 Hemoglobin A1c % 5.5 % (4.0-6.0) 03/16/17 06:52 Uric Acid 4.2 mg/dL (2.3-6.6) 03/15/17 05:00 Calcium 8.1 mg/dL (8.6-10.3) L 03/19/17 05:15 Phosphorus 3.0 mg/dL (2.5-5.0) 03/15/17 05:00 Magnesium 1.9 mg/dL (1.9-2.7) 03/19/17 05:15 Total Bilirubin 0.7 mg/dL (0.3-1.0) 03/15/17 05:00 AST 92 U/L (13-39) H 03/15/17 05:00 ALT 93 U/L (7-52) H 03/15/17 05:00 Alkaline Phosphatase 104 U/L (34-104) 03/15/17 05:00 Ammonia 59 umol/L (16-53) H 03/15/17 05:00 Creatine Kinase 64 U/L (30-223) 03/15/17 05:00 Total Protein 7.2 gm/dL (6.0-8.3) 03/15/17 05:00 Albumin 3.4 gm/dL (3.7-5.3) L 03/15/17 05:00 Globulin 3.8 gm/dL 03/15/17 05:00 Albumin/Globulin Ratio 0.9 (1.0-1.8) L 03/15/17 05:00 Free T4 0.73 ng/dL (0.82-1.77) L 03/16/17 06:52 Thyroxine (T4) 6.46 ug/dl (6.09-12.23) 03/16/17 06:52 Free T3 1.2 pg/mL (2.0-4.4) L 03/16/17 06:52 TSH 1.05 uIU/ml (0.34-5.60) 03/15/17 05:00 Urine Source MODI PORT 03/17/17 12:45 Urine Color YELLOW 03/17/17 12:45 Urine Clarity HAZY (CLEAR) 03/17/17 12:45 Urine pH 6.0 (4.6 - 8.0) 03/17/17 12:45 Ur Specific [place] 1.015 (1.005-1.030) 03/17/17 12:45 Urine Protein >=300 mg/dL (NEGATIVE) 03/17/17 12:45 Urine Glucose (UA) NEGATIVE mg/dL (NEGATIVE) 03/17/17 12:45 Urine Ketones NEGATIVE mg/dL (NEGATIVE) 03/17/17 12:45 Urine Blood LARGE (NEGATIVE) H 03/17/17 12:45 Urine Nitrate NEGATIVE (NEGATIVE) 03/17/17 12:45 Urine Bilirubin NEGATIVE (NEGATIVE) 03/17/17 12:45 Urine Urobilinogen 0.2 E.U./dL (0.2 - 1.0) 03/17/17 12:45 Ur Leukocyte Esterase SMALL (NEGATIVE) H 03/17/17 12:45 Urine RBC 25-50 /hpf (0-5) H 03/17/17 12:45 Urine WBC 6-10 /hpf (0-5) H 03/17/17 12:45 Ur Epithelial Cells FEW /lpf (FEW) 03/17/17 12:45 Urine Bacteria FEW /hpf (NONE SEEN) 03/17/17 12:45 Urine Yeast MODERATE /hpf (NONE SEEN) H 03/17/17 12:45 Urine Opiates Screen POSITIVE (NEGATIVE) H 03/17/17 12:45 Urine Methadone Screen NEGATIVE (NEGATIVE) 03/17/17 12:45 Ur Barbiturates Screen POSITIVE (NEGATIVE) H 03/17/17 12:45 Ur Tricyclics Screen NEGATIVE (NEGATIVE) 03/17/17 12:45 Ur Phencyclidine Scrn NEGATIVE (NEGATIVE) 03/17/17 12:45 Amphetamines Screen NEGATIVE (NEGATIVE) 03/17/17 12:45 U Methamphetamines Scrn POSITIVE (NEGATIVE) H 03/17/17 12:45 U Benzodiazepines Scrn POSITIVE (NEGATIVE) H 03/17/17 12:45 U Cocaine Metab Screen NEGATIVE (NEGATIVE) 03/17/17 12:45 U Cannabinoids Screen NEGATIVE (NEGATIVE) 03/17/17 12:45 Hepatitis A IgM Ab Negative (Negative) 03/14/17 21:23 Hep Bs Antigen Negative (Negative) 03/14/17 21:23 Hep B Core IgM Ab Negative (Negative) 03/14/17 21:23 Hepatitis C Antibody <0.1 s/co ratio (0.0-0.9) 03/14/17 21:23 - Physical Exam Vitals and I&O: Vital Signs Temp 99.8 F 03/20/17 04:00 Pulse 99 03/20/17 07:35 Resp 22 03/20/17 07:48 BP 132/54 03/20/17 04:00 Pulse Ox 97 03/20/17 07:35 Intake & Output 03/19/17 03/20/17 03/20/17 18:59 06:59 18:59 Intake Total 550 Output Total 700 250 Balance -150 -250 Weight (lbs) 74.072 kg 108.862 kg Intake: Intake, IV Amount 450 Levetiracetam 1000mg/ 100 100mL 1,000 mg In 100 ml @ 400 mls/hr IV Q12H [facility] Rx#:[id number] Linezolid 600mg/300mL 600 300 mg In 300 ml @ 300 mls/ hr IV Q12H [facility] Rx#: [id number] cefTRIAXone 1 gm In 50 Dextrose 5% 50 ml @ 100 mls/hr IV Q24H [facility] Rx#: [id number] Oral 100 Output: Urine 200 250 Hemodialysis 500 Other: # Bowel Movements 1 Stool Characteristics Soft Liquid Brown Active Medications: Current Medications Acetaminophen (Tylenol) 650 mg PO Q4HR PRN PRN Reason: T 101F Stop: 05/13/17 00:20 Last Admin: 03/14/17 17:29 Dose: 650 mg Albuterol Sulfate (Albuterol 2.5mg/3ml Neb Ud) 2.5 mg HHN Q1H PRN PRN Reason: Shortness of Breath or Wheeze Albuterol/Ipratropium (Duoneb Neb) 3 ml HHN Q4HRT [facility] Stop: 05/13/17 14:59 Last Admin: 03/20/17 07:31 Dose: 3 ml Budesonide (Pulmicort) 0.5 mg HHN BIDRT [facility] Stop: 05/13/17 18:59 Last Admin: 03/20/17 07:45 Dose: 0.5 mg Carvedilol (Coreg) 6.25 mg NG BID [facility] Stop: 05/13/17 08:59 Last Admin: 03/19/17 17:11 Dose: 6.25 mg Dextrose (D50w) 50 ml IVP PRN PRN PRN Reason: Blood Glucose less than 70 Stop: 05/13/17 00:22 Dextrose (Glutose 40%) 18.75 gm PO PRN PRN PRN Reason: Blood Glucose less than 70 Stop: 05/13/17 00:22 Epoetin John (Epogen) 10,000 units SUBQ MoFr@1500 [facility] Stop: 05/13/17 14:59 Last Admin: 03/17/17 15:39 Dose: 10,000 units Ferrous Sulfate (Iron) 300 mg NG BID [facility] Stop: 05/13/17 08:59 Last Admin: 03/19/17 17:12 Dose: 300 mg Glucagon (Glucagen) 1 mg IM PRN PRN PRN Reason: Blood Glucose less than 70 Stop: 05/13/17 00:22 Heparin Sodium (Porcine) (Heparin) 5,000 units SUBQ Q8HR [facility] Stop: 05/13/17 08:00 Last Admin: 03/20/17 04:59 Dose: 5,000 units Hydralazine HCl (Apresoline 20 Mg/Ml) 10 mg IV Q3H PRN PRN Reason: FOR SBP ABOVE 150 Stop: 05/13/17 00:41 Hydromorphone HCl (Dilaudid) 2 mg IVP Q3H PRN PRN Reason: FOR MODERATE PAIN Stop: 05/13/17 00:46 Last Admin: 03/19/17 11:54 Dose: 2 mg Hydromorphone HCl (Dilaudid) 1 mg IVP Q3H PRN PRN Reason: MILD PAIN Stop: 05/13/17 00:46 Last Admin: 03/18/17 14:00 Dose: 1 mg Linezolid (Zyvox) 600 mg in 300 mls @ 300 mls/hr IV Q12H [facility] Stop: 05/13/17 15:59 Last Admin: 03/20/17 04:59 Dose: 300 mls/hr Ceftriaxone Sodium 1 gm/ (Dextrose) 50 mls @ 100 mls/hr IV Q24H [facility] Stop: 05/13/17 13:59 Last Infusion: 03/19/17 14:25 Dose: Infused Levetiracetam (Keppra Pb) 1,000 mg in 100 mls @ 400 mls/hr IV Q12H [facility] Stop: 05/14/17 21:14 Last Admin: 03/19/17 21:28 Dose: 100 mls/hr Lorazepam (Ativan) 2 mg IVP Q4H PRN; Protocol PRN Reason: Agitation Stop: 05/14/17 07:34 Last Admin: 03/19/17 04:17 Dose: 2 mg Miscellaneous (Probiotic Screen) 1 ea MC PRN PRN PRN Reason: PROTOCOL Stop: 05/13/17 16:29 Miscellaneous (Clinical Monitoring) 1 ea MC DAILY PRN PRN Reason: RENAL Stop: 05/17/17 11:13 Mupirocin (Bactroban Oint) 1 appl NS BID [facility] Stop: 03/24/17 17:01 Ondansetron HCl (Zofran) 4 mg IVP Q6H PRN PRN Reason: Nausea / Vomiting Stop: 05/13/17 00:46 Pantoprazole Sodium (Protonix) 40 mg IVP DAILY [facility] Stop: 05/13/17 08:59 Last Admin: 03/19/17 09:21 Dose: 40 mg Phenytoin (Dilantin) 100 mg IVP Q8H [facility] Stop: 05/14/17 16:59 Last Admin: 03/20/17 02:45 Dose: 100 mg General: Alert, No acute distress HEENT: Atraumatic, EOMI Neck: Supple, +2 carotid pulse wo bruit Cardiovascular: Regular rate, Normal S1, Normal S2 Lungs: Other (few rhonchi) Abdomen: Bowel sounds, Soft Extremities: no Edema Neurological: Sensation intact Skin: no Rash Psych/Mental Status: Mood NL - Procedures Procedures: Procedures Procedure Code Date RESPIRATORY VENTILATION, 24-96 CONSECUTIVE HOURS [id number] 03/13/17 Assessment/Plan - Problem List Patient Problems: All Active Problems H/O drug dependence (Acute) F19.21 H/O: depression (Acute) Z86.59 H/O: obesity (Acute) Z86.39 Respiratory failure (Acute) J96.90 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 h/o prior clavicular fracture (Acute) pneumonia (Acute) - Plan Plan: cpm Nutritional Asmnt/Malnutr-PDOC - Dietary Evaluation Malnutrition Findings (Please click <Entered> for more info): Nutritional Asmnt/Malnutrition Start: 03/15/17 12: 22 Text: Status: Complete Freq: Document 03/15/17 12:28 GSUN (Rec: 03/15/17 12:39 [email or web address] [id number]) Nutritional Asmnt/Malnutrition Patient General Information Nutritional Screening High Risk Screening Diagnosis ROSARIO, sepsis with multiorgan failure, intubated, penumonia, resp failure Pertinent Medical Hx/Surgical Hx Asthma, COPD, severe obesity, prior clavicular fractures, chronic drug dependence, depression, HTN, cardiomyopathy, chronic pain syndrome Subjective Information 66 year old female from home. Per MD reports, pt with hx polysubstance abuse, 03/09/17 severe septic shock with multiorgan failure, involving respiratory and renal failure, intubated on diaylisys. Observed pt on vent with tube feeding infusing at 30ml/hr during visit. Spoke to RN, RN stated BM yesterday, none today yet, no residuals, tolerating well. 03/14 HD. Current Diet Order/ Nutrition Support Novasource Renal 35ml/hr x 24hrs, providing 840ml, 1680kcal, 76g protein Pertinent Medications D50w, Glutose 40%, Epogen, Iron, Glucagen, Dilaudid, Novolog, Solu Medrol, Zofran, Protonix Pertinent Labs 03/15: BUN 36H, creatinine 4.8H , glucose 172H Nutritional Hx/Data Height 1.6 m Height (Calculated Centimeters) 160.0 Current Weight (lbs) 117.843 kg Weight (Calculated Kilograms) 117.8 Weight (Calculated Grams) 906344.3 [place] Body Weight 115 Weight Status Morbidly Obese GI Symptoms Skin Integrity/Comment: Jordon 10. Bruises. Estimated Nutritional Goals BEE in Kcals: Adj wt of IBW Calories/Kcals/Kg AdjBW 151.2lb/68.7kg Kcals Calculated 2061-2405kcal (30-35kcal/kg) Protein: Adj wt of IBW Protein Calculated 103-137g (1.5-2g/kg) Fluid: ml Per MD Nutritional Problem 2. Problem Problem Increased kcal and prot needs related to Etiology hypermetabolic state aeb Signs/Symptoms: sepsis with multiorgan failure , on HD, penumonia 1. 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 Recommend Novasource Renal at 50ml/hr x 24hrs, providing 1200ml, 2400kcal, 109g protein . Increase 10ml/hr q12hrs as tolerated until goal rate of 50ml/hr. Hypermetabolic state: sepsis multiorgan failure, HD, resp failure, pneumonia , with consideration of morbid obesity. 2. Unable to provide FDI education due to pt intubated on tube feeding. Expected Outcomes/Goals Expected Outcomes/Goals 1. Pt to meet 100% of estimated nutritional needs on tube feeding with tolerance.
[2017-03-20] MEDS: Ferrous Sulfate 300 MG/5 ML UDC NG SCH ×2 (09:00→18:07)
[2017-03-20] MEDS: Levetiracetam 1000mg/100mL 1,000 MG/100 ML BAG IV SCH ×2 (10:30→21:38)
--- NOTE | 2017-03-20 11:15 | Infectious Disease Prog Note ---
Infectious Disease Subjective - Review of Systems Service Date: 03/20/17 Subjective: Doing well. not in distress. Infectious Disease Objective - Results Result Diagrams: 03/20/17 05:00 03/19/17 05:15 Recent Labs: Laboratory Last Values WBC 12.2 Th/cmm (4.8-10.8) H 03/20/17 05:00 RBC 2.71 Mil/cmm (3.80-5.20) L 03/20/17 05:00 Hgb 7.8 gm/dL (12-16) L* 03/20/17 05:00 Hct 23.2 % (41.0-60) L 03/20/17 05:00 MCV 85.7 fl (81-100) 03/20/17 05:00 MCH 28.9 pg (27.0-31.0) 03/20/17 05:00 MCHC Differential 33.8 pg (28.0-36.0) 03/20/17 05:00 RDW 22.2 % (11.5-20.0) H 03/20/17 05:00 Plt Count 497 Th/cmm (150-400) H 03/20/17 05:00 MPV 7.1 fl 03/20/17 05:00 Band Neutrophils % 1 % (0-10) 03/20/17 05:00 Neutrophils (Manual) 79 % (40-80) 03/20/17 05:00 Lymphocytes 15 % (20-50) L 03/20/17 05:00 Monocytes 2 % (2-10) 03/20/17 05:00 Eosinophils 3 % (0-5) 03/20/17 05:00 Platelet Estimate INCREASED PLATELETS (NORMAL) 03/19/17 05:15 Platelet Morphology NORMAL (NORMAL) 03/19/17 05:15 Anisocytosis 1+ 03/19/17 05:15 PT 11.6 SECONDS (9.5-11.5) H 03/20/17 05:00 INR 1.11 (0.5-1.4) 03/20/17 05:00 Specimen Source Arterial 03/18/17 08:30 Sample Site Right Radial 03/18/17 08:30 pH 7.43 (7.35-7.45) 03/18/17 08:30 pCO2 46.0 mmHg (35.0-45.0) H 03/18/17 08:30 pO2 80.0 mmHg (80.0-100.0) 03/18/17 08:30 HCO3 29.0 mEq/L (20.0-26.0) H 03/18/17 08:30 Base Excess 5.3 mEq/L (-3.0-3.0) H 03/18/17 08:30 O2 Saturation 96.0 % (92.0-100.0) 03/18/17 08:30 Ruben Test YES 03/18/17 08:30 Vent Rate NA 03/18/17 08:30 Inspired O2 32 03/18/17 08:30 Tidal Volume NA 03/18/17 08:30 PEEP NA 03/18/17 08:30 Pressure (ins/psv/peep) NA 03/18/17 08:30 Critical Value SH 03/18/17 08:30 Sodium 138 mEq/L (136-145) 03/19/17 05:15 Potassium 3.6 mEq/L (3.5-5.1) 03/19/17 05:15 Chloride 101 mEq/L (98-107) 03/19/17 05:15 Carbon Dioxide 28.2 mEq/L (21.0-31.0) 03/19/17 05:15 Anion Gap 12.4 (7.0-16.0) 03/19/17 05:15 BUN 45 mg/dL (7-25) H 03/19/17 05:15 Creatinine 6.3 mg/dL (0.6-1.2) H* 03/19/17 05:15 Est GFR ( Amer) 8.5 ml/min (>90) 03/19/17 05:15 Est GFR (Non-Af Amer) 7.0 ml/min 03/19/17 05:15 BUN/Creatinine Ratio 7.1 03/19/17 05:15 Glucose 162 mg/dL (70-105) H 03/19/17 05:15 POC Glucose 131 MG/DL (70 - 105) H 03/19/17 13:19 Hemoglobin A1c % 5.5 % (4.0-6.0) 03/16/17 06:52 Uric Acid 4.2 mg/dL (2.3-6.6) 03/15/17 05:00 Calcium 8.1 mg/dL (8.6-10.3) L 03/19/17 05:15 Phosphorus 3.0 mg/dL (2.5-5.0) 03/15/17 05:00 Magnesium 1.9 mg/dL (1.9-2.7) 03/19/17 05:15 Total Bilirubin 0.7 mg/dL (0.3-1.0) 03/15/17 05:00 AST 92 U/L (13-39) H 03/15/17 05:00 ALT 93 U/L (7-52) H 03/15/17 05:00 Alkaline Phosphatase 104 U/L (34-104) 03/15/17 05:00 Ammonia 59 umol/L (16-53) H 03/15/17 05:00 Creatine Kinase 64 U/L (30-223) 03/15/17 05:00 Total Protein 7.2 gm/dL (6.0-8.3) 03/15/17 05:00 Albumin 3.4 gm/dL (3.7-5.3) L 03/15/17 05:00 Globulin 3.8 gm/dL 03/15/17 05:00 Albumin/Globulin Ratio 0.9 (1.0-1.8) L 03/15/17 05:00 Free T4 0.73 ng/dL (0.82-1.77) L 03/16/17 06:52 Thyroxine (T4) 6.46 ug/dl (6.09-12.23) 03/16/17 06:52 Free T3 1.2 pg/mL (2.0-4.4) L 03/16/17 06:52 TSH 1.05 uIU/ml (0.34-5.60) 03/15/17 05:00 Urine Source MODI PORT 03/17/17 12:45 Urine Color YELLOW 03/17/17 12:45 Urine Clarity HAZY (CLEAR) 03/17/17 12:45 Urine pH 6.0 (4.6 - 8.0) 03/17/17 12:45 Ur Specific [place] 1.015 (1.005-1.030) 03/17/17 12:45 Urine Protein >=300 mg/dL (NEGATIVE) 03/17/17 12:45 Urine Glucose (UA) NEGATIVE mg/dL (NEGATIVE) 03/17/17 12:45 Urine Ketones NEGATIVE mg/dL (NEGATIVE) 03/17/17 12:45 Urine Blood LARGE (NEGATIVE) H 03/17/17 12:45 Urine Nitrate NEGATIVE (NEGATIVE) 03/17/17 12:45 Urine Bilirubin NEGATIVE (NEGATIVE) 03/17/17 12:45 Urine Urobilinogen 0.2 E.U./dL (0.2 - 1.0) 03/17/17 12:45 Ur Leukocyte Esterase SMALL (NEGATIVE) H 03/17/17 12:45 Urine RBC 25-50 /hpf (0-5) H 03/17/17 12:45 Urine WBC 6-10 /hpf (0-5) H 03/17/17 12:45 Ur Epithelial Cells FEW /lpf (FEW) 03/17/17 12:45 Urine Bacteria FEW /hpf (NONE SEEN) 03/17/17 12:45 Urine Yeast MODERATE /hpf (NONE SEEN) H 03/17/17 12:45 Urine Opiates Screen POSITIVE (NEGATIVE) H 03/17/17 12:45 Urine Methadone Screen NEGATIVE (NEGATIVE) 03/17/17 12:45 Ur Barbiturates Screen POSITIVE (NEGATIVE) H 03/17/17 12:45 Ur Tricyclics Screen NEGATIVE (NEGATIVE) 03/17/17 12:45 Ur Phencyclidine Scrn NEGATIVE (NEGATIVE) 03/17/17 12:45 Amphetamines Screen NEGATIVE (NEGATIVE) 03/17/17 12:45 U Methamphetamines Scrn POSITIVE (NEGATIVE) H 03/17/17 12:45 U Benzodiazepines Scrn POSITIVE (NEGATIVE) H 03/17/17 12:45 U Cocaine Metab Screen NEGATIVE (NEGATIVE) 03/17/17 12:45 U Cannabinoids Screen NEGATIVE (NEGATIVE) 03/17/17 12:45 Hepatitis A IgM Ab Negative (Negative) 03/14/17 21:23 Hep Bs Antigen Negative (Negative) 03/14/17 21:23 Hep B Core IgM Ab Negative (Negative) 03/14/17 21:23 Hepatitis C Antibody <0.1 s/co ratio (0.0-0.9) 03/14/17 21:23 - Physical Exam Vitals and I&O: Vital Signs Temp 99.8 F 03/20/17 04:00 Pulse 102 03/20/17 10:31 Resp 22 03/20/17 07:48 BP 164/69 03/20/17 10:31 Pulse Ox 97 03/20/17 07:35 Intake & Output 03/19/17 03/20/17 03/20/17 18:59 06:59 18:59 Intake Total 550 100 Output Total 700 250 Balance -150 -150 Weight (lbs) 74.072 kg 108.862 kg Intake: Intake, IV Amount 450 100 Levetiracetam 1000mg/ 100 100 100mL 1,000 mg In 100 ml @ 400 mls/hr IV Q12H [facility] Rx#:[id number] Linezolid 600mg/300mL 600 300 mg In 300 ml @ 300 mls/ hr IV Q12H [facility] Rx#: [id number] cefTRIAXone 1 gm In 50 Dextrose 5% 50 ml @ 100 mls/hr IV Q24H [facility] Rx#: [id number] Oral 100 Output: Urine 200 250 Hemodialysis 500 Other: # Bowel Movements 1 Stool Characteristics Soft Liquid Brown Active Medications: Current Medications Acetaminophen (Tylenol) 650 mg PO Q4HR PRN PRN Reason: T 101F Stop: 05/13/17 00:20 Last Admin: 03/14/17 17:29 Dose: 650 mg Albuterol Sulfate (Albuterol 2.5mg/3ml Neb Ud) 2.5 mg HHN Q1H PRN PRN Reason: Shortness of Breath or Wheeze Albuterol/Ipratropium (Duoneb Neb) 3 ml HHN Q4HRT [facility] Stop: 05/13/17 14:59 Last Admin: 03/20/17 07:31 Dose: 3 ml Budesonide (Pulmicort) 0.5 mg HHN BIDRT [facility] Stop: 05/13/17 18:59 Last Admin: 03/20/17 07:45 Dose: 0.5 mg Carvedilol (Coreg) 6.25 mg NG BID [facility] Stop: 05/13/17 08:59 Last Admin: 03/20/17 10:31 Dose: 6.25 mg Dextrose (D50w) 50 ml IVP PRN PRN PRN Reason: Blood Glucose less than 70 Stop: 05/13/17 00:22 Dextrose (Glutose 40%) 18.75 gm PO PRN PRN PRN Reason: Blood Glucose less than 70 Stop: 05/13/17 00:22 Epoetin John (Epogen) 10,000 units SUBQ MoFr@1500 [facility] Stop: 05/13/17 14:59 Last Admin: 03/17/17 15:39 Dose: 10,000 units Ferrous Sulfate (Iron) 300 mg NG BID [facility] Stop: 05/13/17 08:59 Last Admin: 03/20/17 09:00 Dose: Not Given Glucagon (Glucagen) 1 mg IM PRN PRN PRN Reason: Blood Glucose less than 70 Stop: 05/13/17 00:22 Heparin Sodium (Porcine) (Heparin) 5,000 units SUBQ Q8HR [facility] Stop: 05/13/17 08:00 Last Admin: 03/20/17 04:59 Dose: 5,000 units Hydralazine HCl (Apresoline 20 Mg/Ml) 10 mg IV Q3H PRN PRN Reason: FOR SBP ABOVE 150 Stop: 05/13/17 00:41 Hydromorphone HCl (Dilaudid) 2 mg IVP Q3H PRN PRN Reason: FOR MODERATE PAIN Stop: 05/13/17 00:46 Last Admin: 03/19/17 11:54 Dose: 2 mg Hydromorphone HCl (Dilaudid) 1 mg IVP Q3H PRN PRN Reason: MILD PAIN Stop: 05/13/17 00:46 Last Admin: 03/18/17 14:00 Dose: 1 mg Linezolid (Zyvox) 600 mg in 300 mls @ 300 mls/hr IV Q12H [facility] Stop: 05/13/17 15:59 Last Admin: 03/20/17 04:59 Dose: 300 mls/hr Ceftriaxone Sodium 1 gm/ (Dextrose) 50 mls @ 100 mls/hr IV Q24H [facility] Stop: 05/13/17 13:59 Last Infusion: 03/19/17 14:25 Dose: Infused Levetiracetam (Keppra Pb) 1,000 mg in 100 mls @ 400 mls/hr IV Q12H [facility] Stop: 05/14/17 21:14 Last Admin: 03/20/17 10:30 Dose: 100 mls/hr Lorazepam (Ativan) 2 mg IVP Q4H PRN; Protocol PRN Reason: Agitation Stop: 05/14/17 07:34 Last Admin: 03/19/17 04:17 Dose: 2 mg Miscellaneous (Probiotic Screen) 1 ea MC PRN PRN PRN Reason: PROTOCOL Stop: 05/13/17 16:29 Miscellaneous (Clinical Monitoring) 1 ea MC DAILY PRN PRN Reason: RENAL Stop: 05/17/17 11:13 Mupirocin (Bactroban Oint) 1 appl NS BID [facility] Stop: 03/24/17 17:01 Last Admin: 03/20/17 08:59 Dose: 1 appl Ondansetron HCl (Zofran) 4 mg IVP Q6H PRN PRN Reason: Nausea / Vomiting Stop: 05/13/17 00:46 Pantoprazole Sodium (Protonix) 40 mg IVP DAILY [facility] Stop: 05/13/17 08:59 Last Admin: 03/20/17 08:51 Dose: 40 mg Phenytoin (Dilantin) 100 mg IVP Q8H [facility] Stop: 05/14/17 16:59 Last Admin: 03/20/17 08:51 Dose: 100 mg General: no acute distress, well developed, well nourished HEENT: atraumatic, normocephalic, PERRLA, EOMI, moist mucous membrane Neck: supple, no thyromegaly Cardiovascular: S1S2, regular Lungs: clear to auscultation bilaterally, clear to percussion Abdomen: soft, no tender, no distended Extremities: no cyanosis, no clubbing, no edema Neurological: awake, alert Skin: intact - Procedures Procedures: Procedures Procedure Code Date RESPIRATORY VENTILATION, 24-96 CONSECUTIVE HOURS [id number] 03/13/17 Infectious Disease Assmt/Plan - Problem List Patient Problems: All Active Problems H/O drug dependence (Acute) F19.21 H/O: depression (Acute) Z86.59 H/O: obesity (Acute) Z86.39 Respiratory failure (Acute) J96.90 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 h/o prior clavicular fracture (Acute) pneumonia (Acute) - Assessment Assessment: 1. Sepsis with multiorgan failure. 2. Pneumonia ( CXR shoed bibasilar infiltrates). 3. Obesity. 4. Renal failure on HD. ? acute versus chronic, 5. acute on chronic respiratory failure versus acute respiratory failure on ventilator. 6. COPD. 7. HTN. - Plan Plan: Continue zyvox and rocephin. Nutritional Asmnt/Malnutr-PDOC - Dietary Evaluation Malnutrition Findings (Please click <Entered> for more info): Nutritional Asmnt/Malnutrition Start: 03/15/17 12: 22 Text: Status: Complete Freq: Document 03/15/17 12:28 GSUN (Rec: 03/15/17 12:39 [email or web address] [email or web address]) Nutritional Asmnt/Malnutrition Patient General Information Nutritional Screening High Risk Screening Diagnosis ROSARIO, sepsis with multiorgan failure, intubated, penumonia, resp failure Pertinent Medical Hx/Surgical Hx Asthma, COPD, severe obesity, prior clavicular fractures, chronic drug dependence, depression, HTN, cardiomyopathy, chronic pain syndrome Subjective Information 66 year old female from home. Per MD reports, pt with hx polysubstance abuse, 03/09/17 severe septic shock with multiorgan failure, involving respiratory and renal failure, intubated on diaylisys. Observed pt on vent with tube feeding infusing at 30ml/hr during visit. Spoke to RN, RN stated BM yesterday, none today yet, no residuals, tolerating well. 03/14 HD. Current Diet Order/ Nutrition Support [facility] Renal 35ml/hr x 24hrs, providing 840ml, 1680kcal, 76g protein Pertinent Medications D50w, Glutose 40%, Epogen, Iron, Glucagen, Dilaudid, Novolog, Solu Medrol, Zofran, Protonix Pertinent Labs 03/15: BUN 36H, creatinine 4.8H , glucose 172H Nutritional Hx/Data Height 1.6 m Height (Calculated Centimeters) 160.0 Current Weight (lbs) 117.843 kg Weight (Calculated Kilograms) 117.8 Weight (Calculated Grams) 164214.3 [place] Body Weight 115 Weight Status Morbidly Obese GI Symptoms Skin Integrity/Comment: Jordon 10. Bruises. Estimated Nutritional Goals BEE in Kcals: Adj wt of IBW Calories/Kcals/Kg AdjBW 151.2lb/68.7kg Kcals Calculated 2061-2405kcal (30-35kcal/kg) Protein: Adj wt of IBW Protein Calculated 103-137g (1.5-2g/kg) Fluid: ml Per MD Nutritional Problem 2. Problem Problem Increased kcal and prot needs related to Etiology hypermetabolic state aeb Signs/Symptoms: sepsis with multiorgan failure , on HD, penumonia 1. 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 Recommend Novasource Renal at 50ml/hr x 24hrs, providing 1200ml, 2400kcal, 109g protein . Increase 10ml/hr q12hrs as tolerated until goal rate of 50ml/hr. Hypermetabolic state: sepsis multiorgan failure, HD, resp failure, pneumonia , with consideration of morbid obesity. 2. Unable to provide FDI education due to pt intubated on tube feeding. Expected Outcomes/Goals Expected Outcomes/Goals 1. Pt to meet 100% of estimated nutritional needs on tube feeding with tolerance.
[2017-03-20] MEDS ORDERED: Midazolam 1mg/ml 2 ml vial IV ONE (12:24)
--- NOTE | 2017-03-20 13:41 | General Progress Note ---
Subjective - Review of Systems Service Date: 03/20/17 Subjective: more alert, comfortable, verbal Objective - Results Result Diagrams: 03/20/17 05:00 03/19/17 05:15 Recent Labs: Laboratory Last Values WBC 12.2 Th/cmm (4.8-10.8) H 03/20/17 05:00 RBC 2.71 Mil/cmm (3.80-5.20) L 03/20/17 05:00 Hgb 7.8 gm/dL (12-16) L* 03/20/17 05:00 Hct 23.2 % (41.0-60) L 03/20/17 05:00 MCV 85.7 fl (81-100) 03/20/17 05:00 MCH 28.9 pg (27.0-31.0) 03/20/17 05:00 MCHC Differential 33.8 pg (28.0-36.0) 03/20/17 05:00 RDW 22.2 % (11.5-20.0) H 03/20/17 05:00 Plt Count 497 Th/cmm (150-400) H 03/20/17 05:00 MPV 7.1 fl 03/20/17 05:00 Band Neutrophils % 1 % (0-10) 03/20/17 05:00 Neutrophils (Manual) 79 % (40-80) 03/20/17 05:00 Lymphocytes 15 % (20-50) L 03/20/17 05:00 Monocytes 2 % (2-10) 03/20/17 05:00 Eosinophils 3 % (0-5) 03/20/17 05:00 Platelet Estimate INCREASED PLATELETS (NORMAL) 03/19/17 05:15 Platelet Morphology NORMAL (NORMAL) 03/19/17 05:15 Anisocytosis 1+ 03/19/17 05:15 PT 11.6 SECONDS (9.5-11.5) H 03/20/17 05:00 INR 1.11 (0.5-1.4) 03/20/17 05:00 Specimen Source Arterial 03/18/17 08:30 Sample Site Right Radial 03/18/17 08:30 pH 7.43 (7.35-7.45) 03/18/17 08:30 pCO2 46.0 mmHg (35.0-45.0) H 03/18/17 08:30 pO2 80.0 mmHg (80.0-100.0) 03/18/17 08:30 HCO3 29.0 mEq/L (20.0-26.0) H 03/18/17 08:30 Base Excess 5.3 mEq/L (-3.0-3.0) H 03/18/17 08:30 O2 Saturation 96.0 % (92.0-100.0) 03/18/17 08:30 Ruben Test YES 03/18/17 08:30 Vent Rate NA 03/18/17 08:30 Inspired O2 32 03/18/17 08:30 Tidal Volume NA 03/18/17 08:30 PEEP NA 03/18/17 08:30 Pressure (ins/psv/peep) NA 03/18/17 08:30 Critical Value SH 03/18/17 08:30 Sodium 138 mEq/L (136-145) 03/19/17 05:15 Potassium 3.6 mEq/L (3.5-5.1) 03/19/17 05:15 Chloride 101 mEq/L (98-107) 03/19/17 05:15 Carbon Dioxide 28.2 mEq/L (21.0-31.0) 03/19/17 05:15 Anion Gap 12.4 (7.0-16.0) 03/19/17 05:15 BUN 45 mg/dL (7-25) H 03/19/17 05:15 Creatinine 6.3 mg/dL (0.6-1.2) H* 03/19/17 05:15 Est GFR ( Amer) 8.5 ml/min (>90) 03/19/17 05:15 Est GFR (Non-Af Amer) 7.0 ml/min 03/19/17 05:15 BUN/Creatinine Ratio 7.1 03/19/17 05:15 Glucose 162 mg/dL (70-105) H 03/19/17 05:15 POC Glucose 131 MG/DL (70 - 105) H 03/19/17 13:19 Hemoglobin A1c % 5.5 % (4.0-6.0) 03/16/17 06:52 Uric Acid 4.2 mg/dL (2.3-6.6) 03/15/17 05:00 Calcium 8.1 mg/dL (8.6-10.3) L 03/19/17 05:15 Phosphorus 3.0 mg/dL (2.5-5.0) 03/15/17 05:00 Magnesium 1.9 mg/dL (1.9-2.7) 03/19/17 05:15 Total Bilirubin 0.7 mg/dL (0.3-1.0) 03/15/17 05:00 AST 92 U/L (13-39) H 03/15/17 05:00 ALT 93 U/L (7-52) H 03/15/17 05:00 Alkaline Phosphatase 104 U/L (34-104) 03/15/17 05:00 Ammonia 59 umol/L (16-53) H 03/15/17 05:00 Creatine Kinase 64 U/L (30-223) 03/15/17 05:00 Total Protein 7.2 gm/dL (6.0-8.3) 03/15/17 05:00 Albumin 3.4 gm/dL (3.7-5.3) L 03/15/17 05:00 Globulin 3.8 gm/dL 03/15/17 05:00 Albumin/Globulin Ratio 0.9 (1.0-1.8) L 03/15/17 05:00 Free T4 0.73 ng/dL (0.82-1.77) L 03/16/17 06:52 Thyroxine (T4) 6.46 ug/dl (6.09-12.23) 03/16/17 06:52 Free T3 1.2 pg/mL (2.0-4.4) L 03/16/17 06:52 TSH 1.05 uIU/ml (0.34-5.60) 03/15/17 05:00 Urine Source MODI PORT 03/17/17 12:45 Urine Color YELLOW 03/17/17 12:45 Urine Clarity HAZY (CLEAR) 03/17/17 12:45 Urine pH 6.0 (4.6 - 8.0) 03/17/17 12:45 Ur Specific [place] 1.015 (1.005-1.030) 03/17/17 12:45 Urine Protein >=300 mg/dL (NEGATIVE) 03/17/17 12:45 Urine Glucose (UA) NEGATIVE mg/dL (NEGATIVE) 03/17/17 12:45 Urine Ketones NEGATIVE mg/dL (NEGATIVE) 03/17/17 12:45 Urine Blood LARGE (NEGATIVE) H 03/17/17 12:45 Urine Nitrate NEGATIVE (NEGATIVE) 03/17/17 12:45 Urine Bilirubin NEGATIVE (NEGATIVE) 03/17/17 12:45 Urine Urobilinogen 0.2 E.U./dL (0.2 - 1.0) 03/17/17 12:45 Ur Leukocyte Esterase SMALL (NEGATIVE) H 03/17/17 12:45 Urine RBC 25-50 /hpf (0-5) H 03/17/17 12:45 Urine WBC 6-10 /hpf (0-5) H 03/17/17 12:45 Ur Epithelial Cells FEW /lpf (FEW) 03/17/17 12:45 Urine Bacteria FEW /hpf (NONE SEEN) 03/17/17 12:45 Urine Yeast MODERATE /hpf (NONE SEEN) H 03/17/17 12:45 Urine Opiates Screen POSITIVE (NEGATIVE) H 03/17/17 12:45 Urine Methadone Screen NEGATIVE (NEGATIVE) 03/17/17 12:45 Ur Barbiturates Screen POSITIVE (NEGATIVE) H 03/17/17 12:45 Ur Tricyclics Screen NEGATIVE (NEGATIVE) 03/17/17 12:45 Ur Phencyclidine Scrn NEGATIVE (NEGATIVE) 03/17/17 12:45 Amphetamines Screen NEGATIVE (NEGATIVE) 03/17/17 12:45 U Methamphetamines Scrn POSITIVE (NEGATIVE) H 03/17/17 12:45 U Benzodiazepines Scrn POSITIVE (NEGATIVE) H 03/17/17 12:45 U Cocaine Metab Screen NEGATIVE (NEGATIVE) 03/17/17 12:45 U Cannabinoids Screen NEGATIVE (NEGATIVE) 03/17/17 12:45 Hepatitis A IgM Ab Negative (Negative) 03/14/17 21:23 Hep Bs Antigen Negative (Negative) 03/14/17 21:23 Hep B Core IgM Ab Negative (Negative) 03/14/17 21:23 Hepatitis C Antibody <0.1 s/co ratio (0.0-0.9) 03/14/17 21:23 - Physical Exam Vitals and I&O: Vital Signs Temp 99.8 F 03/20/17 04:00 Pulse 102 03/20/17 10:31 Resp 22 03/20/17 07:48 BP 164/69 03/20/17 10:31 Pulse Ox 97 03/20/17 07:45 Intake & Output 03/19/17 03/20/17 03/20/17 18:59 06:59 18:59 Intake Total 550 100 100 Output Total 700 250 Balance -150 -150 100 Weight (lbs) 74.072 kg 108.862 kg Intake: Intake, IV Amount 450 100 100 Levetiracetam 1000mg/ 100 100 100 100mL 1,000 mg In 100 ml @ 400 mls/hr IV Q12H [facility] Rx#:[id number] Linezolid 600mg/300mL 600 300 mg In 300 ml @ 300 mls/ hr IV Q12H [facility] Rx#: [id number] cefTRIAXone 1 gm In 50 Dextrose 5% 50 ml @ 100 mls/hr IV Q24H [facility] Rx#: [id number] Oral 100 Output: Urine 200 250 Hemodialysis 500 Other: # Bowel Movements 1 Stool Characteristics Soft Liquid Brown Active Medications: Current Medications Acetaminophen (Tylenol) 650 mg PO Q4HR PRN PRN Reason: T 101F Stop: 05/13/17 00:20 Last Admin: 03/14/17 17:29 Dose: 650 mg Albuterol Sulfate (Albuterol 2.5mg/3ml Neb Ud) 2.5 mg HHN Q1H PRN PRN Reason: Shortness of Breath or Wheeze Albuterol/Ipratropium (Duoneb Neb) 3 ml HHN Q4HRT [facility] Stop: 05/13/17 14:59 Last Admin: 03/20/17 12:08 Dose: Not Given Budesonide (Pulmicort) 0.5 mg HHN BIDRT [facility] Stop: 05/13/17 18:59 Last Admin: 03/20/17 07:45 Dose: 0.5 mg Carvedilol (Coreg) 6.25 mg NG BID [facility] Stop: 05/13/17 08:59 Last Admin: 03/20/17 10:31 Dose: 6.25 mg Dextrose (D50w) 50 ml IVP PRN PRN PRN Reason: Blood Glucose less than 70 Stop: 05/13/17 00:22 Dextrose (Glutose 40%) 18.75 gm PO PRN PRN PRN Reason: Blood Glucose less than 70 Stop: 05/13/17 00:22 Epoetin John (Epogen) 10,000 units SUBQ MoFr@1500 [facility] Stop: 05/13/17 14:59 Last Admin: 03/17/17 15:39 Dose: 10,000 units Ferrous Sulfate (Iron) 300 mg NG BID [facility] Stop: 05/13/17 08:59 Last Admin: 03/20/17 09:00 Dose: Not Given Glucagon (Glucagen) 1 mg IM PRN PRN PRN Reason: Blood Glucose less than 70 Stop: 05/13/17 00:22 Heparin Sodium (Porcine) (Heparin) 5,000 units SUBQ Q8HR [facility] Stop: 05/13/17 08:00 Last Admin: 03/20/17 13:19 Dose: Not Given Hydralazine HCl (Apresoline 20 Mg/Ml) 10 mg IV Q3H PRN PRN Reason: FOR SBP ABOVE 150 Stop: 05/13/17 00:41 Hydromorphone HCl (Dilaudid) 2 mg IVP Q3H PRN PRN Reason: FOR MODERATE PAIN Stop: 05/13/17 00:46 Last Admin: 03/19/17 11:54 Dose: 2 mg Hydromorphone HCl (Dilaudid) 1 mg IVP Q3H PRN PRN Reason: MILD PAIN Stop: 05/13/17 00:46 Last Admin: 03/18/17 14:00 Dose: 1 mg Linezolid (Zyvox) 600 mg in 300 mls @ 300 mls/hr IV Q12H [facility] Stop: 05/13/17 15:59 Last Admin: 03/20/17 04:59 Dose: 300 mls/hr Ceftriaxone Sodium 1 gm/ (Dextrose) 50 mls @ 100 mls/hr IV Q24H [facility] Stop: 05/13/17 13:59 Last Infusion: 03/19/17 14:25 Dose: Infused Levetiracetam (Keppra Pb) 1,000 mg in 100 mls @ 400 mls/hr IV Q12H [facility] Stop: 05/14/17 21:14 Last Infusion: 03/20/17 11:00 Dose: Infused Lorazepam (Ativan) 2 mg IVP Q4H PRN; Protocol PRN Reason: Agitation Stop: 05/14/17 07:34 Last Admin: 03/19/17 04:17 Dose: 2 mg Miscellaneous (Probiotic Screen) 1 ea MC PRN PRN PRN Reason: PROTOCOL Stop: 05/13/17 16:29 Miscellaneous (Clinical Monitoring) 1 ea MC DAILY PRN PRN Reason: RENAL Stop: 05/17/17 11:13 Mupirocin (Bactroban Oint) 1 appl NS BID [facility] Stop: 03/24/17 17:01 Last Admin: 03/20/17 08:59 Dose: 1 appl Ondansetron HCl (Zofran) 4 mg IVP Q6H PRN PRN Reason: Nausea / Vomiting Stop: 05/13/17 00:46 Pantoprazole Sodium (Protonix) 40 mg IVP DAILY [facility] Stop: 05/13/17 08:59 Last Admin: 03/20/17 08:51 Dose: 40 mg Phenytoin (Dilantin) 100 mg IVP Q8H [facility] Stop: 05/14/17 16:59 Last Admin: 03/20/17 08:51 Dose: 100 mg General: Alert, No acute distress HEENT: Atraumatic, EOMI Neck: Supple, +2 carotid pulse wo bruit Cardiovascular: Regular rate, Normal S1, Normal S2 Lungs: Other (few rhonchi) Abdomen: Bowel sounds, Soft Extremities: no Edema Neurological: Sensation intact Skin: no Rash Psych/Mental Status: Mood NL - Procedures Procedures: Procedures Procedure Code Date RESPIRATORY VENTILATION, 24-96 CONSECUTIVE HOURS [id number] 03/13/17 Assessment/Plan - Problem List Patient Problems: All Active Problems H/O drug dependence (Acute) F19.21 H/O: depression (Acute) Z86.59 H/O: obesity (Acute) Z86.39 Respiratory failure (Acute) J96.90 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 h/o prior clavicular fracture (Acute) pneumonia (Acute) - Assessment Assessment: ROSARIO on HD ALOC 2nd to sustance abuse Ess Htn Morbid Obesity CN Staph GPC/GNR CAP Left Femur head Fx 2nd to fall Polysubstance Abuse Resp Failure Chronic pain Sx - Plan Plan: Lab - Result Diagrams 03/15/17 05:00 03/15/17 05:00 Current Medications Acetaminophen (Tylenol) 650 mg PO Q4HR PRN PRN Reason: T 101F Stop: 05/13/17 00:20 Last Admin: 03/14/17 17:29 Dose: 650 mg Albuterol Sulfate (Albuterol 2.5mg/3ml Neb Ud) 2.5 mg HHN Q1H PRN PRN Reason: Shortness of Breath or Wheeze Albuterol/Ipratropium (Duoneb Neb) 3 ml HHN Q4HRT [facility] Stop: 05/13/17 14:59 Last Admin: 03/15/17 13:39 Dose: 3 ml Budesonide (Pulmicort) 0.5 mg HHN BIDRT [facility] Stop: 05/13/17 18:59 Last Admin: 03/15/17 07:47 Dose: 0.5 mg Carvedilol (Coreg) 6.25 mg NG BID [facility] Stop: 05/13/17 08:59 Last Admin: 03/15/17 09:22 Dose: 6.25 mg Chlorhexidine Gluconate (Peridex) 15 ml MM 08,1999 [facility] Stop: 05/13/17 07:59 Last Admin: 03/15/17 09:22 Dose: 15 ml Dextrose (D50w) 50 ml IVP PRN PRN PRN Reason: Blood Glucose less than 70 Stop: 05/13/17 00:22 Dextrose (Glutose 40%) 18.75 gm PO PRN PRN PRN Reason: Blood Glucose less than 70 Stop: 05/13/17 00:22 Epoetin John (Epogen) 10,000 units SUBQ MONFRI [facility] Stop: 05/13/17 14:59 Last Admin: 03/14/17 16:15 Dose: 10,000 units Ferrous Sulfate (Iron) 300 mg NG BID [facility] Stop: 05/13/17 08:59 Last Admin: 03/15/17 09:22 Dose: 300 mg Glucagon (Glucagen) 1 mg IM PRN PRN PRN Reason: Blood Glucose less than 70 Stop: 05/13/17 00:22 Heparin Sodium (Porcine) (Heparin) 5,000 units SUBQ Q8HR [facility] Stop: 05/13/17 08:00 Last Admin: 03/15/17 12:42 Dose: 5,000 units Hydralazine HCl (Apresoline 20 Mg/Ml) 10 mg IV Q3H PRN PRN Reason: FOR SBP ABOVE 150 Stop: 05/13/17 00:41 Hydromorphone HCl (Dilaudid) 2 mg IVP Q3H PRN PRN Reason: FOR MODERATE PAIN Stop: 05/13/17 00:46 Last Admin: 03/15/17 06:25 Dose: 2 mg Hydromorphone HCl (Dilaudid) 1 mg IVP Q3H PRN PRN Reason: MILD PAIN Stop: 05/13/17 00:46 Last Admin: 03/14/17 16:14 Dose: 1 mg Linezolid (Zyvox) 600 mg in 300 mls @ 300 mls/hr IV Q12H [facility] Stop: 05/13/17 15:59 Last Infusion: 03/15/17 05:19 Dose: Infused Ceftriaxone Sodium 1 gm/ (Dextrose) 50 mls @ 100 mls/hr IV Q24H [facility] Stop: 05/13/17 13:59 Last Admin: 03/15/17 14:37 Dose: 100 mls/hr Levofloxacin (Levaquin Pb) 250 mg in 50 mls @ 50 mls/hr IV Q48H [facility] Stop: 05/15/17 14:59 Insulin Aspart (Novolog Insulin Sliding Scale) 0 units SUBQ Q6HR [facility] PRN Reason: Protocol Stop: 05/13/17 05:59 Last Admin: 03/15/17 12:32 Dose: Not Given Lorazepam (Ativan) 2 mg IVP Q4H PRN; Protocol PRN Reason: Agitation Stop: 05/14/17 07:34 Last Admin: 03/15/17 12:44 Dose: 2 mg Methylprednisolone Sodium Succinate (Solu-Medrol) 40 mg IVP Q6HR [facility] Stop: 03/17/17 06:01 Last Admin: 03/15/17 12:44 Dose: 40 mg Miscellaneous (Probiotic Screen) 1 ea MC PRN PRN PRN Reason: PROTOCOL Stop: 05/13/17 16:29 Ondansetron HCl (Zofran) 4 mg IVP Q6H PRN PRN Reason: Nausea / Vomiting Stop: 05/13/17 00:46 Pantoprazole Sodium (Protonix) 40 mg IVP DAILY [facility] Stop: 05/13/17 08:59 Last Admin: 03/15/17 09:23 Dose: 40 mg Phenytoin (Dilantin) 100 mg IVP Q8H [facility] Stop: 05/14/17 16:59 currently being dialyzed replace K serial CXR just had perma cath Hgb stable @ 7.8, on Epo Lab - Result Diagrams 03/20/17 05:00 03/19/17 05:15 Nutritional Asmnt/Malnutr-PDOC - Dietary Evaluation Malnutrition Findings (Please click <Entered> for more info): Nutritional Asmnt/Malnutrition Start: 03/15/17 12: 22 Text: Status: Complete Freq: Document 03/15/17 12:28 ARCHIE (Rec: 03/15/17 12:39 [id number]) Nutritional Asmnt/Malnutrition Patient General Information Nutritional Screening High Risk Screening Diagnosis ROSARIO, sepsis with multiorgan failure, intubated, penumonia, resp failure Pertinent Medical Hx/Surgical Hx Asthma, COPD, severe obesity, prior clavicular fractures, chronic drug dependence, depression, HTN, cardiomyopathy, chronic pain syndrome Subjective Information 66 year old female from home. Per MD reports, pt with hx polysubstance abuse, 03/09/17 severe septic shock with multiorgan failure, involving respiratory and renal failure, intubated on diaylisys. Observed pt on vent with tube feeding infusing at 30ml/hr during visit. Spoke to RN, RN stated BM yesterday, none today yet, no residuals, tolerating well. 03/14 HD. Current Diet Order/ Nutrition Support [facility] Renal 35ml/hr x 24hrs, providing 840ml, 1680kcal, 76g protein Pertinent Medications D50w, Glutose 40%, Epogen, Iron, Glucagen, Dilaudid, Novolog, Solu Medrol, Zofran, Protonix Pertinent Labs 03/15: BUN 36H, creatinine 4.8H , glucose 172H Nutritional Hx/Data Height 1.6 m Height (Calculated Centimeters) 160.0 Current Weight (lbs) 117.843 kg Weight (Calculated Kilograms) 117.8 Weight (Calculated Grams) 721237.3 Brandt Body Weight 115 Weight Status Morbidly Obese GI Symptoms Skin Integrity/Comment: Jordon 10. Bruises. Estimated Nutritional Goals BEE in Kcals: Adj wt of IBW Calories/Kcals/Kg AdjBW 151.2lb/68.7kg Kcals Calculated 2061-2405kcal (30-35kcal/kg) Protein: Adj wt of IBW Protein Calculated 103-137g (1.5-2g/kg) Fluid: ml Per MD Nutritional Problem 2. Problem Problem Increased kcal and prot needs related to Etiology hypermetabolic state aeb Signs/Symptoms: sepsis with multiorgan failure , on HD, penumonia 1. 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 Recommend Novasource Renal at 50ml/hr x 24hrs, providing 1200ml, 2400kcal, 109g protein . Increase 10ml/hr q12hrs as tolerated until goal rate of 50ml/hr. Hypermetabolic state: sepsis multiorgan failure, HD, resp failure, pneumonia , with consideration of morbid obesity. 2. Unable to provide FDI education due to pt intubated on tube feeding. Expected Outcomes/Goals Expected Outcomes/Goals 1. Pt to meet 100% of estimated nutritional needs on tube feeding with tolerance.
--- NOTE | 2017-03-20 14:04 | Operative Report ---
DATE OF SURGERY: 03/20/2017 PREOPERATIVE DIAGNOSES: 1. Acute renal failure. 2. Severe obesity. 3. Drug dependency. POSTOPERATIVE DIAGNOSES: 1. Acute renal failure. 2. Severe obesity. 3. Drug dependency. OPERATION DONE: Replacement of Dax catheter and conversion to Perm-A-Cath, left internal jugular vein under fluoroscopy. SURGEON: Wan Vaz M.D. ANESTHESIA: MAC. ANESTHESIOLOGIST: Amor Sanchez M.D. DESCRIPTION OF ILLNESS: The patient was given IV sedation. The neck was prepped with ChloraPrep and draped in appropriate manner. Then, 1% lidocaine was used to infiltrate the exit site of the Dax catheter. Approximately 3 inches below this laterally, a tunnel was created. Under fluoroscopy, the guidewire was inserted and was ____ goes into the inferior vena cava. Under fluoroscopy, the introducer placed over the guidewire and the new catheter was tunneled from the left shoulder, was inserted. The measurement of this is 24 cm. This was done under fluoroscopy. Satisfactory aspiration of blood in both ports was noted and this was irrigated with saline solution and 2-1/2 mL of heparin was instilled into its port. The catheter was secured in place. The patient tolerated the procedure well. JOB# [id number]
--- NOTE | 2017-03-20 14:10 | Consultation ---
DATE OF CONSULTATION: 03/20/2017 REFERRING PHYSICIAN: Dr. Fried/Dr. Delgado. REASON FOR CONSULTATION: Perm-A-Cath placement. Thank you for referring this patient to me. HISTORY OF PRESENT ILLNESS: This 66-year-old female with polysubstance abuse, admitted to [place] and transferred here. The patient has had basal ganglia and thalamic CVA, now managed by Dr. Willson. PAST MEDICAL HISTORY: Includes obesity, COPD, hypertension, cardiomyopathy and chronic pain syndrome. The patient initiated on hemodialysis via left internal jugular vein catheter. MOST RECENT LABORATORY STUDIES: On this date, hemoglobin was 7.8 g, WBC was 12,200, the platelet count is 497,000. BUN is 45, creatinine of 6.3. PHYSICAL EXAMINATION: The patient is nonresponsive. Family has given consent for placement of Perm-A-Cath. PLAN: We will replace existing Dax catheter with Perm-A-Cath under fluoroscopy. JOB# [id number]
[2017-03-20] MEDS: Epoetin Alfa 20000 Units/mL Vial SUBQ SCH (15:12)
--- NOTE | 2017-03-20 15:18 | Diagnostic Imaging Report ---
CHEST X-RAY: AP view INDICATION: Permacath placement COMPARISON: Chest x-ray 03/17/2017 FINDINGS: There is interval extubation. Right IJ central line is seen with tip in the right atrium. Left sided permacath is seen with tip in SVC. Mild congestive changes are seen with left basal atelectasis. No effusions or focal consolidation. Borderline prominent heart is noted. No evidence of pneumothorax. IMPRESSION: Left sided permacath with tip in the SVC Stable right IJ line with tip in the right atrium. Interval extubation. Mild congestive changes. No evidence of pneumothorax.
--- NOTE | 2017-03-20 17:13 | Progress Notes ---
DATE: 03/19/2017 PROBLEM LIST: 1. Respiratory failure, improved, off mechanical ventilation. 2. Still patchy pneumonia, improving. 3. Chronic obstructive pulmonary disease with asthma. 4. Suspect obstructive sleep apnea syndrome. 5. History of opioid dependency. SYMPTOMS: Nil. The patient is still a bit confused, not disoriented, but no specific new symptoms. PHYSICAL EXAMINATION: VITAL SIGNS: The patient's temperature is 97, heart rate is in the 80s, respirations 20, saturation is 99 on 3 liters. NECK: Veins not visualized. CHEST: Shows diminished air entry with occasional rhonchi. HEART: Regular. ABDOMEN: Soft, nontender. LABORATORY DATA: The patient's white count is 13.2, hemoglobin 7.9 and patient's electrolytes shows creatinine 6.3, BUN is 65. IMPRESSION: The patient continues to be slowly improving respiratory-whitaker with multiple medical problems as described before. PLANS AND SUGGESTIONS: We will go ahead and continue IV antibiotic, inhalation treatment, nocturnal BiPAP. We will start physical therapy in a day or two and see how she does and go from there. JOB# [id number]
[2017-03-21] MEDS: Phenytoin 50 mg/mL 2 mL Vial IVP SCH ×3 (02:00→16:04)
[2017-03-21] MEDS: Albuterol/Ipratropium Neb 3 ML AERS HHN SCH ×6 (03:06→22:31)
[2017-03-21] MEDS: Linezolid 600mg/300mL 600 MG/300 ML BAG IV SCH ×2 (04:03→16:03)
--- NOTE | 2017-03-21 06:45 | Progress Notes ---
DATE: 03/20/2017 PROBLEM LIST: 1. Status post acute respiratory failure, improving, off mechanical ventilation. 2. Chronic obstructive pulmonary disease/asthma. 3. Pneumonia, right side. 4. Acute renal failure. 5. Suspect obstructive sleep apnea syndrome. 6. History of opioid dependency. SYMPTOMS: Nil. The patient appears to be less tremulous. No distress. Breathing is okay. She is eating okay. No specific new symptomatology. PHYSICAL EXAMINATION: VITAL SIGNS: Temperature is 99.8, blood pressure 132/54, saturation is in mid 90s on 2 liters. NECK: Veins not visualized. Good bilateral carotid upstroke. CHEST: Shows occasional rhonchi with diminished air entry. HEART: Regular. ABDOMEN: Soft, nontender. LABORATORY DATA: White count is 12.2, hemoglobin 9.8 and the patient's other laboratory parameters are essentially unremarkable. ASSESSMENT: The patient clinically significantly improved and improving. PLANS AND SUGGESTIONS: We will go ahead and continue current treatment, nocturnal BiPAP as well as we will follow through another lab and chest x-ray tomorrow and see how she does and go from there. JOB# [id number]
[2017-03-21] MEDS: Budesonide 0.5 Mg/2 mL Ud HHN SCH ×2 (07:25→18:57)
--- NOTE | 2017-03-21 08:45 | General Progress Note ---
Subjective - Review of Systems Events since last encounter: patient awake with no distress eating better Objective - Results Result Diagrams: 03/20/17 05:00 03/19/17 05:15 Recent Labs: Laboratory Last Values WBC 12.2 Th/cmm (4.8-10.8) H 03/20/17 05:00 RBC 2.71 Mil/cmm (3.80-5.20) L 03/20/17 05:00 Hgb 7.8 gm/dL (12-16) L* 03/20/17 05:00 Hct 23.2 % (41.0-60) L 03/20/17 05:00 MCV 85.7 fl (81-100) 03/20/17 05:00 MCH 28.9 pg (27.0-31.0) 03/20/17 05:00 MCHC Differential 33.8 pg (28.0-36.0) 03/20/17 05:00 RDW 22.2 % (11.5-20.0) H 03/20/17 05:00 Plt Count 497 Th/cmm (150-400) H 03/20/17 05:00 MPV 7.1 fl 03/20/17 05:00 Band Neutrophils % 1 % (0-10) 03/20/17 05:00 Neutrophils (Manual) 79 % (40-80) 03/20/17 05:00 Lymphocytes 15 % (20-50) L 03/20/17 05:00 Monocytes 2 % (2-10) 03/20/17 05:00 Eosinophils 3 % (0-5) 03/20/17 05:00 Platelet Estimate INCREASED PLATELETS (NORMAL) 03/19/17 05:15 Platelet Morphology NORMAL (NORMAL) 03/19/17 05:15 Anisocytosis 1+ 03/19/17 05:15 PT 11.6 SECONDS (9.5-11.5) H 03/20/17 05:00 INR 1.11 (0.5-1.4) 03/20/17 05:00 Specimen Source Arterial 03/18/17 08:30 Sample Site Right Radial 03/18/17 08:30 pH 7.43 (7.35-7.45) 03/18/17 08:30 pCO2 46.0 mmHg (35.0-45.0) H 03/18/17 08:30 pO2 80.0 mmHg (80.0-100.0) 03/18/17 08:30 HCO3 29.0 mEq/L (20.0-26.0) H 03/18/17 08:30 Base Excess 5.3 mEq/L (-3.0-3.0) H 03/18/17 08:30 O2 Saturation 96.0 % (92.0-100.0) 03/18/17 08:30 Ruben Test YES 03/18/17 08:30 Vent Rate NA 03/18/17 08:30 Inspired O2 32 03/18/17 08:30 Tidal Volume NA 03/18/17 08:30 PEEP NA 03/18/17 08:30 Pressure (ins/psv/peep) NA 03/18/17 08:30 Critical Value SH 03/18/17 08:30 Sodium 138 mEq/L (136-145) 03/19/17 05:15 Potassium 3.6 mEq/L (3.5-5.1) 03/19/17 05:15 Chloride 101 mEq/L (98-107) 03/19/17 05:15 Carbon Dioxide 28.2 mEq/L (21.0-31.0) 03/19/17 05:15 Anion Gap 12.4 (7.0-16.0) 03/19/17 05:15 BUN 45 mg/dL (7-25) H 03/19/17 05:15 Creatinine 6.3 mg/dL (0.6-1.2) H* 03/19/17 05:15 Est GFR ( Amer) 8.5 ml/min (>90) 03/19/17 05:15 Est GFR (Non-Af Amer) 7.0 ml/min 03/19/17 05:15 BUN/Creatinine Ratio 7.1 03/19/17 05:15 Glucose 162 mg/dL (70-105) H 03/19/17 05:15 POC Glucose 131 MG/DL (70 - 105) H 03/19/17 13:19 Hemoglobin A1c % 5.5 % (4.0-6.0) 03/16/17 06:52 Uric Acid 4.2 mg/dL (2.3-6.6) 03/15/17 05:00 Calcium 8.1 mg/dL (8.6-10.3) L 03/19/17 05:15 Phosphorus 3.0 mg/dL (2.5-5.0) 03/15/17 05:00 Magnesium 1.9 mg/dL (1.9-2.7) 03/19/17 05:15 Total Bilirubin 0.7 mg/dL (0.3-1.0) 03/15/17 05:00 AST 92 U/L (13-39) H 03/15/17 05:00 ALT 93 U/L (7-52) H 03/15/17 05:00 Alkaline Phosphatase 104 U/L (34-104) 03/15/17 05:00 Ammonia 59 umol/L (16-53) H 03/15/17 05:00 Creatine Kinase 64 U/L (30-223) 03/15/17 05:00 Total Protein 7.2 gm/dL (6.0-8.3) 03/15/17 05:00 Albumin 3.4 gm/dL (3.7-5.3) L 03/15/17 05:00 Globulin 3.8 gm/dL 03/15/17 05:00 Albumin/Globulin Ratio 0.9 (1.0-1.8) L 03/15/17 05:00 Free T4 0.73 ng/dL (0.82-1.77) L 03/16/17 06:52 Thyroxine (T4) 6.46 ug/dl (6.09-12.23) 03/16/17 06:52 Free T3 1.2 pg/mL (2.0-4.4) L 03/16/17 06:52 TSH 1.05 uIU/ml (0.34-5.60) 03/15/17 05:00 Urine Source MODI PORT 03/17/17 12:45 Urine Color YELLOW 03/17/17 12:45 Urine Clarity HAZY (CLEAR) 03/17/17 12:45 Urine pH 6.0 (4.6 - 8.0) 03/17/17 12:45 Ur Specific [place] 1.015 (1.005-1.030) 03/17/17 12:45 Urine Protein >=300 mg/dL (NEGATIVE) 03/17/17 12:45 Urine Glucose (UA) NEGATIVE mg/dL (NEGATIVE) 03/17/17 12:45 Urine Ketones NEGATIVE mg/dL (NEGATIVE) 03/17/17 12:45 Urine Blood LARGE (NEGATIVE) H 03/17/17 12:45 Urine Nitrate NEGATIVE (NEGATIVE) 03/17/17 12:45 Urine Bilirubin NEGATIVE (NEGATIVE) 03/17/17 12:45 Urine Urobilinogen 0.2 E.U./dL (0.2 - 1.0) 03/17/17 12:45 Ur Leukocyte Esterase SMALL (NEGATIVE) H 03/17/17 12:45 Urine RBC 25-50 /hpf (0-5) H 03/17/17 12:45 Urine WBC 6-10 /hpf (0-5) H 03/17/17 12:45 Ur Epithelial Cells FEW /lpf (FEW) 03/17/17 12:45 Urine Bacteria FEW /hpf (NONE SEEN) 03/17/17 12:45 Urine Yeast MODERATE /hpf (NONE SEEN) H 03/17/17 12:45 Urine Opiates Screen POSITIVE (NEGATIVE) H 03/17/17 12:45 Urine Methadone Screen NEGATIVE (NEGATIVE) 03/17/17 12:45 Ur Barbiturates Screen POSITIVE (NEGATIVE) H 03/17/17 12:45 Ur Tricyclics Screen NEGATIVE (NEGATIVE) 03/17/17 12:45 Ur Phencyclidine Scrn NEGATIVE (NEGATIVE) 03/17/17 12:45 Amphetamines Screen NEGATIVE (NEGATIVE) 03/17/17 12:45 U Methamphetamines Scrn POSITIVE (NEGATIVE) H 03/17/17 12:45 U Benzodiazepines Scrn POSITIVE (NEGATIVE) H 03/17/17 12:45 U Cocaine Metab Screen NEGATIVE (NEGATIVE) 03/17/17 12:45 U Cannabinoids Screen NEGATIVE (NEGATIVE) 03/17/17 12:45 Hepatitis A IgM Ab Negative (Negative) 03/14/17 21:23 Hep Bs Antigen Negative (Negative) 03/14/17 21:23 Hep B Core IgM Ab Negative (Negative) 03/14/17 21:23 Hepatitis C Antibody <0.1 s/co ratio (0.0-0.9) 03/14/17 21:23 - Physical Exam Vitals and I&O: Vital Signs Temp 100.1 F 03/21/17 08:05 Pulse 83 03/21/17 08:05 Resp 24 03/21/17 08:05 BP 101/70 03/21/17 08:05 Pulse Ox 98 03/21/17 08:05 Intake & Output 03/20/17 03/21/17 03/21/17 18:59 06:59 18:59 Intake Total 750 500 Output Total 380 300 Balance 370 200 Weight (lbs) 108.862 kg 116.301 kg Intake: Intake, IV Amount 450 400 Levetiracetam 1000mg/ 100 100 100mL 1,000 mg In 100 ml @ 400 mls/hr IV Q12H [facility] Rx#:[id number] Linezolid 600mg/300mL 600 300 300 mg In 300 ml @ 300 mls/ hr IV Q12H [facility] Rx#: [id number] cefTRIAXone 1 gm In 50 Dextrose 5% 50 ml @ 100 mls/hr IV Q24H [facility] Rx#: [id number] Oral 300 100 Output: Urine 380 300 Other: # Bowel Movements 2 1 Stool Characteristics Soft Soft Active Medications: Current Medications Acetaminophen (Tylenol) 650 mg PO Q4HR PRN PRN Reason: T 101F Stop: 05/13/17 00:20 Last Admin: 03/14/17 17:29 Dose: 650 mg Albuterol Sulfate (Albuterol 2.5mg/3ml Neb Ud) 2.5 mg HHN Q1H PRN PRN Reason: Shortness of Breath or Wheeze Albuterol/Ipratropium (Duoneb Neb) 3 ml HHN Q4HRT [facility] Stop: 05/13/17 14:59 Last Admin: 03/21/17 07:25 Dose: 3 ml Budesonide (Pulmicort) 0.5 mg HHN BIDRT [facility] Stop: 05/13/17 18:59 Last Admin: 03/21/17 07:25 Dose: 0.5 mg Carvedilol (Coreg) 6.25 mg NG BID [facility] Stop: 05/13/17 08:59 Last Admin: 03/20/17 18:07 Dose: 6.25 mg Dextrose (D50w) 50 ml IVP PRN PRN PRN Reason: Blood Glucose less than 70 Stop: 05/13/17 00:22 Dextrose (Glutose 40%) 18.75 gm PO PRN PRN PRN Reason: Blood Glucose less than 70 Stop: 05/13/17 00:22 Epoetin John (Epogen) 10,000 units SUBQ MoFr@1500 [facility] Stop: 05/13/17 14:59 Last Admin: 03/20/17 15:12 Dose: 10,000 units Ferrous Sulfate (Iron) 300 mg NG BID [facility] Stop: 05/13/17 08:59 Last Admin: 03/20/17 18:07 Dose: 300 mg Glucagon (Glucagen) 1 mg IM PRN PRN PRN Reason: Blood Glucose less than 70 Stop: 05/13/17 00:22 Heparin Sodium (Porcine) (Heparin) 5,000 units SUBQ Q8HR [facility] Stop: 05/13/17 08:00 Last Admin: 03/21/17 05:44 Dose: 5,000 units Hydralazine HCl (Apresoline 20 Mg/Ml) 10 mg IV Q3H PRN PRN Reason: FOR SBP ABOVE 150 Stop: 05/13/17 00:41 Hydromorphone HCl (Dilaudid) 2 mg IVP Q3H PRN PRN Reason: FOR MODERATE PAIN Stop: 05/13/17 00:46 Last Admin: 03/19/17 11:54 Dose: 2 mg Hydromorphone HCl (Dilaudid) 1 mg IVP Q3H PRN PRN Reason: MILD PAIN Stop: 05/13/17 00:46 Last Admin: 03/18/17 14:00 Dose: 1 mg Linezolid (Zyvox) 600 mg in 300 mls @ 300 mls/hr IV Q12H [facility] Stop: 05/13/17 15:59 Last Infusion: 03/21/17 05:03 Dose: Infused Ceftriaxone Sodium 1 gm/ (Dextrose) 50 mls @ 100 mls/hr IV Q24H [facility] Stop: 05/13/17 13:59 Last Infusion: 03/20/17 16:00 Dose: Infused Levetiracetam (Keppra Pb) 1,000 mg in 100 mls @ 400 mls/hr IV Q12H [facility] Stop: 05/14/17 21:14 Last Infusion: 03/20/17 21:53 Dose: Infused Lorazepam (Ativan) 2 mg IVP Q4H PRN; Protocol PRN Reason: Agitation Stop: 05/14/17 07:34 Last Admin: 03/19/17 04:17 Dose: 2 mg Miscellaneous (Probiotic Screen) 1 ea MC PRN PRN PRN Reason: PROTOCOL Stop: 05/13/17 16:29 Miscellaneous (Clinical Monitoring) 1 ea MC DAILY PRN PRN Reason: RENAL Stop: 05/17/17 11:13 Mupirocin (Bactroban Oint) 1 appl NS BID [facility] Stop: 03/24/17 17:01 Last Admin: 03/20/17 18:08 Dose: 1 appl Ondansetron HCl (Zofran) 4 mg IVP Q6H PRN PRN Reason: Nausea / Vomiting Stop: 05/13/17 00:46 Pantoprazole Sodium (Protonix) 40 mg IVP DAILY [facility] Stop: 05/13/17 08:59 Last Admin: 03/20/17 08:51 Dose: 40 mg Phenytoin (Dilantin) 100 mg IVP Q8H [facility] Stop: 05/14/17 16:59 Last Admin: 03/21/17 02:00 Dose: 100 mg General: Alert, No acute distress HEENT: Atraumatic, EOMI Neck: Supple, +2 carotid pulse wo bruit Cardiovascular: Regular rate, Normal S1, Normal S2 Lungs: Other (few rhonchi) Abdomen: Bowel sounds, Soft Extremities: no Edema Neurological: Sensation intact Skin: no Rash Psych/Mental Status: Mood NL - Procedures Procedures: Procedures Procedure Code Date RESPIRATORY VENTILATION, 24-96 CONSECUTIVE HOURS [id number] 03/13/17 Assessment/Plan - Problem List Patient Problems: All Active Problems H/O drug dependence (Acute) F19.21 H/O: depression (Acute) Z86.59 H/O: obesity (Acute) Z86.39 Respiratory failure (Acute) J96.90 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 h/o prior clavicular fracture (Acute) pneumonia (Acute) - Plan Plan: cpm Nutritional Asmnt/Malnutr-PDOC - Dietary Evaluation Malnutrition Findings (Please click <Entered> for more info): Nutritional Asmnt/Malnutrition Start: 03/15/17 12: 22 Text: Status: Complete Freq: Document 03/15/17 12:28 GSUN (Rec: 03/15/17 12:39 [email or web address] [id number]) Nutritional Asmnt/Malnutrition Patient General Information Nutritional Screening High Risk Screening Diagnosis ROSARIO, sepsis with multiorgan failure, intubated, penumonia, resp failure Pertinent Medical Hx/Surgical Hx Asthma, COPD, severe obesity, prior clavicular fractures, chronic drug dependence, depression, HTN, cardiomyopathy, chronic pain syndrome Subjective Information 66 year old female from home. Per MD reports, pt with hx polysubstance abuse, 03/09/17 severe septic shock with multiorgan failure, involving respiratory and renal failure, intubated on diaylisys. Observed pt on vent with tube feeding infusing at 30ml/hr during visit. Spoke to RN, RN stated BM yesterday, none today yet, no residuals, tolerating well. 03/14 HD. Current Diet Order/ Nutrition Support Novasource Renal 35ml/hr x 24hrs, providing 840ml, 1680kcal, 76g protein Pertinent Medications D50w, Glutose 40%, Epogen, Iron, Glucagen, Dilaudid, Novolog, Solu Medrol, Zofran, Protonix Pertinent Labs 03/15: BUN 36H, creatinine 4.8H , glucose 172H Nutritional Hx/Data Height 1.6 m Height (Calculated Centimeters) 160.0 Current Weight (lbs) 117.843 kg Weight (Calculated Kilograms) 117.8 Weight (Calculated Grams) 447898.3 [place] Body Weight 115 Weight Status Morbidly Obese GI Symptoms Skin Integrity/Comment: Jordon 10. Bruises. Estimated Nutritional Goals BEE in Kcals: Adj wt of IBW Calories/Kcals/Kg AdjBW 151.2lb/68.7kg Kcals Calculated 2061-2405kcal (30-35kcal/kg) Protein: Adj wt of IBW Protein Calculated 103-137g (1.5-2g/kg) Fluid: ml Per MD Nutritional Problem 2. Problem Problem Increased kcal and prot needs related to Etiology hypermetabolic state aeb Signs/Symptoms: sepsis with multiorgan failure , on HD, penumonia 1. Problem Problem Imapired nutrient utilization related to Etiology ROSARIO aeb Signs/Symptoms: 03/14 HD, BUN 36H vice admiral 4.8H Intervention/Recommendation Comments 1. Recommend Novasource Renal at 50ml/hr x 24hrs, providing 1200ml, 2400kcal, 109g protein . Increase 10ml/hr q12hrs as tolerated until goal rate of 50ml/hr. Hypermetabolic state: sepsis multiorgan failure, HD, resp failure, pneumonia , with consideration of morbid obesity. 2. Unable to provide FDI education due to pt intubated on tube feeding. Expected Outcomes/Goals Expected Outcomes/Goals 1. Pt to meet 100% of estimated nutritional needs on tube feeding with tolerance.
[2017-03-21] MEDS: Ferrous Sulfate 300 MG/5 ML UDC NG SCH ×2 (09:03→16:04)
[2017-03-21] MEDS: Levetiracetam 1000mg/100mL 1,000 MG/100 ML BAG IV SCH ×3 (10:00→20:57)
--- NOTE | 2017-03-21 10:51 | Diagnostic Imaging Report ---
Portable chest x-ray HISTORY: Vascular catheter placement Compared to prior exam of 03/20/2017, the heart remains enlarged. Accentuation of the interstitial lung markings. A right jugular line tip remains in the upper region of the right atrium near the junction with the superior vena cava. A left-sided vascular catheter tip is also noted in the region of the superior vena cava at the junction with the left brachiocephalic vein. IMPRESSION: 1. Vascular catheter placement as noted above 2. Cardiomegaly with accentuation of the interstitial lung markings.
--- NOTE | 2017-03-21 11:25 | Infectious Disease Prog Note ---
Infectious Disease Subjective - Review of Systems Service Date: 03/21/17 Subjective: Doing well. not in distress. Infectious Disease Objective - Results Result Diagrams: 03/22/17 05:20 03/19/17 05:15 Recent Labs: Laboratory Last Values WBC 12.2 Th/cmm (4.8-10.8) H 03/20/17 05:00 RBC 2.71 Mil/cmm (3.80-5.20) L 03/20/17 05:00 Hgb 7.8 gm/dL (12-16) L* 03/20/17 05:00 Hct 23.2 % (41.0-60) L 03/20/17 05:00 MCV 85.7 fl (81-100) 03/20/17 05:00 MCH 28.9 pg (27.0-31.0) 03/20/17 05:00 MCHC Differential 33.8 pg (28.0-36.0) 03/20/17 05:00 RDW 22.2 % (11.5-20.0) H 03/20/17 05:00 Plt Count 497 Th/cmm (150-400) H 03/20/17 05:00 MPV 7.1 fl 03/20/17 05:00 Band Neutrophils % 1 % (0-10) 03/20/17 05:00 Neutrophils (Manual) 79 % (40-80) 03/20/17 05:00 Lymphocytes 15 % (20-50) L 03/20/17 05:00 Monocytes 2 % (2-10) 03/20/17 05:00 Eosinophils 3 % (0-5) 03/20/17 05:00 Platelet Estimate INCREASED PLATELETS (NORMAL) 03/19/17 05:15 Platelet Morphology NORMAL (NORMAL) 03/19/17 05:15 Anisocytosis 1+ 03/19/17 05:15 PT 11.6 SECONDS (9.5-11.5) H 03/20/17 05:00 INR 1.11 (0.5-1.4) 03/20/17 05:00 Specimen Source Arterial 03/18/17 08:30 Sample Site Right Radial 03/18/17 08:30 pH 7.43 (7.35-7.45) 03/18/17 08:30 pCO2 46.0 mmHg (35.0-45.0) H 03/18/17 08:30 pO2 80.0 mmHg (80.0-100.0) 03/18/17 08:30 HCO3 29.0 mEq/L (20.0-26.0) H 03/18/17 08:30 Base Excess 5.3 mEq/L (-3.0-3.0) H 03/18/17 08:30 O2 Saturation 96.0 % (92.0-100.0) 03/18/17 08:30 Ruben Test YES 03/18/17 08:30 Vent Rate NA 03/18/17 08:30 Inspired O2 32 03/18/17 08:30 Tidal Volume NA 03/18/17 08:30 PEEP NA 03/18/17 08:30 Pressure (ins/psv/peep) NA 03/18/17 08:30 Critical Value SH 03/18/17 08:30 Sodium 138 mEq/L (136-145) 03/19/17 05:15 Potassium 3.6 mEq/L (3.5-5.1) 03/19/17 05:15 Chloride 101 mEq/L (98-107) 03/19/17 05:15 Carbon Dioxide 28.2 mEq/L (21.0-31.0) 03/19/17 05:15 Anion Gap 12.4 (7.0-16.0) 03/19/17 05:15 BUN 45 mg/dL (7-25) H 03/19/17 05:15 Creatinine 6.3 mg/dL (0.6-1.2) H* 03/19/17 05:15 Est GFR ( Amer) 8.5 ml/min (>90) 03/19/17 05:15 Est GFR (Non-Af Amer) 7.0 ml/min 03/19/17 05:15 BUN/Creatinine Ratio 7.1 03/19/17 05:15 Glucose 162 mg/dL (70-105) H 03/19/17 05:15 POC Glucose 131 MG/DL (70 - 105) H 03/19/17 13:19 Hemoglobin A1c % 5.5 % (4.0-6.0) 03/16/17 06:52 Uric Acid 4.2 mg/dL (2.3-6.6) 03/15/17 05:00 Calcium 8.1 mg/dL (8.6-10.3) L 03/19/17 05:15 Phosphorus 3.0 mg/dL (2.5-5.0) 03/15/17 05:00 Magnesium 1.9 mg/dL (1.9-2.7) 03/19/17 05:15 Total Bilirubin 0.7 mg/dL (0.3-1.0) 03/15/17 05:00 AST 92 U/L (13-39) H 03/15/17 05:00 ALT 93 U/L (7-52) H 03/15/17 05:00 Alkaline Phosphatase 104 U/L (34-104) 03/15/17 05:00 Ammonia 59 umol/L (16-53) H 03/15/17 05:00 Creatine Kinase 64 U/L (30-223) 03/15/17 05:00 Total Protein 7.2 gm/dL (6.0-8.3) 03/15/17 05:00 Albumin 3.4 gm/dL (3.7-5.3) L 03/15/17 05:00 Globulin 3.8 gm/dL 03/15/17 05:00 Albumin/Globulin Ratio 0.9 (1.0-1.8) L 03/15/17 05:00 Free T4 0.73 ng/dL (0.82-1.77) L 03/16/17 06:52 Thyroxine (T4) 6.46 ug/dl (6.09-12.23) 03/16/17 06:52 Free T3 1.2 pg/mL (2.0-4.4) L 03/16/17 06:52 TSH 1.05 uIU/ml (0.34-5.60) 03/15/17 05:00 Urine Source MODI PORT 03/17/17 12:45 Urine Color YELLOW 03/17/17 12:45 Urine Clarity HAZY (CLEAR) 03/17/17 12:45 Urine pH 6.0 (4.6 - 8.0) 03/17/17 12:45 Ur Specific [place] 1.015 (1.005-1.030) 03/17/17 12:45 Urine Protein >=300 mg/dL (NEGATIVE) 03/17/17 12:45 Urine Glucose (UA) NEGATIVE mg/dL (NEGATIVE) 03/17/17 12:45 Urine Ketones NEGATIVE mg/dL (NEGATIVE) 03/17/17 12:45 Urine Blood LARGE (NEGATIVE) H 03/17/17 12:45 Urine Nitrate NEGATIVE (NEGATIVE) 03/17/17 12:45 Urine Bilirubin NEGATIVE (NEGATIVE) 03/17/17 12:45 Urine Urobilinogen 0.2 E.U./dL (0.2 - 1.0) 03/17/17 12:45 Ur Leukocyte Esterase SMALL (NEGATIVE) H 03/17/17 12:45 Urine RBC 25-50 /hpf (0-5) H 03/17/17 12:45 Urine WBC 6-10 /hpf (0-5) H 03/17/17 12:45 Ur Epithelial Cells FEW /lpf (FEW) 03/17/17 12:45 Urine Bacteria FEW /hpf (NONE SEEN) 03/17/17 12:45 Urine Yeast MODERATE /hpf (NONE SEEN) H 03/17/17 12:45 Ur Random Sodium 25 mmol/L 03/21/17 04:15 Urine Creatinine 85.0 mg/dl (28.0-217.0) 03/21/17 04:15 Urine Opiates Screen POSITIVE (NEGATIVE) H 03/17/17 12:45 Urine Methadone Screen NEGATIVE (NEGATIVE) 03/17/17 12:45 Ur Barbiturates Screen POSITIVE (NEGATIVE) H 03/17/17 12:45 Ur Tricyclics Screen NEGATIVE (NEGATIVE) 03/17/17 12:45 Ur Phencyclidine Scrn NEGATIVE (NEGATIVE) 03/17/17 12:45 Amphetamines Screen NEGATIVE (NEGATIVE) 03/17/17 12:45 U Methamphetamines Scrn POSITIVE (NEGATIVE) H 03/17/17 12:45 U Benzodiazepines Scrn POSITIVE (NEGATIVE) H 03/17/17 12:45 U Cocaine Metab Screen NEGATIVE (NEGATIVE) 03/17/17 12:45 U Cannabinoids Screen NEGATIVE (NEGATIVE) 03/17/17 12:45 Hepatitis A IgM Ab Negative (Negative) 03/14/17 21:23 Hep Bs Antigen Negative (Negative) 03/14/17 21:23 Hep B Core IgM Ab Negative (Negative) 03/14/17 21:23 Hepatitis C Antibody <0.1 s/co ratio (0.0-0.9) 03/14/17 21:23 - Physical Exam Vitals and I&O: Vital Signs Temp 100.1 F 03/21/17 08:05 Pulse 83 03/21/17 09:04 Resp 24 03/21/17 08:05 BP 101/70 03/21/17 09:04 Pulse Ox 98 03/21/17 08:05 Intake & Output 03/20/17 03/21/17 03/21/17 18:59 06:59 18:59 Intake Total 750 500 Output Total 380 300 Balance 370 200 Weight (lbs) 108.862 kg 116.301 kg Intake: Intake, IV Amount 450 400 Levetiracetam 1000mg/ 100 100 100mL 1,000 mg In 100 ml @ 400 mls/hr IV Q12H [facility] Rx#:[id number] Linezolid 600mg/300mL 600 300 300 mg In 300 ml @ 300 mls/ hr IV Q12H [facility] Rx#: [id number] cefTRIAXone 1 gm In 50 Dextrose 5% 50 ml @ 100 mls/hr IV Q24H [facility] Rx#: [id number] Oral 300 100 Output: Urine 380 300 Other: # Bowel Movements 2 1 Stool Characteristics Soft Soft Active Medications: Current Medications Acetaminophen (Tylenol) 650 mg PO Q4HR PRN PRN Reason: T 101F Stop: 05/13/17 00:20 Last Admin: 03/21/17 09:03 Dose: 650 mg Albuterol Sulfate (Albuterol 2.5mg/3ml Neb Ud) 2.5 mg HHN Q1H PRN PRN Reason: Shortness of Breath or Wheeze Albuterol/Ipratropium (Duoneb Neb) 3 ml HHN Q4HRT [facility] Stop: 05/13/17 14:59 Last Admin: 03/21/17 07:25 Dose: 3 ml Budesonide (Pulmicort) 0.5 mg HHN BIDRT [facility] Stop: 05/13/17 18:59 Last Admin: 03/21/17 07:25 Dose: 0.5 mg Carvedilol (Coreg) 6.25 mg NG BID [facility] Stop: 05/13/17 08:59 Last Admin: 03/21/17 09:04 Dose: Not Given Dextrose (D50w) 50 ml IVP PRN PRN PRN Reason: Blood Glucose less than 70 Stop: 05/13/17 00:22 Dextrose (Glutose 40%) 18.75 gm PO PRN PRN PRN Reason: Blood Glucose less than 70 Stop: 05/13/17 00:22 Epoetin John (Epogen) 10,000 units SUBQ MoFr@1500 [facility] Stop: 05/13/17 14:59 Last Admin: 03/20/17 15:12 Dose: 10,000 units Ferrous Sulfate (Iron) 300 mg NG BID [facility] Stop: 05/13/17 08:59 Last Admin: 03/21/17 09:03 Dose: 300 mg Glucagon (Glucagen) 1 mg IM PRN PRN PRN Reason: Blood Glucose less than 70 Stop: 05/13/17 00:22 Heparin Sodium (Porcine) (Heparin) 5,000 units SUBQ Q8HR [facility] Stop: 05/13/17 08:00 Last Admin: 03/21/17 05:44 Dose: 5,000 units Hydralazine HCl (Apresoline 20 Mg/Ml) 10 mg IV Q3H PRN PRN Reason: FOR SBP ABOVE 150 Stop: 05/13/17 00:41 Hydromorphone HCl (Dilaudid) 2 mg IVP Q3H PRN PRN Reason: FOR MODERATE PAIN Stop: 05/13/17 00:46 Last Admin: 03/19/17 11:54 Dose: 2 mg Hydromorphone HCl (Dilaudid) 1 mg IVP Q3H PRN PRN Reason: MILD PAIN Stop: 05/13/17 00:46 Last Admin: 03/18/17 14:00 Dose: 1 mg Linezolid (Zyvox) 600 mg in 300 mls @ 300 mls/hr IV Q12H [facility] Stop: 05/13/17 15:59 Last Infusion: 03/21/17 05:03 Dose: Infused Ceftriaxone Sodium 1 gm/ (Dextrose) 50 mls @ 100 mls/hr IV Q24H [facility] Stop: 05/13/17 13:59 Last Infusion: 03/20/17 16:00 Dose: Infused Levetiracetam (Keppra Pb) 1,000 mg in 100 mls @ 400 mls/hr IV Q12H [facility] Stop: 05/14/17 21:14 Last Infusion: 03/20/17 21:53 Dose: Infused Lorazepam (Ativan) 2 mg IVP Q4H PRN; Protocol PRN Reason: Agitation Stop: 05/14/17 07:34 Last Admin: 03/19/17 04:17 Dose: 2 mg Miscellaneous (Probiotic Screen) 1 ea MC PRN PRN PRN Reason: PROTOCOL Stop: 05/13/17 16:29 Miscellaneous (Clinical Monitoring) 1 ea MC DAILY PRN PRN Reason: RENAL Stop: 05/17/17 11:13 Mupirocin (Bactroban Oint) 1 appl NS BID [facility] Stop: 03/24/17 17:01 Last Admin: 03/21/17 09:03 Dose: 1 appl Ondansetron HCl (Zofran) 4 mg IVP Q6H PRN PRN Reason: Nausea / Vomiting Stop: 05/13/17 00:46 Pantoprazole Sodium (Protonix) 40 mg IVP DAILY [facility] Stop: 05/13/17 08:59 Last Admin: 03/21/17 09:03 Dose: 40 mg Phenytoin (Dilantin) 100 mg IVP Q8H [facility] Stop: 05/14/17 16:59 Last Admin: 03/21/17 09:04 Dose: 100 mg General: no acute distress, well developed, well nourished HEENT: atraumatic, normocephalic Neck: supple, no thyromegaly Cardiovascular: S1S2, regular Lungs: clear to percussion, rhonchi Abdomen: soft, bowel sounds, no tender, no distended Extremities: no cyanosis, no clubbing, no edema Neurological: awake, alert - Procedures Procedures: Procedures Procedure Code Date RESPIRATORY VENTILATION, 24-96 CONSECUTIVE HOURS [id number] 03/13/17 Infectious Disease Assmt/Plan - Problem List Patient Problems: All Active Problems H/O drug dependence (Acute) F19.21 H/O: depression (Acute) Z86.59 H/O: obesity (Acute) Z86.39 Respiratory failure (Acute) J96.90 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 h/o prior clavicular fracture (Acute) pneumonia (Acute) s/p extubation (Acute) - Assessment Assessment: 1. Sepsis with multiorgan failure. 2. Pneumonia ( CXR shoed bibasilar infiltrates). 3. Obesity. 4. Renal failure on HD. ? acute versus chronic, 5. acute on chronic respiratory failure versus acute respiratory failure on ventilator. 6. COPD. 7. HTN. - Plan Plan: Continue zyvox and rocephin. Nutritional Asmnt/Malnutr-PDOC - Dietary Evaluation Malnutrition Findings (Please click <Entered> for more info): Nutritional Asmnt/Malnutrition Start: 03/15/17 12: 22 Text: Status: Complete Freq: Document 03/15/17 12:28 GSUN (Rec: 03/15/17 12:39 GSUN [email or web address]) Nutritional Asmnt/Malnutrition Patient General Information Nutritional Screening High Risk Screening Diagnosis ROSARIO, sepsis with multiorgan failure, intubated, penumonia, resp failure Pertinent Medical Hx/Surgical Hx Asthma, COPD, severe obesity, prior clavicular fractures, chronic drug dependence, depression, HTN, cardiomyopathy, chronic pain syndrome Subjective Information 66 year old female from home. Per MD reports, pt with hx polysubstance abuse, 03/09/17 severe septic shock with multiorgan failure, involving respiratory and renal failure, intubated on diaylisys. Observed pt on vent with tube feeding infusing at 30ml/hr during visit. Spoke to RN, RN stated BM yesterday, none today yet, no residuals, tolerating well. 03/14 HD. Current Diet Order/ [facility] 35ml/hr x 24hrs, providing 840ml, 1680kcal, 76g protein Pertinent Medications D50w, Glutose 40%, Epogen, Iron, Glucagen, Dilaudid, Novolog, Solu Medrol, Zofran, Protonix Pertinent Labs 03/15: BUN 36H, creatinine 4.8H , glucose 172H Nutritional Hx/Data Height 1.6 m Height (Calculated Centimeters) 160.0 Current Weight (lbs) 117.843 kg Weight (Calculated Kilograms) 117.8 Weight (Calculated Grams) 113940.3 [place] Body Weight 115 Weight Status Morbidly Obese GI Symptoms Skin Integrity/Comment: Jordon 10. Bruises. Estimated Nutritional Goals BEE in Kcals: Adj wt of IBW Calories/Kcals/Kg AdjBW 151.2lb/68.7kg Kcals Calculated 2061-2405kcal (30-35kcal/kg) Protein: Adj wt of IBW Protein Calculated 103-137g (1.5-2g/kg) Fluid: ml Per MD Nutritional Problem 2. Problem Problem Increased kcal and prot needs related to Etiology hypermetabolic state aeb Signs/Symptoms: sepsis with multiorgan failure , on HD, penumonia 1. 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 Recommend Novasource Renal at 50ml/hr x 24hrs, providing 1200ml, 2400kcal, 109g protein . Increase 10ml/hr q12hrs as tolerated until goal rate of 50ml/hr. Hypermetabolic state: sepsis multiorgan failure, HD, resp failure, pneumonia , with consideration of morbid obesity. 2. Unable to provide FDI education due to pt intubated on tube feeding. Expected Outcomes/Goals Expected Outcomes/Goals 1. Pt to meet 100% of estimated nutritional needs on tube feeding with tolerance.
[2017-03-21] MEDS: HYDROmorphone 1 mg/mL 1mL Syr IVP PRN (12:17)
--- NOTE | 2017-03-21 13:23 | General Progress Note ---
Subjective - Review of Systems Service Date: 03/21/17 Subjective: more alert, left shoulder pain, verbal Objective - Results Result Diagrams: 03/20/17 05:00 03/19/17 05:15 Recent Labs: Laboratory Last Values WBC 12.2 Th/cmm (4.8-10.8) H 03/20/17 05:00 RBC 2.71 Mil/cmm (3.80-5.20) L 03/20/17 05:00 Hgb 7.8 gm/dL (12-16) L* 03/20/17 05:00 Hct 23.2 % (41.0-60) L 03/20/17 05:00 MCV 85.7 fl (81-100) 03/20/17 05:00 MCH 28.9 pg (27.0-31.0) 03/20/17 05:00 MCHC Differential 33.8 pg (28.0-36.0) 03/20/17 05:00 RDW 22.2 % (11.5-20.0) H 03/20/17 05:00 Plt Count 497 Th/cmm (150-400) H 03/20/17 05:00 MPV 7.1 fl 03/20/17 05:00 Band Neutrophils % 1 % (0-10) 03/20/17 05:00 Neutrophils (Manual) 79 % (40-80) 03/20/17 05:00 Lymphocytes 15 % (20-50) L 03/20/17 05:00 Monocytes 2 % (2-10) 03/20/17 05:00 Eosinophils 3 % (0-5) 03/20/17 05:00 Platelet Estimate INCREASED PLATELETS (NORMAL) 03/19/17 05:15 Platelet Morphology NORMAL (NORMAL) 03/19/17 05:15 Anisocytosis 1+ 03/19/17 05:15 Eos Smear Source URINE 03/21/17 04:15 Eos Smear Total Cells FEW EOSINOPHILS SEEN (NONE SEEN) 03/21/17 04:15 PT 11.6 SECONDS (9.5-11.5) H 03/20/17 05:00 INR 1.11 (0.5-1.4) 03/20/17 05:00 Specimen Source Arterial 03/18/17 08:30 Sample Site Right Radial 03/18/17 08:30 pH 7.43 (7.35-7.45) 03/18/17 08:30 pCO2 46.0 mmHg (35.0-45.0) H 03/18/17 08:30 pO2 80.0 mmHg (80.0-100.0) 03/18/17 08:30 HCO3 29.0 mEq/L (20.0-26.0) H 03/18/17 08:30 Base Excess 5.3 mEq/L (-3.0-3.0) H 03/18/17 08:30 O2 Saturation 96.0 % (92.0-100.0) 03/18/17 08:30 Ruben Test YES 03/18/17 08:30 Vent Rate NA 03/18/17 08:30 Inspired O2 32 03/18/17 08:30 Tidal Volume NA 03/18/17 08:30 PEEP NA 03/18/17 08:30 Pressure (ins/psv/peep) NA 03/18/17 08:30 Critical Value SH 03/18/17 08:30 Sodium 138 mEq/L (136-145) 03/19/17 05:15 Potassium 3.6 mEq/L (3.5-5.1) 03/19/17 05:15 Chloride 101 mEq/L (98-107) 03/19/17 05:15 Carbon Dioxide 28.2 mEq/L (21.0-31.0) 03/19/17 05:15 Anion Gap 12.4 (7.0-16.0) 03/19/17 05:15 BUN 45 mg/dL (7-25) H 03/19/17 05:15 Creatinine 6.3 mg/dL (0.6-1.2) H* 03/19/17 05:15 Est GFR ( Amer) 8.5 ml/min (>90) 03/19/17 05:15 Est GFR (Non-Af Amer) 7.0 ml/min 03/19/17 05:15 BUN/Creatinine Ratio 7.1 03/19/17 05:15 Glucose 162 mg/dL (70-105) H 03/19/17 05:15 POC Glucose 131 MG/DL (70 - 105) H 03/19/17 13:19 Hemoglobin A1c % 5.5 % (4.0-6.0) 03/16/17 06:52 Uric Acid 4.2 mg/dL (2.3-6.6) 03/15/17 05:00 Calcium 8.1 mg/dL (8.6-10.3) L 03/19/17 05:15 Phosphorus 3.0 mg/dL (2.5-5.0) 03/15/17 05:00 Magnesium 1.9 mg/dL (1.9-2.7) 03/19/17 05:15 Total Bilirubin 0.7 mg/dL (0.3-1.0) 03/15/17 05:00 AST 92 U/L (13-39) H 03/15/17 05:00 ALT 93 U/L (7-52) H 03/15/17 05:00 Alkaline Phosphatase 104 U/L (34-104) 03/15/17 05:00 Ammonia 59 umol/L (16-53) H 03/15/17 05:00 Creatine Kinase 64 U/L (30-223) 03/15/17 05:00 Total Protein 7.2 gm/dL (6.0-8.3) 03/15/17 05:00 Albumin 3.4 gm/dL (3.7-5.3) L 03/15/17 05:00 Globulin 3.8 gm/dL 03/15/17 05:00 Albumin/Globulin Ratio 0.9 (1.0-1.8) L 03/15/17 05:00 Free T4 0.73 ng/dL (0.82-1.77) L 03/16/17 06:52 Thyroxine (T4) 6.46 ug/dl (6.09-12.23) 03/16/17 06:52 Free T3 1.2 pg/mL (2.0-4.4) L 03/16/17 06:52 TSH 1.05 uIU/ml (0.34-5.60) 03/15/17 05:00 Urine Source MODI PORT 03/17/17 12:45 Urine Color YELLOW 03/17/17 12:45 Urine Clarity HAZY (CLEAR) 03/17/17 12:45 Urine pH 6.0 (4.6 - 8.0) 03/17/17 12:45 Ur Specific [place] 1.015 (1.005-1.030) 03/17/17 12:45 Urine Protein >=300 mg/dL (NEGATIVE) 03/17/17 12:45 Urine Glucose (UA) NEGATIVE mg/dL (NEGATIVE) 03/17/17 12:45 Urine Ketones NEGATIVE mg/dL (NEGATIVE) 03/17/17 12:45 Urine Blood LARGE (NEGATIVE) H 03/17/17 12:45 Urine Nitrate NEGATIVE (NEGATIVE) 03/17/17 12:45 Urine Bilirubin NEGATIVE (NEGATIVE) 03/17/17 12:45 Urine Urobilinogen 0.2 E.U./dL (0.2 - 1.0) 03/17/17 12:45 Ur Leukocyte Esterase SMALL (NEGATIVE) H 03/17/17 12:45 Urine RBC 25-50 /hpf (0-5) H 03/17/17 12:45 Urine WBC 6-10 /hpf (0-5) H 03/17/17 12:45 Ur Epithelial Cells FEW /lpf (FEW) 03/17/17 12:45 Urine Bacteria FEW /hpf (NONE SEEN) 03/17/17 12:45 Urine Yeast MODERATE /hpf (NONE SEEN) H 03/17/17 12:45 Ur Random Sodium 25 mmol/L 03/21/17 04:15 Urine Creatinine 85.0 mg/dl (28.0-217.0) 03/21/17 04:15 Urine Opiates Screen POSITIVE (NEGATIVE) H 03/17/17 12:45 Urine Methadone Screen NEGATIVE (NEGATIVE) 03/17/17 12:45 Ur Barbiturates Screen POSITIVE (NEGATIVE) H 03/17/17 12:45 Ur Tricyclics Screen NEGATIVE (NEGATIVE) 03/17/17 12:45 Ur Phencyclidine Scrn NEGATIVE (NEGATIVE) 03/17/17 12:45 Amphetamines Screen NEGATIVE (NEGATIVE) 03/17/17 12:45 U Methamphetamines Scrn POSITIVE (NEGATIVE) H 03/17/17 12:45 U Benzodiazepines Scrn POSITIVE (NEGATIVE) H 03/17/17 12:45 U Cocaine Metab Screen NEGATIVE (NEGATIVE) 03/17/17 12:45 U Cannabinoids Screen NEGATIVE (NEGATIVE) 03/17/17 12:45 Hepatitis A IgM Ab Negative (Negative) 03/14/17 21:23 Hep Bs Antigen Negative (Negative) 03/14/17 21:23 Hep B Core IgM Ab Negative (Negative) 03/14/17 21:23 Hepatitis C Antibody <0.1 s/co ratio (0.0-0.9) 03/14/17 21:23 - Physical Exam Vitals and I&O: Vital Signs Temp 100.1 F 03/21/17 08:05 Pulse 85 03/21/17 11:58 Resp 20 03/21/17 11:58 BP 101/70 03/21/17 09:04 Pulse Ox 95 03/21/17 11:58 Intake & Output 03/20/17 03/21/17 03/21/17 18:59 06:59 18:59 Intake Total 750 500 Output Total 380 300 Balance 370 200 Weight (lbs) 108.862 kg 116.301 kg Intake: Intake, IV Amount 450 400 Levetiracetam 1000mg/ 100 100 100mL 1,000 mg In 100 ml @ 400 mls/hr IV Q12H [facility] Rx#:[id number] Linezolid 600mg/300mL 600 300 300 mg In 300 ml @ 300 mls/ hr IV Q12H [facility] Rx#: [id number] cefTRIAXone 1 gm In 50 Dextrose 5% 50 ml @ 100 mls/hr IV Q24H [facility] Rx#: [id number] Oral 300 100 Output: Urine 380 300 Other: # Bowel Movements 2 1 Stool Characteristics Soft Soft Active Medications: Current Medications Acetaminophen (Tylenol) 650 mg PO Q4HR PRN PRN Reason: T 101F Stop: 05/13/17 00:20 Last Admin: 03/21/17 09:03 Dose: 650 mg Albuterol Sulfate (Albuterol 2.5mg/3ml Neb Ud) 2.5 mg HHN Q1H PRN PRN Reason: Shortness of Breath or Wheeze Albuterol/Ipratropium (Duoneb Neb) 3 ml HHN Q4HRT [facility] Stop: 05/13/17 14:59 Last Admin: 03/21/17 11:56 Dose: 3 ml Budesonide (Pulmicort) 0.5 mg HHN BIDRT [facility] Stop: 05/13/17 18:59 Last Admin: 03/21/17 07:25 Dose: 0.5 mg Carvedilol (Coreg) 6.25 mg NG BID [facility] Stop: 05/13/17 08:59 Last Admin: 03/21/17 09:04 Dose: Not Given Dextrose (D50w) 50 ml IVP PRN PRN PRN Reason: Blood Glucose less than 70 Stop: 05/13/17 00:22 Dextrose (Glutose 40%) 18.75 gm PO PRN PRN PRN Reason: Blood Glucose less than 70 Stop: 05/13/17 00:22 Epoetin John (Epogen) 10,000 units SUBQ MoFr@1500 [facility] Stop: 05/13/17 14:59 Last Admin: 03/20/17 15:12 Dose: 10,000 units Ferrous Sulfate (Iron) 300 mg NG BID [facility] Stop: 05/13/17 08:59 Last Admin: 03/21/17 09:03 Dose: 300 mg Glucagon (Glucagen) 1 mg IM PRN PRN PRN Reason: Blood Glucose less than 70 Stop: 05/13/17 00:22 Heparin Sodium (Porcine) (Heparin) 5,000 units SUBQ Q8HR [facility] Stop: 05/13/17 08:00 Last Admin: 03/21/17 12:56 Dose: 5,000 units Hydralazine HCl (Apresoline 20 Mg/Ml) 10 mg IV Q3H PRN PRN Reason: FOR SBP ABOVE 150 Stop: 05/13/17 00:41 Linezolid (Zyvox) 600 mg in 300 mls @ 300 mls/hr IV Q12H [facility] Stop: 05/13/17 15:59 Last Infusion: 03/21/17 05:03 Dose: Infused Ceftriaxone Sodium 1 gm/ (Dextrose) 50 mls @ 100 mls/hr IV Q24H [facility] Stop: 05/13/17 13:59 Last Infusion: 03/20/17 16:00 Dose: Infused Levetiracetam (Keppra Pb) 1,000 mg in 100 mls @ 400 mls/hr IV Q12H [facility] Stop: 05/14/17 21:14 Last Admin: 03/21/17 12:55 Dose: 400 mls/hr Lorazepam (Ativan) 2 mg IVP Q4H PRN; Protocol PRN Reason: Agitation Stop: 05/14/17 07:34 Last Admin: 03/19/17 04:17 Dose: 2 mg Miscellaneous (Probiotic Screen) 1 ea MC PRN PRN PRN Reason: PROTOCOL Stop: 05/13/17 16:29 Miscellaneous (Clinical Monitoring) 1 ea MC DAILY PRN PRN Reason: RENAL Stop: 05/17/17 11:13 Mupirocin (Bactroban Oint) 1 appl NS BID [facility] Stop: 03/24/17 17:01 Last Admin: 03/21/17 09:03 Dose: 1 appl Ondansetron HCl (Zofran) 4 mg IVP Q6H PRN PRN Reason: Nausea / Vomiting Stop: 05/13/17 00:46 Pantoprazole Sodium (Protonix) 40 mg IVP DAILY [facility] Stop: 05/13/17 08:59 Last Admin: 03/21/17 09:03 Dose: 40 mg Phenytoin (Dilantin) 100 mg IVP Q8H [facility] Stop: 05/14/17 16:59 Last Admin: 03/21/17 09:04 Dose: 100 mg General: Alert, No acute distress HEENT: Atraumatic, EOMI Neck: Supple, +2 carotid pulse wo bruit Cardiovascular: Regular rate, Normal S1, Normal S2 Lungs: Other (few rhonchi) Abdomen: Bowel sounds, Soft Extremities: no Edema Neurological: Sensation intact Skin: no Rash Psych/Mental Status: Mood NL - Procedures Procedures: Procedures Procedure Code Date RESPIRATORY VENTILATION, 24-96 CONSECUTIVE HOURS [id number] 03/13/17 Assessment/Plan - Problem List Patient Problems: All Active Problems H/O drug dependence (Acute) F19.21 H/O: depression (Acute) Z86.59 H/O: obesity (Acute) Z86.39 Respiratory failure (Acute) J96.90 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 h/o prior clavicular fracture (Acute) pneumonia (Acute) - Assessment Assessment: ROSARIO on HD ALOC 2nd to sustance abuse Ess Htn Morbid Obesity CN Staph GPC/GNR CAP Left Femur head Fx 2nd to fall Polysubstance Abuse Resp Failure Chronic pain Sx - Plan Plan: Lab - Result Diagrams 03/15/17 05:00 03/15/17 05:00 Current Medications Acetaminophen (Tylenol) 650 mg PO Q4HR PRN PRN Reason: T 101F Stop: 05/13/17 00:20 Last Admin: 03/14/17 17:29 Dose: 650 mg Albuterol Sulfate (Albuterol 2.5mg/3ml Neb Ud) 2.5 mg HHN Q1H PRN PRN Reason: Shortness of Breath or Wheeze Albuterol/Ipratropium (Duoneb Neb) 3 ml HHN Q4HRT [facility] Stop: 05/13/17 14:59 Last Admin: 03/15/17 13:39 Dose: 3 ml Budesonide (Pulmicort) 0.5 mg HHN BIDRT [facility] Stop: 05/13/17 18:59 Last Admin: 03/15/17 07:47 Dose: 0.5 mg Carvedilol (Coreg) 6.25 mg NG BID [facility] Stop: 05/13/17 08:59 Last Admin: 03/15/17 09:22 Dose: 6.25 mg Chlorhexidine Gluconate (Peridex) 15 ml MM 0800,1999 [facility] Stop: 05/13/17 07:59 Last Admin: 03/15/17 09:22 Dose: 15 ml Dextrose (D50w) 50 ml IVP PRN PRN PRN Reason: Blood Glucose less than 70 Stop: 05/13/17 00:22 Dextrose (Glutose 40%) 18.75 gm PO PRN PRN PRN Reason: Blood Glucose less than 70 Stop: 05/13/17 00:22 Epoetin John (Epogen) 10,000 units SUBQ MONFRI [facility] Stop: 05/13/17 14:59 Last Admin: 03/14/17 16:15 Dose: 10,000 units Ferrous Sulfate (Iron) 300 mg NG BID [facility] Stop: 05/13/17 08:59 Last Admin: 03/15/17 09:22 Dose: 300 mg Glucagon (Glucagen) 1 mg IM PRN PRN PRN Reason: Blood Glucose less than 70 Stop: 05/13/17 00:22 Heparin Sodium (Porcine) (Heparin) 5,000 units SUBQ Q8HR [facility] Stop: 05/13/17 08:00 Last Admin: 03/15/17 12:42 Dose: 5,000 units Hydralazine HCl (Apresoline 20 Mg/Ml) 10 mg IV Q3H PRN PRN Reason: FOR SBP ABOVE 150 Stop: 05/13/17 00:41 Hydromorphone HCl (Dilaudid) 2 mg IVP Q3H PRN PRN Reason: FOR MODERATE PAIN Stop: 05/13/17 00:46 Last Admin: 03/15/17 06:25 Dose: 2 mg Hydromorphone HCl (Dilaudid) 1 mg IVP Q3H PRN PRN Reason: MILD PAIN Stop: 05/13/17 00:46 Last Admin: 03/14/17 16:14 Dose: 1 mg Linezolid (Zyvox) 600 mg in 300 mls @ 300 mls/hr IV Q12H [facility] Stop: 05/13/17 15:59 Last Infusion: 03/15/17 05:19 Dose: Infused Ceftriaxone Sodium 1 gm/ (Dextrose) 50 mls @ 100 mls/hr IV Q24H [facility] Stop: 05/13/17 13:59 Last Admin: 03/15/17 14:37 Dose: 100 mls/hr Levofloxacin (Levaquin Pb) 250 mg in 50 mls @ 50 mls/hr IV Q48H [facility] Stop: 05/15/17 14:59 Insulin Aspart (Novolog Insulin Sliding Scale) 0 units SUBQ Q6HR [facility] PRN Reason: Protocol Stop: 05/13/17 05:59 Last Admin: 03/15/17 12:32 Dose: Not Given Lorazepam (Ativan) 2 mg IVP Q4H PRN; Protocol PRN Reason: Agitation Stop: 05/14/17 07:34 Last Admin: 03/15/17 12:44 Dose: 2 mg Methylprednisolone Sodium Succinate (Solu-Medrol) 40 mg IVP Q6HR [facility] Stop: 03/17/17 06:01 Last Admin: 03/15/17 12:44 Dose: 40 mg Miscellaneous (Probiotic Screen) 1 ea MC PRN PRN PRN Reason: PROTOCOL Stop: 05/13/17 16:29 Ondansetron HCl (Zofran) 4 mg IVP Q6H PRN PRN Reason: Nausea / Vomiting Stop: 05/13/17 00:46 Pantoprazole Sodium (Protonix) 40 mg IVP DAILY [facility] Stop: 05/13/17 08:59 Last Admin: 03/15/17 09:23 Dose: 40 mg Phenytoin (Dilantin) 100 mg IVP Q8H [facility] Stop: 05/14/17 16:59 currently being dialyzed replace K serial CXR perma cath poorly functional; air pockets along line, low BFR, Low venous pressure surgeon notified Lab - Result Diagrams 03/20/17 05:00 03/19/17 05:15 Nutritional Asmnt/Malnutr-PDOC - Dietary Evaluation Malnutrition Findings (Please click <Entered> for more info): Nutritional Asmnt/Malnutrition Start: 03/15/17 12: 22 Text: Status: Complete Freq: Document 03/15/17 12:28 [email or web address] (Rec: 03/15/17 12:39 [id number]) Nutritional Asmnt/Malnutrition Patient General Information Nutritional Screening High Risk Screening Diagnosis ROSARIO, sepsis with multiorgan failure, intubated, penumonia, resp failure Pertinent Medical Hx/Surgical Hx Asthma, COPD, severe obesity, prior clavicular fractures, chronic drug dependence, depression, HTN, cardiomyopathy, chronic pain syndrome Subjective Information 66 year old female from home. Per MD reports, pt with hx polysubstance abuse, 03/09/17 severe septic shock with multiorgan failure, involving respiratory and renal failure, intubated on diaylisys. Observed pt on vent with tube feeding infusing at 30ml/hr during visit. Spoke to RN, RN stated BM yesterday, none today yet, no residuals, tolerating well. 03/14 HD. Current Diet Order/ [facility]/hr x 24hrs, providing 840ml, 1680kcal, 76g protein Pertinent Medications D50w, Glutose 40%, Epogen, Iron, Glucagen, Dilaudid, Novolog, Solu Medrol, Zofran, Protonix Pertinent Labs 03/15: BUN 36H, creatinine 4.8H , glucose 172H Nutritional Hx/Data Height 1.6 m Height (Calculated Centimeters) 160.0 Current Weight (lbs) 117.843 kg Weight (Calculated Kilograms) 117.8 Weight (Calculated Grams) 461671.3 [place] Body Weight 115 Weight Status Morbidly Obese GI Symptoms Skin Integrity/Comment: Jordon 10. Bruises. Estimated Nutritional Goals BEE in Kcals: Adj wt of IBW Calories/Kcals/Kg AdjBW 151.2lb/68.7kg Kcals Calculated 2061-2405kcal (30-35kcal/kg) Protein: Adj wt of IBW Protein Calculated 103-137g (1.5-2g/kg) Fluid: ml Per MD Nutritional Problem 2. Problem Problem Increased kcal and prot needs related to Etiology hypermetabolic state aeb Signs/Symptoms: sepsis with multiorgan failure , on HD, penumonia 1. 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 Recommend Novasource Renal at 50ml/hr x 24hrs, providing 1200ml, 2400kcal, 109g protein . Increase 10ml/hr q12hrs as tolerated until goal rate of 50ml/hr. Hypermetabolic state: sepsis multiorgan failure, HD, resp failure, pneumonia , with consideration of morbid obesity. 2. Unable to provide FDI education due to pt intubated on tube feeding. Expected Outcomes/Goals Expected Outcomes/Goals 1. Pt to meet 100% of estimated nutritional needs on tube feeding with tolerance.
[2017-03-22] MEDS: Phenytoin 50 mg/mL 2 mL Vial IVP SCH ×3 (01:12→16:15)
--- NOTE | 2017-03-22 02:36 | Progress Notes ---
DATE: 03/21/2017 PROBLEM LIST: 1. Acute respiratory failure, improving. 2. Off mechanical ventilation. 3. Pneumonia, improving. 4. Chronic obstructive pulmonary disease with severe obstructive sleep apnea syndrome, fairly stable. 5. Renal failure, on hemodialysis. SYMPTOMS: Nil, feeling okay. No specific new symptoms. PHYSICAL EXAMINATION: VITAL SIGNS: T-max 100.1, blood pressure 101/70, saturation 98%. NECK: Veins not visualized. CHEST: Shows diminished air entry with occasional rhonchi. HEART: Regular. ABDOMEN: Soft, nontender. LABORATORY DATA: The patient's chest x-ray today shows some improvement in the right basal area with still increased bronchovascular markings. ASSESSMENT: The patient clinically seemingly much better, improving. PLANS AND SUGGESTIONS: We will go ahead and continue current treatment. We will follow through other studies in the next few days time, might consider for long-term acute care and see how she does and go from there. JOB# [id number]
[2017-03-22] MEDS: Albuterol/Ipratropium Neb 3 ML AERS HHN SCH ×5 (02:38→19:04)
[2017-03-22 06:09] LABS: % LYMPHOCYTES 12.5 % (20.0-50.0); % MONOCYTES 8.7 % (2.0-10.0); % NEUTROPHILS 70.8 % (40.0-80.0); HEMATOCRIT 24.3 % (41.0-60); HEMOGLOBIN 8.3 gm/dL (12-16); MEAN CELL VOLUME 87.2 fl (81-100); MEAN CORPUSCULAR HEMOGLOBIN 29.8 pg (27.0-31.0); MEAN CORPUSCULAR HGB CONC 34.1 pg (28.0-36.0); MEAN PLATELET VOLUME 7.1 fl; NEUTROPHILE ABSOLUTE 7.7 Th/cmm (1.8-8.0); PLATELET COUNT 418 Th/cmm (150-400); RED BLOOD COUNT 2.79 Mil/cmm (3.80-5.20); WHITE BLOOD COUNT 10.7 Th/cmm (4.8-10.8)
[2017-03-22] MEDS: Budesonide 0.5 Mg/2 mL Ud HHN SCH ×3 (07:04→19:04)
--- NOTE | 2017-03-22 08:20 | General Progress Note ---
Subjective - Review of Systems Service Date: 03/22/17 Events since last encounter: patient improving no acute distress Subjective: pt is improving s/p extubation Objective - Results Result Diagrams: 03/22/17 05:20 03/19/17 05:15 Recent Labs: Laboratory Last Values WBC 10.7 Th/cmm (4.8-10.8) 03/22/17 05:20 RBC 2.79 Mil/cmm (3.80-5.20) L 03/22/17 05:20 Hgb 8.3 gm/dL (12-16) L 03/22/17 05:20 Hct 24.3 % (41.0-60) L 03/22/17 05:20 MCV 87.2 fl (81-100) 03/22/17 05:20 MCH 29.8 pg (27.0-31.0) 03/22/17 05:20 MCHC Differential 34.1 pg (28.0-36.0) 03/22/17 05:20 RDW 25.0 % (11.5-20.0) H 03/22/17 05:20 Plt Count 418 Th/cmm (150-400) H 03/22/17 05:20 MPV 7.1 fl 03/22/17 05:20 Neutrophils % 70.8 % (40.0-80.0) 03/22/17 05:20 Band Neutrophils % 1 % (0-10) 03/20/17 05:00 Lymphocytes % 12.5 % (20.0-50.0) L 03/22/17 05:20 Monocytes % 8.7 % (2.0-10.0) 03/22/17 05:20 Eosinophils % 7.0 % (0.0-5.0) H 03/22/17 05:20 Basophils % 1.0 % (0.0-2.0) 03/22/17 05:20 Neutrophils (Manual) 79 % (40-80) 03/20/17 05:00 Lymphocytes 15 % (20-50) L 03/20/17 05:00 Monocytes 2 % (2-10) 03/20/17 05:00 Eosinophils 3 % (0-5) 03/20/17 05:00 Platelet Estimate INCREASED PLATELETS (NORMAL) 03/19/17 05:15 Platelet Morphology NORMAL (NORMAL) 03/19/17 05:15 Anisocytosis 1+ 03/19/17 05:15 Eos Smear Source URINE 03/21/17 04:15 Eos Smear Total Cells FEW EOSINOPHILS SEEN (NONE SEEN) 03/21/17 04:15 PT 11.6 SECONDS (9.5-11.5) H 03/20/17 05:00 INR 1.11 (0.5-1.4) 03/20/17 05:00 Specimen Source Arterial 03/18/17 08:30 Sample Site Right Radial 03/18/17 08:30 pH 7.43 (7.35-7.45) 03/18/17 08:30 pCO2 46.0 mmHg (35.0-45.0) H 03/18/17 08:30 pO2 80.0 mmHg (80.0-100.0) 03/18/17 08:30 HCO3 29.0 mEq/L (20.0-26.0) H 03/18/17 08:30 Base Excess 5.3 mEq/L (-3.0-3.0) H 03/18/17 08:30 O2 Saturation 96.0 % (92.0-100.0) 03/18/17 08:30 Ruben Test YES 03/18/17 08:30 Vent Rate NA 03/18/17 08:30 Inspired O2 32 03/18/17 08:30 Tidal Volume NA 03/18/17 08:30 PEEP NA 03/18/17 08:30 Pressure (ins/psv/peep) NA 03/18/17 08:30 Critical Value SH 03/18/17 08:30 Sodium 138 mEq/L (136-145) 03/19/17 05:15 Potassium 3.6 mEq/L (3.5-5.1) 03/19/17 05:15 Chloride 101 mEq/L (98-107) 03/19/17 05:15 Carbon Dioxide 28.2 mEq/L (21.0-31.0) 03/19/17 05:15 Anion Gap 12.4 (7.0-16.0) 03/19/17 05:15 BUN 45 mg/dL (7-25) H 03/19/17 05:15 Creatinine 6.3 mg/dL (0.6-1.2) H* 03/19/17 05:15 Est GFR ( Amer) 8.5 ml/min (>90) 03/19/17 05:15 Est GFR (Non-Af Amer) 7.0 ml/min 03/19/17 05:15 BUN/Creatinine Ratio 7.1 03/19/17 05:15 Glucose 162 mg/dL (70-105) H 03/19/17 05:15 POC Glucose 131 MG/DL (70 - 105) H 03/19/17 13:19 Hemoglobin A1c % 5.5 % (4.0-6.0) 03/16/17 06:52 Uric Acid 4.2 mg/dL (2.3-6.6) 03/15/17 05:00 Calcium 8.1 mg/dL (8.6-10.3) L 03/19/17 05:15 Phosphorus 3.0 mg/dL (2.5-5.0) 03/15/17 05:00 Magnesium 1.9 mg/dL (1.9-2.7) 03/19/17 05:15 Total Bilirubin 0.7 mg/dL (0.3-1.0) 03/15/17 05:00 AST 92 U/L (13-39) H 03/15/17 05:00 ALT 93 U/L (7-52) H 03/15/17 05:00 Alkaline Phosphatase 104 U/L (34-104) 03/15/17 05:00 Ammonia 59 umol/L (16-53) H 03/15/17 05:00 Creatine Kinase 64 U/L (30-223) 03/15/17 05:00 Total Protein 7.2 gm/dL (6.0-8.3) 03/15/17 05:00 Albumin 3.4 gm/dL (3.7-5.3) L 03/15/17 05:00 Globulin 3.8 gm/dL 03/15/17 05:00 Albumin/Globulin Ratio 0.9 (1.0-1.8) L 03/15/17 05:00 Free T4 0.73 ng/dL (0.82-1.77) L 03/16/17 06:52 Thyroxine (T4) 6.46 ug/dl (6.09-12.23) 03/16/17 06:52 Free T3 1.2 pg/mL (2.0-4.4) L 03/16/17 06:52 TSH 1.05 uIU/ml (0.34-5.60) 03/15/17 05:00 Urine Source MODI PORT 03/17/17 12:45 Urine Color YELLOW 03/17/17 12:45 Urine Clarity HAZY (CLEAR) 03/17/17 12:45 Urine pH 6.0 (4.6 - 8.0) 03/17/17 12:45 Ur Specific [place] 1.015 (1.005-1.030) 03/17/17 12:45 Urine Protein >=300 mg/dL (NEGATIVE) 03/17/17 12:45 Urine Glucose (UA) NEGATIVE mg/dL (NEGATIVE) 03/17/17 12:45 Urine Ketones NEGATIVE mg/dL (NEGATIVE) 03/17/17 12:45 Urine Blood LARGE (NEGATIVE) H 03/17/17 12:45 Urine Nitrate NEGATIVE (NEGATIVE) 03/17/17 12:45 Urine Bilirubin NEGATIVE (NEGATIVE) 03/17/17 12:45 Urine Urobilinogen 0.2 E.U./dL (0.2 - 1.0) 03/17/17 12:45 Ur Leukocyte Esterase SMALL (NEGATIVE) H 03/17/17 12:45 Urine RBC 25-50 /hpf (0-5) H 03/17/17 12:45 Urine WBC 6-10 /hpf (0-5) H 03/17/17 12:45 Ur Epithelial Cells FEW /lpf (FEW) 03/17/17 12:45 Urine Bacteria FEW /hpf (NONE SEEN) 03/17/17 12:45 Urine Yeast MODERATE /hpf (NONE SEEN) H 03/17/17 12:45 Ur Random Sodium 25 mmol/L 03/21/17 04:15 Urine Creatinine 85.0 mg/dl (28.0-217.0) 03/21/17 04:15 Urine Opiates Screen POSITIVE (NEGATIVE) H 03/17/17 12:45 Urine Methadone Screen NEGATIVE (NEGATIVE) 03/17/17 12:45 Ur Barbiturates Screen POSITIVE (NEGATIVE) H 03/17/17 12:45 Ur Tricyclics Screen NEGATIVE (NEGATIVE) 03/17/17 12:45 Ur Phencyclidine Scrn NEGATIVE (NEGATIVE) 03/17/17 12:45 Amphetamines Screen NEGATIVE (NEGATIVE) 03/17/17 12:45 U Methamphetamines Scrn POSITIVE (NEGATIVE) H 03/17/17 12:45 U Benzodiazepines Scrn POSITIVE (NEGATIVE) H 03/17/17 12:45 U Cocaine Metab Screen NEGATIVE (NEGATIVE) 03/17/17 12:45 U Cannabinoids Screen NEGATIVE (NEGATIVE) 03/17/17 12:45 Hepatitis A IgM Ab Negative (Negative) 03/14/17 21:23 Hep Bs Antigen Negative (Negative) 03/14/17 21:23 Hep B Core IgM Ab Negative (Negative) 03/14/17 21:23 Hepatitis C Antibody <0.1 s/co ratio (0.0-0.9) 03/14/17 21:23 - Physical Exam Vitals and I&O: Vital Signs Temp 99.5 F 03/22/17 07:50 Pulse 82 03/22/17 07:50 Resp 18 03/22/17 07:50 BP 140/77 03/22/17 07:50 Pulse Ox 100 03/22/17 07:50 Intake & Output 03/21/17 03/22/17 03/22/17 18:59 06:59 18:59 Intake Total 100 100 Output Total 200 Balance 100 -100 Weight (lbs) 116.301 kg 113.942 kg Intake: Intake, IV Amount 100 100 Levetiracetam 1000mg/ 100 100 100mL 1,000 mg In 100 ml @ 400 mls/hr IV Q12H [facility] Rx#:[id number] Output: Urine 200 Other: Stool Characteristics Soft Active Medications: Current Medications Acetaminophen (Tylenol) 650 mg PO Q4HR PRN PRN Reason: T 101F Stop: 05/13/17 00:20 Last Admin: 03/22/17 01:29 Dose: 650 mg Albuterol Sulfate (Albuterol 2.5mg/3ml Neb Ud) 2.5 mg HHN Q1H PRN PRN Reason: Shortness of Breath or Wheeze Albuterol/Ipratropium (Duoneb Neb) 3 ml HHN Q4HRT [facility] Stop: 05/13/17 14:59 Last Admin: 03/22/17 07:04 Dose: 3 ml Budesonide (Pulmicort) 0.5 mg HHN BIDRT [facility] Stop: 05/13/17 18:59 Last Admin: 03/22/17 07:09 Dose: 0.5 mg Carvedilol (Coreg) 6.25 mg NG BID [facility] Stop: 05/13/17 08:59 Last Admin: 03/21/17 16:05 Dose: 6.25 mg Dextrose (D50w) 50 ml IVP PRN PRN PRN Reason: Blood Glucose less than 70 Stop: 05/13/17 00:22 Dextrose (Glutose 40%) 18.75 gm PO PRN PRN PRN Reason: Blood Glucose less than 70 Stop: 05/13/17 00:22 Epoetin John (Epogen) 10,000 units SUBQ MoFr@1500 [facility] Stop: 05/13/17 14:59 Last Admin: 03/20/17 15:12 Dose: 10,000 units Ferrous Sulfate (Iron) 300 mg NG BID [facility] Stop: 05/13/17 08:59 Last Admin: 03/21/17 16:04 Dose: 300 mg Glucagon (Glucagen) 1 mg IM PRN PRN PRN Reason: Blood Glucose less than 70 Stop: 05/13/17 00:22 Hydralazine HCl (Apresoline 20 Mg/Ml) 10 mg IV Q3H PRN PRN Reason: FOR SBP ABOVE 150 Stop: 05/13/17 00:41 Levetiracetam (Keppra Pb) 1,000 mg in 100 mls @ 400 mls/hr IV Q12H [facility] Stop: 05/14/17 21:14 Last Infusion: 03/22/17 00:10 Dose: Infused Lorazepam (Ativan) 2 mg IVP Q4H PRN; Protocol PRN Reason: Agitation Stop: 05/14/17 07:34 Last Admin: 03/19/17 04:17 Dose: 2 mg Miscellaneous (Probiotic Screen) 1 ea MC PRN PRN PRN Reason: PROTOCOL Stop: 05/13/17 16:29 Miscellaneous (Clinical Monitoring) 1 ea MC DAILY PRN PRN Reason: RENAL Stop: 05/17/17 11:13 Mupirocin (Bactroban Oint) 1 appl NS BID [facility] Stop: 03/24/17 17:01 Last Admin: 03/21/17 16:19 Dose: 1 appl Ondansetron HCl (Zofran) 4 mg IVP Q6H PRN PRN Reason: Nausea / Vomiting Stop: 05/13/17 00:46 Pantoprazole Sodium (Protonix) 40 mg IVP DAILY [facility] Stop: 05/13/17 08:59 Last Admin: 03/21/17 09:03 Dose: 40 mg Phenytoin (Dilantin) 100 mg IVP Q8H [facility] Stop: 05/14/17 16:59 Last Admin: 03/22/17 01:12 Dose: 100 mg General: Alert, No acute distress HEENT: Atraumatic, EOMI Neck: Supple, +2 carotid pulse wo bruit Cardiovascular: Regular rate, Normal S1, Normal S2 Lungs: Other (few rhonchi) Abdomen: Bowel sounds, Soft Extremities: no Edema Neurological: Sensation intact Skin: no Rash Psych/Mental Status: Mood NL - Procedures Procedures: Procedures Procedure Code Date INSERT INFUSION DEV IN L INT JUGULAR VEIN, PERC [id number] 03/13/17 INSERT TUNNELED CV CATH [id number] 03/13/17 RESPIRATORY VENTILATION, 24-96 CONSECUTIVE HOURS [id number] 03/13/17 Assessment/Plan - Problem List Patient Problems: All Active Problems H/O drug dependence (Acute) F19.21 H/O: depression (Acute) Z86.59 H/O: obesity (Acute) Z86.39 Respiratory failure (Acute) J96.90 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 h/o prior clavicular fracture (Acute) pneumonia (Acute) s/p extubation (Acute) - Assessment Assessment: pt improving - Plan Plan: cpm Nutritional Asmnt/Malnutr-PDOC - Dietary Evaluation Malnutrition Findings (Please click <Entered> for more info): Nutritional Asmnt/Malnutrition Start: 03/15/17 12: 22 Text: Status: Complete Freq: Document 03/15/17 12:28 GSUN (Rec: 03/15/17 12:39 GSUN [id number]) Nutritional Asmnt/Malnutrition Patient General Information Nutritional Screening High Risk Screening Diagnosis ROSARIO, sepsis with multiorgan failure, intubated, penumonia, resp failure Pertinent Medical Hx/Surgical Hx Asthma, COPD, severe obesity, prior clavicular fractures, chronic drug dependence, depression, HTN, cardiomyopathy, chronic pain syndrome Subjective Information 66 year old female from home. Per MD reports, pt with hx polysubstance abuse, 03/09/17 severe septic shock with multiorgan failure, involving respiratory and renal failure, intubated on diaylisys. Observed pt on vent with tube feeding infusing at 30ml/hr during visit. Spoke to RN, RN stated BM yesterday, none today yet, no residuals, tolerating well. 03/14 HD. Current Diet Order/ Nutrition Support Novasource Renal 35ml/hr x 24hrs, providing 840ml, 1680kcal, 76g protein Pertinent Medications D50w, Glutose 40%, Epogen, Iron, Glucagen, Dilaudid, Novolog, Solu Medrol, Zofran, Protonix Pertinent Labs 03/15: BUN 36H, creatinine 4.8H , glucose 172H Nutritional Hx/Data Height 1.6 m Height (Calculated Centimeters) 160.0 Current Weight (lbs) 117.843 kg Weight (Calculated Kilograms) 117.8 Weight (Calculated Grams) 381109.3 [place] Body Weight 115 Weight Status Morbidly Obese GI Symptoms Skin Integrity/Comment: Jordon 10. Bruises. Estimated Nutritional Goals BEE in Kcals: Adj wt of IBW Calories/Kcals/Kg AdjBW 151.2lb/68.7kg Kcals Calculated 2061-2405kcal (30-35kcal/kg) Protein: Adj wt of IBW Protein Calculated 103-137g (1.5-2g/kg) Fluid: ml Per MD Nutritional Problem 2. Problem Problem Increased kcal and prot needs related to Etiology hypermetabolic state aeb Signs/Symptoms: sepsis with multiorgan failure , on HD, penumonia 1. Problem Problem Imapired nutrient utilization related to Etiology ROSARIO aeb Signs/Symptoms: 03/14 HD, BUN 36H broacher 4.8H Intervention/Recommendation Comments 1. Recommend Novasource Renal at 50ml/hr x 24hrs, providing 1200ml, 2400kcal, 109g protein . Increase 10ml/hr q12hrs as tolerated until goal rate of 50ml/hr. Hypermetabolic state: sepsis multiorgan failure, HD, resp failure, pneumonia , with consideration of morbid obesity. 2. Unable to provide FDI education due to pt intubated on tube feeding. Expected Outcomes/Goals Expected Outcomes/Goals 1. Pt to meet 100% of estimated nutritional needs on tube feeding with tolerance.
[2017-03-22] MEDS: Ferrous Sulfate 300 MG/5 ML UDC NG SCH ×2 (09:23→16:15)
[2017-03-22] MEDS: Levetiracetam 1000mg/100mL 1,000 MG/100 ML BAG IV SCH (09:29)
[2017-03-22] MEDS ORDERED: Hydrocodone/APAP 5mg/325mg Tab PO PRN (10:31)
--- NOTE | 2017-03-22 14:23 | General Progress Note ---
Subjective - Review of Systems Service Date: 03/22/17 Subjective: more alert, left shoulder pain, verbal, comfortable Objective - Results Result Diagrams: 03/22/17 05:20 03/19/17 05:15 Recent Labs: Laboratory Last Values WBC 10.7 Th/cmm (4.8-10.8) 03/22/17 05:20 RBC 2.79 Mil/cmm (3.80-5.20) L 03/22/17 05:20 Hgb 8.3 gm/dL (12-16) L 03/22/17 05:20 Hct 24.3 % (41.0-60) L 03/22/17 05:20 MCV 87.2 fl (81-100) 03/22/17 05:20 MCH 29.8 pg (27.0-31.0) 03/22/17 05:20 MCHC Differential 34.1 pg (28.0-36.0) 03/22/17 05:20 RDW 25.0 % (11.5-20.0) H 03/22/17 05:20 Plt Count 418 Th/cmm (150-400) H 03/22/17 05:20 MPV 7.1 fl 03/22/17 05:20 Neutrophils % 70.8 % (40.0-80.0) 03/22/17 05:20 Band Neutrophils % 1 % (0-10) 03/20/17 05:00 Lymphocytes % 12.5 % (20.0-50.0) L 03/22/17 05:20 Monocytes % 8.7 % (2.0-10.0) 03/22/17 05:20 Eosinophils % 7.0 % (0.0-5.0) H 03/22/17 05:20 Basophils % 1.0 % (0.0-2.0) 03/22/17 05:20 Neutrophils (Manual) 79 % (40-80) 03/20/17 05:00 Lymphocytes 15 % (20-50) L 03/20/17 05:00 Monocytes 2 % (2-10) 03/20/17 05:00 Eosinophils 3 % (0-5) 03/20/17 05:00 Platelet Estimate INCREASED PLATELETS (NORMAL) 03/19/17 05:15 Platelet Morphology NORMAL (NORMAL) 03/19/17 05:15 Anisocytosis 1+ 03/19/17 05:15 Eos Smear Source URINE 03/21/17 04:15 Eos Smear Total Cells FEW EOSINOPHILS SEEN (NONE SEEN) 03/21/17 04:15 PT 11.6 SECONDS (9.5-11.5) H 03/20/17 05:00 INR 1.11 (0.5-1.4) 03/20/17 05:00 Specimen Source Arterial 03/18/17 08:30 Sample Site Right Radial 03/18/17 08:30 pH 7.43 (7.35-7.45) 03/18/17 08:30 pCO2 46.0 mmHg (35.0-45.0) H 03/18/17 08:30 pO2 80.0 mmHg (80.0-100.0) 03/18/17 08:30 HCO3 29.0 mEq/L (20.0-26.0) H 03/18/17 08:30 Base Excess 5.3 mEq/L (-3.0-3.0) H 03/18/17 08:30 O2 Saturation 96.0 % (92.0-100.0) 03/18/17 08:30 Ruben Test YES 03/18/17 08:30 Vent Rate NA 03/18/17 08:30 Inspired O2 32 03/18/17 08:30 Tidal Volume NA 03/18/17 08:30 PEEP NA 03/18/17 08:30 Pressure (ins/psv/peep) NA 03/18/17 08:30 Critical Value SH 03/18/17 08:30 Sodium 138 mEq/L (136-145) 03/19/17 05:15 Potassium 3.6 mEq/L (3.5-5.1) 03/19/17 05:15 Chloride 101 mEq/L (98-107) 03/19/17 05:15 Carbon Dioxide 28.2 mEq/L (21.0-31.0) 03/19/17 05:15 Anion Gap 12.4 (7.0-16.0) 03/19/17 05:15 BUN 45 mg/dL (7-25) H 03/19/17 05:15 Creatinine 6.3 mg/dL (0.6-1.2) H* 03/19/17 05:15 Est GFR ( Amer) 8.5 ml/min (>90) 03/19/17 05:15 Est GFR (Non-Af Amer) 7.0 ml/min 03/19/17 05:15 BUN/Creatinine Ratio 7.1 03/19/17 05:15 Glucose 162 mg/dL (70-105) H 03/19/17 05:15 POC Glucose 131 MG/DL (70 - 105) H 03/19/17 13:19 Hemoglobin A1c % 5.5 % (4.0-6.0) 03/16/17 06:52 Uric Acid 4.2 mg/dL (2.3-6.6) 03/15/17 05:00 Calcium 8.1 mg/dL (8.6-10.3) L 03/19/17 05:15 Phosphorus 3.0 mg/dL (2.5-5.0) 03/15/17 05:00 Magnesium 1.9 mg/dL (1.9-2.7) 03/19/17 05:15 Total Bilirubin 0.7 mg/dL (0.3-1.0) 03/15/17 05:00 AST 92 U/L (13-39) H 03/15/17 05:00 ALT 93 U/L (7-52) H 03/15/17 05:00 Alkaline Phosphatase 104 U/L (34-104) 03/15/17 05:00 Ammonia 59 umol/L (16-53) H 03/15/17 05:00 Creatine Kinase 64 U/L (30-223) 03/15/17 05:00 Total Protein 7.2 gm/dL (6.0-8.3) 03/15/17 05:00 Albumin 3.4 gm/dL (3.7-5.3) L 03/15/17 05:00 Globulin 3.8 gm/dL 03/15/17 05:00 Albumin/Globulin Ratio 0.9 (1.0-1.8) L 03/15/17 05:00 Free T4 0.73 ng/dL (0.82-1.77) L 03/16/17 06:52 Thyroxine (T4) 6.46 ug/dl (6.09-12.23) 03/16/17 06:52 Free T3 1.2 pg/mL (2.0-4.4) L 03/16/17 06:52 TSH 1.05 uIU/ml (0.34-5.60) 03/15/17 05:00 Urine Source MODI PORT 03/17/17 12:45 Urine Color YELLOW 03/17/17 12:45 Urine Clarity HAZY (CLEAR) 03/17/17 12:45 Urine pH 6.0 (4.6 - 8.0) 03/17/17 12:45 Ur Specific Lizella 1.015 (1.005-1.030) 03/17/17 12:45 Urine Protein >=300 mg/dL (NEGATIVE) 03/17/17 12:45 Urine Glucose (UA) NEGATIVE mg/dL (NEGATIVE) 03/17/17 12:45 Urine Ketones NEGATIVE mg/dL (NEGATIVE) 03/17/17 12:45 Urine Blood LARGE (NEGATIVE) H 03/17/17 12:45 Urine Nitrate NEGATIVE (NEGATIVE) 03/17/17 12:45 Urine Bilirubin NEGATIVE (NEGATIVE) 03/17/17 12:45 Urine Urobilinogen 0.2 E.U./dL (0.2 - 1.0) 03/17/17 12:45 Ur Leukocyte Esterase SMALL (NEGATIVE) H 03/17/17 12:45 Urine RBC 25-50 /hpf (0-5) H 03/17/17 12:45 Urine WBC 6-10 /hpf (0-5) H 03/17/17 12:45 Ur Epithelial Cells FEW /lpf (FEW) 03/17/17 12:45 Urine Bacteria FEW /hpf (NONE SEEN) 03/17/17 12:45 Urine Yeast MODERATE /hpf (NONE SEEN) H 03/17/17 12:45 Ur Random Sodium 25 mmol/L 03/21/17 04:15 Urine Creatinine 85.0 mg/dl (28.0-217.0) 03/21/17 04:15 Urine Opiates Screen POSITIVE (NEGATIVE) H 03/17/17 12:45 Urine Methadone Screen NEGATIVE (NEGATIVE) 03/17/17 12:45 Ur Barbiturates Screen POSITIVE (NEGATIVE) H 03/17/17 12:45 Ur Tricyclics Screen NEGATIVE (NEGATIVE) 03/17/17 12:45 Ur Phencyclidine Scrn NEGATIVE (NEGATIVE) 03/17/17 12:45 Amphetamines Screen NEGATIVE (NEGATIVE) 03/17/17 12:45 U Methamphetamines Scrn POSITIVE (NEGATIVE) H 03/17/17 12:45 U Benzodiazepines Scrn POSITIVE (NEGATIVE) H 03/17/17 12:45 U Cocaine Metab Screen NEGATIVE (NEGATIVE) 03/17/17 12:45 U Cannabinoids Screen NEGATIVE (NEGATIVE) 03/17/17 12:45 Hepatitis A IgM Ab Negative (Negative) 03/14/17 21:23 Hep Bs Antigen Negative (Negative) 03/14/17 21:23 Hep B Core IgM Ab Negative (Negative) 03/14/17 21:23 Hepatitis C Antibody <0.1 s/co ratio (0.0-0.9) 03/14/17 21:23 - Physical Exam Vitals and I&O: Vital Signs Temp 98.6 F 03/22/17 11:49 Pulse 85 03/22/17 11:49 Resp 18 03/22/17 11:49 BP 108/60 03/22/17 11:49 Pulse Ox 99 03/22/17 11:49 Intake & Output 03/21/17 03/22/17 03/22/17 18:59 06:59 18:59 Intake Total 100 100 Output Total 200 Balance 100 -100 Weight (lbs) 116.301 kg 113.942 kg Intake: Intake, IV Amount 100 100 Levetiracetam 1000mg/ 100 100 100mL 1,000 mg In 100 ml @ 400 mls/hr IV Q12H [facility] Rx#:[id number] Output: Urine 200 Other: Stool Characteristics Soft Active Medications: Current Medications Acetaminophen (Tylenol) 650 mg PO Q4HR PRN PRN Reason: T 101F Stop: 05/13/17 00:20 Last Admin: 03/22/17 01:29 Dose: 650 mg Acetaminophen/Hydrocodone Bitart ([place] 5mg/325mg) 1 tab PO Q6H PRN PRN Reason: Mild to moderate pain Stop: 05/21/17 10:30 Albuterol Sulfate (Albuterol 2.5mg/3ml Neb Ud) 2.5 mg HHN Q1H PRN PRN Reason: Shortness of Breath or Wheeze Albuterol/Ipratropium (Duoneb Neb) 3 ml HHN Q4HRT [facility] Stop: 05/13/17 14:59 Last Admin: 03/22/17 11:21 Dose: Not Given Budesonide (Pulmicort) 0.5 mg HHN BIDRT [facility] Stop: 05/13/17 18:59 Last Admin: 03/22/17 07:09 Dose: 0.5 mg Carvedilol (Coreg) 6.25 mg NG BID [facility] Stop: 05/13/17 08:59 Last Admin: 03/22/17 09:23 Dose: 6.25 mg Dextrose (D50w) 50 ml IVP PRN PRN PRN Reason: Blood Glucose less than 70 Stop: 05/13/17 00:22 Dextrose (Glutose 40%) 18.75 gm PO PRN PRN PRN Reason: Blood Glucose less than 70 Stop: 05/13/17 00:22 Epoetin John (Epogen) 10,000 units SUBQ MoFr@1500 [facility] Stop: 05/13/17 14:59 Last Admin: 03/20/17 15:12 Dose: 10,000 units Ferrous Sulfate (Iron) 300 mg NG BID [facility] Stop: 05/13/17 08:59 Last Admin: 03/22/17 09:23 Dose: 300 mg Glucagon (Glucagen) 1 mg IM PRN PRN PRN Reason: Blood Glucose less than 70 Stop: 05/13/17 00:22 Hydralazine HCl (Apresoline 20 Mg/Ml) 10 mg IV Q3H PRN PRN Reason: FOR SBP ABOVE 150 Stop: 05/13/17 00:41 Levetiracetam (Keppra Pb) 1,000 mg in 100 mls @ 400 mls/hr IV Q12H [facility] Stop: 05/14/17 21:14 Last Admin: 03/22/17 09:29 Dose: 400 mls/hr Lorazepam (Ativan) 2 mg IVP Q4H PRN; Protocol PRN Reason: Agitation Stop: 05/14/17 07:34 Last Admin: 03/19/17 04:17 Dose: 2 mg Miscellaneous (Probiotic Screen) 1 ea MC PRN PRN PRN Reason: PROTOCOL Stop: 05/13/17 16:29 Miscellaneous (Clinical Monitoring) 1 ea MC DAILY PRN PRN Reason: RENAL Stop: 05/17/17 11:13 Mupirocin (Bactroban Oint) 1 appl NS BID [facility] Stop: 03/24/17 17:01 Last Admin: 03/22/17 09:29 Dose: 1 appl Ondansetron HCl (Zofran) 4 mg IVP Q6H PRN PRN Reason: Nausea / Vomiting Stop: 05/13/17 00:46 Pantoprazole Sodium (Protonix) 40 mg IVP DAILY [facility] Stop: 05/13/17 08:59 Last Admin: 03/22/17 09:23 Dose: 40 mg Phenytoin (Dilantin) 100 mg IVP Q8H [facility] Stop: 05/14/17 16:59 Last Admin: 03/22/17 10:05 Dose: 100 mg General: Alert, No acute distress HEENT: Atraumatic, EOMI Neck: Supple, +2 carotid pulse wo bruit Cardiovascular: Regular rate, Normal S1, Normal S2 Lungs: Other (few rhonchi) Abdomen: Bowel sounds, Soft Extremities: no Edema Neurological: Sensation intact Skin: no Rash Psych/Mental Status: Mood NL - Procedures Procedures: Procedures Procedure Code Date INSERT INFUSION DEV IN L INT JUGULAR VEIN, PERC [id number] 03/13/17 INSERT TUNNELED CV CATH [id number] 03/13/17 RESPIRATORY VENTILATION, 24-96 CONSECUTIVE HOURS [id number] 03/13/17 Assessment/Plan - Problem List Patient Problems: All Active Problems H/O drug dependence (Acute) F19.21 H/O: depression (Acute) Z86.59 H/O: obesity (Acute) Z86.39 Respiratory failure (Acute) J96.90 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 h/o prior clavicular fracture (Acute) pneumonia (Acute) s/p extubation (Acute) - Assessment Assessment: ROSARIO on HD ALOC 2nd to sustance abuse Ess Htn Morbid Obesity CN Staph GPC/GNR CAP Left Femur head Fx 2nd to fall Polysubstance Abuse Resp Failure Chronic pain Sx - Plan Plan: Lab - Result Diagrams 03/15/17 05:00 03/15/17 05:00 Current Medications Acetaminophen (Tylenol) 650 mg PO Q4HR PRN PRN Reason: T 101F Stop: 05/13/17 00:20 Last Admin: 03/14/17 17:29 Dose: 650 mg Albuterol Sulfate (Albuterol 2.5mg/3ml Neb Ud) 2.5 mg HHN Q1H PRN PRN Reason: Shortness of Breath or Wheeze Albuterol/Ipratropium (Duoneb Neb) 3 ml HHN Q4HRT [facility] Stop: 05/13/17 14:59 Last Admin: 03/15/17 13:39 Dose: 3 ml Budesonide (Pulmicort) 0.5 mg HHN BIDRT [facility] Stop: 05/13/17 18:59 Last Admin: 03/15/17 07:47 Dose: 0.5 mg Carvedilol (Coreg) 6.25 mg NG BID [facility] Stop: 05/13/17 08:59 Last Admin: 03/15/17 09:22 Dose: 6.25 mg Chlorhexidine Gluconate (Peridex) 15 ml MM [phone] [facility] Stop: 05/13/17 07:59 Last Admin: 03/15/17 09:22 Dose: 15 ml Dextrose (D50w) 50 ml IVP PRN PRN PRN Reason: Blood Glucose less than 70 Stop: 05/13/17 00:22 Dextrose (Glutose 40%) 18.75 gm PO PRN PRN PRN Reason: Blood Glucose less than 70 Stop: 05/13/17 00:22 Epoetin John (Epogen) 10,000 units SUBQ MONFRI [facility] Stop: 05/13/17 14:59 Last Admin: 03/14/17 16:15 Dose: 10,000 units Ferrous Sulfate (Iron) 300 mg NG BID [facility] Stop: 05/13/17 08:59 Last Admin: 03/15/17 09:22 Dose: 300 mg Glucagon (Glucagen) 1 mg IM PRN PRN PRN Reason: Blood Glucose less than 70 Stop: 05/13/17 00:22 Heparin Sodium (Porcine) (Heparin) 5,000 units SUBQ Q8HR [facility] Stop: 05/13/17 08:00 Last Admin: 03/15/17 12:42 Dose: 5,000 units Hydralazine HCl (Apresoline 20 Mg/Ml) 10 mg IV Q3H PRN PRN Reason: FOR SBP ABOVE 150 Stop: 05/13/17 00:41 Hydromorphone HCl (Dilaudid) 2 mg IVP Q3H PRN PRN Reason: FOR MODERATE PAIN Stop: 05/13/17 00:46 Last Admin: 03/15/17 06:25 Dose: 2 mg Hydromorphone HCl (Dilaudid) 1 mg IVP Q3H PRN PRN Reason: MILD PAIN Stop: 05/13/17 00:46 Last Admin: 03/14/17 16:14 Dose: 1 mg Linezolid (Zyvox) 600 mg in 300 mls @ 300 mls/hr IV Q12H [facility] Stop: 05/13/17 15:59 Last Infusion: 03/15/17 05:19 Dose: Infused Ceftriaxone Sodium 1 gm/ (Dextrose) 50 mls @ 100 mls/hr IV Q24H [facility] Stop: 05/13/17 13:59 Last Admin: 03/15/17 14:37 Dose: 100 mls/hr Levofloxacin (Levaquin Pb) 250 mg in 50 mls @ 50 mls/hr IV Q48H [facility] Stop: 05/15/17 14:59 Insulin Aspart (Novolog Insulin Sliding Scale) 0 units SUBQ Q6HR CELSA PRN Reason: Protocol Stop: 05/13/17 05:59 Last Admin: 03/15/17 12:32 Dose: Not Given Lorazepam (Ativan) 2 mg IVP Q4H PRN; Protocol PRN Reason: Agitation Stop: 05/14/17 07:34 Last Admin: 03/15/17 12:44 Dose: 2 mg Methylprednisolone Sodium Succinate (Solu-Medrol) 40 mg IVP Q6HR [facility] Stop: 03/17/17 06:01 Last Admin: 03/15/17 12:44 Dose: 40 mg Miscellaneous (Probiotic Screen) 1 ea MC PRN PRN PRN Reason: PROTOCOL Stop: 05/13/17 16:29 Ondansetron HCl (Zofran) 4 mg IVP Q6H PRN PRN Reason: Nausea / Vomiting Stop: 05/13/17 00:46 Pantoprazole Sodium (Protonix) 40 mg IVP DAILY [facility] Stop: 05/13/17 08:59 Last Admin: 03/15/17 09:23 Dose: 40 mg Phenytoin (Dilantin) 100 mg IVP Q8H [facility] Stop: 05/14/17 16:59 awaiting replacement of perma cath perma cath poorly functional; air pockets along line, low BFR, Low venous pressure surgeon notified f/u electrolytes Lab - Result Diagrams 03/19/17 05:15 Nutritional Asmnt/Malnutr-PDOC - Dietary Evaluation Malnutrition Findings (Please click <Entered> for more info): Nutritional Asmnt/Malnutrition Start: 03/15/17 12: 22 Text: Status: Complete Freq: Document 03/15/17 12:28 GSUN (Rec: 03/15/17 12:39 GSUN [id number]) Nutritional Asmnt/Malnutrition Patient General Information Nutritional Screening High Risk Screening Diagnosis ROSARIO, sepsis with multiorgan failure, intubated, penumonia, resp failure Pertinent Medical Hx/Surgical Hx Asthma, COPD, severe obesity, prior clavicular fractures, chronic drug dependence, depression, HTN, cardiomyopathy, chronic pain syndrome Subjective Information 66 year old female from home. Per MD reports, pt with hx polysubstance abuse, 03/09/17 severe septic shock with multiorgan failure, involving respiratory and renal failure, intubated on diaylisys. Observed pt on vent with tube feeding infusing at 30ml/hr during visit. Spoke to RN, RN stated BM yesterday, none today yet, no residuals, tolerating well. 03/14 HD. Current Diet Order/ Nutrition Support Novasource Renal 35ml/hr x 24hrs, providing 840ml, 1680kcal, 76g protein Pertinent Medications D50w, Glutose 40%, Epogen, Iron, Glucagen, Dilaudid, Novolog, Solu Medrol, Zofran, Protonix Pertinent Labs 03/15: BUN 36H, creatinine 4.8H , glucose 172H Nutritional Hx/Data Height 1.6 m Height (Calculated Centimeters) 160.0 Current Weight (lbs) 117.843 kg Weight (Calculated Kilograms) 117.8 Weight (Calculated Grams) 972110.3 [place] Body Weight 115 Weight Status Morbidly Obese GI Symptoms Skin Integrity/Comment: Jordon 10. Bruises. Estimated Nutritional Goals BEE in Kcals: Adj wt of IBW Calories/Kcals/Kg AdjBW 151.2lb/68.7kg Kcals Calculated 2061-2405kcal (30-35kcal/kg) Protein: Adj wt of IBW Protein Calculated 103-137g (1.5-2g/kg) Fluid: ml Per MD Nutritional Problem 2. Problem Problem Increased kcal and prot needs related to Etiology hypermetabolic state aeb Signs/Symptoms: sepsis with multiorgan failure , on HD, penumonia 1. Problem Problem Imapired nutrient utilization related to Etiology ROSARIO aeb Signs/Symptoms: 03/14 HD, BUN 36H planning feeder 4.8H Intervention/Recommendation Comments 1. Recommend Novasource Renal at 50ml/hr x 24hrs, providing 1200ml, 2400kcal, 109g protein . Increase 10ml/hr q12hrs as tolerated until goal rate of 50ml/hr. Hypermetabolic state: sepsis multiorgan failure, HD, resp failure, pneumonia , with consideration of morbid obesity. 2. Unable to provide FDI education due to pt intubated on tube feeding. Expected Outcomes/Goals Expected Outcomes/Goals 1. Pt to meet 100% of estimated nutritional needs on tube feeding with tolerance.
--- NOTE | 2017-03-23 04:52 | Progress Notes ---
DATE: 03/22/2017 PROBLEM LIST: 1. Status post respiratory failure, off mechanical ventilation. 2. Slight patch of pneumonia, right lower lobe, improving. 3. Chronic obstructive pulmonary disease. 4. Obstructive sleep apnea syndrome. 5. Renal failure, on hemodialysis. SYMPTOMS: Nil, feeling okay. Denies of any specific new symptoms and currently using nasal O2, continues using nocturnal BiPAP. PHYSICAL EXAMINATION: VITAL SIGNS: Temperature 98.6 and blood pressure 108/60. NECK: Veins not visualized. CHEST: Shows some secretory noise with diminished air entry. HEART: Regular. ABDOMEN: Soft, nontender. EXTREMITIES: Show slight trace of peripheral edema. LABORATORY DATA: White count 10.9 and hemoglobin 8.3. ASSESSMENT: The patient clinically overall doing much better, improving. PLANS AND SUGGESTIONS: Continue current aggressive inhalation treatment, nocturnal BiPAP, IV antibiotic per ID, and dialysis and see how he does in the next few days and go from there. JOB# [id number]
--- NOTE | 2017-04-04 01:37 | Discharge Summary ---
DATE OF DISCHARGE: 03/22/2017 HOSPITAL COURSE: The patient is very well known to me, a 66-year-old female. The patient was admitted to [facility] on 03/13/2017, apparently came from [facility], was intubated there and came in ____ later. The patient apparently was in respiratory failure ____ VDRF, history of aspiration, aspiration pneumonia, history of prior clavicular fracture, history of obesity, depression, drug dependence. The patient was treated, also had acute renal failure for which she was treated with dialysis. The patient was extubated, the patient improved. The patient was in tele bed and on 03/22/2017, the decision was made to send the patient to [facility] where I will be following the patient. FINAL DIAGNOSES: Status post respiratory failure, status post intubation, status post ventilator dependent respiratory failure, status post aspiration pneumonia, history of clavicular fracture, history of depression, history of drug dependence, history of acute renal failure on dialysis. JOB# [id number]
== END 2017-03-22 20:45 | DRG 871 ==
LOC: ICU 20:10 → TELE 03-19 20:00
PROVIDERS: ADMIT Internal Medicine; ATTEND Internal Medicine
PROC: 5A1945Z Respiratory Ventilation, 24-96 Consecutive Hours (ICD-10-PCS; principal; 2017-03-13)
PROC: 5A1D60Z (ICD-10-PCS; 2017-03-14)
PROC: 0JH63XZ Insertion of Tunneled Vascular Access Device into Chest Subcutaneous Tissue and Fascia, Percutaneous Approach (ICD-10-PCS; 2017-03-20)
PROC: 02HV33Z Insertion of Infusion Device into Superior Vena Cava, Percutaneous Approach (ICD-10-PCS; 2017-03-20)
PROC: B5181ZA Fluoroscopy of Superior Vena Cava using Low Osmolar Contrast, Guidance (ICD-10-PCS; 2017-03-20)
DX: A41.2 Sepsis due to unspecified staphylococcus (principal); J96.00 Acute respiratory failure, unspecified whether with hypoxia or hypercapnia; N17.0 Acute kidney failure with tubular necrosis; R65.21 Severe sepsis with septic shock; G93.41 Metabolic encephalopathy; J18.1 Lobar pneumonia, unspecified organism; Z99.11 Dependence on respirator [ventilator] status; N18.6 End stage renal disease; I42.9 Cardiomyopathy, unspecified; S42.202A Unspecified fracture of upper end of left humerus, initial encounter for closed fracture; F19.20 Other psychoactive substance dependence, uncomplicated; Z68.41 Body mass index [BMI] 40.0-44.9, adult; E44.0 Moderate protein-calorie malnutrition; I12.0 Hypertensive chronic kidney disease with stage 5 chronic kidney disease or end stage renal disease; J44.9 Chronic obstructive pulmonary disease, unspecified; E66.01 Morbid (severe) obesity due to excess calories; G89.4 Chronic pain syndrome; E03.9 Hypothyroidism, unspecified; G47.33 Obstructive sleep apnea (adult) (pediatric); E78.5 Hyperlipidemia, unspecified; F41.9 Anxiety disorder, unspecified; M19.90 Unspecified osteoarthritis, unspecified site; R56.9 Unspecified convulsions; F32.9 Major depressive disorder, single episode, unspecified; E86.0 Dehydration; T14.8 Other injury of unspecified body region; D63.8 Anemia in other chronic diseases classified elsewhere; W18.30XA Fall on same level, unspecified, initial encounter; Y93.89 Activity, other specified; Y92.89 Other specified places as the place of occurrence of the external cause; Y99.8 Other external cause status; Z99.2 Dependence on renal dialysis; Z79.51 Long term (current) use of inhaled steroids; Z79.4 Long term (current) use of insulin
CPT/HCPCS: 36415-UA; 36600-90; 71010-TC; 73030-TC-LT; 76000-TC; 76770-TC; 80048-TC; 80053-TC; 80074-90; 80307; 81001-TC; 81015-TC; 82140-TC; 82550-TC; 82570-TC; 82803-TC; 82948-90; 83036-90; 83735-TC; 84100-TC; 84300-TC; 84436-TC; 84439-90; 84443-TC; 84479-90; 84550-TC; 85007-TC; 85025-TC; 85027-TC; 85610-TC; 87070; 90937; 94003; 94640; 94660; 94760; C9113; J0696; J0885; J1165; J1170; J1644; J1815; J1953; J1956; J2001; J2020; J2060; J2250; J2543; J2704; J2920; J2997; J7030; J7040; X7704; Z7610

== ENCOUNTER 2018-07-07 14:31 | Inpatient (IN) | payer MEDICARE, MEDICAID ==
[2018-07-07 15:20] LABS: % BASOPHILS 0.3 % (0.0-2.0); % LYMPHOCYTES 16.5 % (20.0-50.0); % MONOCYTES 6.6 % (2.0-10.0); % NEUTROPHILS 75.6 % (40.0-80.0); EOSINOPHILE ABSOLUTE 0.1 Th/cmm (0.1-0.4); HEMATOCRIT 38.2 % (41.0-60); HEMOGLOBIN 12.7 gm/dL (12-16); LYMPHOCYTE ABSOLUTE 2.3 Th/cmm (1.5-3.0); MEAN CORPUSCULAR HEMOGLOBIN 29.8 pg (27.0-31.0); MEAN CORPUSCULAR HGB CONC 33.1 pg (28.0-36.0); MEAN PLATELET VOLUME 7.3 fl; MONOCYTE ABSOLUTE 0.9 Th/cmm (0.3-1.0); NEUTROPHILE ABSOLUTE 10.5 Th/cmm (1.8-8.0); PLATELET COUNT 116 Th/cmm (150-400); RED BLOOD COUNT 4.25 Mil/cmm (3.80-5.20); RED CELL DISTRIBUTION WIDTH 14.1 % (11.5-20.0); WHITE BLOOD COUNT 13.8 Th/cmm (4.8-10.8)
--- NOTE | 2018-07-07 15:20 | ED Physician Chart ---
ED Chief Complaint/HPI - Patient Information Date Seen:: 07/07/18 Time Seen:: 14:50 Chief Complaint:: DISLOCATED SHOULDER History of Present Illness:: THIS IS A CHRONICALLY ILL 68 YR FEMALE SENT FROM THE RESIDENTIAL FOR AN EVALUATION OF A SHOULDER DISLOCATION. THIS PATIENT HAS A HISTORY OF HYPERTENSION , GERD, COPD,DEPRESSION,SEIZURES AND DIABETES MELLITUS. THIS PATIENT STATES THAT HER RIGHT SHOULDER HAS BEEN HURTING HER FOR FOUR DAYS. SHE HAS HAD SHOULDER SURGERY IN THE PAST. Allergies:: Allergies Allergy/AdvReac Type Severity Reaction Status Date / Time Penicillins Allergy Verified 04/22/18 13:56 Vitals:: Vital Signs - 8 hr 07/07/18 14:42 Temp 97.8 F HR 103 RR 17 BP 102/69 O2 Sat % 91 Historian:: Patient, Medical Records Review:: Nurse's Note Reviewed, Old Chart Reviewed ED Review of Systems - Review of Systems General/Constitutional: No fever, No chills, No weight loss, No weakness, No diaphoresis, No edema, No loss of appetite Skin: No skin lesions, No rash, No bruising Head: No headache, No light-headedness Eyes: No loss of vision, No pain, No diplopia ENT: No earache, No nasal drainage, No sore throat, No tinnitus Neck: No neck pain, No swelling, No thyromegaly, No stiffness, No mass noted Cardio Vascular: No chest pain, No palpitations, No PND, No orthopnea, No edema Pulmonary: No SOB, No cough, No sputum, No wheezing GI: No nausea, No vomiting, No diarrhea, No pain, No melena, No hematochezia, No constipation, No hematemesis G/U: No dysuria, No frequency, No hematuria Musculoskeletal: No bone or joint pain, No back pain, No muscle pain, Other ( RIGHT SHOULDER PAIN) Endocrine: No polyuria, No polydipsia Psychiatric: No prior psych history, No depression, No anxiety, No suicidal ideation Hematopoietic: No bruising, No lymphadenopathy Allergic/Immuno: No urticaria, No angioedema Neurological: No syncope, No focal symptoms, No weakness, No paresthesia, No headache, No seizure, No dizziness, No confusion, No vertigo ED Past Medical History - Past Medical History Obtainable: Yes Past Medical History: HTN, DM, Asthma/COPD, Dyslipidemia, PUD/GERD, Seizures, Arthritis, Dementia Family History: None Family Medical History - Family Member Mother History Unknown: Yes Living Status: Still Living Hx Family Cancer: No Hx Family Coronary Artery Disease: No Hx Family Congestive Heart Failure: No Hx Family Hypertension: No Hx Family Stroke: No Hx Family Diabetes: No Hx Family Seizures: No Hx Family Dementia: No Hx Family AIDS: No Hx Family COPD: No Hx Family Hepatitis: No Hx Family Psychiatric Problems: No Hx Family Tuberculosis: No ED Physical Exam - Physical Examination General/Constitutional: Awake, Well-developed, well-nourished, Alert, No distress, GCS 15, Non-toxic appearing, Ambulatory Head: Atraumatic Eyes: Lids, conjuctiva normal, PERRL, EOMI Skin: Nl inspection, No rash, No skin lesions, No ecchymosis, Well hydrated, No lymphadenopathy ENMT: External ears, nose nl, Nasal exam nl, Lips, teeth, gums nl Neck: Nontender, Full ROM w/o pain, No JVD, No nuchal rigidity, No bruit, No mass, No stridor Respiratory: Nl effort/Exclusion, Clear to Auscultation, No Wheeze/Rhonchi/Rales Cardio Vascular: RRR, No murmur, gallop, rubs, NL S1 S2 GI: No tenderness/rebounding/guarding, No organomegaly, No hernia, Normal BS's, Nondistended, No mass/bruits, No McBurney tenderness : No CVA tenderness Extremities: No tenderness or effusion, Full ROM, normal strength in all extremities, No edema, Normal digits & nails Other Extremities comments:: AN OVIOUSLY DISLOCATED LEFT ANTERIOR DISLOCATION ON EXAMINATION (METAL JOINT ) Neuro/Psych: Alert/oriented, DTR's symmetric, Normal sensory exam, Normal motor strength, Judgement/insight normal, Mood normal, Normal gait, No focal deficits Misc: Normal back, No paraspinal tenderness ED Labs/Radiology/EKG Results - Lab Results Results: Abnormal Lab Results 07/07/18 15:15 WBC 13.8 H RBC 4.25 Hgb 12.7 Hct 38.2 L MCV 90.0 MCH 29.8 MCHC Differential 33.1 RDW 14.1 Plt Count 116 L MPV 7.3 Neutrophils % 75.6 Lymphocytes % 16.5 L Monocytes % 6.6 Eosinophils % 1.0 Basophils % 0.3 - Radiology Results Results: RIGHT SHOULDER DISLOCATION OF PROSTHESIS. LEFT SHOULDER JOINT DEGENERATION. - EKG Interpretations EKG Time:: 14:53 Rate & Rhythm: RATE= 103, SINUS [place]: LEFT AXIS ED Assessment - Assessment General Assessment: CHRONICALLY DISLOCATED RIGHT SHOULDER FEVER ED Septic Shock - . Is Septic Shock (SBP<90, OR Lactate>4 mmol\L) present?: No - <6hrs of presentation: Vital Signs: Vital Signs - 8 hr 07/07/18 14:42 Temp 97.8 F HR 103 RR 17 BP 102/69 O2 Sat % 91 ED Reassessment (Disposition) - Reassessment Reassessment Condition:: Improved - Diagnosis Diagnosis:: FEVER RIGHT SHOULDER DISLOCATION - Patient Disposition Discharge/Transfer:: Acute Care w/in this hosp
[2018-07-07 15:52] LABS: ALB/GLOB RATIO 0.9 (1.0-1.8); ALKALINE PHOSPHATASE 68 U/L (34-104); ANION GAP 10.4 (7.0-16.0); BILIRUBIN,TOTAL 0.6 mg/dL (0.3-1.0); BUN - UREA NITROGEN 10 mg/dL (7-25); CARBON DIOXIDE 25.1 mEq/L (21.0-31.0); CHLORIDE 107 mEq/L (98-107); CREATININE - SERUM 0.7 mg/dL (0.6-1.2); GFR AFRICAN-AMERICAN > 60.0 ml/min (>90); GFR NON AFRICAN-AMERICAN > 60.0 ml/min; GLUCOSE 109 mg/dL (70-105); POTASSIUM SERUM 3.5 mEq/L (3.5-5.1); SGOT 21 U/L (13-39); SGPT/ALT 18 U/L (7-52); SODIUM SERUM 139 mEq/L (136-145); TOTAL PROTEIN,SERUM 6.4 gm/dL (6.0-8.3)
[2018-07-07 16:40] LABS: INR 0.99 (0.5-1.4); PROTHROMBIN TIME (TEST) 10.3 SECONDS (9.5-11.5)
[2018-07-07 16:43] LABS: URINE SOURCE CLEAN C
[2018-07-07 17:16] LABS: URINE BILIRUBIN NEGATIVE (NEGATIVE); URINE BLOOD NEGATIVE (NEGATIVE); URINE GLUCOSE (UA) NEGATIVE (NEGATIVE); URINE KETONE NEGATIVE (NEGATIVE); URINE LEUKOCYTE ESTERASE NEGATIVE (NEGATIVE); URINE NITRATE NEGATIVE (NEGATIVE); URINE PROTEIN NEGATIVE (NEGATIVE); URINE UROBILINOGEN 0.2 E.U./dL (0.2 - 1.0)
[2018-07-07 17:20] LABS: URINE CLARITY CLEAR (CLEAR); URINE COLOR YELLOW; URINE MICROSCOPIC INDICATED? NO
[2018-07-07] MEDS ORDERED: Sodium Chloride 0.9% 1,000 ML IV ONE (17:21)
--- NOTE | 2018-07-07 18:55 | Consultation ---
Consult Note - Consult Note Service Date: 07/07/18 Referring Physician: Bayron Fried Consult Note: PHYSICIAN Consultation Note: Date of Admission: 07/07/18 Purpose of Consultation: Chief Complaint: Patient REGINE FREGOSO was admitted to location Intensive Care Unit with DISLOCATION RIGHT SHOULDER, UTI. History of Present Illness:68-year-old female with a past medical history of hypertension, GERD, obesity, COPD, anxiety disorder, CK D stage II, history of colon abuse, polyneuropathy, depression, diabetes mellitus type 2, seizure disorder, insomnia, MRSA infection developed right shoulder pain. - So patient was transferred to the [facility] ER for further evaluation and management. She was found to have dislocated shoulder. On initial evaluation, she was afebrile and her WBC count was 13,000. Past Medical History: Hypertension, GERD, COPD, anxiety disorder, obesity, CK D stage II, history of alcohol abuse, polyneuropathy, depression, diabetes mellitus type 2, seizure disorder, insomnia, MRSA infection in the past Allergies Allergy/AdvReac Type Severity Reaction Status Date / Time Penicillins Allergy Verified 04/22/18 13:56 Vital Signs Temp 96.8 F 07/07/18 18:00 Pulse 83 07/07/18 18:00 Resp 18 07/07/18 18:00 BP 91/70 07/07/18 18:00 Pulse Ox 99 07/07/18 18:00 Intake & Output 07/06/18 07/07/18 07/07/18 18:59 06:59 18:59 Weight (lbs) 78.018 kg Other: [facility] Results - last 24 hr 07/07/18 07/07/18 07/07/18 14:34 15:15 15:15 WBC 13.8 H RBC 4.25 Hgb 12.7 Hct 38.2 L MCV 90.0 MCH 29.8 MCHC Differential 33.1 RDW 14.1 Plt Count 116 L MPV 7.3 Neutrophils % 75.6 Lymphocytes % 16.5 L Monocytes % 6.6 Eosinophils % 1.0 Basophils % 0.3 PT 10.3 INR 0.99 PTT (Actin FS) 21.6 L Sodium 139 Potassium 3.5 Chloride 107 Carbon Dioxide 25.1 Anion Gap 10.4 BUN 10 Creatinine 0.7 Est GFR ( Amer) > 60.0 Est GFR (Non-Af Amer) > 60.0 BUN/Creatinine Ratio 14.3 Glucose 109 H Calcium 9.0 Total Bilirubin 0.6 AST 21 ALT 18 Alkaline Phosphatase 68 Total Protein 6.4 Albumin 3.0 L Globulin 3.4 Albumin/Globulin Ratio 0.9 L TSH Urine Source Urine Color Urine Clarity Urine pH Ur Specific [place] Urine Protein Urine Glucose (UA) Urine Ketones Urine Blood Urine Nitrate Urine Bilirubin Urine Urobilinogen Ur Leukocyte Esterase 07/07/18 07/07/18 15:15 15:30 WBC RBC Hgb Hct MCV MCH MCHC Differential RDW Plt Count MPV Neutrophils % Lymphocytes % Monocytes % Eosinophils % Basophils % PT INR PTT (Actin FS) Sodium Potassium Chloride Carbon Dioxide Anion Gap BUN Creatinine Est GFR ( Amer) Est GFR (Non-Af Amer) BUN/Creatinine Ratio Glucose Calcium Total Bilirubin AST ALT Alkaline Phosphatase Total Protein Albumin Globulin Albumin/Globulin Ratio TSH 0.34 Urine Source CLEAN C Urine Color YELLOW Urine Clarity CLEAR Urine pH 6.0 Ur Specific [place] >= 1.030 Urine Protein NEGATIVE Urine Glucose (UA) NEGATIVE Urine Ketones NEGATIVE Urine Blood NEGATIVE Urine Nitrate NEGATIVE Urine Bilirubin NEGATIVE Urine Urobilinogen 0.2 Ur Leukocyte Esterase NEGATIVE Home Medication Medication Instructions Recorded Type Acetaminophen [Tylenol] 650 mg PO Q4HR PRN tab 04/25/18 Rx Albuterol/Ipratropium Neb [Duoneb 3 ml HHN Q2H PRN aers 04/25/18 Rx Neb] Albuterol/Ipratropium Neb [Duoneb 3 ml HHN Q6HRT aers 04/25/18 Rx Neb] Ascorbic Acid [Vitamin C] 500 mg PO DAILY tab 04/25/18 Rx Bisacodyl [Dulcolax 10 Mg Supp] 10 mg RC DAILY PRN sup 04/25/18 Rx Docusate Sodium [Colace] 100 mg PO BID cap 04/25/18 Rx Fleet Enema 135 ml RC Q48H PRN btl 04/25/18 Rx Gabapentin [Neurontin*] 300 mg PO QID cap 04/25/18 Rx Magnesium Hydroxide [Milk of 30 ml PO Q72H udc 04/25/18 Rx Magnesia] Multivitamin w/ Minerals 1 tab PO DAILY tab 04/25/18 Rx [Theragran M] Ondansetron HCl [Zofran*] 4 mg IV Q6H PRN vial 04/25/18 Rx Pantoprazole [Protonix] 40 mg PO DAILY ect 04/25/18 Rx Venlafaxine HCl ER [Effexor XR] 150 mg PO DAILY cer 04/25/18 Rx alprazOLAM [Xanax*] 2 mg PO BID tab 04/25/18 Rx Trazodone HCl 50 mg PO HS 07/07/18 History Current Medications Generic Name Dose Route Start Last Admin Trade Name Freq PRN Reason Stop Dose Admin Ceftriaxone Sodium 1 gm 07/07/18 15:34 07/07/18 15:35 Rocephin IV 07/07/18 15:35 1 gm X1 ONE Administration Ceftriaxone Sodium 1 gm 07/07/18 18:31 Rocephin IV 09/05/18 18:30 Q24HR CELSA Sodium Chloride 1,000 mls @ 75 mls/hr 07/07/18 18:31 Nacl 0.9% IV 09/05/18 18:30 .[id number] CELSA Ketorolac Tromethamine 30 mg 07/07/18 15:24 07/07/18 15:26 Toradol IVP 07/07/18 15:25 30 mg NOW STA Administration Morphine Sulfate 4 mg 07/07/18 18:31 Morphine IVP 09/05/18 18:30 Q4HR PRN Severe Pain Ondansetron HCl 4 mg 07/07/18 18:31 Zofran IV 09/05/18 18:30 Q6HR PRN Nausea / Vomiting Review of Systems: A 12 point ROS was reviewed with the pertinent positive and negatives noted in the HPI. Social History Smoking Status Unknown if ever smoked Physical Exam: General: Elderly obese female. Not in acute distress. HEENT: Head: Normocytic, atraumatic. Oral cavity: Moist, pink tongue. Eyes: No pallor and icterus. PERRLA EOMI. Conjunctivae clear. Neck: Supple, no JVD. No use of excessively neck muscles. No thyromegaly nor nephropathy. Cardio: S1 and S2 within normal limits regular rhythm no murmur no gallop. Respiratory: Vesicular breath sounds. Wheezing present in the right side. Occasional rhonchi. Abdominal: Soft, nontender nondistended bowel sounds present. Genital/Urinary: Deferred. Extremities: No cyanosis, no clubbing no edema. Skin: Very small 2 cm x 1 cm Sacral stage II ulcer without any surrounding erythema or discharge, pink base Neurological: Alert and awake. Communicates well. Assessment: 1. Right shoulder dislocation. 2. Leukocytosis likely reactive. 3. Diabetes mellitus type 2. 4. COPD. 5. Seizure disorder. 6. Hypertension. 7. Depression. 8. CK D stage II. 9. Sacral ulcer, small, stage II, there is no sign of infection. 10. Obesity with BMI 35 11. Anxiety disorder. Plan: Monitor. Check labs in the morning. Signed, Mike Alvarez M.D. [id number]
[2018-07-07] MEDS: Sodium Chloride 0.9% 1,000 ML IV SCH (19:16)
[2018-07-07] MEDS: Morphine Sulfate 2 mg/mL 1mL Syr IVP PRN (19:28)
[2018-07-08] MEDS: Morphine Sulfate 2 mg/mL 1mL Syr IVP PRN ×4 (03:08→17:18)
[2018-07-08 04:35] LABS: % BASOPHILS 0.9 % (0.0-2.0); % EOSINOPHILS 2.8 % (0.0-5.0); % LYMPHOCYTES 34.7 % (20.0-50.0); % MONOCYTES 8.2 % (2.0-10.0); % NEUTROPHILS 53.4 % (40.0-80.0); BASOPHILE ABSOLUTE 0.1 Th/cumm (0-0.2); EOSINOPHILE ABSOLUTE 0.2 Th/cmm (0.1-0.4); HEMATOCRIT 38.2 % (41.0-60); HEMOGLOBIN 12.6 gm/dL (12-16); LYMPHOCYTE ABSOLUTE 2.5 Th/cmm (1.5-3.0); MEAN CORPUSCULAR HEMOGLOBIN 29.7 pg (27.0-31.0); MEAN PLATELET VOLUME 7.7 fl; MONOCYTE ABSOLUTE 0.6 Th/cmm (0.3-1.0); NEUTROPHILE ABSOLUTE 3.7 Th/cmm (1.8-8.0); PLATELET COUNT 100 Th/cmm (150-400); RED BLOOD COUNT 4.24 Mil/cmm (3.80-5.20); RED CELL DISTRIBUTION WIDTH 14.1 % (11.5-20.0); WHITE BLOOD COUNT 7.1 Th/cmm (4.8-10.8)
[2018-07-08 04:53] LABS: ALB/GLOB RATIO 0.9 (1.0-1.8); ALBUMIN 3.1 gm/dL (3.7-5.3); ALKALINE PHOSPHATASE 65 U/L (34-104); ANION GAP 11.8 (7.0-16.0); BILIRUBIN,TOTAL 0.5 mg/dL (0.3-1.0); BUN - UREA NITROGEN 12 mg/dL (7-25); CARBON DIOXIDE 24.8 mEq/L (21.0-31.0); CHLORIDE 107 mEq/L (98-107); CREATININE - SERUM 0.8 mg/dL (0.6-1.2); GFR AFRICAN-AMERICAN > 60.0 ml/min (>90); GFR NON AFRICAN-AMERICAN > 60.0 ml/min; GLUCOSE 101 mg/dL (70-105); POTASSIUM SERUM 3.6 mEq/L (3.5-5.1); SGOT 18 U/L (13-39); SGPT/ALT 16 U/L (7-52); SODIUM SERUM 140 mEq/L (136-145); TOTAL PROTEIN,SERUM 6.6 gm/dL (6.0-8.3)
[2018-07-08] MEDS: Sodium Chloride 0.9% 1,000 ML IV SCH ×2 (08:25→21:45)
[2018-07-08] MEDS ORDERED: Albuterol/Ipratropium Neb 3 ML AERS HHN PRN (09:54)
--- NOTE | 2018-07-08 10:42 | Diagnostic Imaging Report ---
CHEST X-RAY: AP view INDICATION: Cough COMPARISON: Chest x-ray 04/22/2018 FINDINGS: Chronic changes are seen with increased bibasilar lung markings. No focal consolidation or effusions. Heart size is normal. There may have been previous granulomatous disease of the lungs. Right shoulder arthroplasty seen with what appear to be chronic dislocation. Deformity of the left humeral head is noted. Degenerative changes of the spine are noted with scoliosis. Gas-filled loops of bowel of the upper abdomen are noted. IMPRESSION: Chronic lung changes increased bibasilar lung markings which may be due to atelectasis, however, infiltrates cannot be excluded. Please correlate clinically. There may have been previous granulomas disease of the lungs.
--- NOTE | 2018-07-08 10:56 | Diagnostic Imaging Report ---
Left shoulder 3 views Indication: Dislocation Comparison: Left shoulder x-ray on 03/14/2017 Findings: There is either resorption or surgical resection of the left humeral head with chronic dislocation of the humeral shaft anteriorly and inferiorly. Chronic appearing mid humeral shaft fracture is also noted. Osteopenia is noted. Mild degenerative changes of AC joint is noted. No significant focal soft tissue swelling. Impression: Either resorption or surgical resection of the left humeral head with chronic dislocation of the humeral head anteriorly and inferiorly. Chronic appearing fracture of the left mid humeral shaft is also noted. Please correlate clinically. In the setting of trauma, if clinical symptoms persist and there is continued concern for an occult fracture, follow up exams in 5-7 days is suggested.
--- NOTE | 2018-07-08 10:57 | Diagnostic Imaging Report ---
Right shoulder 3 views Indication: Dislocation Comparison: Prior chest x-rays dating back to 03/17/2017 Findings: Right shoulder arthroplasty is noted with evidence of chronic dislocation medially. Assessment for fracture is limited however no gross fracture is identified. Mild AC joint degenerative changes are noted. Chronic lung changes are seen with possible old granulomatous disease. There may have been old fracture of the right midclavicle. Impression: Redemonstration of right shoulder arthroplasty be chronic dislocation again noted. Please correlate with clinical findings. Possible old right midclavicular fracture. In the setting of trauma, if clinical symptoms persist and there is continued concern for an occult fracture, follow up exams in 5-7 days is suggested.
[2018-07-08] MEDS: Albuterol/Ipratropium Neb 3 ML AERS HHN SCH ×2 (13:54→18:29)
--- NOTE | 2018-07-09 00:02 | Consultation ---
DATE OF CONSULTATION: 07/08/2018 HISTORY OF PRESENT ILLNESS: The patient is a 68-year-old lady admitted to [facility] on 07/07/2018 via the Emergency Room with complaints of pain and dislocation, right shoulder, for 4 days. She has multiple medical diagnoses. I was called for orthopedic consultation by the admitting physician regarding her right shoulder situation. The patient was interviewed and examined in the ICU. She is conscious and alert, pleasant and cooperative. She stated that she had surgery on her right shoulder in 2012 following an injury following an injury with the partial shoulder replacement. She had surgery on her left shoulder following a fracture in 2005. She fell after the right shoulder surgery going up a ramp and dislocated the shoulder and it has been dislocated ever since. She has seen various specialists who did not feel that she should have surgery on her shoulders PAST MEDICAL HISTORY: She carries additional diagnoses including urinary tract infection, diabetes mellitus type 2, seizure disorder, obesity, chronic kidney disease stage II, history of alcohol abuse, anxiety and depression, insomnia, GERD, hypertension, polyneuropathy, COPD, there is a history of MRSA infections. ADDITIONAL PAST HISTORY, REVIEW OF SYSTEMS, FAMILY HISTORY, MEDICATIONS: Per the chart. PHYSICAL EXAMINATION: The patient was examined in her hospital bed in the ICU. Inspection of the shoulder revealed on the right a prominence anteriorly -- the humeral prosthesis. There is minimal tenderness, active motion of the right shoulder 30-40% of normal, with assistance I can range the shoulder 50%. She has reduced function of her hand on the right. On the left, there is no obvious deformity of the shoulder. Motion is about the same as the right shoulder. There is minimal pain present in both shoulders. Function of the left hand and arm is otherwise okay. IMAGING STUDIES: I viewed the images in the PACS. Going back a year or two, there are chest x-rays and the shoulders. Show on the chest x-rays, there is a metal prosthesis on the right -- hemiarthroplasty of the shoulder and the prosthesis is dislocated anteriorly. On the left, there is an old fracture dislocation with the humeral shaft being displaced laterally. The remnants of the head are present in the glenoid. There is resorption of much of the fractured left humeral head. ORTHOPEDIC DIAGNOSES: 1. Chronic dislocation, right humeral head/shoulder prosthesis. 2. Old fracture, left proximal humerus. RECOMMENDATIONS: I would not recommend surgery on either of the patient's shoulders. Her general medical condition, her prior history including MRSA, diabetes and a history of seizures would mitigate towards a poor end result and of course there is a risk of infection. She has stabilized in her present condition, has minimal discomfort and adequate use for her somewhat limited activities of daily living. I would leave the shoulders alone. She can have local symptomatic measures as needed and be treated with NSAIDs/analgesics as appropriate when needed. Thank you for this interesting referral. JOB# [id number]
[2018-07-09] MEDS: Albuterol/Ipratropium Neb 3 ML AERS HHN SCH ×3 (02:05→13:07)
[2018-07-09] MEDS: Morphine Sulfate 2 mg/mL 1mL Syr IVP PRN ×2 (04:45→08:41)
[2018-07-09] MEDS ORDERED: Probiotic Screen MC PRN (12:09)
[2018-07-09] MEDS: Morphine Sulfate 4 mg/mL 1mL Syr IVP PRN ×2 (13:11→18:57)
--- NOTE | 2018-07-09 15:49 | History & Physical ---
ADMIT DATE: 07/07/2018 [facility]. The patient is complaining of increasing chest congestion and increasing cough, increasing fever as well as the patient has an x-ray, which showed a possible dislocation of the shoulder on the right side. The patient is known to have a history of COPD, history of anxiety, history of CKD, history of polyneuropathy, depression, diabetes type 2, seizure disorder, insomnia. PAST MEDICAL HISTORY: As enumerated above. PAST SURGICAL HISTORY: As enumerated above. PHYSICAL EXAMINATION: HEAD: Normal. ENT: Normal. NECK: Supple, nontender. LUNGS: Clear. Bilateral rales. CARDIOVASCULAR: S1, S2 heard. DIAGNOSES: 1. Right shoulder dislocation. 2. Leukocytosis. 3. Diabetes type 2. 4. Chronic obstructive pulmonary disease. 5. Seizures. 6. Hypertension. 7. Depression. 8. Chronic kidney disease 2. The patient is being anxiety. The patient is being admitted and I will call Dr. Mike Alvarez for ID. I will call Dr. Joseph for Ortho and I will follow the patient. JOB# [id number]
[2018-07-09] MEDS: Lactobacillus Rhamnosus GG 15 Billion CFU CAP.SPRINK PO SCH (16:03)
--- NOTE | 2018-07-09 16:57 | Internal Medicine Prog Note ---
Internal Medicine Subjective - Subjective Patient seen and examined:: chart reviewed Patient is:: awake, other (in no acute distress) Internal Medicine Objective - Results Result Diagrams: 07/08/18 04:06 07/08/18 04:06 Recent Labs: Laboratory Last Values WBC 7.1 Th/cmm (4.8-10.8) D 07/08/18 04:06 RBC 4.24 Mil/cmm (3.80-5.20) 07/08/18 04:06 Hgb 12.6 gm/dL (12-16) 07/08/18 04:06 Hct 38.2 % (41.0-60) L 07/08/18 04:06 MCV 90.0 fl (81-100) 07/08/18 04:06 MCH 29.7 pg (27.0-31.0) 07/08/18 04:06 MCHC Differential 33.0 pg (28.0-36.0) 07/08/18 04:06 RDW 14.1 % (11.5-20.0) 07/08/18 04:06 Plt Count 100 Th/cmm (150-400) L 07/08/18 04:06 MPV 7.7 fl 07/08/18 04:06 Neutrophils % 53.4 % (40.0-80.0) 07/08/18 04:06 Lymphocytes % 34.7 % (20.0-50.0) 07/08/18 04:06 Monocytes % 8.2 % (2.0-10.0) 07/08/18 04:06 Eosinophils % 2.8 % (0.0-5.0) 07/08/18 04:06 Basophils % 0.9 % (0.0-2.0) 07/08/18 04:06 PT 10.3 SECONDS (9.5-11.5) 07/07/18 14:34 INR 0.99 (0.5-1.4) 07/07/18 14:34 PTT (Actin FS) 21.6 SECONDS (26.0-38.0) L 07/07/18 14:34 Sodium 140 mEq/L (136-145) 07/08/18 04:06 Potassium 3.6 mEq/L (3.5-5.1) 07/08/18 04:06 Chloride 107 mEq/L (98-107) 07/08/18 04:06 Carbon Dioxide 24.8 mEq/L (21.0-31.0) 07/08/18 04:06 Anion Gap 11.8 (7.0-16.0) 07/08/18 04:06 BUN 12 mg/dL (7-25) 07/08/18 04:06 Creatinine 0.8 mg/dL (0.6-1.2) 07/08/18 04:06 Est GFR ( Amer) > 60.0 ml/min (>90) 07/08/18 04:06 Est GFR (Non-Af Amer) > 60.0 ml/min 07/08/18 04:06 BUN/Creatinine Ratio 15.0 07/08/18 04:06 Glucose 101 mg/dL (70-105) 07/08/18 04:06 Calcium 9.0 mg/dL (8.6-10.3) 07/08/18 04:06 Total Bilirubin 0.5 mg/dL (0.3-1.0) 07/08/18 04:06 AST 18 U/L (13-39) 07/08/18 04:06 ALT 16 U/L (7-52) 07/08/18 04:06 Alkaline Phosphatase 65 U/L (34-104) 07/08/18 04:06 Total Protein 6.6 gm/dL (6.0-8.3) 07/08/18 04:06 Albumin 3.1 gm/dL (3.7-5.3) L 07/08/18 04:06 Globulin 3.5 gm/dL 07/08/18 04:06 Albumin/Globulin Ratio 0.9 (1.0-1.8) L 07/08/18 04:06 TSH 0.34 uIU/ml (0.34-5.60) 07/07/18 15:15 Urine Source CLEAN C 07/07/18 15:30 Urine Color YELLOW 07/07/18 15:30 Urine Clarity CLEAR (CLEAR) 07/07/18 15:30 Urine pH 6.0 (4.6 - 8.0) 07/07/18 15:30 Ur Specific [place] >= 1.030 (1.005-1.030) 07/07/18 15:30 Urine Protein NEGATIVE mg/dL (NEGATIVE) 07/07/18 15:30 Urine Glucose (UA) NEGATIVE mg/dL (NEGATIVE) 07/07/18 15:30 Urine Ketones NEGATIVE mg/dL (NEGATIVE) 07/07/18 15:30 Urine Blood NEGATIVE (NEGATIVE) 07/07/18 15:30 Urine Nitrate NEGATIVE (NEGATIVE) 07/07/18 15:30 Urine Bilirubin NEGATIVE (NEGATIVE) 07/07/18 15:30 Urine Urobilinogen 0.2 E.U./dL (0.2 - 1.0) 07/07/18 15:30 Ur Leukocyte Esterase NEGATIVE (NEGATIVE) 07/07/18 15:30 - Physical Exam Vitals and I&O: Vital Signs Temp 98.0 F 07/09/18 16:00 Pulse 67 07/09/18 16:00 Resp 10 07/09/18 16:00 BP 109/69 07/09/18 16:00 Pulse Ox 100 07/09/18 16:00 Intake & Output 07/08/18 07/09/18 07/09/18 18:59 06:59 18:59 Intake Total 731.25 1110 Balance 731.25 1110 Weight (lbs) 79.379 kg 79.549 kg Intake: Intake, IV Amount 231.25 1000 Sodium Chloride 0.9% 1, 181.25 1000 000 ml @ 75 mls/hr IV . [id number] [facility] Rx#:[id number] cefTRIAXone 1 gm In 50 Dextrose 5% 50 ml @ 100 mls/hr IV Q24H [facility] Rx#: [id number] Oral 500 110 Other: # Voids 4 5 # Bowel Movements 3 3 Stool Characteristics Soft Soft Soft Brown Brown Weight Source Bedscale Bedscale Active Medications: Current Medications Acetaminophen (Tylenol) 650 mg PO Q4HR PRN PRN Reason: T >101F OR MILD PAIN Stop: 09/06/18 09:53 Albuterol/Ipratropium (Duoneb Neb) 3 ml HHN Q2H PRN PRN Reason: Wheezing Stop: 09/06/18 09:53 Albuterol/Ipratropium (Duoneb Neb) 3 ml HHN Q6HRT [facility] Stop: 09/06/18 12:59 Last Admin: 07/09/18 13:07 Dose: Not Given Alprazolam (Xanax) 2 mg PO BID [facility]; Protocol Stop: 09/06/18 16:59 Last Admin: 07/09/18 08:40 Dose: 2 mg Ascorbic Acid (Vitamin C) 500 mg PO DAILY CELSA Stop: 09/07/18 08:59 Last Admin: 07/09/18 08:40 Dose: 500 mg Ceftriaxone Sodium 1 gm/ (Dextrose) 50 mls @ 100 mls/hr IV Q24H CELSA Stop: 09/06/18 15:59 Last Admin: 07/09/18 16:02 Dose: 100 mls/hr Lactobacillus Rhamnosus (Culturelle 15b) 1 each PO DAILY CELSA Stop: 09/07/18 13:59 Last Admin: 07/09/18 16:03 Dose: 1 each Miscellaneous (Probiotic Screen) 1 ea MC PRN PRN PRN Reason: PROTOCOL Stop: 09/07/18 12:08 Morphine Sulfate (Morphine) 4 mg IVP Q4H PRN PRN Reason: Severe Pain Stop: 09/07/18 09:44 Last Admin: 07/09/18 13:11 Dose: 4 mg Ondansetron HCl (Zofran) 4 mg IV Q6HR PRN PRN Reason: Nausea / Vomiting Stop: 09/05/18 18:30 General: alert HEENT: NC/AT Neck: Supple Lungs: CTAB Cardiovascular: RRR, Normal S1, Normal S2 Abdomen: soft, non-tender Extremities: clear Neurological: no change - Procedures Procedures: Procedures Procedure Code Date FLUOROSCOPY OF SUP VENA CAVA USING L OSM CONTRAST, GUIDANCE [id number] 03/13/17 INSERT TUNNELED CV CATH [id number] 03/13/17 INSERTION OF INFUSION DEV INTO SUP VENA CAVA, PERC APPROACH [id number] 03/13/17 INSERTION OF VAD INTO CHEST SUBCU/FASCIA, PERC APPROACH [id number] 03/13/17 PERFORMANCE OF URINARY FILTRATION, MULTIPLE [id number] 03/13/17 REMOVAL OF INFUSION DEVICE FROM UPPER VEIN, PERC APPROACH [id number] 06/07/17 REMOVAL TUNNELED CV CATH [id number] 06/07/17 RESPIRATORY VENTILATION, 24-96 CONSECUTIVE HOURS [id number] 03/13/17 Internal Medicine Assmt/Plan - Assessment Assessment: rt shoulder dislocation leukocytosis dm chronic obstructions pulmonary disease seizures htn depressin ckd - Plan Plan: as per order sheet
[2018-07-10] MEDS: Morphine Sulfate 4 mg/mL 1mL Syr IVP PRN ×6 (01:15→21:55)
--- NOTE | 2018-07-10 03:12 | Infectious Disease Prog Note ---
Infectious Disease Subjective - Review of Systems Service Date: 07/09/18 Subjective: cc pn hpi- pt allergic to pen changed to levaquin sputum cx ordered ros no efrv o/e vss chest claer abd soft ext pilse cxr inf wbc normal dx pn plan as above Current Medications Generic Name Dose Route Start Last Admin Trade Name Freq PRN Reason Stop Dose Admin Acetaminophen 650 mg 07/08/18 09:54 Tylenol PO 09/06/18 09:53 Q4HR PRN T >101F OR MILD PAIN Albuterol/Ipratropium 3 ml 07/08/18 09:54 Duoneb Neb [facility] 09/06/18 09:53 Q2H PRN Wheezing Albuterol/Ipratropium 3 ml 07/08/18 13:00 07/09/18 13:07 Duoneb Neb [facility] 09/06/18 12:59 Not Given Q6HRT [facility] Alprazolam 2 mg 07/08/18 17:00 07/09/18 18:55 Xanax PO 09/06/18 16:59 2 mg BID [facility] Administration Protocol Ascorbic Acid 500 mg 07/09/18 09:00 07/09/18 08:40 Vitamin C PO 09/07/18 08:59 500 mg DAILY [facility] Administration Levofloxacin 250 mg/ 50 mls @ 100 mls/hr 07/10/18 03:15 Miscellaneous IV 09/08/18 03:14 Q24H [facility] Lactobacillus Rhamnosus 1 each 07/09/18 14:00 07/09/18 16:03 Culturelle 15b PO 09/07/18 13:59 1 each DAILY [facility] Administration Miscellaneous 1 ea 07/09/18 12:09 Probiotic Screen [facility] 09/07/18 12:08 PRN PRN PROTOCOL Morphine Sulfate 4 mg 07/09/18 09:45 07/10/18 01:15 Morphine IVP 09/07/18 09:44 4 mg Q4H PRN Administration Severe Pain Ondansetron HCl 4 mg 07/07/18 18:31 Zofran IV 09/05/18 18:30 Q6HR PRN Nausea / Vomiting Discontinued Medications Generic Name Dose Route Start Last Admin Trade Name Freq PRN Reason Stop Dose Admin Ceftriaxone Sodium 1 gm 07/07/18 15:34 07/07/18 15:35 Rocephin IV 07/07/18 15:35 1 gm X1 ONE Administration Ceftriaxone Sodium Confirm 07/07/18 15:35 Rocephin Administered 07/07/18 15:36 Dose 1 gm .ROUTE .STK-MED ONE Ceftriaxone Sodium 1 gm 07/08/18 16:00 Rocephin IV 09/06/18 15:59 Q24HR [facility] Sodium Chloride 1,000 mls @ 100 mls/hr 07/07/18 17:21 Nacl 0.9% IV 07/08/18 03:20 .Q10H ONE Sodium Chloride 1,000 mls @ 75 mls/hr 07/07/18 18:31 07/08/18 21:45 Nacl 0.9% IV 09/05/18 18:30 75 mls/hr .[id number] [facility] Administration Ceftriaxone Sodium 1 gm/ 50 mls @ 100 mls/hr 07/08/18 16:00 07/09/18 19:23 Dextrose IV 09/06/18 15:59 Infused Q24H [facility] Infusion Ketorolac Tromethamine Confirm 07/07/18 15:25 Toradol Administered 07/07/18 15:26 Dose 30 mg .ROUTE .STK-MED ONE Ketorolac Tromethamine 30 mg 07/07/18 15:24 07/07/18 15:26 Toradol IVP 07/07/18 15:25 30 mg NOW STA Administration Morphine Sulfate 4 mg 07/07/18 18:31 07/09/18 08:41 Morphine IVP 09/05/18 18:30 4 mg Q4HR PRN Administration Severe Pain Allergies Allergy/AdvReac Type Severity Reaction Status Date / Time Penicillins Allergy Verified 04/22/18 13:56 Current Medications Acetaminophen (Tylenol) 650 mg PO Q4HR PRN PRN Reason: T >101F OR MILD PAIN Stop: 09/06/18 09:53 Albuterol/Ipratropium (Duoneb Neb) 3 ml HHN Q2H PRN PRN Reason: Wheezing Stop: 09/06/18 09:53 Albuterol/Ipratropium (Duoneb Neb) 3 ml HHN Q6HRT [facility] Stop: 09/06/18 12:59 Last Admin: 07/09/18 13:07 Dose: Not Given Alprazolam (Xanax) 2 mg PO BID [facility]; Protocol Stop: 09/06/18 16:59 Last Admin: 07/09/18 18:55 Dose: 2 mg Ascorbic Acid (Vitamin C) 500 mg PO DAILY [facility] Stop: 09/07/18 08:59 Last Admin: 07/09/18 08:40 Dose: 500 mg Levofloxacin 250 mg/ (Miscellaneous) 50 mls @ 100 mls/hr IV Q24H [facility] Stop: 09/08/18 03:14 Lactobacillus Rhamnosus (Culturelle 15b) 1 each PO DAILY [facility] Stop: 09/07/18 13:59 Last Admin: 07/09/18 16:03 Dose: 1 each Miscellaneous (Probiotic Screen) 1 ea [facility] PRN PRN PRN Reason: PROTOCOL Stop: 09/07/18 12:08 Morphine Sulfate (Morphine) 4 mg IVP Q4H PRN PRN Reason: Severe Pain Stop: 09/07/18 09:44 Last Admin: 07/10/18 01:15 Dose: 4 mg Ondansetron HCl (Zofran) 4 mg IV Q6HR PRN PRN Reason: Nausea / Vomiting Stop: 09/05/18 18:30 Diagnoses ELEVATED WHITE BLOOD CELL COUNT, UNSPECIFIED (07/07/18) TYPE 2 DIABETES MELLITUS WITHOUT COMPLICATIONS (07/07/18) OBESITY, UNSPECIFIED (07/07/18) ESSENTIAL (PRIMARY) HYPERTENSION (07/07/18) CHRONIC OBSTRUCTIVE PULMONARY DISEASE, UNSPECIFIED (07/07/18) PRESSURE ULCER OF SACRAL REGION, STAGE 2 (07/07/18) RECURRENT DISLOCATION, RIGHT SHOULDER (07/07/18) CHRONIC KIDNEY DISEASE, STAGE 2 (MILD) (07/07/18) WEAKNESS (07/07/18) BODY MASS INDEX (BMI) 36.0-36.9, ADULT (07/07/18) Microbiology 07/07/18 15:30 Blood - Preliminary NO GROWTH AFTER 48 HOURS 07/07/18 15:15 Blood - Preliminary NO GROWTH AFTER 48 HOURS 07/07/18 15:30 Nares - Final NO MRSA ISOLATED dx ppn plan levaquin Infectious Disease Objective - Results Result Diagrams: 07/08/18 04:06 07/08/18 04:06 Recent Labs: Laboratory Last Values WBC 7.1 Th/cmm (4.8-10.8) D 07/08/18 04:06 RBC 4.24 Mil/cmm (3.80-5.20) 07/08/18 04:06 Hgb 12.6 gm/dL (12-16) 07/08/18 04:06 Hct 38.2 % (41.0-60) L 07/08/18 04:06 MCV 90.0 fl (81-100) 07/08/18 04:06 MCH 29.7 pg (27.0-31.0) 07/08/18 04:06 MCHC Differential 33.0 pg (28.0-36.0) 07/08/18 04:06 RDW 14.1 % (11.5-20.0) 07/08/18 04:06 Plt Count 100 Th/cmm (150-400) L 07/08/18 04:06 MPV 7.7 fl 07/08/18 04:06 Neutrophils % 53.4 % (40.0-80.0) 07/08/18 04:06 Lymphocytes % 34.7 % (20.0-50.0) 07/08/18 04:06 Monocytes % 8.2 % (2.0-10.0) 07/08/18 04:06 Eosinophils % 2.8 % (0.0-5.0) 07/08/18 04:06 Basophils % 0.9 % (0.0-2.0) 07/08/18 04:06 PT 10.3 SECONDS (9.5-11.5) 07/07/18 14:34 INR 0.99 (0.5-1.4) 07/07/18 14:34 PTT (Actin FS) 21.6 SECONDS (26.0-38.0) L 07/07/18 14:34 Sodium 140 mEq/L (136-145) 07/08/18 04:06 Potassium 3.6 mEq/L (3.5-5.1) 07/08/18 04:06 Chloride 107 mEq/L (98-107) 07/08/18 04:06 Carbon Dioxide 24.8 mEq/L (21.0-31.0) 07/08/18 04:06 Anion Gap 11.8 (7.0-16.0) 07/08/18 04:06 BUN 12 mg/dL (7-25) 07/08/18 04:06 Creatinine 0.8 mg/dL (0.6-1.2) 07/08/18 04:06 Est GFR ( Amer) > 60.0 ml/min (>90) 07/08/18 04:06 Est GFR (Non-Af Amer) > 60.0 ml/min 07/08/18 04:06 BUN/Creatinine Ratio 15.0 07/08/18 04:06 Glucose 101 mg/dL (70-105) 07/08/18 04:06 Calcium 9.0 mg/dL (8.6-10.3) 07/08/18 04:06 Total Bilirubin 0.5 mg/dL (0.3-1.0) 07/08/18 04:06 AST 18 U/L (13-39) 07/08/18 04:06 ALT 16 U/L (7-52) 07/08/18 04:06 Alkaline Phosphatase 65 U/L (34-104) 07/08/18 04:06 Total Protein 6.6 gm/dL (6.0-8.3) 07/08/18 04:06 Albumin 3.1 gm/dL (3.7-5.3) L 07/08/18 04:06 Globulin 3.5 gm/dL 07/08/18 04:06 Albumin/Globulin Ratio 0.9 (1.0-1.8) L 07/08/18 04:06 TSH 0.34 uIU/ml (0.34-5.60) 07/07/18 15:15 Urine Source CLEAN C 07/07/18 15:30 Urine Color YELLOW 07/07/18 15:30 Urine Clarity CLEAR (CLEAR) 07/07/18 15:30 Urine pH 6.0 (4.6 - 8.0) 07/07/18 15:30 Ur Specific [place] >= 1.030 (1.005-1.030) 07/07/18 15:30 Urine Protein NEGATIVE mg/dL (NEGATIVE) 07/07/18 15:30 Urine Glucose (UA) NEGATIVE mg/dL (NEGATIVE) 07/07/18 15:30 Urine Ketones NEGATIVE mg/dL (NEGATIVE) 07/07/18 15:30 Urine Blood NEGATIVE (NEGATIVE) 07/07/18 15:30 Urine Nitrate NEGATIVE (NEGATIVE) 07/07/18 15:30 Urine Bilirubin NEGATIVE (NEGATIVE) 07/07/18 15:30 Urine Urobilinogen 0.2 E.U./dL (0.2 - 1.0) 07/07/18 15:30 Ur Leukocyte Esterase NEGATIVE (NEGATIVE) 07/07/18 15:30 - Physical Exam Vitals and I&O: Vital Signs Temp 98.5 F 07/10/18 00:00 Pulse 79 07/10/18 00:00 Resp 18 07/10/18 01:51 BP 114/42 07/10/18 00:00 Pulse Ox 98 07/10/18 00:00 Intake & Output 07/09/18 07/09/18 07/10/18 06:59 18:59 06:59 Intake Total 1110 1000 50 Output Total 1900 Balance 1110 -900 50 Weight (lbs) 79.549 kg 79.549 kg Intake: Intake, IV Amount 1000 50 Sodium Chloride 0.9% 1, 1000 000 ml @ 75 mls/hr IV . [id number] [facility] Rx#:[id number] cefTRIAXone 1 gm In 50 Dextrose 5% 50 ml @ 100 mls/hr IV Q24H [facility] Rx#: [id number] Oral 110 1000 Output: Urine 1900 Other: # Voids 5 3 # Bowel Movements 3 3 Stool Characteristics Soft Soft Soft Brown Brown Brown Weight Source Bedscale Bedscale Active Medications: Current Medications Acetaminophen (Tylenol) 650 mg PO Q4HR PRN PRN Reason: T >101F OR MILD PAIN Stop: 09/06/18 09:53 Albuterol/Ipratropium (Duoneb Neb) 3 ml HHN Q2H PRN PRN Reason: Wheezing Stop: 09/06/18 09:53 Albuterol/Ipratropium (Duoneb Neb) 3 ml HHN Q6HRT [facility] Stop: 09/06/18 12:59 Last Admin: 07/09/18 13:07 Dose: Not Given Alprazolam (Xanax) 2 mg PO BID [facility]; Protocol Stop: 09/06/18 16:59 Last Admin: 07/09/18 18:55 Dose: 2 mg Ascorbic Acid (Vitamin C) 500 mg PO DAILY [facility] Stop: 09/07/18 08:59 Last Admin: 07/09/18 08:40 Dose: 500 mg Levofloxacin 250 mg/ (Miscellaneous) 50 mls @ 100 mls/hr IV Q24H [facility] Stop: 09/08/18 03:14 Lactobacillus Rhamnosus (Culturelle 15b) 1 each PO DAILY [facility] Stop: 09/07/18 13:59 Last Admin: 07/09/18 16:03 Dose: 1 each Miscellaneous (Probiotic Screen) 1 ea [facility] PRN PRN PRN Reason: PROTOCOL Stop: 09/07/18 12:08 Morphine Sulfate (Morphine) 4 mg IVP Q4H PRN PRN Reason: Severe Pain Stop: 09/07/18 09:44 Last Admin: 07/10/18 01:15 Dose: 4 mg Ondansetron HCl (Zofran) 4 mg IV Q6HR PRN PRN Reason: Nausea / Vomiting Stop: 09/05/18 18:30 - Procedures Procedures: Procedures Procedure Code Date FLUOROSCOPY OF SUP VENA CAVA USING L OSM CONTRAST, GUIDANCE [id number] 03/13/17 INSERT TUNNELED CV CATH [id number] 03/13/17 INSERTION OF INFUSION DEV INTO SUP VENA CAVA, PERC APPROACH [id number] 03/13/17 INSERTION OF VAD INTO CHEST SUBCU/FASCIA, PERC APPROACH [id number] 03/13/17 PERFORMANCE OF URINARY FILTRATION, MULTIPLE [id number] 03/13/17 REMOVAL OF INFUSION DEVICE FROM UPPER VEIN, PERC APPROACH [id number] 06/07/17 REMOVAL TUNNELED CV CATH [id number] 06/07/17 RESPIRATORY VENTILATION, 24-96 CONSECUTIVE HOURS [id number] 03/13/17
[2018-07-10 04:58] LABS: % BASOPHILS 0.8 % (0.0-2.0); % EOSINOPHILS 4.5 % (0.0-5.0); % MONOCYTES 8.8 % (2.0-10.0); % NEUTROPHILS 46.9 % (40.0-80.0); EOSINOPHILE ABSOLUTE 0.2 Th/cmm (0.1-0.4); HEMATOCRIT 33.6 % (41.0-60); HEMOGLOBIN 11.5 gm/dL (12-16); LYMPHOCYTE ABSOLUTE 1.7 Th/cmm (1.5-3.0); MEAN CELL VOLUME 88.5 fl (81-100); MEAN CORPUSCULAR HEMOGLOBIN 30.1 pg (27.0-31.0); MEAN CORPUSCULAR HGB CONC 34.1 pg (28.0-36.0); MEAN PLATELET VOLUME 7.7 fl; MONOCYTE ABSOLUTE 0.4 Th/cmm (0.3-1.0); PLATELET COUNT 128 Th/cmm (150-400); RED CELL DISTRIBUTION WIDTH 13.9 % (11.5-20.0); WHITE BLOOD COUNT 4.3 Th/cmm (4.8-10.8)
[2018-07-10 05:24] LABS: ANION GAP 9.3 (7.0-16.0); BUN - UREA NITROGEN 12 mg/dL (7-25); CALCIUM SERUM 9.2 mg/dL (8.6-10.3); CARBON DIOXIDE 30.5 mEq/L (21.0-31.0); CHLORIDE 105 mEq/L (98-107); CREATININE - SERUM 0.7 mg/dL (0.6-1.2); GFR AFRICAN-AMERICAN > 60.0 ml/min (>90); GFR NON AFRICAN-AMERICAN > 60.0 ml/min; GLUCOSE 116 mg/dL (70-105); POTASSIUM SERUM 3.8 mEq/L (3.5-5.1); SODIUM SERUM 141 mEq/L (136-145)
[2018-07-10] MEDS: Albuterol/Ipratropium Neb 3 ML AERS HHN SCH ×3 (07:22→20:05)
[2018-07-10] MEDS: Levofloxacin 250mg/50mL 250 MG in Premix Fluid 1 BAG IV SCH (08:54)
[2018-07-10] MEDS: Lactobacillus Rhamnosus GG 15 Billion CFU CAP.SPRINK PO SCH (08:56)
--- NOTE | 2018-07-10 14:05 | Internal Medicine Prog Note ---
Internal Medicine Subjective - Subjective Service Date: 07/10/18 Patient is:: awake, other (in no acute distress) Internal Medicine Objective - Results Result Diagrams: 07/10/18 04:35 07/10/18 04:35 Recent Labs: Laboratory Last Values WBC 4.3 Th/cmm (4.8-10.8) L 07/10/18 04:35 RBC 3.80 Mil/cmm (3.80-5.20) 07/10/18 04:35 Hgb 11.5 gm/dL (12-16) L 07/10/18 04:35 Hct 33.6 % (41.0-60) L 07/10/18 04:35 MCV 88.5 fl (81-100) 07/10/18 04:35 MCH 30.1 pg (27.0-31.0) 07/10/18 04:35 MCHC Differential 34.1 pg (28.0-36.0) 07/10/18 04:35 RDW 13.9 % (11.5-20.0) 07/10/18 04:35 Plt Count 128 Th/cmm (150-400) L 07/10/18 04:35 MPV 7.7 fl 07/10/18 04:35 Neutrophils % 46.9 % (40.0-80.0) 07/10/18 04:35 Lymphocytes % 39.0 % (20.0-50.0) 07/10/18 04:35 Monocytes % 8.8 % (2.0-10.0) 07/10/18 04:35 Eosinophils % 4.5 % (0.0-5.0) 07/10/18 04:35 Basophils % 0.8 % (0.0-2.0) 07/10/18 04:35 PT 10.3 SECONDS (9.5-11.5) 07/07/18 14:34 INR 0.99 (0.5-1.4) 07/07/18 14:34 PTT (Actin FS) 21.6 SECONDS (26.0-38.0) L 07/07/18 14:34 Sodium 141 mEq/L (136-145) 07/10/18 04:35 Potassium 3.8 mEq/L (3.5-5.1) 07/10/18 04:35 Chloride 105 mEq/L (98-107) 07/10/18 04:35 Carbon Dioxide 30.5 mEq/L (21.0-31.0) 07/10/18 04:35 Anion Gap 9.3 (7.0-16.0) 07/10/18 04:35 BUN 12 mg/dL (7-25) 07/10/18 04:35 Creatinine 0.7 mg/dL (0.6-1.2) 07/10/18 04:35 Est GFR ( Amer) > 60.0 ml/min (>90) 07/10/18 04:35 Est GFR (Non-Af Amer) > 60.0 ml/min 07/10/18 04:35 BUN/Creatinine Ratio 17.1 07/10/18 04:35 Glucose 116 mg/dL (70-105) H 07/10/18 04:35 Calcium 9.2 mg/dL (8.6-10.3) 07/10/18 04:35 Total Bilirubin 0.5 mg/dL (0.3-1.0) 07/08/18 04:06 AST 18 U/L (13-39) 07/08/18 04:06 ALT 16 U/L (7-52) 07/08/18 04:06 Alkaline Phosphatase 65 U/L (34-104) 07/08/18 04:06 Total Protein 6.6 gm/dL (6.0-8.3) 07/08/18 04:06 Albumin 3.1 gm/dL (3.7-5.3) L 07/08/18 04:06 Globulin 3.5 gm/dL 07/08/18 04:06 Albumin/Globulin Ratio 0.9 (1.0-1.8) L 07/08/18 04:06 TSH 0.34 uIU/ml (0.34-5.60) 07/07/18 15:15 Urine Source CLEAN C 07/07/18 15:30 Urine Color YELLOW 07/07/18 15:30 Urine Clarity CLEAR (CLEAR) 07/07/18 15:30 Urine pH 6.0 (4.6 - 8.0) 07/07/18 15:30 Ur Specific [place] >= 1.030 (1.005-1.030) 07/07/18 15:30 Urine Protein NEGATIVE mg/dL (NEGATIVE) 07/07/18 15:30 Urine Glucose (UA) NEGATIVE mg/dL (NEGATIVE) 07/07/18 15:30 Urine Ketones NEGATIVE mg/dL (NEGATIVE) 07/07/18 15:30 Urine Blood NEGATIVE (NEGATIVE) 07/07/18 15:30 Urine Nitrate NEGATIVE (NEGATIVE) 07/07/18 15:30 Urine Bilirubin NEGATIVE (NEGATIVE) 07/07/18 15:30 Urine Urobilinogen 0.2 E.U./dL (0.2 - 1.0) 07/07/18 15:30 Ur Leukocyte Esterase NEGATIVE (NEGATIVE) 07/07/18 15:30 - Physical Exam Vitals and I&O: Vital Signs Temp 98.3 F 07/10/18 11:36 Pulse 72 07/10/18 12:22 Resp 16 07/10/18 12:22 BP 108/51 07/10/18 11:36 Pulse Ox 99 07/10/18 12:22 Intake & Output 07/09/18 07/10/18 07/10/18 18:59 06:59 18:59 Intake Total 1000 50 50 Output Total 1900 Balance -900 50 50 Weight (lbs) 175 lb 6 oz 175 lb 3.2 oz Intake: Intake, IV Amount 50 50 Levofloxacin 250mg/50mL 50 250 mg In Premix Fluid 1 bag @ 50 mls/hr IV Q24H [facility] Rx#:[id number] cefTRIAXone 1 gm In 50 Dextrose 5% 50 ml @ 100 mls/hr IV Q24H [facility] Rx#: [id number] Oral 1000 Output: Urine 1900 Other: # Voids 3 # Bowel Movements 3 Stool Characteristics Soft Soft Brown Brown Weight Source Bedscale Bedscale Active Medications: Current Medications Acetaminophen (Tylenol) 650 mg PO Q4HR PRN PRN Reason: T >101F OR MILD PAIN Stop: 09/06/18 09:53 Albuterol/Ipratropium (Duoneb Neb) 3 ml HHN Q2H PRN PRN Reason: Wheezing Stop: 09/06/18 09:53 Albuterol/Ipratropium (Duoneb Neb) 3 ml HHN Q6HRT [facility] Stop: 09/06/18 12:59 Last Admin: 07/10/18 12:22 Dose: Not Given Alprazolam (Xanax) 2 mg PO BID [facility]; Protocol Stop: 09/06/18 16:59 Last Admin: 07/10/18 08:55 Dose: 2 mg Ascorbic Acid (Vitamin C) 500 mg PO DAILY [facility] Stop: 09/07/18 08:59 Last Admin: 07/10/18 08:56 Dose: 500 mg Levofloxacin 250 mg/ (Miscellaneous) 50 mls @ 50 mls/hr IV Q24H [facility] Stop: 09/08/18 07:59 Last Infusion: 07/10/18 10:39 Dose: Infused Lactobacillus Rhamnosus (Culturelle 15b) 1 each PO DAILY [facility] Stop: 09/07/18 13:59 Last Admin: 07/10/18 08:56 Dose: 1 each Miscellaneous (Probiotic Screen) 1 ea [facility] PRN PRN PRN Reason: PROTOCOL Stop: 09/07/18 12:08 Morphine Sulfate (Morphine) 4 mg IVP Q4H PRN PRN Reason: Severe Pain Stop: 09/07/18 09:44 Last Admin: 07/10/18 13:40 Dose: 4 mg Ondansetron HCl (Zofran) 4 mg IV Q6HR PRN PRN Reason: Nausea / Vomiting Stop: 09/05/18 18:30 General: alert HEENT: NC/AT Neck: Supple Lungs: CTAB Cardiovascular: RRR, Normal S1, Normal S2 Abdomen: soft, non-tender Extremities: clear Neurological: no change - Procedures Procedures: Procedures Procedure Code Date FLUOROSCOPY OF SUP VENA CAVA USING L OSM CONTRAST, GUIDANCE [id number] 03/13/17 INSERT TUNNELED CV CATH [id number] 03/13/17 INSERTION OF INFUSION DEV INTO SUP VENA CAVA, PERC APPROACH [id number] 03/13/17 INSERTION OF VAD INTO CHEST SUBCU/FASCIA, PERC APPROACH [id number] 03/13/17 PERFORMANCE OF URINARY FILTRATION, MULTIPLE [id number] 03/13/17 REMOVAL OF INFUSION DEVICE FROM UPPER VEIN, PERC APPROACH [id number] 06/07/17 REMOVAL TUNNELED CV CATH [id number] 06/07/17 RESPIRATORY VENTILATION, 24-96 CONSECUTIVE HOURS [id number] 03/13/17 Internal Medicine Assmt/Plan - Assessment Assessment: rt shoulder dislocation leukocytosis dm chronic obstructions pulmonary disease seizures htn depressin ckd - Plan Plan: IVABX PER ID F/U LABS IN AM CONTINUE CURRENT PLAN OF CARE
--- NOTE | 2018-07-11 02:02 | Infectious Disease Prog Note ---
Infectious Disease Subjective - Review of Systems Service Date: 07/10/18 Subjective: cc pn hpi- pt allergic to pen changed to levaquin sputum cx ordered ros no efrv o/e vss chest claer abd soft ext pilse cxr inf wbc normal dx pn plan as above Current Medications Generic Name Dose Route Start Last Admin Trade Name Freq PRN Reason Stop Dose Admin Acetaminophen 650 mg 07/08/18 09:54 Tylenol PO 09/06/18 09:53 Q4HR PRN T >101F OR MILD PAIN Albuterol/Ipratropium 3 ml 07/08/18 09:54 Duoneb Neb [facility] 09/06/18 09:53 Q2H PRN Wheezing Albuterol/Ipratropium 3 ml 07/08/18 13:00 07/09/18 13:07 Duoneb Neb [facility] 09/06/18 12:59 Not Given Q6HRT [facility] Alprazolam 2 mg 07/08/18 17:00 07/09/18 18:55 Xanax PO 09/06/18 16:59 2 mg BID [facility] Administration Protocol Ascorbic Acid 500 mg 07/09/18 09:00 07/09/18 08:40 Vitamin C PO 09/07/18 08:59 500 mg DAILY [facility] Administration Levofloxacin 250 mg/ 50 mls @ 100 mls/hr 07/10/18 03:15 Miscellaneous IV 09/08/18 03:14 Q24H [facility] Lactobacillus Rhamnosus 1 each 07/09/18 14:00 07/09/18 16:03 Culturelle 15b PO 09/07/18 13:59 1 each DAILY [facility] Administration Miscellaneous 1 ea 07/09/18 12:09 Probiotic Screen [facility] 09/07/18 12:08 PRN PRN PROTOCOL Morphine Sulfate 4 mg 07/09/18 09:45 07/10/18 01:15 Morphine IVP 09/07/18 09:44 4 mg Q4H PRN Administration Severe Pain Ondansetron HCl 4 mg 07/07/18 18:31 Zofran IV 09/05/18 18:30 Q6HR PRN Nausea / Vomiting Discontinued Medications Generic Name Dose Route Start Last Admin Trade Name Freq PRN Reason Stop Dose Admin Ceftriaxone Sodium 1 gm 07/07/18 15:34 07/07/18 15:35 Rocephin IV 07/07/18 15:35 1 gm X1 ONE Administration Ceftriaxone Sodium Confirm 07/07/18 15:35 Rocephin Administered 07/07/18 15:36 Dose 1 gm .ROUTE .STK-MED ONE Ceftriaxone Sodium 1 gm 07/08/18 16:00 Rocephin IV 09/06/18 15:59 Q24HR [facility] Sodium Chloride 1,000 mls @ 100 mls/hr 07/07/18 17:21 Nacl 0.9% IV 07/08/18 03:20 .Q10H ONE Sodium Chloride 1,000 mls @ 75 mls/hr 07/07/18 18:31 07/08/18 21:45 Nacl 0.9% IV 09/05/18 18:30 75 mls/hr .[id number] [facility] Administration Ceftriaxone Sodium 1 gm/ 50 mls @ 100 mls/hr 07/08/18 16:00 07/09/18 19:23 Dextrose IV 09/06/18 15:59 Infused Q24H [facility] Infusion Ketorolac Tromethamine Confirm 07/07/18 15:25 Toradol Administered 07/07/18 15:26 Dose 30 mg .ROUTE .STK-MED ONE Ketorolac Tromethamine 30 mg 07/07/18 15:24 07/07/18 15:26 Toradol IVP 07/07/18 15:25 30 mg NOW STA Administration Morphine Sulfate 4 mg 07/07/18 18:31 07/09/18 08:41 Morphine IVP 09/05/18 18:30 4 mg Q4HR PRN Administration Severe Pain Allergies Allergy/AdvReac Type Severity Reaction Status Date / Time Penicillins Allergy Verified 04/22/18 13:56 Current Medications Acetaminophen (Tylenol) 650 mg PO Q4HR PRN PRN Reason: T >101F OR MILD PAIN Stop: 09/06/18 09:53 Albuterol/Ipratropium (Duoneb Neb) 3 ml HHN Q2H PRN PRN Reason: Wheezing Stop: 09/06/18 09:53 Albuterol/Ipratropium (Duoneb Neb) 3 ml HHN Q6HRT [facility] Stop: 09/06/18 12:59 Last Admin: 07/09/18 13:07 Dose: Not Given Alprazolam (Xanax) 2 mg PO BID [facility]; Protocol Stop: 09/06/18 16:59 Last Admin: 07/09/18 18:55 Dose: 2 mg Ascorbic Acid (Vitamin C) 500 mg PO DAILY [facility] Stop: 09/07/18 08:59 Last Admin: 07/09/18 08:40 Dose: 500 mg Levofloxacin 250 mg/ (Miscellaneous) 50 mls @ 100 mls/hr IV Q24H [facility] Stop: 09/08/18 03:14 Lactobacillus Rhamnosus (Culturelle 15b) 1 each PO DAILY [facility] Stop: 09/07/18 13:59 Last Admin: 07/09/18 16:03 Dose: 1 each Miscellaneous (Probiotic Screen) 1 ea [facility] PRN PRN PRN Reason: PROTOCOL Stop: 09/07/18 12:08 Morphine Sulfate (Morphine) 4 mg IVP Q4H PRN PRN Reason: Severe Pain Stop: 09/07/18 09:44 Last Admin: 07/10/18 01:15 Dose: 4 mg Ondansetron HCl (Zofran) 4 mg IV Q6HR PRN PRN Reason: Nausea / Vomiting Stop: 09/05/18 18:30 Diagnoses ELEVATED WHITE BLOOD CELL COUNT, UNSPECIFIED (07/07/18) TYPE 2 DIABETES MELLITUS WITHOUT COMPLICATIONS (07/07/18) OBESITY, UNSPECIFIED (07/07/18) ESSENTIAL (PRIMARY) HYPERTENSION (07/07/18) CHRONIC OBSTRUCTIVE PULMONARY DISEASE, UNSPECIFIED (07/07/18) PRESSURE ULCER OF SACRAL REGION, STAGE 2 (07/07/18) RECURRENT DISLOCATION, RIGHT SHOULDER (07/07/18) CHRONIC KIDNEY DISEASE, STAGE 2 (MILD) (07/07/18) WEAKNESS (07/07/18) BODY MASS INDEX (BMI) 36.0-36.9, ADULT (07/07/18) Microbiology 07/07/18 15:30 Blood - Preliminary NO GROWTH AFTER 48 HOURS 07/07/18 15:15 Blood - Preliminary NO GROWTH AFTER 48 HOURS 07/07/18 15:30 Nares - Final NO MRSA ISOLATED dx ppn plan levaquin Vital Signs - 24 hr 07/10/18 07/10/18 07/10/18 05:38 07:22 08:51 Temp 97.1 F HR 75 74 RR 18 15 18 BP 102/66 O2 Sat % 98 98 07/10/18 07/10/18 07/10/18 09:00 11:36 12:22 Temp 98.3 F HR 88 72 RR 18 18 16 BP 108/51 O2 Sat % 98 99 07/10/18 07/10/18 07/10/18 13:00 16:03 17:00 Temp 98.1 F HR 80 RR 18 18 18 BP 110/67 O2 Sat % 98 07/10/18 07/10/18 07/10/18 19:10 20:00 21:00 Temp 98.8 F HR 66 81 RR 16 17 18 BP 101/44 O2 Sat % 95 97 07/11/18 07/11/18 00:00 01:00 Temp 98.5 F HR 79 RR 17 18 BP 117/49 O2 Sat % 98 Microbiology 07/07/18 15:30 Blood - Preliminary NO GROWTH AFTER 48 HOURS 07/07/18 15:15 Blood - Preliminary NO GROWTH AFTER 48 HOURS 07/07/18 15:30 Nares - Final NO MRSA ISOLATED Current Medications Acetaminophen (Tylenol) 650 mg PO Q4HR PRN PRN Reason: T >101F OR MILD PAIN Stop: 09/06/18 09:53 Albuterol/Ipratropium (Duoneb Neb) 3 ml HHN Q2H PRN PRN Reason: Wheezing Stop: 09/06/18 09:53 Albuterol/Ipratropium (Duoneb Neb) 3 ml HHN Q6HRT [facility] Stop: 09/06/18 12:59 Last Admin: 07/10/18 20:05 Dose: Not Given Alprazolam (Xanax) 2 mg PO BID [facility]; Protocol Stop: 09/06/18 16:59 Last Admin: 07/10/18 17:32 Dose: 2 mg Ascorbic Acid (Vitamin C) 500 mg PO DAILY [facility] Stop: 09/07/18 08:59 Last Admin: 07/10/18 08:56 Dose: 500 mg Levofloxacin 250 mg/ (Miscellaneous) 50 mls @ 50 mls/hr IV Q24H [facility] Stop: 09/08/18 07:59 Last Infusion: 07/10/18 10:39 Dose: Infused Lactobacillus Rhamnosus (Culturelle 15b) 1 each PO DAILY [facility] Stop: 09/07/18 13:59 Last Admin: 07/10/18 08:56 Dose: 1 each Miscellaneous (Probiotic Screen) 1 ea [facility] PRN PRN PRN Reason: PROTOCOL Stop: 09/07/18 12:08 Morphine Sulfate (Morphine) 4 mg IVP Q4H PRN PRN Reason: Severe Pain Stop: 09/07/18 09:44 Last Admin: 07/10/18 21:55 Dose: 4 mg Ondansetron HCl (Zofran) 4 mg IV Q6HR PRN PRN Reason: Nausea / Vomiting Stop: 09/05/18 18:30 Infectious Disease Objective - Results Result Diagrams: 07/10/18 04:35 07/10/18 04:35 Recent Labs: Laboratory Last Values WBC 4.3 Th/cmm (4.8-10.8) L 07/10/18 04:35 RBC 3.80 Mil/cmm (3.80-5.20) 07/10/18 04:35 Hgb 11.5 gm/dL (12-16) L 07/10/18 04:35 Hct 33.6 % (41.0-60) L 07/10/18 04:35 MCV 88.5 fl (81-100) 07/10/18 04:35 MCH 30.1 pg (27.0-31.0) 07/10/18 04:35 MCHC Differential 34.1 pg (28.0-36.0) 07/10/18 04:35 RDW 13.9 % (11.5-20.0) 07/10/18 04:35 Plt Count 128 Th/cmm (150-400) L 07/10/18 04:35 MPV 7.7 fl 07/10/18 04:35 Neutrophils % 46.9 % (40.0-80.0) 07/10/18 04:35 Lymphocytes % 39.0 % (20.0-50.0) 07/10/18 04:35 Monocytes % 8.8 % (2.0-10.0) 07/10/18 04:35 Eosinophils % 4.5 % (0.0-5.0) 07/10/18 04:35 Basophils % 0.8 % (0.0-2.0) 07/10/18 04:35 PT 10.3 SECONDS (9.5-11.5) 07/07/18 14:34 INR 0.99 (0.5-1.4) 07/07/18 14:34 PTT (Actin FS) 21.6 SECONDS (26.0-38.0) L 07/07/18 14:34 Sodium 141 mEq/L (136-145) 07/10/18 04:35 Potassium 3.8 mEq/L (3.5-5.1) 07/10/18 04:35 Chloride 105 mEq/L (98-107) 07/10/18 04:35 Carbon Dioxide 30.5 mEq/L (21.0-31.0) 07/10/18 04:35 Anion Gap 9.3 (7.0-16.0) 07/10/18 04:35 BUN 12 mg/dL (7-25) 07/10/18 04:35 Creatinine 0.7 mg/dL (0.6-1.2) 07/10/18 04:35 Est GFR ( Amer) > 60.0 ml/min (>90) 07/10/18 04:35 Est GFR (Non-Af Amer) > 60.0 ml/min 07/10/18 04:35 BUN/Creatinine Ratio 17.1 07/10/18 04:35 Glucose 116 mg/dL (70-105) H 07/10/18 04:35 Calcium 9.2 mg/dL (8.6-10.3) 07/10/18 04:35 Total Bilirubin 0.5 mg/dL (0.3-1.0) 07/08/18 04:06 AST 18 U/L (13-39) 07/08/18 04:06 ALT 16 U/L (7-52) 07/08/18 04:06 Alkaline Phosphatase 65 U/L (34-104) 07/08/18 04:06 Total Protein 6.6 gm/dL (6.0-8.3) 07/08/18 04:06 Albumin 3.1 gm/dL (3.7-5.3) L 07/08/18 04:06 Globulin 3.5 gm/dL 07/08/18 04:06 Albumin/Globulin Ratio 0.9 (1.0-1.8) L 07/08/18 04:06 TSH 0.34 uIU/ml (0.34-5.60) 07/07/18 15:15 Urine Source CLEAN C 07/07/18 15:30 Urine Color YELLOW 07/07/18 15:30 Urine Clarity CLEAR (CLEAR) 07/07/18 15:30 Urine pH 6.0 (4.6 - 8.0) 07/07/18 15:30 Ur Specific [place] >= 1.030 (1.005-1.030) 07/07/18 15:30 Urine Protein NEGATIVE mg/dL (NEGATIVE) 07/07/18 15:30 Urine Glucose (UA) NEGATIVE mg/dL (NEGATIVE) 07/07/18 15:30 Urine Ketones NEGATIVE mg/dL (NEGATIVE) 07/07/18 15:30 Urine Blood NEGATIVE (NEGATIVE) 07/07/18 15:30 Urine Nitrate NEGATIVE (NEGATIVE) 07/07/18 15:30 Urine Bilirubin NEGATIVE (NEGATIVE) 07/07/18 15:30 Urine Urobilinogen 0.2 E.U./dL (0.2 - 1.0) 07/07/18 15:30 Ur Leukocyte Esterase NEGATIVE (NEGATIVE) 07/07/18 15:30 - Physical Exam Vitals and I&O: Vital Signs Temp 98.5 F 07/11/18 00:00 Pulse 79 07/11/18 00:00 Resp 18 07/11/18 01:00 BP 117/49 07/11/18 00:00 Pulse Ox 98 07/11/18 00:00 Intake & Output 07/10/18 07/10/18 07/11/18 06:59 18:59 06:59 Intake Total 50 50 Balance 50 50 Weight (lbs) 79.469 kg Intake: Intake, IV Amount 50 50 Levofloxacin 250mg/50mL 50 250 mg In Premix Fluid 1 bag @ 50 mls/hr IV Q24H [facility] Rx#:[id number] cefTRIAXone 1 gm In 50 Dextrose 5% 50 ml @ 100 mls/hr IV Q24H [facility] Rx#: [id number] Other: Stool Characteristics Soft Brown Weight Source Bedscale Active Medications: Current Medications Acetaminophen (Tylenol) 650 mg PO Q4HR PRN PRN Reason: T >101F OR MILD PAIN Stop: 09/06/18 09:53 Albuterol/Ipratropium (Duoneb Neb) 3 ml HHN Q2H PRN PRN Reason: Wheezing Stop: 09/06/18 09:53 Albuterol/Ipratropium (Duoneb Neb) 3 ml HHN Q6HRT [facility] Stop: 09/06/18 12:59 Last Admin: 07/10/18 20:05 Dose: Not Given Alprazolam (Xanax) 2 mg PO BID [facility]; Protocol Stop: 09/06/18 16:59 Last Admin: 07/10/18 17:32 Dose: 2 mg Ascorbic Acid (Vitamin C) 500 mg PO DAILY [facility] Stop: 09/07/18 08:59 Last Admin: 07/10/18 08:56 Dose: 500 mg Levofloxacin 250 mg/ (Miscellaneous) 50 mls @ 50 mls/hr IV Q24H [facility] Stop: 09/08/18 07:59 Last Infusion: 07/10/18 10:39 Dose: Infused Lactobacillus Rhamnosus (Culturelle 15b) 1 each PO DAILY [facility] Stop: 09/07/18 13:59 Last Admin: 07/10/18 08:56 Dose: 1 each Miscellaneous (Probiotic Screen) 1 ea MC PRN PRN PRN Reason: PROTOCOL Stop: 09/07/18 12:08 Morphine Sulfate (Morphine) 4 mg IVP Q4H PRN PRN Reason: Severe Pain Stop: 09/07/18 09:44 Last Admin: 07/10/18 21:55 Dose: 4 mg Ondansetron HCl (Zofran) 4 mg IV Q6HR PRN PRN Reason: Nausea / Vomiting Stop: 09/05/18 18:30 - Procedures Procedures: Procedures Procedure Code Date FLUOROSCOPY OF SUP VENA CAVA USING L OSM CONTRAST, GUIDANCE [id number] 03/13/17 INSERT TUNNELED CV CATH [id number] 03/13/17 INSERTION OF INFUSION DEV INTO SUP VENA CAVA, PERC APPROACH [id number] 03/13/17 INSERTION OF VAD INTO CHEST SUBCU/FASCIA, PERC APPROACH [id number] 03/13/17 PERFORMANCE OF URINARY FILTRATION, MULTIPLE [id number] 03/13/17 REMOVAL OF INFUSION DEVICE FROM UPPER VEIN, PERC APPROACH [id number] 06/07/17 REMOVAL TUNNELED CV CATH [id number] 06/07/17 RESPIRATORY VENTILATION, 24-96 CONSECUTIVE HOURS [id number] 03/13/17
[2018-07-11] MEDS: Morphine Sulfate 4 mg/mL 1mL Syr IVP PRN ×5 (03:59→19:08)
[2018-07-11 06:36] LABS: % BASOPHILS 1.1 % (0.0-2.0); % EOSINOPHILS 4.7 % (0.0-5.0); % LYMPHOCYTES 43.7 % (20.0-50.0); % MONOCYTES 9.9 % (2.0-10.0); % NEUTROPHILS 40.6 % (40.0-80.0); BASOPHILE ABSOLUTE 0.1 Th/cumm (0-0.2); EOSINOPHILE ABSOLUTE 0.2 Th/cmm (0.1-0.4); HEMATOCRIT 35.1 % (41.0-60); HEMOGLOBIN 11.5 gm/dL (12-16); LYMPHOCYTE ABSOLUTE 2.1 Th/cmm (1.5-3.0); MEAN CELL VOLUME 89.8 fl (81-100); MEAN CORPUSCULAR HEMOGLOBIN 29.5 pg (27.0-31.0); MEAN CORPUSCULAR HGB CONC 32.8 pg (28.0-36.0); MEAN PLATELET VOLUME 7.1 fl; MONOCYTE ABSOLUTE 0.5 Th/cmm (0.3-1.0); NEUTROPHILE ABSOLUTE 1.9 Th/cmm (1.8-8.0); PLATELET COUNT 164 Th/cmm (150-400); RED BLOOD COUNT 3.91 Mil/cmm (3.80-5.20); RED CELL DISTRIBUTION WIDTH 14.1 % (11.5-20.0); WHITE BLOOD COUNT 4.8 Th/cmm (4.8-10.8)
[2018-07-11 06:48] LABS: ANION GAP 8.4 (7.0-16.0); BUN - UREA NITROGEN 10 mg/dL (7-25); CALCIUM SERUM 9.7 mg/dL (8.6-10.3); CARBON DIOXIDE 32.5 mEq/L (21.0-31.0); CHLORIDE 103 mEq/L (98-107); CREATININE - SERUM 0.6 mg/dL (0.6-1.2); GFR AFRICAN-AMERICAN > 60.0 ml/min (>90); GFR NON AFRICAN-AMERICAN > 60.0 ml/min; GLUCOSE 98 mg/dL (70-105); POTASSIUM SERUM 3.9 mEq/L (3.5-5.1); SODIUM SERUM 140 mEq/L (136-145)
[2018-07-11] MEDS: Albuterol/Ipratropium Neb 3 ML AERS HHN SCH ×2 (07:04→13:53)
[2018-07-11] MEDS: Lactobacillus Rhamnosus GG 15 Billion CFU CAP.SPRINK PO SCH (08:17)
[2018-07-11] MEDS: Levofloxacin 250mg/50mL 250 MG in Premix Fluid 1 BAG IV SCH (08:30)
--- NOTE | 2018-07-11 16:40 | Internal Medicine Prog Note ---
Internal Medicine Subjective - Subjective Patient seen and examined:: chart reviewed Patient is:: awake, other (in no acute distress) Internal Medicine Objective - Results Result Diagrams: 07/11/18 05:55 07/11/18 05:55 Recent Labs: Laboratory Last Values WBC 4.8 Th/cmm (4.8-10.8) 07/11/18 05:55 RBC 3.91 Mil/cmm (3.80-5.20) 07/11/18 05:55 Hgb 11.5 gm/dL (12-16) L 07/11/18 05:55 Hct 35.1 % (41.0-60) L 07/11/18 05:55 MCV 89.8 fl (81-100) 07/11/18 05:55 MCH 29.5 pg (27.0-31.0) 07/11/18 05:55 MCHC Differential 32.8 pg (28.0-36.0) 07/11/18 05:55 RDW 14.1 % (11.5-20.0) 07/11/18 05:55 Plt Count 164 Th/cmm (150-400) 07/11/18 05:55 MPV 7.1 fl 07/11/18 05:55 Neutrophils % 40.6 % (40.0-80.0) 07/11/18 05:55 Lymphocytes % 43.7 % (20.0-50.0) 07/11/18 05:55 Monocytes % 9.9 % (2.0-10.0) 07/11/18 05:55 Eosinophils % 4.7 % (0.0-5.0) 07/11/18 05:55 Basophils % 1.1 % (0.0-2.0) 07/11/18 05:55 PT 10.3 SECONDS (9.5-11.5) 07/07/18 14:34 INR 0.99 (0.5-1.4) 07/07/18 14:34 PTT (Actin FS) 21.6 SECONDS (26.0-38.0) L 07/07/18 14:34 Sodium 140 mEq/L (136-145) 07/11/18 05:55 Potassium 3.9 mEq/L (3.5-5.1) 07/11/18 05:55 Chloride 103 mEq/L (98-107) 07/11/18 05:55 Carbon Dioxide 32.5 mEq/L (21.0-31.0) H 07/11/18 05:55 Anion Gap 8.4 (7.0-16.0) 07/11/18 05:55 BUN 10 mg/dL (7-25) 07/11/18 05:55 Creatinine 0.6 mg/dL (0.6-1.2) 07/11/18 05:55 Est GFR ( Amer) > 60.0 ml/min (>90) 07/11/18 05:55 Est GFR (Non-Af Amer) > 60.0 ml/min 07/11/18 05:55 BUN/Creatinine Ratio 16.7 07/11/18 05:55 Glucose 98 mg/dL (70-105) 07/11/18 05:55 Calcium 9.7 mg/dL (8.6-10.3) 07/11/18 05:55 Total Bilirubin 0.5 mg/dL (0.3-1.0) 07/08/18 04:06 AST 18 U/L (13-39) 07/08/18 04:06 ALT 16 U/L (7-52) 07/08/18 04:06 Alkaline Phosphatase 65 U/L (34-104) 07/08/18 04:06 Total Protein 6.6 gm/dL (6.0-8.3) 07/08/18 04:06 Albumin 3.1 gm/dL (3.7-5.3) L 07/08/18 04:06 Globulin 3.5 gm/dL 07/08/18 04:06 Albumin/Globulin Ratio 0.9 (1.0-1.8) L 07/08/18 04:06 TSH 0.34 uIU/ml (0.34-5.60) 07/07/18 15:15 Urine Source CLEAN C 07/07/18 15:30 Urine Color YELLOW 07/07/18 15:30 Urine Clarity CLEAR (CLEAR) 07/07/18 15:30 Urine pH 6.0 (4.6 - 8.0) 07/07/18 15:30 Ur Specific [place] >= 1.030 (1.005-1.030) 07/07/18 15:30 Urine Protein NEGATIVE mg/dL (NEGATIVE) 07/07/18 15:30 Urine Glucose (UA) NEGATIVE mg/dL (NEGATIVE) 07/07/18 15:30 Urine Ketones NEGATIVE mg/dL (NEGATIVE) 07/07/18 15:30 Urine Blood NEGATIVE (NEGATIVE) 07/07/18 15:30 Urine Nitrate NEGATIVE (NEGATIVE) 07/07/18 15:30 Urine Bilirubin NEGATIVE (NEGATIVE) 07/07/18 15:30 Urine Urobilinogen 0.2 E.U./dL (0.2 - 1.0) 07/07/18 15:30 Ur Leukocyte Esterase NEGATIVE (NEGATIVE) 07/07/18 15:30 - Physical Exam Vitals and I&O: Vital Signs Temp 97.6 F 07/11/18 15:49 Pulse 75 07/11/18 15:49 Resp 18 07/11/18 15:49 BP 120/65 07/11/18 15:49 Pulse Ox 98 07/11/18 15:49 Intake & Output 07/10/18 07/11/18 07/11/18 18:59 06:59 18:59 Intake Total 50 Balance 50 Weight (lbs) 79.061 kg Intake: Intake, IV Amount 50 Levofloxacin 250mg/50mL 50 250 mg In Premix Fluid 1 bag @ 50 mls/hr IV Q24H [facility] Rx#:[id number] Other: # Voids 2 # Bowel Movements 0 Weight Source Bedscale Active Medications: Current Medications Acetaminophen (Tylenol) 650 mg PO Q4HR PRN PRN Reason: T >101F OR MILD PAIN Stop: 09/06/18 09:53 Albuterol/Ipratropium (Duoneb Neb) 3 ml HHN Q2H PRN PRN Reason: Wheezing Stop: 09/06/18 09:53 Albuterol/Ipratropium (Duoneb Neb) 3 ml HHN Q6HRT [facility] Stop: 09/06/18 12:59 Last Admin: 07/11/18 13:53 Dose: Not Given Alprazolam (Xanax) 2 mg PO BID [facility]; Protocol Stop: 09/06/18 16:59 Last Admin: 07/11/18 09:47 Dose: 2 mg Ascorbic Acid (Vitamin C) 500 mg PO DAILY [facility] Stop: 09/07/18 08:59 Last Admin: 07/11/18 08:17 Dose: 500 mg Levofloxacin 250 mg/ (Miscellaneous) 50 mls @ 50 mls/hr IV Q24H [facility] Stop: 09/08/18 07:59 Last Admin: 07/11/18 08:30 Dose: 50 mls/hr Lactobacillus Rhamnosus (Culturelle 15b) 1 each PO DAILY [facility] Stop: 09/07/18 13:59 Last Admin: 07/11/18 08:17 Dose: 1 each Miscellaneous (Probiotic Screen) 1 ea MC PRN PRN PRN Reason: PROTOCOL Stop: 09/07/18 12:08 Morphine Sulfate (Morphine) 4 mg IVP Q4H PRN PRN Reason: Severe Pain Stop: 09/07/18 09:44 Last Admin: 07/11/18 15:38 Dose: 4 mg Ondansetron HCl (Zofran) 4 mg IV Q6HR PRN PRN Reason: Nausea / Vomiting Stop: 09/05/18 18:30 General: alert HEENT: NC/AT Neck: Supple Lungs: CTAB Cardiovascular: RRR, Normal S1, Normal S2 Abdomen: soft, non-tender Extremities: clear Neurological: no change - Procedures Procedures: Procedures Procedure Code Date FLUOROSCOPY OF SUP VENA CAVA USING L OSM CONTRAST, GUIDANCE [id number] 03/13/17 INSERT TUNNELED CV CATH [id number] 03/13/17 INSERTION OF INFUSION DEV INTO SUP VENA CAVA, PERC APPROACH [id number] 03/13/17 INSERTION OF VAD INTO CHEST SUBCU/FASCIA, PERC APPROACH [id number] 03/13/17 PERFORMANCE OF URINARY FILTRATION, MULTIPLE [id number] 03/13/17 REMOVAL OF INFUSION DEVICE FROM UPPER VEIN, PERC APPROACH [id number] 06/07/17 REMOVAL TUNNELED CV CATH [id number] 06/07/17 RESPIRATORY VENTILATION, 24-96 CONSECUTIVE HOURS [id number] 03/13/17 Internal Medicine Assmt/Plan - Assessment Assessment: rt shoulder dislocation leukocytosis dm chronic obstructions pulmonary disease seizures htn depressin ckd - Plan Plan: as per order sheet Nutritional Asmnt/Malnutr-PDOC - Dietary Evaluation Malnutrition Findings (Please click <Entered> for more info): Nutritional Asmnt/Malnutrition Start: 07/11/18 13: 56 Text: Status: Complete Freq: Protocol: Document 07/11/18 13:56 [email or web address] (Rec: 07/11/18 14:03 [email or web address] MARS) Nutritional Asmnt/Malnutrition Patient General Information Nutritional Screening Moderate Risk Diagnosis dislocation right shoulder, UTI Pertinent Medical Hx/Surgical Hx COPD, anxiety, CKD, polyneuropathy, depression, T2DM, seizure disorder, insomnia Subjective Information Pt was awake in bed at time of visit. Food preferences taken . PO intake is 25-90% per EMR. Current Diet Order/ Nutrition Support [facility] soft chopped Pertinent Medications vit C, culturelle, levofloxacin, zofran Pertinent Labs 07/11 glucose 98 1/8 glucose 116 1/6 alb 3.1 Nutritional Hx/Data Height 1.57 m Height (Calculated Centimeters) 157.5 Current Weight (lbs) 78.925 kg Weight (Calculated Kilograms) 78.9 Weight (Calculated Grams) 31755.1 [place] Body Weight 110 Body Mass Index (BMI) 31.8 Weight Status Obese GI Symptoms GI Symptoms None Last BM 07/09 x6 Difficult in: None Food Allergies No Skin Integrity/Comment: intact, rose 14 Current %PO Fair (50-74%) Estimated Nutritional Goals BEE in Kcals: Adj wt of IBW Calories/Kcals/Kg 25-30 Kcals Calculated 5512-1446 Protein: Adj wt of IBW Protein g/k.8-1 Protein Calculated 45-57 Fluid: ml [id number] Nutritional Problem No current Nutrition Prob Problem N/A Malnutrition Alert Is there a minimum of two criteria No selected? Query Text:Check all the applicable criteria. A minimum of two criteria are recommended for diagnosis of either severe or non-severe malnutrition. Malnutrition Related to Morbid Obesity Malnutrition related to morbid obesity No Intervention/Recommendation Comments 1. Continue with [facility] soft chopped diet as ordered. 2. Monitor PO intake, wt, labs and skin integrity 3. F/U as low risk in 7 days, PO check 07/16 Expected Outcomes/Goals Expected Outcomes/Goals Goal: PO intake to meet at least 75% of nutritional needs and improved labs. Reviewed by Katey Farley RD
--- NOTE | 2018-07-12 02:52 | Infectious Disease Prog Note ---
Infectious Disease Subjective - Review of Systems Service Date: 07/11/18 Subjective: cc pn hpi- pt allergic to pen changed to levaquin sputum cx ordered. schedule for discharge ros no efrv o/e vss chest claer abd soft ext pilse cxr inf wbc normal dx pn plan as above Current Medications Generic Name Dose Route Start Last Admin Trade Name Fregurpreet PRN Reason Stop Dose Admin Acetaminophen 650 mg 07/08/18 09:54 Tylenol PO 09/06/18 09:53 Q4HR PRN T >101F OR MILD PAIN Albuterol/Ipratropium 3 ml 07/08/18 09:54 Duoneb Neb [facility] 09/06/18 09:53 Q2H PRN Wheezing Albuterol/Ipratropium 3 ml 07/08/18 13:00 07/09/18 13:07 Duoneb Neb [facility] 09/06/18 12:59 Not Given Q6HRT [facility] Alprazolam 2 mg 07/08/18 17:00 07/09/18 18:55 Xanax PO 09/06/18 16:59 2 mg BID [facility] Administration Protocol Ascorbic Acid 500 mg 07/09/18 09:00 07/09/18 08:40 Vitamin C PO 09/07/18 08:59 500 mg DAILY [facility] Administration Levofloxacin 250 mg/ 50 mls @ 100 mls/hr 07/10/18 03:15 Miscellaneous IV 09/08/18 03:14 Q24H [facility] Lactobacillus Rhamnosus 1 each 07/09/18 14:00 07/09/18 16:03 Culturelle 15b PO 09/07/18 13:59 1 each DAILY [facility] Administration Miscellaneous 1 ea 07/09/18 12:09 Probiotic Screen [facility] 09/07/18 12:08 PRN PRN PROTOCOL Morphine Sulfate 4 mg 07/09/18 09:45 07/10/18 01:15 Morphine IVP 09/07/18 09:44 4 mg Q4H PRN Administration Severe Pain Ondansetron HCl 4 mg 07/07/18 18:31 Zofran IV 09/05/18 18:30 Q6HR PRN Nausea / Vomiting Discontinued Medications Generic Name Dose Route Start Last Admin Trade Name Freq PRN Reason Stop Dose Admin Ceftriaxone Sodium 1 gm 07/07/18 15:34 07/07/18 15:35 Rocephin IV 07/07/18 15:35 1 gm X1 ONE Administration Ceftriaxone Sodium Confirm 07/07/18 15:35 Rocephin Administered 07/07/18 15:36 Dose 1 gm .ROUTE .STK-MED ONE Ceftriaxone Sodium 1 gm 07/08/18 16:00 Rocephin IV 09/06/18 15:59 Q24HR [facility] Sodium Chloride 1,000 mls @ 100 mls/hr 07/07/18 17:21 Nacl 0.9% IV 07/08/18 03:20 .Q10H ONE Sodium Chloride 1,000 mls @ 75 mls/hr 07/07/18 18:31 07/08/18 21:45 Nacl 0.9% IV 09/05/18 18:30 75 mls/hr .[id number] [facility] Administration Ceftriaxone Sodium 1 gm/ 50 mls @ 100 mls/hr 07/08/18 16:00 07/09/18 19:23 Dextrose IV 09/06/18 15:59 Infused Q24H [facility] Infusion Ketorolac Tromethamine Confirm 07/07/18 15:25 Toradol Administered 07/07/18 15:26 Dose 30 mg .ROUTE .STK-MED ONE Ketorolac Tromethamine 30 mg 07/07/18 15:24 07/07/18 15:26 Toradol IVP 07/07/18 15:25 30 mg NOW STA Administration Morphine Sulfate 4 mg 07/07/18 18:31 07/09/18 08:41 Morphine IVP 09/05/18 18:30 4 mg Q4HR PRN Administration Severe Pain Allergies Allergy/AdvReac Type Severity Reaction Status Date / Time Penicillins Allergy Verified 04/22/18 13:56 Current Medications Acetaminophen (Tylenol) 650 mg PO Q4HR PRN PRN Reason: T >101F OR MILD PAIN Stop: 09/06/18 09:53 Albuterol/Ipratropium (Duoneb Neb) 3 ml HHN Q2H PRN PRN Reason: Wheezing Stop: 09/06/18 09:53 Albuterol/Ipratropium (Duoneb Neb) 3 ml HHN Q6HRT [facility] Stop: 09/06/18 12:59 Last Admin: 07/09/18 13:07 Dose: Not Given Alprazolam (Xanax) 2 mg PO BID [facility]; Protocol Stop: 09/06/18 16:59 Last Admin: 07/09/18 18:55 Dose: 2 mg Ascorbic Acid (Vitamin C) 500 mg PO DAILY [facility] Stop: 09/07/18 08:59 Last Admin: 07/09/18 08:40 Dose: 500 mg Levofloxacin 250 mg/ (Miscellaneous) 50 mls @ 100 mls/hr IV Q24H [facility] Stop: 09/08/18 03:14 Lactobacillus Rhamnosus (Culturelle 15b) 1 each PO DAILY [facility] Stop: 09/07/18 13:59 Last Admin: 07/09/18 16:03 Dose: 1 each Miscellaneous (Probiotic Screen) 1 ea [facility] PRN PRN PRN Reason: PROTOCOL Stop: 09/07/18 12:08 Morphine Sulfate (Morphine) 4 mg IVP Q4H PRN PRN Reason: Severe Pain Stop: 09/07/18 09:44 Last Admin: 07/10/18 01:15 Dose: 4 mg Ondansetron HCl (Zofran) 4 mg IV Q6HR PRN PRN Reason: Nausea / Vomiting Stop: 09/05/18 18:30 Diagnoses ELEVATED WHITE BLOOD CELL COUNT, UNSPECIFIED (07/07/18) TYPE 2 DIABETES MELLITUS WITHOUT COMPLICATIONS (07/07/18) OBESITY, UNSPECIFIED (07/07/18) ESSENTIAL (PRIMARY) HYPERTENSION (07/07/18) CHRONIC OBSTRUCTIVE PULMONARY DISEASE, UNSPECIFIED (07/07/18) PRESSURE ULCER OF SACRAL REGION, STAGE 2 (07/07/18) RECURRENT DISLOCATION, RIGHT SHOULDER (07/07/18) CHRONIC KIDNEY DISEASE, STAGE 2 (MILD) (07/07/18) WEAKNESS (07/07/18) BODY MASS INDEX (BMI) 36.0-36.9, ADULT (07/07/18) Microbiology 07/07/18 15:30 Blood - Preliminary NO GROWTH AFTER 48 HOURS 07/07/18 15:15 Blood - Preliminary NO GROWTH AFTER 48 HOURS 07/07/18 15:30 Nares - Final NO MRSA ISOLATED dx ppn plan levaquin Vital Signs - 24 hr 07/10/18 07/10/18 07/10/18 05:38 07:22 08:51 Temp 97.1 F HR 75 74 RR 18 15 18 BP 102/66 O2 Sat % 98 98 07/10/18 07/10/18 07/10/18 09:00 11:36 12:22 Temp 98.3 F HR 88 72 RR 18 18 16 BP 108/51 O2 Sat % 98 99 07/10/18 07/10/18 07/10/18 13:00 16:03 17:00 Temp 98.1 F HR 80 RR 18 18 18 BP 110/67 O2 Sat % 98 07/10/18 07/10/18 07/10/18 19:10 20:00 21:00 Temp 98.8 F HR 66 81 RR 16 17 18 BP 101/44 O2 Sat % 95 97 07/11/18 07/11/18 00:00 01:00 Temp 98.5 F HR 79 RR 17 18 BP 117/49 O2 Sat % 98 Microbiology 07/07/18 15:30 Blood - Preliminary NO GROWTH AFTER 48 HOURS 07/07/18 15:15 Blood - Preliminary NO GROWTH AFTER 48 HOURS 07/07/18 15:30 Nares - Final NO MRSA ISOLATED Current Medications Acetaminophen (Tylenol) 650 mg PO Q4HR PRN PRN Reason: T >101F OR MILD PAIN Stop: 09/06/18 09:53 Albuterol/Ipratropium (Duoneb Neb) 3 ml HHN Q2H PRN PRN Reason: Wheezing Stop: 09/06/18 09:53 Albuterol/Ipratropium (Duoneb Neb) 3 ml HHN Q6HRT [facility] Stop: 09/06/18 12:59 Last Admin: 07/10/18 20:05 Dose: Not Given Alprazolam (Xanax) 2 mg PO BID [facility]; Protocol Stop: 09/06/18 16:59 Last Admin: 07/10/18 17:32 Dose: 2 mg Ascorbic Acid (Vitamin C) 500 mg PO DAILY [facility] Stop: 09/07/18 08:59 Last Admin: 07/10/18 08:56 Dose: 500 mg Levofloxacin 250 mg/ (Miscellaneous) 50 mls @ 50 mls/hr IV Q24H [facility] Stop: 09/08/18 07:59 Last Infusion: 07/10/18 10:39 Dose: Infused Lactobacillus Rhamnosus (Culturelle 15b) 1 each PO DAILY [facility] Stop: 09/07/18 13:59 Last Admin: 07/10/18 08:56 Dose: 1 each Miscellaneous (Probiotic Screen) 1 ea [facility] PRN PRN PRN Reason: PROTOCOL Stop: 09/07/18 12:08 Morphine Sulfate (Morphine) 4 mg IVP Q4H PRN PRN Reason: Severe Pain Stop: 09/07/18 09:44 Last Admin: 07/10/18 21:55 Dose: 4 mg Ondansetron HCl (Zofran) 4 mg IV Q6HR PRN PRN Reason: Nausea / Vomiting Stop: 09/05/18 18:30 Infectious Disease Objective - Results Result Diagrams: 07/11/18 05:55 07/11/18 05:55 Recent Labs: Laboratory Last Values WBC 4.8 Th/cmm (4.8-10.8) 07/11/18 05:55 RBC 3.91 Mil/cmm (3.80-5.20) 07/11/18 05:55 Hgb 11.5 gm/dL (12-16) L 07/11/18 05:55 Hct 35.1 % (41.0-60) L 07/11/18 05:55 MCV 89.8 fl (81-100) 07/11/18 05:55 MCH 29.5 pg (27.0-31.0) 07/11/18 05:55 MCHC Differential 32.8 pg (28.0-36.0) 07/11/18 05:55 RDW 14.1 % (11.5-20.0) 07/11/18 05:55 Plt Count 164 Th/cmm (150-400) 07/11/18 05:55 MPV 7.1 fl 07/11/18 05:55 Neutrophils % 40.6 % (40.0-80.0) 07/11/18 05:55 Lymphocytes % 43.7 % (20.0-50.0) 07/11/18 05:55 Monocytes % 9.9 % (2.0-10.0) 07/11/18 05:55 Eosinophils % 4.7 % (0.0-5.0) 07/11/18 05:55 Basophils % 1.1 % (0.0-2.0) 07/11/18 05:55 PT 10.3 SECONDS (9.5-11.5) 07/07/18 14:34 INR 0.99 (0.5-1.4) 07/07/18 14:34 PTT (Actin FS) 21.6 SECONDS (26.0-38.0) L 07/07/18 14:34 Sodium 140 mEq/L (136-145) 07/11/18 05:55 Potassium 3.9 mEq/L (3.5-5.1) 07/11/18 05:55 Chloride 103 mEq/L (98-107) 07/11/18 05:55 Carbon Dioxide 32.5 mEq/L (21.0-31.0) H 07/11/18 05:55 Anion Gap 8.4 (7.0-16.0) 07/11/18 05:55 BUN 10 mg/dL (7-25) 07/11/18 05:55 Creatinine 0.6 mg/dL (0.6-1.2) 07/11/18 05:55 Est GFR ( Amer) > 60.0 ml/min (>90) 07/11/18 05:55 Est GFR (Non-Af Amer) > 60.0 ml/min 07/11/18 05:55 BUN/Creatinine Ratio 16.7 07/11/18 05:55 Glucose 98 mg/dL (70-105) 07/11/18 05:55 Calcium 9.7 mg/dL (8.6-10.3) 07/11/18 05:55 Total Bilirubin 0.5 mg/dL (0.3-1.0) 07/08/18 04:06 AST 18 U/L (13-39) 07/08/18 04:06 ALT 16 U/L (7-52) 07/08/18 04:06 Alkaline Phosphatase 65 U/L (34-104) 07/08/18 04:06 Total Protein 6.6 gm/dL (6.0-8.3) 07/08/18 04:06 Albumin 3.1 gm/dL (3.7-5.3) L 07/08/18 04:06 Globulin 3.5 gm/dL 07/08/18 04:06 Albumin/Globulin Ratio 0.9 (1.0-1.8) L 07/08/18 04:06 TSH 0.34 uIU/ml (0.34-5.60) 07/07/18 15:15 Urine Source CLEAN C 07/07/18 15:30 Urine Color YELLOW 07/07/18 15:30 Urine Clarity CLEAR (CLEAR) 07/07/18 15:30 Urine pH 6.0 (4.6 - 8.0) 07/07/18 15:30 Ur Specific [place] >= 1.030 (1.005-1.030) 07/07/18 15:30 Urine Protein NEGATIVE mg/dL (NEGATIVE) 07/07/18 15:30 Urine Glucose (UA) NEGATIVE mg/dL (NEGATIVE) 07/07/18 15:30 Urine Ketones NEGATIVE mg/dL (NEGATIVE) 07/07/18 15:30 Urine Blood NEGATIVE (NEGATIVE) 07/07/18 15:30 Urine Nitrate NEGATIVE (NEGATIVE) 07/07/18 15:30 Urine Bilirubin NEGATIVE (NEGATIVE) 07/07/18 15:30 Urine Urobilinogen 0.2 E.U./dL (0.2 - 1.0) 07/07/18 15:30 Ur Leukocyte Esterase NEGATIVE (NEGATIVE) 07/07/18 15:30 - Physical Exam Vitals and I&O: Vital Signs Temp 97.6 F 07/11/18 15:49 Pulse 75 07/11/18 15:49 Resp 18 07/11/18 17:00 BP 120/65 07/11/18 15:49 Pulse Ox 98 07/11/18 15:49 Intake & Output 07/11/18 07/11/18 07/12/18 06:59 18:59 06:59 Intake Total 900 Balance 900 Weight (lbs) 79.061 kg 80.059 kg Intake: Oral 900 Other: # Voids 2 4 # Bowel Movements 0 1 Stool Characteristics Soft Formed Weight Source Bedscale Bedscale - Procedures Procedures: Procedures Procedure Code Date FLUOROSCOPY OF SUP VENA CAVA USING L OSM CONTRAST, GUIDANCE [id number] 03/13/17 INSERT TUNNELED CV CATH [id number] 03/13/17 INSERTION OF INFUSION DEV INTO SUP VENA CAVA, PERC APPROACH [id number] 03/13/17 INSERTION OF VAD INTO CHEST SUBCU/FASCIA, PERC APPROACH [id number] 03/13/17 PERFORMANCE OF URINARY FILTRATION, MULTIPLE [id number] 03/13/17 REMOVAL OF INFUSION DEVICE FROM UPPER VEIN, PERC APPROACH [id number] 06/07/17 REMOVAL TUNNELED CV CATH [id number] 06/07/17 RESPIRATORY VENTILATION, 24-96 CONSECUTIVE HOURS [id number] 03/13/17 Nutritional Asmnt/Malnutr-PDOC - Dietary Evaluation Malnutrition Findings (Please click <Entered> for more info): Nutritional Asmnt/Malnutrition Start: 07/11/18 13: 56 Text: Status: Complete Freq: Protocol: Document 07/11/18 13:56 [email or web address] (Rec: 07/11/18 14:03 [email or web address] MARS) Nutritional Asmnt/Malnutrition Patient General Information Nutritional Screening Moderate Risk Diagnosis dislocation right shoulder, UTI Pertinent Medical Hx/Surgical Hx COPD, anxiety, CKD, polyneuropathy, depression, T2DM, seizure disorder, insomnia Subjective Information Pt was awake in bed at time of visit. Food preferences taken . PO intake is 25-90% per EMR. Current Diet Order/ Nutrition Support [facility] soft chopped Pertinent Medications vit C, culturelle, levofloxacin, zofran Pertinent Labs 07/11 glucose 98 18 glucose 116 1/6 alb 3.1 Nutritional Hx/Data Height 1.57 m Height (Calculated Centimeters) 157.5 Current Weight (lbs) 78.925 kg Weight (Calculated Kilograms) 78.9 Weight (Calculated Grams) [address]34.1 [place] Body Weight 110 Body Mass Index (BMI) 31.8 Weight Status Obese GI Symptoms GI Symptoms None Last BM 07/09 x6 Difficult in: None Food Allergies No Skin Integrity/Comment: rose seay 14 Current %PO Fair (50-74%) Estimated Nutritional Goals BEE in Kcals: Adj wt of IBW Calories/Kcals/Kg 25-30 Kcals Calculated 1140-6570 Protein: Adj wt of IBW Protein g/k.8-1 Protein Calculated 45-57 Fluid: ml 7084-5625 Nutritional Problem No current Nutrition Prob Problem N/A Malnutrition Alert Is there a minimum of two criteria No selected? Query Text:Check all the applicable criteria. A minimum of two criteria are recommended for diagnosis of either severe or non-severe malnutrition. Malnutrition Related to Morbid Obesity Malnutrition related to morbid obesity No Intervention/Recommendation Comments 1. Continue with [facility] soft chopped diet as ordered. 2. Monitor PO intake, wt, labs and skin integrity 3. F/U as low risk in 7 days, PO check 07/16 Expected Outcomes/Goals Expected Outcomes/Goals Goal: PO intake to meet at least 75% of nutritional needs and improved labs. Reviewed by Katey Farley RD
== END 2018-07-11 20:17 | DRG 871 ==
LOC: ER 14:31 → ICU 16:00 → TELE 07-10 01:50
PROVIDERS: ADMIT Internal Medicine; ATTEND Internal Medicine
DX: A41.9 Sepsis, unspecified organism (principal); J18.9 Pneumonia, unspecified organism; J44.0 Chronic obstructive pulmonary disease with (acute) lower respiratory infection; M24.411 Recurrent dislocation, right shoulder; N18.2 Chronic kidney disease, stage 2 (mild); L89.152 Pressure ulcer of sacral region, stage 2; E66.9 Obesity, unspecified; E11.22 Type 2 diabetes mellitus with diabetic chronic kidney disease; I12.9 Hypertensive chronic kidney disease with stage 1 through stage 4 chronic kidney disease, or unspecified chronic kidney disease; E78.5 Hyperlipidemia, unspecified; M19.90 Unspecified osteoarthritis, unspecified site; F03.90 Unspecified dementia, unspecified severity, without behavioral disturbance, psychotic disturbance, mood disturbance, and anxiety; K21.9 Gastro-esophageal reflux disease without esophagitis; F41.9 Anxiety disorder, unspecified; E11.42 Type 2 diabetes mellitus with diabetic polyneuropathy; G40.909 Epilepsy, unspecified, not intractable, without status epilepticus; Z88.0 Allergy status to penicillin; Z68.32 Body mass index [BMI] 32.0-32.9, adult
CPT/HCPCS: 36415-UA; 71045-TC; 73030-TC-LT; 73030-TC-RT; 80048-TC; 80053-TC; 81003-TC; 84443-TC; 85025-TC; 85610-TC; 85730-TC; 87070; 93005; 94760; 96374; 96375; J0696; J1885; J1956; J2270; J7030; Z7610